=== PATIENT | male | born 1930 | race Hispanic/Latino ===

== ENCOUNTER 2016-10-06 09:53 | Emergency (ER) | payer MEDICARE, OTHER ==
[~2016-10-06] VITALS: Ht 162.6 cm; Wt 70.0 kg
[~2016-10-06 09:53] MED LIST: ALBU0.423 IH; DIGO125T PO; DOXA1TAB PO; DUL10S PR; POLY1PAC PO; PROT40T PO; TOP200 PO; ZOC20 PO
[2016-10-06 10:00] VITALS: BP 113/50; PULSE 75; RESP 12; O2SAT 97
--- NOTE | 2016-10-06 10:02 | ED.REPORT ---
HPI-Chest Pain 40 and Over Date of Service Oct 06, 2016 ED Provider: Shivam Topete DO 85 year old male with a history of HTN, dyslipidemia, GERD and asthma presents to the ER via EMS with "prickling" chest pain and nausea onset at 05:00 this morning. He also reports several bouts of violent vomiting, and watery diarrhea. Symptoms are currently resolved. Patient was seen at urgent care for symptoms and referred to the ER. Nursing Notes Stated Complaint: CHEST PAIN RESOLVED Chief Complaint: Chest Pain Nursing Notes Reviewed: Yes Allergies: Coded Allergies: No Known Allergies (Unverified Allergy, 05/02/13) Scheduled Bisacodyl-Expunged Drug, Do Not Renew! (Bisacodyl-Expunged Drug, Do Not Renew!) 10 Mg Supp 10 MG MS DAILY REMOVE WRAPPER PRIOR TO INSERTION For the relief of constipation. Digoxin-Expunged Drug, Do Not Renew! (Digoxin-Expunged Drug, Do Not Renew!) 125 Mcg Tablet 125 MCG PO DAILY Doxazosin-Expunged Drug, Do Not Renew! (Doxazosin-Expunged Drug, Do Not Renew!) 1 Mg Tablet 1 MG PO HS Metoprolol Suc-Expunged Drug, Do Not Renew! (Metoprolol Suc-Expunged Drug, Do Not Renew!) 200 Mg Tab.sr.24h 200 MG PO DAILY PEG 3350-Expunged Drug, Do Not Renew! (MIRALAX-Expunged Drug, Do Not Renew!) 17 Gm/Pkt Packet 17 GM PO DAILY Pantoprazole-Expunged Drug, Do Not Renew! (Protonix-Expunged Drug, Do Not Renew! ) 40 Mg Tablet.dr 40 MG PO 0730 40 MG Simvastatin-Expunged Drug, Choose New Med! (Simvastatin-Expunged Drug, Choose New Med!) 20 Mg Tablet 40 MG PO DAILY Scheduled PRN Ondansetron ODT (Zofran ODT) 4 Mg Tablet 4 MG PO Q4H PRN PRN For Nausea Miscellaneous Medications Albuterol-Expunged Drug, Do Not Renew! (Albuterol-Expunged Drug, Do Not Renew!) 1.25 Mg/3 Ml Nebu 1.25 MG IH General Time Seen by MD: 10:02 Chief Complaint Chest pain Hx Obtained From: Patient Arrived By: Ambulance Sudden in Onset?: Yes Onset Occurred: 5 - 8 hours ago (5) Location: : Substernal Quality: Painful ("Prickling") Severity: Current: No pain currently Severity: Maximum: Moderate Associated with: Reports: Nausea, Vomiting, Denies: Cough, non-productive, Cough, productive Past Medical History Past Medical History Dyslipidemia Reports: Asthma, Cancer (Prostate), GERD, Hypertension Past Surgical History Hiatal hernia repair Reports: Appendectomy, Prostatectomy Smoking History Former Smoker Review of Systems Respiratory: Denies: Non-productive cough, Shortness of breath Cardiovascular: Reports: Chest pain GI: Reports: Diarrhea, Nausea, Vomiting, Denies: Abdominal pain, Bloody/tarry stool, Hematochezia Musculoskeletal: Denies: Back pain, Extremity pain, Neck pain Skin: Denies Diaphoresis Complete sys rev & neg: except as marked. Physical Exam Initial Vital Signs Vital Signs (First) Date Time Temp Pulse Resp B/P Pulse Ox O2 Delivery O2 Flow Rate FiO2 10/06/16 10:00 37 75 12 113/50 97 Room Air Initial VS: Reviewed Head / Eyes: Atraumatic, Normocephalic Neck: Supple, Non-tender, Full range of motion Extremities: Vascular intact, Neuro intact, No swelling, No tenderness Skin: Warm, Dry, No cyanosis Neurologic: Alert, Oriented, Nonfocal General/Constitutional: Awake, Alert, Well developed, Well nourished Respiratory / Chest: Breath sounds NL, Breath sounds = bilat, No respiratory distress, No rales, No rhonchi, No wheezing, No stridor, No chest tenderness Cardiovascular: Heart rate NL, Regular rhythm, Peripheral circulation NL, Pulses = bilaterally, No gross BP differential Heart Sounds / Murmur: Positive: Systolic murmur present.. (left lower sternal border) Abdomen: Soft, Non-tender, No guarding, No rebound, No distention Interpretation & Diagnostics Lab Results Interpretation Result Diagram: 10/06/16 1020 10/06/16 1020 Test 10/06/16 10:20 10/06/16 14:00 White Blood Count 11.1th/mm3 (3.8-10.1) Red Blood Count 4.38mil/mm3 (4.40-5.80) Hemoglobin 13.3g/dL (13.8-17.2) Hematocrit 39.3% (41.0-50.0) Mean Corpuscular Volume 89.7fL (81-100) Mean Corpuscular Hemoglobin 30.4pg (27.0-35.0) Mean Corpuscular Hemoglobin Concent 33.8% (32.0-37.0) Red Cell Distribution Width 13.1% (12.3-15.4) Platelet Count 168bil/L (150-400) Neutrophils (%) (Auto) 93.1% (40-74) Lymphocytes (%) (Auto) 2.6% (14-46) Monocytes (%) (Auto) 3.8% (4-12) Eosinophils (%) (Auto) 0.1% (0-5) Basophils (%) (Auto) 0.2% (0-3) Sodium Level 138mEq/L (134-144) Potassium Level 4.4mEq/L (3.5-5.2) Chloride Level 102mEq/L (97-108) Carbon Dioxide Level 19mmol/L (18-29) Blood Urea Nitrogen 31mg/dL (8-27) Creatinine 1.03mg/dL (0.76-1.27) Estimat Glomerular Filtration Rate 73mL/min (>59) Glucose Level 156mg/dL (60-99) Calcium Level 9.8mg/dL (8.5-10.1) Magnesium Level 1.7mg/dL (1.6-2.6) Total Bilirubin 0.6mg/dL (0.0-1.2) Aspartate Amino Transf (AST/SGOT) 28U/L (0-50) Alanine Aminotransferase (ALT/SGPT) 20U/L (0-44) Alkaline Phosphatase 67U/L (25-160) Troponin T < 0.010ug/L (0.0-0.011) Pro-B-Type Natriuretic Peptide 3380pg/mL (0-486) Total Protein 7.3g/dL (6.4-8.4) Albumin 4.1g/dL (3.4-5.0) Digoxin Level 0.8nG/mL (0.9-2.0) Hold Urine Received (Received) ECG Interpretation ECG Interpretation: Sinus rhythm, rate 74 LBBB Time: 10:30 Interpreted by: ED physician X-Ray Abdominal Interpretation IMPRESSION: Nonspecific bowel gas pattern with gaseous distention and air-fluid levels involving the stomach and small bowel. If there is clinical concern for for obstruction, then CT scan of the abdomen/pelvis should be performed for further evaluation. Dictated by: Amy Butcher MD, PhD on 10/06/2016 at 10:55 Approved by: Amy Butcher MD, PhD on 10/06/2016 at 10:55 Study: 2 view Interpretation / Wet Read by: Interpret - Radiologist CT Abd / Pelvis Interpretation IMPRESSION: Pelvic surgery, no sign of intestinal obstruction or perforation, several scattered hepatic cysts are present, along the pelvic sidewalls. Currently there is no sign of acute disease. Dictated by: James Combs M.D. on 10/06/2016 at 13:35 Approved by: James Combs M.D. on 10/06/2016 at 13:35 Study type: Abdominal CT IV contrast, Abdom CT oral contrast Interpretation / Wet Read by: Interpret - Radiologist Re-Eval/Medical Decision Med Decision/Clinical Course Overall no lice or incontinence for the patient's abdominal pain vomiting and chest pain is identified. CAT scan unremarkable. Troponin negative. BNP elevated though no true signs of heart failure. Urinalysis negative. Patient is feeling better and will be discharged. Tolerating oral intake in the ER. Return precautions given. Zofran prescribed. Source of Hx: Old records Time of Eval: 11:34 Re-Evaluation/Progress Note: Patient's daughter is now present. Discussed patient case with her and updated her on the plan of care. Time of Eval: 13:48 Re-Evaluation/Progress Note: Updated patient on the plan of care. Requested urine sample. Time of Eval: 14:14 Re-Evaluation/Progress Note: Discussed lab and radiology results with patient's daughter. Discussed plan to discharge. She understands and agrees to the plan. Return precautions given. All other questions addressed. Counseled Regarding: Diagnosis, Lab results, Need for follow-up, When/why to return to ED Discharge & Departure Primary Impression: Vomiting Disposition: Home Discharge Condition All VS Reviewed: Yes Condition: Stable Additional Instructions: Overall no life threatening cause for your vomiting was found today. It does not appear that you had a heart attack, you are not in active heart failure. You do not have a bowel obstruction or any other abdominal pathology. There is no evidence of urinary tract infection. Digoxin level was normal. Use Zofran for vomiting. Follow-up with the primary care doctor. Return to the ER or follow up with your regular doctor as needed for worsening symptoms. Referrals: Faustino Chance MD (PCP) Natty Attestation Portions of this note were transcribed by Jose David Miller. I, Dr. Topete, personally performed the history, physical exam and medical decision-making; I reviewed and confirmed the accuracy of the information in the transcribed note. Signed by: Natty Lucio, 10/06/2016 and 14:19 copies to: Faustino Chance MD, Timothy S DO Oct 06, 2016 10:02 JOSE DAVID MILLER Oct 06, 2016 10:18
[2016-10-06] MEDS ORDERED: Ondansetron 2 mg/mL 2 mL Inj IVPUSH PRN (10:10)
[2016-10-06 10:33] LABS: BASOPHILS % (AUTO) 0.2 % (0-3); EOSINOPHILS % (AUTO) 0.1 % (0-5); MONOCYTES % (AUTO) 3.8 % (4-12); Mean Corpuscular Hemoglobin 30.4 pg (27.0-35.0); Mean Corpuscular Volume 89.7 fL (81-100); NEUTROPHILS % (AUTO) 93.1 % (40-74); Platelet Count 168 bil/L (150-400)
--- NOTE | 2016-10-06 10:57 | DRSVH ---
PROCEDURE: X-RAY ACUTE ABDOMINAL SERIES ([id number]) INDICATIONS: chest pain, vomiting, h/o SBO TECHNIQUE: One view chest and two views of the abdomen were acquired. COMPARISON: [facility], CR, XR ABD ACUTE SERIES 3VW, 07/23/2015, 13:18. FINDINGS: Surgical changes and devices: None. Chest: Lungs are clear. Heart size is normal. No pleural effusions. No pneumoperitoneum. Abdomen: Bowel gas pattern is nonspecific. Gaseous distention of the stomach with internal gastric a ir-fluid level noted. Mild distention of loop of small bowel left upper quadrant is noted. Scattered air-fluid levels noted in the abdomen which do not have differential heights. No suspicious calcifica tions. Visualized solid organ contours appear normal. Surgical clips project over the lower pelvis l ikely related to prior prostatectomy/pelvic node dissection. Bones: No suspicious bony lesions. Spine degenerative disc disease and facet arthropathy are noted. IMPRESSION: Nonspecific bowel gas pattern with gaseous distention and air-fluid levels involving the stomach and small bowel. If there is clinical concern for for obstruction, then CT scan of the abdome n/pelvis should be performed for further evaluation. Dictated by: Amy Butcher MD, PhD on 10/06/2016 at 10:55 Approved by: Amy Butcher MD, PhD on 10/06/2016 at 10:55
[2016-10-06] MEDS ORDERED: Iohexol 300 mg/mL 30 mL Inj PO ONE (11:25)
[2016-10-06 11:43] LABS: Magnesium 1.7 mg/dL (1.6-2.6); TROPONIN T < 0.010 ug/L (0.0-0.011)
--- NOTE | 2016-10-06 13:37 | DRSVH ---
PROCEDURE: CT ABDOMEN AND PELVIS WITH CONTRAST ([id number]) INDICATIONS: vomiting ho SBO TECHNIQUE: After the administration of oral and intravenous contrast, 5 mm thick sections acquired from the diap hragms to the symphysis. 5 mm thick coronal and sagittal reformats were performed. For radiation do se reduction, the following was used: automated exposure control, adjustment of mA and/or kV accordi ng to patient size. COMPARISON: [facility], CT, ABD/PELVIS W/CON (PNL), 05/02/2013, 9:02. [facility], CT, CT ABD PELVIS W CON, 10/06/2015, 17:26. FINDINGS: Image quality: Excellent. ABDOMEN: Lung bases: Lung bases are clear. Heart size is normal. Solid organs: Liver and spleen are normal in size and enhancement. Several small hepatic cysts are present, no hepatic mass lesion or intrahepatic biliary distention is found. Gallbladder appears nor mal. Biliary system is non-dilated. Pancreas enhances normally. No adrenal nodules. Kidneys are n ormal in size and enhancement, without hydronephrosis. Peritoneum and bowel: Stomach, small bowel, and colon loops are normal in caliber and wall thickness . No free fluid or air. Nodes and vessels: No retroperitoneal or mesenteric adenopathy. Aorta and inferior vena cava are no rmal in caliber. Miscellaneous: No ventral hernias. PELVIS: Genitourinary: Bladder wall thickness is normal. Miscellaneous: No inguinal hernias or adenopathy. Pelvic sidewall surgical clips are noted bilatera lly. No adenopathy or inflammatory change is associated. Bones: No suspicious bony lesions. No vertebral body compression fractures. IMPRESSION: Pelvic surgery, no sign of intestinal obstruction or perforation, several scattered hepat ic cysts are present, along the pelvic sidewalls. Currently there is no sign of acute disease. Dictated by: James Combs M.D. on 10/06/2016 at 13:35 Approved by: James Combs M.D. on 10/06/2016 at 13:35
[2016-10-06] MEDS ORDERED: ONDA4TAB9 PO (14:17)
[2016-10-06 14:34] VITALS: BP 116/70; PULSE 68; RESP 12; O2SAT 98
== END 2016-10-06 14:38 | disposition home or self-care (01) ==
LOC: EDBD 09:53 → SED 09:53
DX: K76.89 Other specified diseases of liver (principal); K31.89 Other diseases of stomach and duodenum; R11.2 Nausea with vomiting, unspecified; R07.9 Chest pain, unspecified; R19.7 Diarrhea, unspecified; I10 Essential (primary) hypertension; E78.5 Hyperlipidemia, unspecified; K21.9 Gastro-esophageal reflux disease without esophagitis; J45.909 Unspecified asthma, uncomplicated; Z85.46 Personal history of malignant neoplasm of prostate; Z87.891 Personal history of nicotine dependence
CPT/HCPCS: 36415; 74022; 74177; 80053; 80162; 83735; 83880; 84484; 85025; 93005; 99285; A4300; G0463; Q9967

== ENCOUNTER 2017-01-16 08:26 | Inpatient (IN) | payer MEDICARE ==
[~2017-01-16] VITALS: Ht 171.4 cm; Wt 61.4 kg
[2017-01-16] VITALS (10 sets, daily range): BP systolic 112–140; BP diastolic 49–96; PULSE 52–129; RESP 18–30; O2SAT 92–99
[~2017-01-16 08:26] MED LIST changes: +ONDA4TAB9 PO
--- NOTE | 2017-01-16 08:57 | ED.REPORT ---
HPI-Dyspnea / Wheezing Date of Service January 16, 2017 ED Provider: Octavio Irizarry MD 86 year old male who is a former smoker with a history of asthma, emphysema, atrial fibrillation, and HTN presents to the ER via EMS complaining of shortness of breath and cough onset yesterday. He also reports left side rib pain, and chest pressure with onset of pain. Patient denies fever, chest pain, production of sputum with cough, nausea, vomiting, and any recent falls. Medics report 86% O2 saturation on room air, and 92-96% on O2. Currently he states that he is not on anticoagulants. Nursing Notes Stated Complaint: SOB W/COUGH Chief Complaint: Respiratory Complaints Nursing Notes Reviewed: Yes Allergies: Coded Allergies: No Known Allergies (Unverified Allergy, Unknown, 10/13/16) Scheduled Cholecalciferol (Vitamin D3) (Vitamin D3) 1,000 Unit Tab.chew 2,000 UNIT PO DAILY Digoxin (Digoxin) 125 Mcg Tablet 125 MCG PO DAILY Doxazosin (Cardura) 1 Mg Tablet 1 MG PO HS Ferrous Sulfate (Iron) 325 Mg Tablet 325 MG PO BID Metoprolol Succinate ER (Metoprolol Succinate ER) 200 Mg Tab.er.24h 200 MG PO DAILY Simvastatin (Simvastatin) 40 Mg Tablet 40 MG PO HS Scheduled PRN Bisacodyl (Bisacodyl Rectal) 10 Mg/30 Ml Enema 10 MG RC PRN PRN PRN For Constipation Ondansetron ODT (Zofran ODT) 4 Mg Tablet 4 MG PO Q4H PRN PRN For Nausea Miscellaneous Medications Polyethylene Glycol 3350 (Miralax) 17 Gm Powd.pack 17 GM PO General Time Seen by MD: 08:51 Chief Complaint Cough, Shortness of breath Hx Obtained From: Patient Arrived By: Ambulance Sudden in Onset?: No Onset Occurred: Yesterday Symptom Duration: Since onset Associated with: Denies: Chest pain, Fever, Nausea, Vomiting Pertinent Negative: Pt denies other symptoms Context Related History: Reports: COPD Asthma History: Asthma diagnosed Similar Sx Previous: Yes Past Medical History Past Medical History Dyslipidemia Reports: Asthma, COPD, Cancer, GERD, Hypertension Reports: Atrial fibrillation Past Surgical History Hiatal hernia repair Reports: Appendectomy, Prostatectomy Smoking History Former Smoker Review of Systems Constitutional: Denies: Chills, Fever Respiratory: Reports: Non-productive cough, Shortness of breath Cardiovascular: Denies: Chest pain Musculoskeletal: Reports: Thoracic pain (Left Rib), Denies: Back pain, Extremity pain, Neck pain Complete sys rev & neg: except as marked. GI: Denies: Abdominal pain, Diarrhea, Nausea, Vomiting Physical Exam Initial Vital Signs Vital Signs (First) Date Time Temp Pulse Resp B/P Pulse Ox O2 Delivery O2 Flow Rate FiO2 01/16/17 08:49 36.2 100 22 130/96 99 Nasal Cannula 2 Initial VS: Reviewed Head / Eyes: Atraumatic, Normocephalic Abdomen / GI: Soft, Non-tender, No guarding, No rebound, No distention Extremities: Vascular intact, Neuro intact, No swelling, No tenderness Skin: Warm, Dry, No cyanosis Neurologic: Alert, Oriented, Nonfocal Psychiatric: Mood/affect normal, Behavior normal, Normal thought content General/Constitutional: Awake, Alert, Well developed Neck: Atraumatic, Supple, No meningismus, Full range of motion, No swelling, Non-tender, No masses Respiratory / Chest: No wheezing, No chest wall deformity Bibasilar crackles. Tender left lower rib cage. Cardiovascular: No gallop, No murmurs, No rubs Heart Rate / Rhythm: Positive: Irregular rhythm Back: Inspection NL, Non-tender, No CVA tenderness Interpretation & Diagnostics Lab Results Interpretation Result Diagram: 01/16/17 0947 01/16/17 0947 Test 01/16/17 09:47 01/16/17 13:00 White Blood Count 9.8th/mm3 (3.8-10.1) Red Blood Count 4.35mil/mm3 (4.40-5.80) Hemoglobin 13.3g/dL (13.8-17.2) Hematocrit 40.3% (41.0-50.0) Mean Corpuscular Volume 92.6fL (81-100) Mean Corpuscular Hemoglobin 30.6pg (27.0-35.0) Mean Corpuscular Hemoglobin Concent 33.0% (32.0-37.0) Red Cell Distribution Width 13.8% (12.3-15.4) Platelet Count 152bil/L (150-400) Neutrophils (%) (Auto) 73.3% (40-74) Lymphocytes (%) (Auto) 14.6% (14-46) Monocytes (%) (Auto) 10.4% (4-12) Eosinophils (%) (Auto) 1.1% (0-5) Basophils (%) (Auto) 0.4% (0-3) D-Dimer 1.57mg/L FEU (<0.50) Sodium Level 133mEq/L (134-144) Potassium Level 4.9mEq/L (3.5-5.2) Chloride Level 97mEq/L (97-108) Carbon Dioxide Level 23mmol/L (18-29) Blood Urea Nitrogen 27mg/dL (8-27) Creatinine 1.22mg/dL (0.76-1.27) Estimat Glomerular Filtration Rate 60mL/min (>59) Glucose Level 119mg/dL (60-99) Calcium Level 9.7mg/dL (8.5-10.1) Total Bilirubin 0.8mg/dL (0.0-1.2) Aspartate Amino Transf (AST/SGOT) 38U/L (0-50) Alanine Aminotransferase (ALT/SGPT) 39U/L (0-44) Alkaline Phosphatase 82U/L (25-160) Troponin T 0.015ug/L (0.0-0.011) Pro-B-Type Natriuretic Peptide 8359pg/mL (0-486) Total Protein 7.4g/dL (6.4-8.4) Albumin 4.4g/dL (3.4-5.0) Urine Color Yellow (YELLOW) Urine Appearance Hazy (CLEAR,HAZY) Urine pH 6.0 (5.0-8.0) Urine Specific [place] 1.005 (1.003-1.035) Urine Protein Negativemg/dL (NEG,TRACE) Urine Glucose (UA) Negativemg/dL (NEGATIVE) Urine Ketones Negativemg/dL (NEGATIVE) Urine Occult Blood Negative (NEGATIVE) Urine Nitrite Negative (NEGATIVE) Urine Bilirubin Negative (NEGATIVE) Urine Urobilinogen Normalmg/dL (NORMAL) Urine Leukocyte Esterase Negative (NEGATIVE) Urine RBC 0-2/hpf (0-2) Urine WBC 0-5/hpf (0-5) Urine Epithelial Cells Occasional/hpf (NONE-MOD) Urine Crystals None seen (NONE SEEN) Urine Bacteria None/hpf (NONE-FEW) Urine Hyaline Casts None/lpf (NONE) Urine Granular Casts None seen (NONE SEEN) Urine Waxy Casts None seen (NONE SEEN) Urine Red Blood Cell Casts None seen (NONE SEEN) Urine White Blood Cell Casts None seen (NONE SEEN) Urine Mucus None seen (None Seen) Urine Trichomonas None seen (NONE SEEN) Urine Yeast None (NONE SEEN) Urinalysis Comment None Urine Culture Reflexed Not indicated ECG Interpretation ECG Interpretation: Atrial fibrillation, rate 83 LBBB Unchanged from prior Time: 09:26 Interpreted by: ED physician ECG Interpretation: Atrial fibrillation, rate 128 LBBB Unchanged from prior Time: 13:49 Interpreted by: ED physician X-Ray Chest Interpretation Chest Xray Interpretation: IMPRESSION: Patchy bilateral airspace disease is most suspicious for pneumonia. Atypical pulmonary edema may have this appearance, as well. Dictated by: Carmine Watson M.D. on 01/16/2017 at 8:22 Approved by: Carmine Watson M.D. on 01/16/2017 at 8:23 View: Portable, 1 view Interpretation / Wet Read by: Interpret - Radiologist CT Chest Interpretation IMPRESSION: 1. No pulmonary emboli. 2. Patchy areas of groundglass attenuation and bronchial wall thickening are suspicious for bronchitis with developing pneumonia (right more than left). 3. Small moderate-sized bilateral effusions. 4. Cardiomegaly with findings suspicious for developing pulmonary edema. Please correlate clinically. Dictated by: Carmine Watson M.D. on 01/16/2017 at 11:35 Approved by: Carmine Watson M.D. on 01/16/2017 at 11:42 Study type: CT pulm angiogram Interpretation / Wet Read by: Interpret - Radiologist Re-Eval/Medical Decision Med Decision/Clinical Course 86-year-old male history of COPD presenting with dyspnea times several days. Questionable vague chest pain that he initially reported last night but then reported it was [address] angiogram with bibasilar pneumonia and no PE. BNP is elevated. Troponins are mildly elevated. EKG with atrial fibrillation. Patient admitted for pneumonia, ACS rule out. As he was awaiting transfer he went into atrial fibrillation with RVR which resolved with diltiazem 20 mg IV push. Heart rate was 50s at time of transfer. Patient was given aspirin for his troponinemia and we will trend troponins and EKG. Source of Hx: Old records Re-Evaluation/Progress : Time of Eval: 13:15 Re-Evaluation/Progress Note: Discussed lab and imaging results and need for admission. Patient is amenable to the plan. Return precautions given. All other questions addressed. Consultation : Referral / Consult Name: Abdirahman Ram Consulted With: Hospitalist Call Returned at: 13:41 Billing And Quality Technician: Agrees with eval, Agrees with plan, Accepts admit Counseled Regarding: Diagnosis, Lab results, Need for admission Discharge & Departure Impression: Primary Impression: Pneumonia Additional Impressions: Elevated troponin Tachycardia Atrial fibrillation with rapid ventricular response Disposition: ADMITTED TO HOSPITAL Discharge Condition All VS Reviewed: Yes Condition: Stable Referrals: NOPCP (PCP) Crit Care Except Billable Proc Time Spent: 30-74 minutes (42) Services Performed: Patient management by me, Time spent at bedside, Reviewing test results, Reviewing imaging, Discussing patient care, Documentation in record Scribe Attestation Portions of this note were transcribed by Jose David Miller. I, Dr. Irizarry, personally performed the history, physical exam and medical decision-making; I reviewed and confirmed the accuracy of the information in the transcribed note. Signed by: Natty Lucio, 01/16/2017 at 14:26 Octavio Irizarry MD January 16, 2017 08:57 JOSE DAVID MILLER January 16, 2017 09:05
--- NOTE | 2017-01-16 09:25 | DRSVH ---
PROCEDURE: X-RAY CHEST ONE VIEW, PORTABLE ([id number]) INDICATIONS: sob TECHNIQUE: One view of the chest was acquired. COMPARISON: [facility], CR, XR ABD ACUTE SERIES 3VW, 10/06/2016, 10:38[facility] ([facility]), 05/04/2013, 11:40. FINDINGS: Surgical changes and devices: None. Lungs and pleura: Patchy airspace disease is present within the mid right and left lungs. No lobar c onsolidation, large effusion, or definite pneumothorax is evident. Slight blunting of the right cost ophrenic angle may represent scarring. Mediastinum: Mediastinal contours appear normal. Heart size is borderline enlarged. There is aorti c atherosclerosis. Bones and chest wall: No suspicious bony lesions. Overlying soft tissues appear unremarkable. IMPRESSION: Patchy bilateral airspace disease is most suspicious for pneumonia. Atypical pulmonary e yoselin may have this appearance, as well. Dictated by: Carmine Watson M.D. on 01/16/2017 at 8:22 Approved by: Carmine Watson M.D. on 01/16/2017 at 8:23
[2017-01-16 10:02] LABS: BASOPHILS % (AUTO) 0.4 % (0-3); EOSINOPHILS % (AUTO) 1.1 % (0-5); MONOCYTES % (AUTO) 10.4 % (4-12); Mean Corpuscular Hemoglobin 30.6 pg (27.0-35.0); Mean Corpuscular Volume 92.6 fL (81-100); NEUTROPHILS % (AUTO) 73.3 % (40-74); Platelet Count 152 bil/L (150-400)
[2017-01-16 10:38] LABS: TROPONIN T 0.015 ug/L (0.0-0.011)
--- NOTE | 2017-01-16 12:43 | DRSVH ---
PROCEDURE: CT ANGIO CHEST PULMONARY EMBOLISM ([id number]) INDICATIONS: dyspnea elevated ddimer r/o pe TECHNIQUE: After the administration of intravenous contrast, 2 mm thick sections acquired from the pulmonary api sherri to the posterior costophrenic angles. 3-dimensional maximum intensity projection (MIP) coronal a nd sagittal reformats were then acquired through the thorax. For radiation dose reduction, the follo wing was used: automated exposure control, adjustment of mA and/or kV according to patient size. COMPARISON: None. FINDINGS: Image quality: Diagnostic. Pulmonary arteries: Pulmonary arteries are normal in size, and demonstrate no intraluminal filling d efects to suggest central pulmonary embolism. Lungs and pleura: There may be early centrilobular emphysematous changes within the lung apices. Are as of intralobular septal thickening are noted within the lung apices. Moderate bronchial wall thick ening is present within the perihilar regions, which is more prominent within the infrahilar regions (right greater than left). There is groundglass density identified within the lateral right upper lo be (image 55, series 4). Additional areas of vague ground glass attenuation within the lung bases ma y be related to atelectasis. Interlobular septal thickening within the lung bases is present. There are small to moderate-sized bilateral pleural effusions (right greater than left). There is no lung mass. Evaluation for pulmonary nodules is difficult on this examination. However, no definite lung nodule is appreciated. Mediastinum: Heart size is enlarged, without pericardial effusion. No mediastinal or hilar adenopat hy. Thoracic aorta is normal in caliber and enhancement. Esophagus is normal in caliber, without hi atal hernia. Bones and chest wall: No suspicious bony lesions. Ribs and thoracic spine appear intact throughout. Multilevel degenerative changes of the spine are present. Several impacted teeth within the midlin e mandible are incidentally noted. Mild right maxillary sinus disease is incidentally noted. Thyroi d gland is not adequately evaluated. No axillary or supraclavicular adenopathy. Abdomen: Contrast extending into the liver may be related to reflux from right heart failure. There may be a few right hepatic cysts. There appears to be splenic flexure diverticulosis. Questionable edema within the upper abdomen may be present. IMPRESSION: 1. No pulmonary emboli. 2. Patchy areas of groundglass attenuation and bronchial wall thickening are suspicious for bronchit is with developing pneumonia (right more than left). 3. Small moderate-sized bilateral effusions. 4. Cardiomegaly with findings suspicious for developing pulmonary edema. Please correlate clinicall y. Dictated by: Carmine Watson M.D. on 01/16/2017 at 11:35 Approved by: Carmine Watson M.D. on 01/16/2017 at 11:42
[2017-01-16] MEDS ORDERED: CHOL10008 PO (13:02)
[2017-01-16] MEDS ORDERED: FERR325T39 PO (13:02)
[2017-01-16] MEDS ORDERED: METO200T32 PO (13:05)
[2017-01-16] MEDS ORDERED: BISA10EN RC (13:05)
[2017-01-16] MEDS ORDERED: SIMV40TA5 PO (13:05)
[2017-01-16] MEDS ORDERED: POLY17PO6 PO (13:05)
[2017-01-16] MEDS ORDERED: DIGO125T73 PO (13:05)
[2017-01-16] MEDS ORDERED: DOXA1TAB PO (13:05)
[2017-01-16] MEDS ORDERED: Azithromycin Inj 500 MG in Dextrose 5% 250 ML IV ONE (13:05)
[2017-01-16] MEDS ORDERED: cefTRIAXone Inj 2,000 MG in Dextrose 5% Minibag Plus 50 ML IV ONE (13:05)
[2017-01-16 13:26] LABS: APPEARANCE,URINE HAZY (CLEAR,HAZY); COLOR,URINE YELLOW (YELLOW); OCCULT BLOOD,URINE NEGATIVE (NEGATIVE); UROBILINOGEN,URINE NORMAL (NORMAL)
[2017-01-16] MEDS ORDERED: Ondansetron 2 mg/mL 2 mL Inj IVPUSH PRN (13:45)
[2017-01-16] MEDS ORDERED: Alum-Mag Hydrox-Simeth 30 mL Suspension PO PRN (13:45)
[2017-01-16] MEDS ORDERED: Polyethylene Glycol (PEG) 17 Gm Powder PO PRN (13:45)
[2017-01-16] MEDS ORDERED: Furosemide 10 mg/mL 4 mL Inj IVPUSH ONE (13:50)
[2017-01-16] MEDS ORDERED: Diltiazem 5 mg/mL 5 mL Inj ONE (14:21)
[2017-01-16] MEDS ORDERED: Diltiazem 5 mg/mL 5 mL Inj IVPUSH ONE (14:25)
--- NOTE | 2017-01-16 15:13 | PCM.HPMED ---
Subjective Date of Service January 16, 2017 Primary Provider: Admitting Physician: Abdirahman Ram DO [facility] Attending Physician: Abdirahman Ram DO Chief Complaint: Worsening shortness of breath History of Present Illness: 86 yo M with pmhx of asthma, emphysema , tobacco dependence, atrial fibrillation (not on anticoagulation therapy) , in addition to HTN, presenting to ER from adult home via EMS due to shortness of breath starting yesterday and worsening progressively through today. He notes some chest pressure and rib pain in ER, but with was relieved with a pill they gave him, not presento n my exam. He denies fareed of frnak chest pain, also denies sensation of palpiations. He notes a cough, more chronic in nature, but generally not productive. He denies nausea/vomting. Denies recent fareed of fever/chills. Review of Systems: 10 point review of systems was conducted and entirely negative excepting pertinent positives and negatives included in above history of present illness Allergies Coded Allergies: No Known Allergies (Unverified Allergy, Unknown, 10/13/16) Home Medications Cholecalciferol (Vitamin D3) (Vitamin D3) 1,000 Unit Tab.chew 2,000 UNIT PO DAILY Digoxin (Digoxin) 125 Mcg Tablet 125 MCG PO DAILY Doxazosin (Cardura) 1 Mg Tablet 1 MG PO HS Ferrous Sulfate (Iron) 325 Mg Tablet 325 MG PO BID Metoprolol Succinate ER (Metoprolol Succinate ER) 200 Mg Tab.er.24h 200 MG PO DAILY Simvastatin (Simvastatin) 40 Mg Tablet 40 MG PO HS Scheduled PRN Bisacodyl (Bisacodyl Rectal) 10 Mg/30 Ml Enema 10 MG RC PRN PRN PRN For Constipation Ondansetron ODT (Zofran ODT) 4 Mg Tablet 4 MG PO Q4H PRN PRN For Nausea PMH Dyslipidemia Asthma, COPD, Cancer, GERD, Hypertension Atrial fibrillation Surgical History Hiatal hernia repair Appendectomy Prostatectomy Social History Hx Alcohol Use: No Hx Substance Use: No Hx Tobacco Use: No Smoking Status: Former Smoker Exam Vital Signs Vital Sign - Last Date Time Temp Pulse Resp B/P Pulse Ox O2 Delivery O2 Flow Rate FiO2 01/16/17 14:03 37.3 129 18 131/85 92 Nasal Cannula 1 General: Alert, Oriented X3, Cooperative, Mild Distress Eyes: EOMI Mouth: Mucous Membr Moist/[place] Chest & Lungs: Clear to auscultation & percussion, Coarse breath sounds Cardiovascular: Other (Regular rate with irregular rhythm. ) Abdomen: Non-tender, Non-distended Extremities: No cyanosis/clubbing/edma bilat Neurological: Grossly Neurologically Intact Lab and Diagnostics Result Diagram: 01/16/17 0947 01/16/17 0947 Assessment & Plan 86-year-old male past medical history significant for atrophic fibrillation and chronic lung disease presenting now with evidence of pneumonia in addition to possible CHF exacerbation. Patient's atrial fibrillation, which he is not anticoagulant for but is typically under good rate control is in acute state of rapid ventricular rate which has responded well to diltiazem therapy. Patient arrived to the floor in stable medical condition with a guarded prognosis admitted for further evaluation and medical management. 1. Community-acquired pneumonia - Patient was placed on appropriate antibiotics - Blood cultures are currently pending - We will refrain from aggressive intravenous hydration in the setting of possible congestive heart failure exacerbation 2. Atrial fibrillation with RVR - Patient is reportedly rate controlled on home dose of metoprolol, no recent episodes of RVR reported - Bili was initially in good control during ER evaluation nearing time of transfer to floor he became acutely elevated in the 140s prompting one-time administration of diltiazem - Rate responded promptly drop into within normal limits following this administration, - Plan to continue home metoprolol current dosage, will consider additional therapies based on pulse rate - We will continue to monitor on continuous telemetry. - Echocardiogram pending to assess cardiac function 3. CHF exacerbation - Based on radiographic findings in addition elevated BNP is likely that this is at least contribute exam the patient's declining status - Echocardiogram as noted above is ordered and pending - He was provided a one-time dosage of Lasix in ER will continue to monitor ins and outs closely, consider further dosing as appropriate however in the setting acute infection we will do so with caution. Pain Evaluation: Adequate Pain Control GI Prophylaxis: Not indicated VTE Prophylaxis: Sub-Q Heparin (Unfractionated) Resuscitation Status: CPR: Attempt Resuscitation Abdirahman Ram DO January 16, 2017 15:13 Abdirahman Ram DO January 16, 2017 15:13
[2017-01-16] MEDS: Heparin 5,000 Unit/mL Inj SUBQ SCH (17:50)
--- NOTE | 2017-01-16 17:52 | DRSVH ---
[facility] [address] [place] [address] Echocardiogram Report Name: JANE LOPEZ RStudy Date : 01/16/2017 Height: 66 in Hospital Exam Location: [facility] Weight: 145 lb Gender: Male BSA: 1.7 m2 : 1930 Age: 86 yrs BP: 105/52 mmHg Reason For Study: Congestive Heart Failure Ordering Physician: Performed By: [facility] Interpretation Summary The left ventricle is severely dilated. The ejection fraction is estimated to be 15-20%. There is severe global hypokinesis of the left ventricle. There is severe biatrial enlargement. There is moderate mitral regurgitation. There is moderate tricuspid regurgitation. The right ventricular systolic pressure is estimated at 43 mmHg assuming a right atrial pressure of 8 mm Hg. Procedure: A two-dimensional transthoracic echocardiogram with color flow and Doppler was performed. The study quality was technically good. There is no prior echocardiogram noted for this patient. The patient was in atrial fibrillation with heart rates between 63-75 bpm during the exam. Left Ventricle: The left ventricle is severely dilated. There is normal left ventricular wall thickness. There is no thrombus. The ejection fraction is estimated to be 15-20%. There is severe global hypokinesis of the left ventricle. Diastolic function could not be accurately assessed due to atrial fibrillation. Right Ventricle: The right ventricle grossly appears normal in size with probable normal systolic function. Atria: The left atrium is severely dilated. There is severe biatrial enlargement. The right atrium is severely dilated. The interatrial septum is intact with no evidence for an atrial septal defect. Mitral Valve: The mitral valve leaflets appear mildly thickened, but open well. There is moderate mitral regurgitation. Aortic Valve: The aortic valve is trileaflet. The aortic valve opens well. The aortic valve is slightly calcified. No aortic regurgitation is present. Tricuspid Valve: The tricuspid valve leaflets are thin and pliable. There is moderate tricuspid regurgitation. The right ventricular systolic pressure is estimated at 43 mmHg assuming a right atrial pressure of 8 mm Hg. Pulmonic Valve: The pulmonic valve is normal in structure and function. There is trace pulmonic regurgitation. Great Vessels: The aortic Sinus(es) of Valsalva are mildly dilated. The ascending aorta is normal in size. The IVC is dilated (diameter is greater than 2.1 cm) yet it collapses greater than 50% with a sniff. This suggests a right atrial pressure of 8 mm Hg. Pericardium/ Pleura There is no pericardial effusion. There is no pleural effusion. MMode/2D Measurements & Calculations LVIDd: 6.9 cm LA dimension: 4.1 cm RA long axis LVOT diam LVIDs: 6.6 cm FS: 4.9 % LA A2 area: 26.3 cm RA area AoV Opening EPSS: 2.6 cm LA A4 area: 34.9 cm IVSd: 0.62 cm LA length (vol): 6.9 cm: 28.3 cm Ao root diam LVPWd: 0.59 cm LA vol: 112.6 ml RA vol LA vol index : 105.ml Aortic Jxn RA : 60.5 mm/ asc Aorta IVC diam: 2.0 cm RVDd major Diam: 3.2 cm : 6.9 cm LV allen. diameter/BSA LV sys. diameter/BSA RVD1 (basal) RVD2 (mid) (cm/m^2): 4.0 (cm/m^2): 3.8 : 2.9 cm Doppler Measurements & Calculations Ao V2 max MV E max radha MV E/A: 4.2 TR max radha : 94.8 cm/sec : 107.8 cm/sec MV A dur : 295.3 cm/sec Ao max PG MV A max radha : 0.10 sec TR max PG : 3.6 mmHg : 25.4 cm/sec : 35.0 mmHg Ao mean PG MV P1/2t: 50.4 msec PA V2 max : 1.9 mmHg MR ERO: 0.24 cm2 : 69.3 cm/sec PA mean PG : 0.74 mmHg PA Accel Time : 0.10 sec MV dec time MV P1/2t max radha Ao V2 mean MR flow rate : 0.17 sec : 65.7 cm/sec : 82.8 cm3/sec MVA(P1/2t): 4.4 cm2 Ao V2 VTI MR PISA radius : 16.3 cm PA V2 mean : 39.0 cm/sec PA pr(Accel) : 36.6 mmHg Electronically signed by: Conrado Lala on Reading Physician:01/16/2017 05:50 PM
[2017-01-17] VITALS (7 sets, daily range): BP systolic 102–129; BP diastolic 55–70; PULSE 65–97; RESP 18–22; O2SAT 93–97
[2017-01-17] MEDS: Heparin 5,000 Unit/mL Inj SUBQ SCH ×3 (01:15→16:15)
[2017-01-17] MEDS: MeTOProlol XL 50 mg ER24 Tablet PO SCH (08:31)
[2017-01-17 08:52] LABS: BASOPHILS % (AUTO) 0.4 % (0-3); EOSINOPHILS % (AUTO) 1.2 % (0-5); MONOCYTES % (AUTO) 11.4 % (4-12); Mean Corpuscular Hemoglobin 30.6 pg (27.0-35.0); Mean Corpuscular Volume 89.2 fL (81-100); Platelet Count 153 bil/L (150-400)
--- NOTE | 2017-01-17 09:17 | PCM.PNMED ---
Subjective Date of Service January 17, 2017 Subjective Patient notes feeling much improved since his admission yesterday. Breathing is greatly improved his not any fever chills sweats or other. Appetite is good using posterior beginning of our conversation. Denies any swelling of the legs he has not been suffering from cough overnight. He slept very well denies any other acute complaints or concerns at this time. Exam Vital Signs Vital Sign - Last Date Time Temp Pulse Resp B/P Pulse Ox O2 Delivery O2 Flow Rate FiO2 01/17/17 08:33 96 01/17/17 05:43 37.1 20 129/63 96 Room Air 01/17/17 01:01 0.50 Intake and Output 01/16/17 01/16/17 01/17/17 Cumulative From/Thru 15:00 23:00 07:00 01/16/17 08:49 - 01/17/17 06:24 Intake Total 336 ml 400 ml 736 ml Output Total 2250 ml 2250 ml Balance 336 ml -1850 ml -1514 ml Intake Oral 336 ml 400 ml 736 ml Output Urine Total 2250 ml 2250 ml # Voids 2 2 # Bowel Movements 2 0 2 Exam General: Alert, Oriented X3, Cooperative, Mild Distress Eyes: EOMI Mouth: Mucous Membranes Moist/Man Chest & Lungs: Clear to auscultation & percussion, Coarse breath sounds Cardiovascular: Rate of ~100bpm with irregular rhythm. Abdomen: Non-tender, Non-distended Extremities: No cyanosis/clubbing/edema bilat Neurological: Grossly Neurologically Intact IVs and Medications Medications Reviewed: Medications were reviewed in detail Lab and Diagnostics Result Diagram: 01/17/17 0815 01/16/17 0947 Assessment & Plan 86-year-old male past medical history significant for atrophic fibrillation and chronic lung disease presenting now with evidence of pneumonia in addition to possible CHF exacerbation. Patient's atrial fibrillation, which he is not anticoagulant for but is typically under good rate control is in acute state of rapid ventricular rate which has responded well to diltiazem therapy. Patient arrived to the floor in stable medical condition with a guarded prognosis admitted for further evaluation and medical management. 1. Community-acquired pneumonia - Patient was placed on appropriate antibiotics - Blood cultures are currently pending - We will refrain from aggressive intravenous hydration in the setting of possible congestive heart failure exacerbation 2. Atrial fibrillation with RVR - Patient is reportedly rate controlled on home dose of metoprolol, no recent episodes of RVR reported - Bili was initially in good control during ER evaluation nearing time of transfer to floor he became acutely elevated in the 140s prompting one-time administration of diltiazem - Rate responded promptly drop into within normal limits following this administration, - Plan to continue home metoprolol current dosage, will consider additional therapies based on pulse rate. - He did demonstrate elevation of this earlier today which seems to have responded to his morning dose of metoprolol - We will continue to monitor on continuous telemetry. - Echocardiogram demonstrates severe dilated cardiomyopathy with reduced ejection fraction of 15-20%. Given this new diagnosis I have reached out to cardiology for further consultation and recommendations on further management. 3. 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 - Echo confirmed diagnosis with ejection fraction of 15-20% and severe dilation of left ventricle - We will continue Lasix at this time 40 mg IV daily and await cardiology recommendations. Pain Evaluation: Adequate Pain Control GI Prophylaxis: Not indicated VTE Prophylaxis: Sub-Q Heparin (Unfractionated) Resuscitation Status: CPR: Attempt Resuscitation Time spent 30 minutes Abdirahman Ram DO January 17, 2017 09:17
[2017-01-17] MEDS: Furosemide 10 mg/mL 4 mL Inj IVPUSH SCH (10:39)
[2017-01-17] MEDS ORDERED: 0.9% Sodium Chloride 250 ML ONE (10:56)
[2017-01-17] MEDS: cefTRIAXone Inj 1,000 MG in Dextrose 5% Minibag Plus 50 ML IV SCH (11:05)
[2017-01-18] VITALS (9 sets, daily range): BP systolic 112–133; BP diastolic 57–80; PULSE 58–135; RESP 18–19; O2SAT 94–99
[2017-01-18] MEDS: Heparin 5,000 Unit/mL Inj SUBQ SCH ×3 (00:24→15:41)
--- NOTE | 2017-01-18 06:50 | CONS ---
[address] [address] CONSULTATION REPORT PATIENT: JANE LOPEZ : 1930 MR#: [id number] ADMIT: 01/16/2017 JOB ID: [id number] DATE OF SERVICE: 01/17/2017 REQUESTING PHYSICIAN: Abdirahman Ram MD REASON FOR EVALUATION: Atrial fibrillation. HISTORY: The patient is an 86-year-old male with known coronary artery disease. He had cardiac catheterization performed on April 21, 1999 in [place], which demonstrated chronic occlusion of the right coronary artery with excellent collateral filling from the circumflex and left anterior descending artery system. The left anterior descending artery was normal. The codominant circumflex artery has no significant disease. His left ventricular ejection fraction was 45% at that time with inferior hypokinesis. He has chronic left bundle branch block since 1998. He has not seen any dry man for over 10 years. Echocardiogram in November 2008 showed ejection fraction of 20% to 30% with mild mitral regurgitation. The patient was hospitalized yesterday with pneumonia. Echocardiogram on January 16, 2017 shows severely dilated left ventricle with ejection fraction 15% to 20%. Severe global hypokinesis of the left ventricle. Severe biatrial enlargement. Moderate mitral regurgitation. Moderate tricuspid regurgitation. The patient was also found to be in atrial fibrillation. Left bundle branch block. Cardiology consultation was then obtained. He lives alone in an apartment in [place]. He usually walks around. The patient fell down in the past. He denies orthopnea, PND, or syncope. He denies chest discomfort or claudication. PAST MEDICAL HISTORY: 1. Cardiac history as outlined above. 2. History of hypertension. 3. Hyperlipidemia. 4. Prostate cancer with radical prostatectomy. 5. Significant neck injury with resultant spinal fusion. HOME MEDICATIONS: 1. Vitamin D 2000 units daily. 2. Digoxin 0.125 mg daily. 3. Doxazosin 1 mg h.s. 4. Ferrous sulfate 325 mg b.i.d. 5. Metoprolol succinate 200 mg daily. 6. Simvastatin 40 mg h.s. ALLERGIES: No known allergies. SOCIAL HISTORY: As note above. The patient lives by himself in his apartment. His daughter and granddaughter live locally. The patient started smoking when he was 16. He quit smoking in 1988. He quit drinking a long time ago. FAMILY HISTORY: His mother from pneumonia. Father from diabetes and congestive heart failure. REVIEW OF SYSTEMS: All 10 systems are reviewed and noncontributory. PHYSICAL EXAMINATION: Reveals a pleasant, elderly man appearing in no acute distress. Temperature is 36.6, blood pressure is 106/65, pulse 75. Body weight is 63.7 kg. Head and face have normal configuration. Anicteric sclerae. Moist mucosa. Missing teeth. Neck is supple. No jugular venous distention or carotid bruits. Chest normal expansion. Lungs are clear to auscultation. Heart: The first heart sound is variable. Second heart sound is normal. Grade 1/6 holosystolic murmur at the apex and left lower sternal border. Extremities: No clubbing, cyanosis, or edema. Neurologic: Grossly intact. LABS: Blood test on 01/17/2017 showed hemoglobin 13.9, sodium 138, potassium 4.1, BUN 26, creatinine 1.2, glucose 145. IMPRESSION: 1. 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 2. Known chronic occlusion of the right coronary artery. 3. Chronic left bundle branch block. 4. Atrial fibrillation of unknown duration. 5. Moderate mitral regurgitation and moderate tricuspid regurgitation. PLAN: The cause of his severe cardiomyopathy could be either progression of his coronary artery disease or tachycardia mediated cardiomyopathy. The patient himself is not interested in pursuing any further investigation as he mentioned his advanced age. I will manage him conservatively with continued beta oxana, digoxin and statin. I would like to add UDAY inhibitor to his current medical regimen. I would not anticoagulate this patient in view of his advanced age and history of fall. I will start him on aspirin 80 mg once daily instead. No appointment is needed with Cardiology Clinic. He can follow up with his primary physician. JAYANT
[2017-01-18] MEDS: MeTOProlol XL 50 mg ER24 Tablet PO SCH (07:31)
[2017-01-18] MEDS: Furosemide 10 mg/mL 4 mL Inj IVPUSH SCH (07:32)
[2017-01-18] MEDS: cefTRIAXone Inj 1,000 MG in Dextrose 5% Minibag Plus 50 ML IV SCH (09:09)
--- NOTE | 2017-01-18 10:41 | PCM.PNMED ---
Subjective Date of Service January 18, 2017 Subjective Patient stable overnight though he did experience some episodes of chest tightness and shortness of breath around midnight. Says since resolved and was breathing is overall improved since admission. He is eating well and urinating frequently. He has a cough which is mildly productive of sputum, which is whitish and not foul smelling. No acute complaints at this time. Still feeling a little weaker than his baseline Exam Vital Signs Vital Sign - Last Date Time Temp Pulse Resp B/P Pulse Ox O2 Delivery O2 Flow Rate FiO2 01/18/17 09:53 36.2 58 19 115/57 95 Room Air 01/17/17 01:01 0.50 Intake and Output 01/17/17 01/17/17 01/18/17 Cumulative From/Thru 15:00 23:00 07:00 01/16/17 08:49 - 01/18/17 05:51 Intake Total 1487 ml 2223 ml Output Total 2575 ml 4825 ml Balance -1088 ml -2602 ml Intake Oral 1487 ml 2223 ml Output Urine Total 2575 ml 4825 ml # Voids 2 # Bowel Movements 2 4 Exam General: Alert, Oriented X3, Cooperative, Mild Distress Eyes: EOMI Mouth: Mucous Membranes Moist/[place] Chest & Lungs: Clear to auscultation & percussion, Coarse breath sounds Cardiovascular: Regular heart rate and irregular rhythm was noted during my evaluation Abdomen: Non-tender, Non-distended Extremities: No cyanosis/clubbing/edema bilat Neurological: Grossly Neurologically Intact IVs and Medications Medications Reviewed: Medications were reviewed in detail Lab and Diagnostics Result Diagram: 01/17/1715 01/17/17814 Assessment & Plan 86-year-old male past medical history significant for atrophic fibrillation and chronic lung disease presenting now with evidence of pneumonia in addition to possible CHF exacerbation. Patient's atrial fibrillation, which he is not anticoagulant for but is typically under good rate control is in acute state of rapid ventricular rate which has responded well to diltiazem therapy. Patient arrived to the floor in stable medical condition with a guarded prognosis admitted for further evaluation and medical management. 1. Community-acquired pneumonia - Patient was placed on appropriate antibiotics - Blood cultures are currently pending - We will refrain from aggressive intravenous hydration in the setting of congestive heart failure exacerbation - Anticipate transition to oral medications in 1-2 days on discharge to complete course of therapy. 2. Atrial fibrillation with RVR - Patient is reportedly rate controlled on home dose of metoprolol, no recent episodes of RVR reported - Bili was initially in good control during ER evaluation nearing time of transfer to floor he became acutely elevated in the 140s prompting one-time administration of diltiazem - Rate responded promptly drop into within normal limits following this administration, - Plan to continue home metoprolol current dosage, will consider additional therapies based on pulse rate. - He did demonstrate elevation of this earlier today which seems to have responded to his morning dose of metoprolol - We will continue to monitor on continuous telemetry. - Echocardiogram demonstrates severe dilated cardiomyopathy with reduced ejection fraction of 15-20%. Given this new diagnosis I have reached out to cardiology for further consultation and recommendations on further management. - Patient has responded well to oral therapy and diuresis, continue to monitor condition. 3. 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 - Echo confirmed diagnosis with ejection fraction of 15-20% and severe dilation of left ventricle - We will continue Lasix at this time 40 mg IV daily and UDAY inhibitor initiated on cardiology recommendations - Continue to appreciate cardiac consultation, it is evident the patient has an end-stage heart disease and does not wish to pursue aggressive measures of treatment, with optimal medical therapy he may nonetheless be able to continue total quality life for some time. Pain Evaluation: Adequate Pain Control GI Prophylaxis: Not indicated VTE Prophylaxis: Sub-Q Heparin (Unfractionated) VTE Mechanical Devices: Intermittant Pneumatic CD Resuscitation Status: CPR: Attempt Resuscitation Time spent 25 minutes Abdirahman Ram DO January 18, 2017 10:41
[2017-01-19 00:04] VITALS: BP 120/77; PULSE 75; RESP 18; O2SAT 96
[2017-01-19] MEDS: Heparin 5,000 Unit/mL Inj SUBQ SCH ×2 (00:30→07:54)
[2017-01-19 05:30] VITALS: BP 124/68; PULSE 77; RESP 18; O2SAT 97
[2017-01-19 06:27] LABS: BASOPHILS % (AUTO) 0.4 % (0-3); EOSINOPHILS % (AUTO) 2.4 % (0-5); MONOCYTES % (AUTO) 12.4 % (4-12); Mean Corpuscular Hemoglobin 30.5 pg (27.0-35.0); Mean Corpuscular Volume 87.2 fL (81-100); Platelet Count 178 bil/L (150-400)
[2017-01-19] MEDS: MeTOProlol XL 50 mg ER24 Tablet PO SCH (07:52)
[2017-01-19] MEDS: cefTRIAXone Inj 1,000 MG in Dextrose 5% Minibag Plus 50 ML IV SCH (07:52)
[2017-01-19] MEDS: Furosemide 10 mg/mL 4 mL Inj IVPUSH SCH (07:54)
[2017-01-19 08:00] VITALS: PULSE 102
[2017-01-19 09:36] VITALS: BP 95/61; PULSE 61; RESP 18; O2SAT 97
--- NOTE | 2017-01-19 11:00 | PCM.DC.MED ---
Discharge Summary Date of Service January 19, 2017 Dates of Hospitalization Date of Hospital Admission January 16, 2017 at 14:19 Date of Discharge: January 19, 2017 Providers: Admitting Physician: Abdirahman Ram DO [facility] Attending Physician: Abdirahman Ram DO Procedures Cardiac Echo Impression Echocardiogram Report Name: JANE LOPEZ RStudy Date : 01/16/2017 Height: 66 in Weight: 145 lb Interpretation Summary The left ventricle is severely dilated. The ejection fraction is estimated to be 15-20%. There is severe global hypokinesis of the left ventricle. There is severe biatrial enlargement. There is moderate mitral regurgitation. There is moderate tricuspid regurgitation. The right ventricular systolic pressure is estimated at 43 mmHg assuming a right atrial pressure of 8 mm Hg. Brief History 86 yo M with pmhx of asthma, emphysema , tobacco dependence, atrial fibrillation (not on anticoagulation therapy) , in addition to HTN, presenting to ER from adult home via EMS due to shortness of breath starting yesterday and worsening progressively through today. He notes some chest pressure and rib pain in ER, but with was relieved with a pill they gave him, not present on my exam. He denies fareed of frnak chest pain, also denies sensation of palpiations. He notes a cough, more chronic in nature, but generally not productive. He denies nausea/vomiting. Denies recent fareed of fever/chills. Hospital Course 1. Community-acquired pneumonia - Patient was placed on appropriate antibiotics - Blood cultures were negative for growth for >48 hours - Pt covered with Rocephin IV and Azithromycin orally for hospitalization, transitioned to Augmentin for an addition 7 day course on discharge. 2. Atrial fibrillation with RVR - Patient is reportedly rate controlled on home dose of metoprolol, no recent episodes of RVR reported - Bili was initially in good control during ER evaluation nearing time of transfer to floor he became acutely elevated in the 140s prompting one-time administration of diltiazem - Home dosage of Metoprolol was continued. With diuresis, a normal heart rate was restored. No further changes needed. Warfarin still not continued given risk of fall. 3. 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 - Echo confirmed diagnosis with ejection fraction of 15-20% and severe dilation of left ventricle which was down from previous studies a few years prior. - Lasix started IV, transitioned to oral dosage at 20mg PO daily on discharge. Patient should follow up for BMP in 1 week to monitor renal function and electrolytes (Potassium) - Cardiology was consulted, agreed he was a poor candidate for anticoagulation. Additionally recommended starting lisinopril, which was done during hospitalization and well tolerated. Weight on discharge was 61.4 KG. Exam Vital Signs (Last) Date Time Temp Pulse Resp B/P Pulse Ox O2 Delivery O2 Flow Rate FiO2 01/19/17 09:36 36.4 61 18 95/61 97 Room Air 01/17/17 01:01 0.50 Exam General: Alert, Oriented X3, Cooperative, Mild Distress Eyes: EOMI Mouth: Mucous Membranes Moist/[place] Chest & Lungs: Clear to auscultation & percussion, Coarse breath sounds Cardiovascular: Regular heart rate and irregular rhythm was noted during my evaluation Abdomen: Non-tender, Non-distended Extremities: No cyanosis/clubbing/edema bilat Neurological: Grossly Neurologically Intact Test 01/16/17 09:47 01/16/17 13:00 01/16/17 18:16 01/19/17 06:02 D-Dimer 1.57mg/L FEU (<0.50) Total Bilirubin 0.8mg/dL (0.0-1.2) Aspartate Amino Transf (AST/SGOT) 38U/L (0-50) Alanine Aminotransferase (ALT/SGPT) 39U/L (0-44) Alkaline Phosphatase 82U/L (25-160) Pro-B-Type Natriuretic Peptide 8359pg/mL (0-486) Total Protein 7.4g/dL (6.4-8.4) Albumin 4.4g/dL (3.4-5.0) Urine Color Yellow (YELLOW) Urine Appearance Hazy (CLEAR,HAZY) Urine pH 6.0 (5.0-8.0) Urine Specific [place] 1.005 (1.003-1.035) Urine Protein Negativemg/dL (NEG,TRACE) Urine Glucose (UA) Negativemg/dL (NEGATIVE) Urine Ketones Negativemg/dL (NEGATIVE) Urine Occult Blood Negative (NEGATIVE) Urine Nitrite Negative (NEGATIVE) Urine Bilirubin Negative (NEGATIVE) Urine Urobilinogen Normalmg/dL (NORMAL) Urine Leukocyte Esterase Negative (NEGATIVE) Urine RBC 0-2/hpf (0-2) Urine WBC 0-5/hpf (0-5) Urine Epithelial Cells Occasional/hpf (NONE-MOD) Urine Crystals None seen (NONE SEEN) Urine Bacteria None/hpf (NONE-FEW) Urine Hyaline Casts None/lpf (NONE) Urine Granular Casts None seen (NONE SEEN) Urine Waxy Casts None seen (NONE SEEN) Urine Red Blood Cell Casts None seen (NONE SEEN) Urine White Blood Cell Casts None seen (NONE SEEN) Urine Mucus None seen (None Seen) Urine Trichomonas None seen (NONE SEEN) Urine Yeast None (NONE SEEN) Urinalysis Comment None Urine Culture Reflexed Not indicated Troponin T 0.011ug/L (0.0-0.011) White Blood Count 8.2th/mm3 (3.8-10.1) Red Blood Count 4.29mil/mm3 (4.40-5.80) Hemoglobin 13.1g/dL (13.8-17.2) Hematocrit 37.4% (41.0-50.0) Mean Corpuscular Volume 87.2fL (81-100) Mean Corpuscular Hemoglobin 30.5pg (27.0-35.0) Mean Corpuscular Hemoglobin Concent 35.0% (32.0-37.0) Red Cell Distribution Width 13.0% (12.3-15.4) Platelet Count 178bil/L (150-400) Neutrophils (%) (Auto) 70.0% (40-74) Lymphocytes (%) (Auto) 14.6% (14-46) Monocytes (%) (Auto) 12.4% (4-12) Eosinophils (%) (Auto) 2.4% (0-5) Basophils (%) (Auto) 0.4% (0-3) Sodium Level 133mEq/L (134-144) Potassium Level 4.1mEq/L (3.5-5.2) Chloride Level 95mEq/L (97-108) Carbon Dioxide Level 24mmol/L (18-29) Blood Urea Nitrogen 34mg/dL (8-27) Creatinine 1.12mg/dL (0.76-1.27) Estimat Glomerular Filtration Rate 66mL/min (>59) Glucose Level 88mg/dL (60-99) Calcium Level 9.7mg/dL (8.5-10.1) Discharge Medications Discharge Medications Cholecalciferol (Vitamin D3) (Vitamin D3) 1,000 Unit Tab.chew 2,000 UNIT PO DAILY (Reported) Digoxin (Digoxin) 125 Mcg Tablet 125 MCG PO DAILY (Reported) Doxazosin (Cardura) 1 Mg Tablet 1 MG PO HS (Reported) Ferrous Sulfate (Iron) 325 Mg Tablet 325 MG PO BID (Reported) Metoprolol Succinate ER (Metoprolol Succinate ER) 200 Mg Tab.er.24h 200 MG PO DAILY (Reported) Simvastatin (Simvastatin) 40 Mg Tablet 40 MG PO HS (Reported) As needed Bisacodyl (Bisacodyl Rectal) 10 Mg/30 Ml Enema 10 MG RC PRN PRN PRN For Constipation (Reported) Ondansetron ODT (Zofran ODT) 4 Mg Tablet 4 MG PO Q4H PRN PRN For Nausea Prescribed by: PATRICIA SMITH DO Miscellaneous Medications Polyethylene Glycol 3350 (Miralax) 17 Gm Powd.pack 17 GM PO (Reported) Followup Plan Disposition: Discharged home with health services Follow-up plan Plan to monitor daily weight with help of home health nursing, follow up with [facility] in 1 week following discharge for blood testing, and consideration of further medication adjustment. Discharge Diet: Low fat, Low Sodium, Heart Healthy Discharge Activity: Limited until seen by PCP [facility] Follow-up with PCP in: 1 week Time spent 45 minutes copies to: [facility] Abdirahman Ram DO January 19, 2017 11:00
[2017-01-19] MEDS ORDERED: AMOX-366 PO (11:08)
[2017-01-19] MEDS ORDERED: LISI-571 PO (11:08)
--- NOTE | 2017-01-19 11:11 | PCM.DICHF ---
CHF Discharge Instructions Date of Service: January 19, 2017 Dates of Hospitalization Date of Hospital Admission January 16, 2017 at 14:19 Date of Discharge: January 19, 2017 Providers Admitting Physician: Abdirahman Ram DO [facility] [place] Attending Physician: Abdirahman Ram DO Diagnosis at Time of Discharge Diagnosis at time of discharge 1. Community acquired pneumonia 2. Atrial Fibrillation 3. Congestive Heart Failure with reduced ejection fraction. Problems: Labs Ejection Fraction Laboratory Tests Test Range/Units 01/16/17 09:47 01/16/17 18:16 01/19/17 06:02 Total Bilirubin 0.0-1.2 mg/dL 0.8 Aspartate Amino Transf (AST/SGOT) 0-50 U/L 38 Alanine Aminotransferase (ALT/SGPT) 0-44 U/L 39 Alkaline Phosphatase 25-160 U/L 82 Pro-B-Type Natriuretic Peptide 0-486 pg/mL 8359 Total Protein 6.4-8.4 g/dL 7.4 Albumin 3.4-5.0 g/dL 4.4 Troponin T 0.0-0.011 ug/L 0.011 Sodium Level 134-144 mEq/L 133 Potassium Level 3.5-5.2 mEq/L 4.1 Chloride Level 97-108 mEq/L 95 Carbon Dioxide Level 18-29 mmol/L 24 Blood Urea Nitrogen 8-27 mg/dL 34 Creatinine 0.76-1.27 mg/dL 1.12 Estimat Glomerular Filtration Rate >59 mL/min 66 Glucose Level 60-99 mg/dL 88 Calcium Level 8.5-10.1 mg/dL 9.7 Discharge Medications Other Medication Instructions You have received instructions on the medications your physician has prescribed at discharge. A list of these medications has been provided to you. Keep this and a list of all current medications with you. Keep the dates when you received the Flu and Pneumococcal (Pneumonia) Vaccines. Last known date of receiving Flu Vaccine november 2016 Last known date of receiving Pneumococcal (Pneumonia) Vaccine 2010 Diet CHF Discharge Diet: Low fat, Low Sodium Diet Instructions CHF Low Salt diet ( 2 grams or less sodium/day) Choose foods and drinks with low or no salt. Remove salt shaker from the table. Read Nutritional Facts labels. Weight Monitoring 1. Weigh yourself every day at the same time and write it down. 2. Take your weight log to your doctor visits. 3. Call your doctor if you gain 3-5 pounds over 2-3 days. 4. Your weight today is 135.36 lbs. Additional Instructions CHF Teaching Packet given and: Yes Smoking--Tobacco Use If you smoke, you are strongly encouraged to stop. If you have recently quit smoking, CONGRATULATIONS. For further information to stop smoking or to remain smoke-free, Follow Up Plan Follow Up Plan Plan to monitor daily weight with help of home health nursing, follow up with [facility] in 1 week following discharge for blood testing, and consideration of further medication adjustment. Additionally, you have been prescribed an antibiotic, Augmenting, for pneumonia. You should complete this course of medication, which will take 7 days. (take every pill prescribed) starting tomorrow (01/20/2017) Follow Up: Weeks Cardiology Follow-up Provider: 2 weeks Report or call your Doctor REPORT TO YOUR DOCTOR OR SEEK MEDICAL ATTENTION: *Shortness of breath or have more difficulty breathing. *Swelling of your feet, ankles, hands or abdomen. *Feeling tired with normal activity or experiencing dizziness or fainting. *Trouble sleeping or waking up feeling short of breath or coughing. *Chest pain or pressure. *Weight gain of 3-5 pounds over 2-3 days. *Inability to take medications or follow treatment plan Heart Attach warning signs HEART ATTACK WARNING SIGNS * Chest discomfort. *Discomfort or pain in one or both arms, back, neck, jaw or stomach. *Shortness of breath. *Breaking out in a cold sweat, nausea, or lightheadedness. If you're having heart attack warning signs: CALL . DON'T WAIT MORE THAN A FEW MINUTES - 5 MINUTES AT MOST - TO CALL . Abdirahman Ram DO January 19, 2017 11:11
== END 2017-01-19 14:10 | disposition home health service (06) | DRG 194 ==
LOC: SED 08:26 → EDBD 08:26 → EDUNIT# 08:26 → MPC 14:19
PROVIDERS: ADMIT Family Medicine; ATTEND Family Medicine
DX: J18.9 Pneumonia, unspecified organism (principal); I50.20 Unspecified systolic (congestive) heart failure; I42.8 Other cardiomyopathies; Z87.891 Personal history of nicotine dependence; Z85.46 Personal history of malignant neoplasm of prostate; I48.91 Unspecified atrial fibrillation; I44.7 Left bundle-branch block, unspecified; I34.0 Nonrheumatic mitral (valve) insufficiency; I36.8 Other nonrheumatic tricuspid valve disorders

== ENCOUNTER 2017-02-04 19:43 | Inpatient (IN) | payer MEDICARE ==
[~2017-02-04] VITALS: Ht 170.2 cm; Wt 66.5 kg
[~2017-02-04 19:43] MED LIST changes: -ALBU0.423 IH; +AMOX-366 PO; +BISA10EN RC; +CHOL10008 PO; -DIGO125T PO; +DIGO125T73 PO; -DUL10S PR; +FERR325T39 PO; +LISI-571 PO; +METO200T32 PO; +POLY17PO6 PO; -POLY1PAC PO; -PROT40T PO; +SIMV40TA5 PO; -TOP200 PO; -ZOC20 PO
[2017-02-04 19:46] VITALS: BP 112/79; PULSE 110; RESP 22; O2SAT 99
--- NOTE | 2017-02-04 20:14 | ED.REPORT ---
HPI-General Illness Date of Service February 04, 2017 ED Provider: Dr. Sandra Olivia is an 86 year old male who was recently discharged from the hospital with pneumonia, with a history of CHF who presents to the ED with complaints of "not feeling any better since his discharge". He specifically complains of not feeling normal since his medication was changed to Lisinopril. Pt reports chest pressure, but denies any cough, shortness of breath, swelling in his lower extremities, or any other complaints. Nursing Notes Stated Complaint: CHF Chief Complaint: General Complaint Nursing Notes Reviewed: Yes Allergies: Coded Allergies: No Known Allergies (Unverified Allergy, Unknown, 02/04/17) Scheduled Amoxicillin/Clav K 875-125 mg (Augmentin 875-125 mg) 1 Each Tablet 1 TABLET PO BID Cholecalciferol (Vitamin D3) (Vitamin D3) 1,000 Unit Tab.chew 2,000 UNIT PO DAILY Digoxin (Digoxin) 125 Mcg Tablet 125 MCG PO DAILY Doxazosin (Cardura) 1 Mg Tablet 1 MG PO HS Ferrous Sulfate (Iron) 325 Mg Tablet 325 MG PO BID Lisinopril (Lisinopril) 5 Mg Tablet 5 MG PO DAILY Metoprolol Succinate ER (Metoprolol Succinate ER) 200 Mg Tab.er.24h 200 MG PO DAILY Simvastatin (Simvastatin) 40 Mg Tablet 40 MG PO HS Scheduled PRN Bisacodyl (Bisacodyl Rectal) 10 Mg/30 Ml Enema 10 MG RC PRN PRN PRN For Constipation Ondansetron ODT (Zofran ODT) 4 Mg Tablet 4 MG PO Q4H PRN PRN For Nausea Miscellaneous Medications Polyethylene Glycol 3350 (Miralax) 17 Gm Powd.pack 17 GM PO General Time Seen by MD: 20:14 Chief Complaint Not feeling well Hx Obtained From: Patient Arrived By: Walk-in Sudden in Onset?: Yes Onset Occurred: More than a week ago... Symptom Duration: Intermittent Severity: Current: Mild Severity: Maximum: Moderate Similar Sx Previous: Yes Past Medical History Past Medical History Dyslipidemia Reports: Asthma, COPD, Cancer, Congestive heart failure, GERD, Hypertension Reports: Atrial fibrillation Past Surgical History Hiatal hernia repair Reports: Appendectomy, Prostatectomy Smoking History Former Smoker Ambulatory Status Independent Review of Systems Full Review of Systems Constitutional: Denies: Chills, Fever, Malaise, Weakness - generalized Respiratory: Denies: Non-productive cough, Shortness of breath, Wheezing Cardiovascular: Reports: Chest pain, Denies: Syncope GI: Denies: Abdominal pain, Constipation, Diarrhea, Nausea, Vomiting Male: Denies Dysuria, Denies Flank pain, Denies Urinary urgency Musculoskeletal: Denies: Back pain, Extremity pain, Neck pain Skin: Denies Diaphoresis Complete sys rev & neg: except as marked. Physical Exam Vital Signs Vital Signs Date Time Temp Pulse Resp B/P Pulse Ox O2 Delivery O2 Flow Rate FiO2 02/04/17 23:14 98 24 115/81 98 Room Air 02/04/17 22:50 114 25 120/81 99 Room Air 02/04/17 21:48 101 14 113/77 99 Room Air 02/04/17 19:46 36.0 110 22 112/79 99 Room Air Initial VS: Reviewed General/Constitutional: Well-developed, Well-nourished Head / Eyes: Atraumatic, Normocephalic, PERRL ENT: Mucous membranes moist, Conjunctiva normal, No scleral icterus Neck: Supple, Non-tender, Full range of motion Abdomen / GI: Soft, Non-tender, No guarding, No rebound, No distention Skin: Warm, Dry, No cyanosis Neurologic: Alert, Oriented, Nonfocal Respiratory / Chest: Atraumatic, No respiratory distress Diffuse crackles heard Cardiovascular: No gallop, No murmurs, No rubs Heart sounds irregular Interpretation & Diagnostics Lab Results Interpretation Result Diagram: 02/04/17203402/04/172034 Test 02/04/17 20:35 02/04/17 21:30 02/04/17 22:00 White Blood Count 9.8th/mm3 (3.8-10.1) Red Blood Count 4.26mil/mm3 (4.40-5.80) Hemoglobin 13.0g/dL (13.8-17.2) Hematocrit 38.0% (41.0-50.0) Mean Corpuscular Volume 89.2fL (81-100) Mean Corpuscular Hemoglobin 30.5pg (27.0-35.0) Mean Corpuscular Hemoglobin Concent 34.2% (32.0-37.0) Red Cell Distribution Width 13.4% (12.3-15.4) Platelet Count 186bil/L (150-400) Neutrophils (%) (Auto) 70.3% (40-74) Lymphocytes (%) (Auto) 17.3% (14-46) Monocytes (%) (Auto) 11.6% (4-12) Eosinophils (%) (Auto) 0.2% (0-5) Basophils (%) (Auto) 0.5% (0-3) Prothrombin Time 17.6sec (8.1-12.5) Prothromb Time International Ratio 1.63ratio Sodium Level 131mEq/L (134-144) Potassium Level 5.1mEq/L (3.5-5.2) Chloride Level 94mEq/L (97-108) Carbon Dioxide Level 20mmol/L (18-29) Blood Urea Nitrogen 47mg/dL (8-27) Creatinine 1.78mg/dL (0.76-1.27) Estimat Glomerular Filtration Rate 39mL/min (>59) Glucose Level 119mg/dL (60-99) Calcium Level 9.6mg/dL (8.5-10.1) Magnesium Level 1.8mg/dL (1.6-2.6) Total Bilirubin 0.8mg/dL (0.0-1.2) Aspartate Amino Transf (AST/SGOT) 151U/L (0-50) Alanine Aminotransferase (ALT/SGPT) 154U/L (0-44) Alkaline Phosphatase 79U/L (25-160) Troponin T 0.027ug/L (0.0-0.011) Total Protein 6.1g/dL (6.4-8.4) Albumin 3.4g/dL (3.4-5.0) Hold [place] Top Tube Received (Received) Urine Color Yellow (YELLOW) Urine Appearance Clear (CLEAR,HAZY) Urine pH 5.5 (5.0-8.0) Urine Specific [place] 1.025 (1.003-1.035) Urine Protein 30mg/dL (NEG,TRACE) Urine Glucose (UA) Negativemg/dL (NEGATIVE) Urine Ketones Negativemg/dL (NEGATIVE) Urine Occult Blood Negative (NEGATIVE) Urine Nitrite Negative (NEGATIVE) Urine Bilirubin Negative (NEGATIVE) Urine Urobilinogen Normalmg/dL (NORMAL) Urine Leukocyte Esterase Negative (NEGATIVE) Urine RBC 0-2/hpf (0-2) Urine WBC 0-5/hpf (0-5) Urine Epithelial Cells Few/hpf (NONE-MOD) Urine Crystals None seen (NONE SEEN) Urine Bacteria None/hpf (NONE-FEW) Urine Hyaline Casts None/lpf (NONE) Urine Granular Casts None seen (NONE SEEN) Urine Waxy Casts None seen (NONE SEEN) Urine Red Blood Cell Casts None seen (NONE SEEN) Urine White Blood Cell Casts None seen (NONE SEEN) Urine Mucus Present (None Seen) Urine Trichomonas None seen (NONE SEEN) Urine Yeast None (NONE SEEN) Urine Culture Reflexed Not indicated Hold Urine Received (Received) ECG Interpretation ECG Interpretation: A-fib - 105 RVR LBBB Time: 22:03 Interpreted by: ED physician X-Ray Chest Interpretation Chest Xray Interpretation: IMPRESSION: Small focal opacity in left lung base compatible atelectasis versus pneumonia. Please correlate with clinical and laboratory data. Dictated by: Amy Butcher MD, PhD on 02/04/2017 at 20:26 View: Portable Interpretation / Wet Read by: Interpret - Radiologist Re-Eval/Medical Decision Med Decision/Clinical Course 86-year-old male was recently discharged from the hospital after having some of his medications adjusted. For the past week he has not felt well. Today he feels short of breath and has essentially no energy. He is not in A. fib with RVR. He may be developing a pneumonia. He certainly has evidence of acute kidney injury. He will be admitted to the hospitalist for further care and disposition. Broad spectrum antibiotics and Cardizem were initiated in the emergency department. Source of Hx: Old records Time of Eval: 22:28 Re-Evaluation/Progress Note: Pt is rechecked and informed of his labs and imaging results and the plan to admit him to the hospital at this time. He understands and agrees, all questions are addressed. Consultation : Referral / Consult Name: Kendra Alcazar DO Consulted With: Hospitalist Call Returned at: 22:54 Mrp Controller: Will see patient, Agrees with plan, Accepts admit Counseled Regarding: Diagnosis, Lab results, Need for admission Discharge & Departure Primary Impression: Atrial fibrillation with rapid ventricular response Additional Impressions: Pneumonia Pneumonia type: due to unspecified organism Laterality: left Lung location : lower lobe of lung Qualified Code: J18.1 - Lobar pneumonia, unspecified organism GARETH (acute kidney injury) Disposition: ADMITTED TO HOSPITAL Discharge Condition All VS Reviewed: Yes Condition: Stable Referrals: CYNDIE SOLORIOWI PATEL (PCP) Mameibkhadar Attestation Portions of this note were transcribed by Eva Burk. I, Dr. Flores personally performed the history, physical exam and medical decision-making; I reviewed and confirmed the accuracy of the information in the transcribed note. Signed by: Natty Irving, 02/04/2017 [id number] copies to: CYNDIE OSMIN,[place] Vahid Rodriguez DO February 04, 2017 20:14 CAMILO BURK February 04, 2017 20:17
--- NOTE | 2017-02-04 20:28 | DRSVH ---
PROCEDURE: X-RAY CHEST ONE VIEW, PORTABLE ([id number]) INDICATIONS: weakness TECHNIQUE: One view of the chest was acquired. COMPARISON: [facility], CR, XR CHEST 1VW (PORTABLE), 01/16/2017, 9:10. FINDINGS: Surgical changes and devices: None. Lungs and pleura: No pleural effusions or pneumothorax. Focal opacity noted in the left lung base wh ich could represent atelectasis versus pneumonia. Mediastinum: Mediastinal contours appear normal. Heart size is normal. Bones and chest wall: No suspicious bony lesions. Overlying soft tissues appear unremarkable. IMPRESSION: Small focal opacity in left lung base compatible atelectasis versus pneumonia. Please c orrelate with clinical and laboratory data. Dictated by: Amy Butcher MD, PhD on 02/04/2017 at 20:26 Approved by: Aym Butcher MD, PhD on 02/04/2017 at 20:27
[2017-02-04 20:58] LABS: Mean Corpuscular Hemoglobin 30.5 pg (27.0-35.0); Mean Corpuscular Volume 89.2 fL (81-100); NEUTROPHILS % (AUTO) 70.3 % (40-74); Platelet Count 186 bil/L (150-400)
[2017-02-04 20:59] LABS: BASOPHILS % (AUTO) 0.5 % (0-3); EOSINOPHILS % (AUTO) 0.2 % (0-5); MONOCYTES % (AUTO) 11.6 % (4-12)
[2017-02-04 21:17] LABS: TROPONIN T 0.027 ug/L (0.0-0.011)
[2017-02-04 21:28] LABS: Magnesium 1.8 mg/dL (1.6-2.6)
[2017-02-04 21:48] VITALS: BP 113/77; PULSE 101; RESP 14; O2SAT 99
[2017-02-04] MEDS ORDERED: Piperacillin-Tazo 3.375 Gm Inj 3.375 GM in Dextrose 5% Minibag Plus 50 ML IV ONE (21:55)
[2017-02-04] MEDS ORDERED: Diltiazem Inj 125 MG in 0.9% Sodium Chloride 100 ML, Pharmacy To Mix 1 EA IV SCH (22:10)
[2017-02-04] MEDS: 0.9% Sodium Chloride 1,000 ML IV SCH (22:15)
[2017-02-04 22:21] LABS: APPEARANCE,URINE CLEAR (CLEAR,HAZY); COLOR,URINE YELLOW (YELLOW); OCCULT BLOOD,URINE NEGATIVE (NEGATIVE); PH,URINE 5.5 (5.0-8.0); UROBILINOGEN,URINE NORMAL (NORMAL)
[2017-02-04 22:22] LABS: INR 1.63 ratio
[2017-02-04 22:50] VITALS: BP 120/81; PULSE 114; RESP 25; O2SAT 99
[2017-02-04 23:14] VITALS: BP 115/81; PULSE 98; RESP 24; O2SAT 98
[2017-02-05] VITALS (10 sets, daily range): BP systolic 99–137; BP diastolic 63–95; PULSE 70–103; RESP 16–25; O2SAT 96–98
[2017-02-05] MEDS ORDERED: Polyethylene Glycol (PEG) 17 Gm Powder PO PRN (00:15)
--- NOTE | 2017-02-05 01:42 | PCM.HPMED ---
Subjective Date of Service February 05, 2017 Primary Provider: Admitting Physician: Kendra Alcazar DO [facility] Attending Physician: Kendra Alcazar DO Admit Status: From the Emergency Department Chief Complaint: "not feeling any better since his discharge" History of Present Illness: 86yoM with past medical history of asthma, COPD, tobacco dependence, atrial fibrillation (not on anticoagulation therapy) , HTN with recent admission for chest pain treated for community-acquired pneumonia readmitted with atrial fibrillation with RVR. Patient is a difficult historian and has a difficult time pinpointing exactly why he is here in the hospital. He states "he just doesn't feel right" and describes his illness as "my pneumonia is back". When asked further about this he endorses acute onset of dyspnea on exertion over the past week with rapid breathing. He denies chest pain, chest tightness, palpitations, fevers, chills , orthopnea, PND or changes/difficulties with urination. Endorses some diarrhea which has resolved. He has been taking his medications as prescribed since recent discharge (01/19/2017) and feels thirsty more than usual. He recalls that his care team suggested that drinking more water would be good for him so he has recently increased his intake. While he endorses decrease in PO intake he does enjoy canned tuna when he can eat but can't recall if he eats additional food with high salt content. On presentation patient with T 36.0, HR 110, RR 22, BP 112/79, 99% on RA. CXR completed which reveals a left lower lung opacity which may represent consolidation versus atelectasis. Review of Systems: complete review of systems obtained. positive as per hpi otherwise negative. Allergies Coded Allergies: No Known Allergies (Unverified Allergy, Unknown, 02/04/17) Home Medications Discharge medications as per discharge summary 01/19/2017 Discharge Medications Cholecalciferol (Vitamin D3) (Vitamin D3) 1,000 Unit Tab.chew 2,000 UNIT PO DAILY (Reported) Digoxin (Digoxin) 125 Mcg Tablet 125 MCG PO DAILY (Reported) Doxazosin (Cardura) 1 Mg Tablet 1 MG PO HS (Reported) Ferrous Sulfate (Iron) 325 Mg Tablet 325 MG PO BID (Reported) Metoprolol Succinate ER (Metoprolol Succinate ER) 200 Mg Tab.er.24h 200 MG PO DAILY (Reported) Simvastatin (Simvastatin) 40 Mg Tablet 40 MG PO HS (Reported) As needed Bisacodyl (Bisacodyl Rectal) 10 Mg/30 Ml Enema 10 MG RC PRN PRN PRN For Constipation (Reported) Ondansetron ODT (Zofran ODT) 4 Mg Tablet 4 MG PO Q4H PRN PRN For Nausea Prescribed by: PATRICIA SMITH, DO Miscellaneous Medications Polyethylene Glycol 3350 (Miralax) 17 Gm Powd.pack 17 GM PO (Reported) PMH Dyslipidemia Asthma COPD Cancer GERD Hypertension Atrial fibrillation Surgical History Hiatal hernia repair Appendectomy Prostatectomy Family History Unable to obtain family history from patient. He is unaware of family medical history Social History Hx Alcohol Use: No Hx Substance Use: No Hx Tobacco Use: No Smoking Status: Former Smoker Exam Vital Signs Vital Sign - Last Date Time Temp Pulse Resp B/P Pulse Ox O2 Delivery O2 Flow Rate FiO2 02/04/17 23:14 98 24 115/81 98 Room Air 02/04/17 19:46 36.0 Intake and Output 02/04/17 02/04/17 02/05/17 Cumulative From/Thru 15:00 23:00 07:00 02/04/17 19:46 - 02/04/17 22:51 Intake Total 1000 ml 1000 ml Balance 1000 ml 1000 ml Intake IV Total 1000 ml 1000 ml Exam General: Alert, Oriented X3, Cooperative, No acute Distress Eyes: PERRLA, Scleral Anicteric Mouth: Mouth Normal, Mucous Membranes Moist/[place] Neck: Supple, no Thyromegaly, trachea central. Respiratory: crackles bases bilateral, no wheeze, good respiratory effort Cardiovascular: Normal S1, Normal S2, No Murmurs/Rubs/Gallops, Regular Rate/ Rhythm, (No JVD, no peripheral edema) Pulses: Radial (present and equal), Dorsalis Pedi (present and equal) GI: Soft, non-tender, Non-distended, Normoactive bowel tones. Musculoskeletal: Unremarkable. Normal range of motion, no swollen or erythematous joints Extremities: 0-1+ pitting edema to knee, no cyanosis, no clubbing. Skin: multiple areas of excoriation / sores with varying degree of healing / eschar throughout body Lymphatic: Lymph nodes Cervical and Axillary not palpable Neuro: CN grossly intact Lab and Diagnostics Result Diagram: 02/04/17203402/04/172034 X-Rays, CTs and MRIs Patient Name: JANE LOPEZ MR#: [id number] Location: [facility] [place] Ordering Phys: HALIMA RUSSELL MD Date of Service: 02/04/172000 PROCEDURE: X-RAY CHEST ONE VIEW, PORTABLE ([id number]) INDICATIONS: weakness TECHNIQUE: One view of the chest was acquired. COMPARISON: [facility], CR, XR CHEST 1VW (PORTABLE), 01/16/2017, 9: 10. FINDINGS: Surgical changes and devices: None. Lungs and pleura: No pleural effusions or pneumothorax. Focal opacity noted in the left lung base which could represent atelectasis versus pneumonia. Mediastinum: Mediastinal contours appear normal. Heart size is normal. Bones and chest wall: No suspicious bony lesions. Overlying soft tissues appear unremarkable. IMPRESSION: Small focal opacity in left lung base compatible atelectasis versus pneumonia. Please correlate with clinical and laboratory data. Cardiac Echo Impressions Cardiac Echo Impression Echocardiogram Report Name: JANE LOPEZ RStudy Date : 01/16/2017 Height: 66 in Weight: 145 lb Interpretation Summary The left ventricle is severely dilated. The ejection fraction is estimated to be 15-20%. There is severe global hypokinesis of the left ventricle. There is severe biatrial enlargement. There is moderate mitral regurgitation. There is moderate tricuspid regurgitation. The right ventricular systolic pressure is estimated at 43 mmHg assuming a right atrial pressure of 8 mm Hg. Assessment & Plan 86yoM with past medical history of asthma, COPD, tobacco dependence, atrial fibrillation (not on anticoagulation therapy) , HTN with recent admission for chest pain treated for community-acquired pneumonia readmitted with atrial fibrillation with RVR. GARETH, acute, POA -no history of renal failure -secondary to medication changes made on discharge (UDAY, furosemide), possible cardiorenal given EF, afib with RVR -holding UDAY at this time -repeat CMP in am to reassess -avoid nephrotoxic medications -AM team to consult nephrology if no improvement HFrEF, acute exacerbation, POA -increased WELCH, JVD, mild pitting edema -ECHO as per past history reviewed EF 15-20% (completed earlier this month) -lasix started on discharge, 20mg PO daily, note increase in weight of approx 3kg since d/c 01/19 -pt's understanding is to drink increased amount of water, decrease in PO intake but prefers food with high salt content -afib with rvr contributing factor -UDAY was started during last admission, holding d/t renal function -continue metoprolol when med rec is completed and dose confirmed -cardiology consult by am team, recs appreciated -will likely benefit from palliative care consult SIRs, acute, POA -secondary to atrial fib with RVR,HR 110, RR 22, T 36 -possible pulmonary source however recently treated for CAP -procalcitonin pending, no symptoms of acute infection -low threshold to start broad spectrum abx Elevated transaminase level, acute, POA -unclear etiology -possible a/w CHF -repeat in am with CMP -add on acetaminophen level Elevated glucose, acute, POA -no history of diabetes -hgbA1c pending Elevated troponin, acute, POA -likely secondary to demand ischemia given afib with RVR and GARETH -reviewed EKG, no ischemic change -trend troponins Hyponatremia, acute, POA -hypervolemic hyponatremia -mildly decreased from normal limits -monitor with repeat labs Atrial fibrillation with RVR, acute, POA -as per recent discharge summary home dose of metoprolol was continued with no h /o recent episodes of afib with RVR -dilt gtt was started in ED, continue until rate controlled -transition to oral medications in am -digoxin level added on to admit labs, pending HLD, chronic -continue simvastatin when med rec completed BPH, chronic -continue Patient admitted under inpatient status and will likely require >2midnight hospitalization due to severity of illness and comorbidities. Pain Evaluation: Adequate Pain Control GI Prophylaxis: Not indicated VTE Prophylaxis: SCDs (repeat INR pending in am, possible autoanticoag) Resuscitation Status: CPR: Attempt Resuscitation Kendra Alcazar DO February 05, 2017 01:42
[2017-02-05] MEDS: Ondansetron 2 mg/mL 2 mL Inj IVPUSH PRN (02:17)
--- NOTE | 2017-02-05 03:30 | NUR ---
Isha galvan DC'd. Tele Afib with HR 50-60's with IVCD. VS stable. notified.
[2017-02-05 05:07] LABS: BASOPHILS % (AUTO) 0.5 % (0-3); EOSINOPHILS % (AUTO) 0.8 % (0-5); Mean Corpuscular Hemoglobin 30.6 pg (27.0-35.0); Mean Corpuscular Volume 89.2 fL (81-100); NEUTROPHILS % (AUTO) 68.5 % (40-74); Platelet Count 195 bil/L (150-400)
[2017-02-05 05:23] LABS: INR 1.47 ratio
[2017-02-05 05:29] LABS: TROPONIN T 0.025 ug/L (0.0-0.011)
--- NOTE | 2017-02-05 06:17 | NUR ---
Admit Note Pt admitted from the ED with Afib RVR, Pneumonia and Elevated Troponin. Pt arrived via gurney accompanied by plant science professor. Pt was transferred to Hospital bed. Pt is A&O X3, fluent in both Swazi and [place]i and declines a professor of art history at this time. No c/o chest pain, Tele Afib with IVCD with HR 70-90s on admit. No c/o SOB, RA sats 96%. VS stable and afebrile. Pt oriented to room, bed, TV, Telephone and call light system. Urine sample sent to the lab by ED. Care ongoing.
[2017-02-05] MEDS: Alum-Mag Hydrox-Simeth 30 mL Suspension PO PRN (07:50)
[2017-02-05] MEDS: 0.9% Sodium Chloride 1,000 ML IV SCH (07:55)
[2017-02-05] MEDS ORDERED: MeTOProlol XL 50 mg ER24 Tablet PO ONE (10:15)
--- NOTE | 2017-02-05 11:13 | NUR ---
Social Work Note - Initial Assessment: D/A: See Initial Assessment. The Pt is an 86 y/o male that was admitted for afib with RVR, pneumonia, GARETH, elevated troponin. The Pt was recently admitted for pneumonia from -19 January, discharged home with Polly GARCIA (RN/PT/OT). The Pt's PCP is MD Trejo at the [facility] and his insurance is Medicare. Pt reports no LTC and VA medical benefits. EMR reviewed. RAMON met with the Pt to explain role and discuss discharge planning, SW telephone number written on white board. The Pt lives alone mostly independently at the [facility]. He lives on the second floor and has elevator access. The Pt reports that his daughter assists him with transportation, laundry, cleaning, and grocery shopping as needed. The Pt reports having a cane and a walker, does not drive and has a history at [facility] from 2008. Pt has a history with Polly GARCIA and would be agreeable for Polly GARCIA services if required. Pt also reports that he uses Meals on Wheels services, as well. The Pt denies any needs at this time, SW will continue to follow. P: The Pt is not medically stable for discharge at this time, will likely require an additional 3 days of hospitalization as per morning rounds. The Pt likely to discharge home with family providing POV transportation when medically stable. The Pt denies any needs at this time, SW will continue to follow. ANDI Spencer Technical Inspector ANDI Benton Addendum: 02/05/17 at 1124 by NAVEED BAILEY Amended: Links added.
--- NOTE | 2017-02-05 15:12 | PCM.PNMED ---
Subjective Date of Service February 05, 2017 Subjective Mr. Garcia is an 86-year-old male with a history of COPD, tobacco dependence, atrial fibrillation (not on anticoagulation therapy), HTN with recent admission for for community-acquired pneumonia who presented because "he just didn't feel right". Readmitted with atrial fibrillation with RVR. Hospital day #2. Admitted to [facility] overnight. Per nursing, patient had a quiet night. Today he reports mild nausea and generalized weakness with fatigue but otherwise is without concern. He denies chest pain, shortness of breath, fever, chills, cough , abdominal pain, vomiting, diarrhea or constipation. Exam Vital Signs Vital Sign - Last Date Time Temp Pulse Resp B/P Pulse Ox O2 Delivery O2 Flow Rate FiO2 02/05/17 07:48 36.6 89 20 137/95 96 Room Air Intake and Output 02/04/17 02/04/17 02/05/17 Cumulative From/Thru 15:00 23:00 07:00 02/04/17 19:46 - 02/05/17 06:00 Intake Total 1000 ml 1160 ml 2160 ml Output Total 375 ml 375 ml Balance 1000 ml 785 ml 1785 ml Intake IV Total 1000 ml 1160 ml 2160 ml Output Urine Total 375 ml 375 ml # Bowel Movements 0 0 Exam General: Alert, Oriented X3, Cooperative, No acute Distress Eyes: PERRLA, Scleral Anicteric Mouth: Mouth Normal, Mucous Membranes Moist/[place] Neck: Supple, no Thyromegaly, trachea central. Respiratory: Normal respiratory effort with no use of accessory muscles, bibasilar crackles, no wheezing. Cardiovascular: Normal S1, Normal S2, No Murmurs/Rubs/Gallops, Regular Rate/ Rhythm, (No JVD, no peripheral edema) Abdomen: Soft, non-tender, Non-distended, Normoactive bowel tones. Musculoskeletal: Unremarkable. Normal range of motion, no swollen or erythematous joints Extremities: Moderate pitting edema to knee, no cyanosis, no clubbing. Skin: Normal temperature and turgor, multiple areas of excoriation / sores with varying degree of healing / throughout body Neurologic: CN grossly intact. No focal deficits. Psychiatric: Normal mood and affect. Alert and oriented to person, place, and time. IVs and Medications Medications Reviewed: Medications were reviewed in detail Lab and Diagnostics Laboratory Tests Test 02/04/17 20:35 02/04/17 21:30 02/04/17 22:00 02/05/17 05:00 White Blood Count 9.8th/mm3 (3.8-10.1) 10.3th/mm3 (3.8-10.1) Red Blood Count 4.26mil/mm3 (4.40-5.80) 4.35mil/mm3 (4.40-5.80) Hemoglobin 13.0g/dL (13.8-17.2) 13.3g/dL (13.8-17.2) Hematocrit 38.0% (41.0-50.0) 38.8% (41.0-50.0) Mean Corpuscular Volume 89.2fL (81-100) 89.2fL (81-100) Mean Corpuscular Hemoglobin 30.5pg (27.0-35.0) 30.6pg (27.0-35.0) Mean Corpuscular Hemoglobin Concent 34.2% (32.0-37.0) 34.3% (32.0-37.0) Red Cell Distribution Width 13.4% (12.3-15.4) 13.6% (12.3-15.4) Platelet Count 186bil/L (150-400) 195bil/L (150-400) Neutrophils (%) (Auto) 70.3% (40-74) 68.5% (40-74) Lymphocytes (%) (Auto) 17.3% (14-46) 18.0% (14-46) Monocytes (%) (Auto) 11.6% (4-12) 12.0% (4-12) Eosinophils (%) (Auto) 0.2% (0-5) 0.8% (0-5) Basophils (%) (Auto) 0.5% (0-3) 0.5% (0-3) Prothrombin Time 17.6sec (8.1-12.5) 15.9sec (8.1-12.5) Prothromb Time International Ratio 1.63ratio 1.47ratio Sodium Level 131mEq/L (134-144) 132mEq/L (134-144) Potassium Level 5.1mEq/L (3.5-5.2) 4.8mEq/L (3.5-5.2) Chloride Level 94mEq/L (97-108) 97mEq/L (97-108) Carbon Dioxide Level 20mmol/L (18-29) 19mmol/L (18-29) Blood Urea Nitrogen 47mg/dL (8-27) 43mg/dL (8-27) Creatinine 1.78mg/dL (0.76-1.27) 1.60mg/dL (0.76-1.27) Estimat Glomerular Filtration Rate 39mL/min (>59) 44mL/min (>59) Glucose Level 119mg/dL (60-99) 89mg/dL (60-99) Calcium Level 9.6mg/dL (8.5-10.1) 9.6mg/dL (8.5-10.1) Magnesium Level 1.8mg/dL (1.6-2.6) Total Bilirubin 0.8mg/dL (0.0-1.2) 0.9mg/dL (0.0-1.2) Aspartate Amino Transf (AST/SGOT) 151U/L (0-50) 159U/L (0-50) Alanine Aminotransferase (ALT/SGPT) 154U/L (0-44) 169U/L (0-44) Alkaline Phosphatase 79U/L (25-160) 72U/L (25-160) Troponin T 0.027ug/L (0.0-0.011) 0.025ug/L (0.0-0.011) Total Protein 6.1g/dL (6.4-8.4) 5.9g/dL (6.4-8.4) Albumin 3.4g/dL (3.4-5.0) 3.2g/dL (3.4-5.0) Procalcitonin 0.11ng/mL (0.00-0.08) Hold [place] Top Tube Received (Received) Received (Received) Digoxin Level < 0.3nG/mL (0.9-2.0) Acetaminophen Level < 15.0ug/mL Rx (10-25) Urine Color Yellow (YELLOW) Urine Appearance Clear (CLEAR,HAZY) Urine pH 5.5 (5.0-8.0) Urine Specific [place] 1.025 (1.003-1.035) Urine Protein 30mg/dL (NEG,TRACE) Urine Glucose (UA) Negativemg/dL (NEGATIVE) Urine Ketones Negativemg/dL (NEGATIVE) Urine Occult Blood Negative (NEGATIVE) Urine Nitrite Negative (NEGATIVE) Urine Bilirubin Negative (NEGATIVE) Urine Urobilinogen Normalmg/dL (NORMAL) Urine Leukocyte Esterase Negative (NEGATIVE) Urine RBC 0-2/hpf (0-2) Urine WBC 0-5/hpf (0-5) Urine Epithelial Cells Few/hpf (NONE-MOD) Urine Crystals None seen (NONE SEEN) Urine Bacteria None/hpf (NONE-FEW) Urine Hyaline Casts None/lpf (NONE) Urine Granular Casts None seen (NONE SEEN) Urine Waxy Casts None seen (NONE SEEN) Urine Red Blood Cell Casts None seen (NONE SEEN) Urine White Blood Cell Casts None seen (NONE SEEN) Urine Mucus Present (None Seen) Urine Trichomonas None seen (NONE SEEN) Urine Yeast None (NONE SEEN) Urine Culture Reflexed Not indicated Hold Urine Received (Received) Result Diagram: 02/05/17 0500 02/05/17 0500 Microbiology 02/04/17 Blood cultures- pending X-Rays, CTs and MRIs Patient Name: JANE GARCIA MR#: [id number] [place] [facility] [place] Ordering Phys: HALIMA RUSSELL MD Date of Service: 02/04/172000 PROCEDURE: X-RAY CHEST ONE VIEW, PORTABLE ([id number]) INDICATIONS: weakness TECHNIQUE: One view of the chest was acquired. COMPARISON: [facility], CR, XR CHEST 1VW (PORTABLE), 01/16/2017, 9: 10. FINDINGS: Surgical changes and devices: None. Lungs and pleura: No pleural effusions or pneumothorax. Focal opacity noted in the left lung base which could represent atelectasis versus pneumonia. Mediastinum: Mediastinal contours appear normal. Heart size is normal. Bones and chest wall: No suspicious bony lesions. Overlying soft tissues appear unremarkable. IMPRESSION: Small focal opacity in left lung base compatible atelectasis versus pneumonia. Please correlate with clinical and laboratory data. Cardiac Echo Impressions Cardiac Echo Impression Echocardiogram Report Name: JANE GARCIA RStudy Date : 01/16/2017 Height: 66 in Weight: 145 lb Interpretation Summary The left ventricle is severely dilated. The ejection fraction is estimated to be 15-20%. There is severe global hypokinesis of the left ventricle. There is severe biatrial enlargement. There is moderate mitral regurgitation. There is moderate tricuspid regurgitation. The right ventricular systolic pressure is estimated at 43 mmHg assuming a right atrial pressure of 8 mm Hg. Assessment & Plan Mr. Garcia is an 86-year-old male with a history of COPD, tobacco dependence, atrial fibrillation (not on anticoagulation therapy), HTN with recent admission for for community-acquired pneumonia who presented because "he just didn't feel right". Readmitted with atrial fibrillation with RVR. Hospital day #2. Atrial fibrillation with RVR, acute. Present on admission. Active. -Likely paroxysmal. Patient without recent history of RVR. Patient discharged on 01/19 with Metoprolol succinate -Started on diltiazem drip at presentation. -Diltiazem titrated off overnight. -Start home metoprolol succinate, digoxin Acute kidney injury. Present on admission. Active. -Likely secondary to medication changes made on discharge (UDAY, furosemide), possible cardiorenal given EF, afib with RVR. Pt with no history of renal failure. -Continue to hold ACEi -CMP in the morning. -Consider consult to Nephrology if no signs of improvement. Acute on chronic systolic heart failure. Present on admission. Active. -Pt presented with increased dyspnea on exertion, JVD,and mild pitting edema -ECHO earlier this month with EF 15-20% -UDAY was started during last admission, holding d/t renal function Elevated liver enzymes, acute. Present on admission. Active. -Unclear etiology. Possibly associated with heart failure. -CMP in morning Elevated troponin, uncertain chronicity. Present on admission. Active. -Likely secondary to demand ischemia given Afib with RVR and GARETH -EKG, no ischemic change -Troponin trending down, most recent 0.020. Hyponatremia, acute. Present on admission. Active. -Likely secondary to heart failure, hypervolemic hyponatremia. -Sodium 132 -Treat underlying cause -CMP in morning. Dyslipidemia, chronic. Present on admission. Presumed stable. -Continue home simvastatin BPH, chronic. Present on admission. Presumed stable. -Continue home SIRS, acute. Present on admission. Resolved. -Secondary to atrial fib with RVR,HR 110, RR 22, T 36 -Possible pulmonary source however recently treated for CAP. -Procalcitonin unremarkable, patient with no symptoms of acute infection Hyperglycemia, acute. Present on admission. Resolved. -Glucose 119 in patient without diagnosis of diabetes -hgbA1c pending Disposition: Patient will likely discharge in 1-2 days pending improvement in rate control and hyponatremia. GI Prophylaxis: Not indicated VTE Prophylaxis: SCDs (repeat INR pending in am, possible autoanticoag) Resuscitation Status: CPR: Attempt Resuscitation Attending Statement The patient was seen and examined together with Dr. Hilario on 02-05-17 and I agree with the history, exam and plan as outlined in the note above. Arabella Hilario DO February 05, 2017 08:15 Ana Lilia Holt MD February 06, 2017 16:51 Arabella Hilario DO February 05, 2017 08:15
--- NOTE | 2017-02-05 15:43 | NUR ---
spiritual care: pt request brief visit. pt shared his connection with maura guidry and its role in community. Pt explained his hard work over his lifetime has compromised his health and he's hopeful that he can recover fully from pneumonia.
[2017-02-05] MEDS ORDERED: LISI-571 PO (19:25)
[2017-02-05] MEDS: MeTOProlol XL 50 mg ER24 Tablet PO SCH (20:16)
--- NOTE | 2017-02-05 22:43 | NUR ---
Blood pressure: Blood pressure 99/65. PT Afib 80-low 100s. Pt scheduled to have 100mg Metoprolol and dose of Doxazosin. Informed night resident Dr. Pickering- states hold doxazoin and give half does of (50mg ) of metoprolol. Tele currently Afib 80 IVCD. will continue to monitor.
[2017-02-06] VITALS (8 sets, daily range): BP systolic 89–116; BP diastolic 66–90; PULSE 83–154; RESP 17–31; O2SAT 94–99
[2017-02-06] MEDS: Alum-Mag Hydrox-Simeth 30 mL Suspension PO PRN (00:13)
[2017-02-06] MEDS: Ondansetron 2 mg/mL 2 mL Inj IVPUSH PRN (00:13)
--- NOTE | 2017-02-06 05:14 | NUR ---
Vtach: Earlier pt had a 8 beat run of vatch. which later @0500 pt had a 21 beat run of vtach. lab not in yet to drawn am labs. Discussed findings with dr. Pickering. Mag added to AM labs. Lab notified states will be in [place] to draw labs. Addendum: 02/06/17 at 0607 by ANGELO CODY RN labs this am k 4.9, mag 1.9.
[2017-02-06 05:20] LABS: BASOPHILS % (AUTO) 0.3 % (0-3); EOSINOPHILS % (AUTO) 0.9 % (0-5); MONOCYTES % (AUTO) 11.9 % (4-12); Mean Corpuscular Hemoglobin 30.4 pg (27.0-35.0); Mean Corpuscular Volume 89.5 fL (81-100); NEUTROPHILS % (AUTO) 69.9 % (40-74); Platelet Count 188 bil/L (150-400)
[2017-02-06 05:49] LABS: Magnesium 1.9 mg/dL (1.6-2.6)
[2017-02-06] MEDS: MeTOProlol XL 50 mg ER24 Tablet PO SCH ×2 (08:58→20:29)
--- NOTE | 2017-02-06 09:21 | PCM.PNMED ---
Subjective Date of Service February 06, 2017 Subjective Mr. Garcia is an 86-year-old male with a history of COPD, tobacco dependence, atrial fibrillation (not on anticoagulation therapy), HTN with recent admission for for community-acquired pneumonia who presented because "he just didn't feel right". Readmitted with atrial fibrillation with RVR. Patient asymptomatic in Afib with rate 80-low 100s overnight with blood pressure of 99/65. Doxazosin dose was held and patient given half dose of metoprolol. 21 beats of Vtach noted on telemetry. This morning patient is sitting up in bed eating breakfast. He is unhappy with how long it took to get his breakfast but otherwise is without complaint. He denies chest pain, difficulty breathing, nausea, vomiting, diarrhea or constipation. Exam Vital Signs Vital Sign - Last Date Time Temp Pulse Resp B/P Pulse Ox O2 Delivery O2 Flow Rate FiO2 02/06/17 03:01 36.3 83 19 89/66 94 Room Air Intake and Output 02/05/17 02/05/17 02/06/17 Cumulative From/Thru 15:00 23:00 07:00 02/04/17 19:46 - 02/06/17 05:15 Intake Total 640 ml 420 ml 3220 ml Output Total 500 ml 650 ml 1525 ml Balance 140 ml -230 ml 1695 ml Intake Oral 640 ml 420 ml 1060 ml IV Total 2160 ml Output Urine Total 500 ml 650 ml 1525 ml # Bowel Movements 1 1 Exam General: Elderly male sitting up in bed in no acute distress, appropriately interactive. C HEENT: Normocephalic, atraumatic, PERRLA, Scleral Anicteric, Mucous Membranes Moist/[place] Neck: Supple, no lymphadenopathy or thyromegaly, trachea central. Respiratory: Normal respiratory effort with no use of accessory muscles, mild bibasilar crackles, no wheezing. Cardiovascular: Irregular rate and rhythm, Normal S1, Normal S2, No Murmurs Abdomen: Soft, non-tender, Non-distended, Normoactive bowel tones. Musculoskeletal: Unremarkable. Normal range of motion, no swollen or erythematous joints Extremities: Mild pitting edema to knee, no cyanosis, no clubbing. Skin: Normal temperature and turgor, multiple areas of excoriation / sores with varying degree of healing / throughout body Neurologic: CN grossly intact. No focal deficits. Psychiatric: Normal mood and affect. Alert and oriented to person, place, and time. IVs and Medications Medications Reviewed: Medications were reviewed in detail Lab and Diagnostics Laboratory Tests Test 02/05/17 15:33 02/06/17 04:50 Troponin T 0.020ug/L (0.0-0.011) White Blood Count 9.4th/mm3 (3.8-10.1) Red Blood Count 4.27mil/mm3 (4.40-5.80) Hemoglobin 13.0g/dL (13.8-17.2) Hematocrit 38.2% (41.0-50.0) Mean Corpuscular Volume 89.5fL (81-100) Mean Corpuscular Hemoglobin 30.4pg (27.0-35.0) Mean Corpuscular Hemoglobin Concent 34.0% (32.0-37.0) Red Cell Distribution Width 13.7% (12.3-15.4) Platelet Count 188bil/L (150-400) Neutrophils (%) (Auto) 69.9% (40-74) Lymphocytes (%) (Auto) 16.8% (14-46) Monocytes (%) (Auto) 11.9% (4-12) Eosinophils (%) (Auto) 0.9% (0-5) Basophils (%) (Auto) 0.3% (0-3) Sodium Level 133mEq/L (134-144) Potassium Level 4.9mEq/L (3.5-5.2) Chloride Level 98mEq/L (97-108) Carbon Dioxide Level 23mmol/L (18-29) Blood Urea Nitrogen 37mg/dL (8-27) Creatinine 1.51mg/dL (0.76-1.27) Estimat Glomerular Filtration Rate 47mL/min (>59) Glucose Level 96mg/dL (60-99) Calcium Level 9.4mg/dL (8.5-10.1) Magnesium Level 1.9mg/dL (1.6-2.6) Total Bilirubin 0.6mg/dL (0.0-1.2) Aspartate Amino Transf (AST/SGOT) 109U/L (0-50) Alanine Aminotransferase (ALT/SGPT) 152U/L (0-44) Alkaline Phosphatase 73U/L (25-160) Total Protein 5.5g/dL (6.4-8.4) Albumin 3.1g/dL (3.4-5.0) Procalcitonin 0.09ng/mL (0.00-0.08) Result Diagram: 02/06/17 0450 02/06/17 0450 Microbiology 02/04/17 Blood cultures- No growth at 24 hrs X-Rays, CTs and MRIs (02/04/17) X-RAY CHEST ONE VIEW, PORTABLE IMPRESSION: Small focal opacity in left lung base compatible atelectasis versus pneumonia. Please correlate with clinical and laboratory data. Dictated and approved by: Amy Butcher MD, PhD on 02/04/2017 at 20:26 Cardiac Echo Impressions ECHOCARDIOGRAM - previous admission (01/16/17) Interpretation Summary The left ventricle is severely dilated. The ejection fraction is estimated to be 15-20%. There is severe global hypokinesis of the left ventricle. There is severe biatrial enlargement. There is moderate mitral regurgitation. There is moderate tricuspid regurgitation. The right ventricular systolic pressure is estimated at 43 mmHg assuming a right atrial pressure of 8 mm Hg. Conrado Lala Reading Physician:01/16/2017 05:50 PM Assessment & Plan Mr. Garcia is an 86-year-old male with a history of COPD, tobacco dependence, atrial fibrillation (not on anticoagulation therapy), HTN with recent admission for for community-acquired pneumonia who presented because "he just didn't feel right". Readmitted with atrial fibrillation with RVR. Atrial fibrillation with RVR, acute. Present on admission. Active. -Likely paroxysmal. Patient without recent history of RVR. Patient discharged on 01/19 with Metoprolol succinate, 200mg daily. -Started on diltiazem drip at presentation and titrated off drip overnight. -Received half dose of metoprolol due to low BP, rate 80s-100. Doxazosin also held. Rate now 130s. -Continue Metoprolol succinate 100mg BID, Digoxin 125mcg daily Acute kidney injury. Present on admission.Improving. -Likely secondary to medication changes made on discharge (UDAY, furosemide), possible cardiorenal given EF, Afib with RVR. Pt with no history of renal failure. -Continue to hold ACEi -CMP in the morning. Acute on chronic systolic heart failure. Present on admission. Improving. -Pt presented with increased dyspnea on exertion, JVD,and mild pitting edema -ECHO earlier this month with EF 15-20% -UDAY was started during last admission, holding d/t renal function -Consider consult to Palliative Care for goals of care Elevated liver enzymes, acute. Present on admission. Improving. -Unclear etiology. Possibly associated with heart failure. -CMP in morning Elevated troponin, uncertain chronicity. Present on admission. Improving. -Likely secondary to demand ischemia given Afib with RVR and GARETH -EKG, no ischemic change -Troponin trending down, most recent 0.020. Hyponatremia, acute. Present on admission. Active. -Likely secondary to heart failure, hypervolemic hyponatremia. -Sodium 132 -Treat underlying cause -CMP in morning. Dyslipidemia, chronic. Present on admission. Presumed stable. -Continue home simvastatin BPH, chronic. Present on admission. Presumed stable. -Continue home doxazosin SIRS, acute. Present on admission. Resolved. -Secondary to atrial fib with RVR,HR 110, RR 22, T 36 -Possible pulmonary source however recently treated for CAP. -Procalcitonin unremarkable, patient with no symptoms of acute infection Hyperglycemia, acute. Present on admission. Resolved. -Glucose 119 in patient without diagnosis of diabetes -hgbA1c pending Disposition: Patient will likely discharge in 1-2 days pending improvement in rate control and hyponatremia. GI Prophylaxis: Not indicated VTE Prophylaxis: SCDs (repeat INR pending in am, possible autoanticoag) Resuscitation Status: CPR: Attempt Resuscitation Attending Statement The patient was seen and examined together with Dr. Hilario on 02-06-17 and I agree with the history, exam and plan as outlined in the note above. Arabella Hilario DO February 06, 2017 08:07 Ana Lilia Holt MD February 06, 2017 17:54
--- NOTE | 2017-02-06 10:19 | NUR ---
Spoke with Briana in patient access at [facility], this patient is non service connected. He has MCR A&B His PCP is at [facility] and is James Campbell
--- NOTE | 2017-02-06 14:29 | NUR ---
BM's/TELE The pt has had two medium soft to loose bowel movements on this shift - no GI pain/cramping or remarkable odor. The pt is eating well. TELE Afib in the 110's's-160's before med. PO metoprolol and dig have good effects, bringing the rate down to the 70's-120's. Blood pressures are holding.
[2017-02-07] VITALS (7 sets, daily range): BP systolic 104–124; BP diastolic 75–85; PULSE 101–125; RESP 18–24; O2SAT 94–97
[2017-02-07 03:03] LABS: BASOPHILS % (AUTO) 0.3 % (0-3); EOSINOPHILS % (AUTO) 0.9 % (0-5); MONOCYTES % (AUTO) 12.9 % (4-12); Mean Corpuscular Hemoglobin 30.2 pg (27.0-35.0); Mean Corpuscular Volume 90.5 fL (81-100); NEUTROPHILS % (AUTO) 72.2 % (40-74); Platelet Count 181 bil/L (150-400)
--- NOTE | 2017-02-07 06:41 | NUR ---
AFIB/discomfort pts HR AFIB rate 100-120s most of shift a few times in the 80 and a few times in the 130 ( with activity) pt denies any pain c/o discomfort with him cough up sputum, tylenol given with reported good relief, pt worried about fluid restriction that he wont be able to keep his mouth moist, offered sponges pt feeling like he just needs to be able to drink more water, explained the need for the fluid restriction
[2017-02-07] MEDS: MeTOProlol XL 50 mg ER24 Tablet PO SCH ×2 (08:59→21:58)
--- NOTE | 2017-02-07 13:29 | NUR ---
Poor activity tolerance/increased heart rate Heart rate continued to be increased at 120-140s with any activity and remained a-fib. Patient was short of breath with activity but his shortness of breath and increase hear rate would resolve quickly after patient was settled. His activity consisted of getting up to a chair or sitting position or transfer to a bedside commode. PT evaluation was ordered for today-consulted with PT regarding patient's poor activity tolerance-PT to evaluate the patient tomorrow or when patients activity tolerance improves. MD was made aware- no new orders were received.
[2017-02-07] MEDS ORDERED: Digoxin 0.25 mg/mL 2 mL Inj IV ONE (14:35)
--- NOTE | 2017-02-07 14:44 | PCM.PNMED ---
Subjective Date of Service February 07, 2017 Subjective Mr. Garcia is an 86-year-old male with a history of COPD, tobacco dependence, atrial fibrillation (not on anticoagulation therapy), HTN with recent admission for for community-acquired pneumonia who presented because "he just didn't feel right". Readmitted with atrial fibrillation with RVR. No acute events overnight,. rate control remains an issue. Patient consistently with heart rate in 130s-140s with minimal activity with a low in the 70s. Patient notes awareness of his fast heart rate but otherwise is without symptoms or complaint. He denies chest pain, shortness of breath, dizziness or headache. Exam Vital Signs Vital Sign - Last Date Time Temp Pulse Resp B/P Pulse Ox O2 Delivery O2 Flow Rate FiO2 02/07/17 12:31 127 02/07/17 11:42 36.8 20 105/79 95 Room Air Intake and Output 02/06/17 02/06/17 02/07/17 Cumulative From/Thru 15:00 23:00 07:00 02/04/17 19:46 - 02/07/17 06:41 Intake Total 980 ml 500 ml 4700 ml Output Total 650 ml 250 ml 2425 ml Balance 330 ml 250 ml 2275 ml Intake Oral 980 ml 500 ml 2540 ml IV Total 2160 ml Output Urine Total 650 ml 250 ml 2425 ml # Bowel Movements 3 1 5 Exam General: Elderly male, in no acute distress, appropriately interactive. HEENT: PERRLA, Mucous Membranes Moist/[place] Respiratory: Normal respiratory effort with no use of accessory muscles, mild bibasilar crackles, no wheezing. Cardiovascular: Irregular rate and rhythm, Normal S1, Normal S2, No Murmurs Abdomen: Soft, non-tender, Non-distended, Normoactive bowel tones. Musculoskeletal: Unremarkable. Normal range of motion, no swollen or erythematous joints Extremities: No edema, cyanosis, or clubbing. Skin: Normal temperature and turgor, multiple areas of excoriation / sores with varying degree of healing / throughout body Neurologic: CN grossly intact. No focal deficits. Psychiatric: Normal mood and affect. Alert and oriented to person, place, and time. IVs and Medications Medications Reviewed: Medications were reviewed in detail Lab and Diagnostics Laboratory Tests Test 02/07/17 02:50 White Blood Count 9.0th/mm3 (3.8-10.1) Red Blood Count 4.10mil/mm3 (4.40-5.80) Hemoglobin 12.4g/dL (13.8-17.2) Hematocrit 37.1% (41.0-50.0) Mean Corpuscular Volume 90.5fL (81-100) Mean Corpuscular Hemoglobin 30.2pg (27.0-35.0) Mean Corpuscular Hemoglobin Concent 33.4% (32.0-37.0) Red Cell Distribution Width 14.0% (12.3-15.4) Platelet Count 181bil/L (150-400) Neutrophils (%) (Auto) 72.2% (40-74) Lymphocytes (%) (Auto) 13.5% (14-46) Monocytes (%) (Auto) 12.9% (4-12) Eosinophils (%) (Auto) 0.9% (0-5) Basophils (%) (Auto) 0.3% (0-3) Sodium Level 135mEq/L (134-144) Potassium Level 5.4mEq/L (3.5-5.2) Chloride Level 99mEq/L (97-108) Carbon Dioxide Level 23mmol/L (18-29) Blood Urea Nitrogen 40mg/dL (8-27) Creatinine 1.43mg/dL (0.76-1.27) Estimat Glomerular Filtration Rate 50mL/min (>59) Glucose Level 115mg/dL (60-99) Calcium Level 9.1mg/dL (8.5-10.1) Total Bilirubin 0.5mg/dL (0.0-1.2) Aspartate Amino Transf (AST/SGOT) 71U/L (0-50) Alanine Aminotransferase (ALT/SGPT) 129U/L (0-44) Alkaline Phosphatase 71U/L (25-160) Total Protein 5.6g/dL (6.4-8.4) Albumin 3.5g/dL (3.4-5.0) Result Diagram: 02/07/17 0250 02/07/17 0250 Microbiology 02/04/17 Blood cultures- no growth to date. X-Rays, CTs and MRIs (02/04/17) X-RAY CHEST ONE VIEW, PORTABLE IMPRESSION: Small focal opacity in left lung base compatible atelectasis versus pneumonia. Please correlate with clinical and laboratory data. Dictated and approved by: Amy Butcher MD, PhD on 02/04/2017 at 20:26 Cardiac Echo Impressions ECHOCARDIOGRAM - previous admission (01/16/17) Interpretation Summary The left ventricle is severely dilated. The ejection fraction is estimated to be 15-20%. There is severe global hypokinesis of the left ventricle. There is severe biatrial enlargement. There is moderate mitral regurgitation. There is moderate tricuspid regurgitation. The right ventricular systolic pressure is estimated at 43 mmHg assuming a right atrial pressure of 8 mm Hg. Conrado Lala Reading Physician:01/16/2017 05:50 PM Assessment & Plan Mr. Garcia is an 86-year-old male with a history of COPD, tobacco dependence, atrial fibrillation (not on anticoagulation therapy), HTN with recent admission for for community-acquired pneumonia who presented because "he just didn't feel right". Readmitted with atrial fibrillation with RVR. Atrial fibrillation with RVR, acute. Present on admission. Active. -Likely paroxysmal. Patient without recent history of RVR. Patient discharged on 01/19 with Metoprolol succinate, 200mg daily. -Started on diltiazem drip at presentation and titrated off drip -Continue Metoprolol succinate 100mg BID, Digoxin 125mcg daily -IV push of digoxin 0.125mg one time. Likely increase PO digoxin to 0.250mg. -Continue to hold doxazosin. Acute kidney injury. Present on admission. Improving. -Likely secondary to medication changes made on discharge (UDAY, furosemide), possible cardiorenal given EF, Afib with RVR. Pt with no history of renal failure. -Continue to hold ACEi -CMP in the morning. Acute on chronic systolic heart failure. Present on admission. Improving. -Pt presented with increased dyspnea on exertion, JVD,and mild pitting edema -ECHO earlier this month with EF 15-20% -UDAY was started during last admission, holding d/t renal function -Consider consult to Palliative Care for goals of care prior to discharge Elevated liver enzymes, acute. Present on admission. Improving. -Unclear etiology. Possibly associated with heart failure. -CMP in morning Elevated troponin, uncertain chronicity. Present on admission. Improving. -Likely secondary to demand ischemia given Afib with RVR and GARETH -EKG, no ischemic change -Troponin trending down, most recent 0.020. Hyponatremia, acute. Present on admission. Resolved. -Likely secondary to heart failure, hypervolemic hyponatremia. -Sodium 135 -Continue fluid restriction -CMP in morning. Dyslipidemia, chronic. Present on admission. Presumed stable. -Continue home simvastatin BPH, chronic. Present on admission. Presumed stable. -Continue to hold home doxazosin due to hypotension SIRS, acute. Present on admission. Resolved. -Secondary to atrial fib with RVR,HR 110, RR 22, T 36 -Concern initially for pulmonary source however recently treated for CAP. -Procalcitonin unremarkable, patient with no symptoms of acute infection Hyperglycemia, acute. Present on admission. Resolved. -Glucose 119 in patient without diagnosis of diabetes -hgbA1c 5.5 Disposition: Patient will likely discharge in 1-2 days pending improvement in rate control. GI Prophylaxis: Not indicated VTE Prophylaxis: SCDs (repeat INR pending in am, possible autoanticoag) Resuscitation Status: CPR: Attempt Resuscitation Attending Statement Patient seen and examined with house staff. Agree with all attached documentation. Arabella Hilario DO February 07, 2017 14:34 Wojciech Mercado MD February 08, 2017 07:43 Arabella Hilario DO February 07, 2017 14:34
--- NOTE | 2017-02-07 15:18 | NUR ---
Social Work Note: Continued Discharge Planning Data& Assessment: EMR reviewed. Per MD in morning rounds, pt is not medically ready for discharge at this time. Per PT, pt heart rate was too high and they could not complete a PT evaluation. SW to continue to follow and meet with pt at bedside to discuss discharge planning pending PT recommendations and MD orders. Plan: Per MD pt is not medically ready for discharge at this time. Pt is not appropriate to complete PT eval per PT at this time. SW to continue to follow and meet with pt at bedside to discuss discharge planning pending PT recommendations and MD orders. ANDI Sandhu
[2017-02-07] MEDS: Heparin 5,000 Unit/mL Inj SUBQ SCH (16:46)
--- NOTE | 2017-02-07 16:46 | NUR ---
spiritual care: pt request conversational visit. pt reflected on personal views about history, politics and shared his impressions of an incident with nursing staff last night--explaining his strong reactions to nursing care including his discomfort with being seen as "difficult" Pt pleasant, enjoyed company and was agreeable for visit from caring repairer auto clocks. caring repairer auto clocks Natividad Cheung visited and reported animated pleasant conversational visit--about 1/2 hour
[2017-02-08] VITALS (9 sets, daily range): BP systolic 110–127; BP diastolic 65–84; PULSE 69–129; RESP 20–23; O2SAT 92–97
[2017-02-08] MEDS: Heparin 5,000 Unit/mL Inj SUBQ SCH ×3 (01:07→17:58)
[2017-02-08 03:21] LABS: BASOPHILS % (AUTO) 0.5 % (0-3); EOSINOPHILS % (AUTO) 0.5 % (0-5); MONOCYTES % (AUTO) 8.9 % (4-12); Mean Corpuscular Hemoglobin 30.5 pg (27.0-35.0); Mean Corpuscular Volume 88.1 fL (81-100); NEUTROPHILS % (AUTO) 76.4 % (40-74); Platelet Count 209 bil/L (150-400)
[2017-02-08] MEDS: MeTOProlol XL 50 mg ER24 Tablet PO SCH ×2 (06:51→20:18)
--- NOTE | 2017-02-08 08:05 | NUR ---
Increased HR/Potassium Tele Afib 100s-110s for the most part though would come up to 130s-140s w/out sustaining. This morning trend was noted to have increased w/ rate mostly in 120s and very frequently in 130s-140s w/out activity. MD notified and ordered to give metoprolol dose early this morning. Day RN aware. Continuing to monitor. Potassium critical at 6.2 this morning. MD notified and ordered one time Kayexalate dose w/ a redraw later this morning. Pt denies pain but verbalized understanding to inform nursing of any new pain or symptoms.
--- NOTE | 2017-02-08 10:43 | PCM.PNMED ---
Subjective Date of Service February 08, 2017 Subjective Mr. Garcia is an 86-year-old male with a history of COPD, tobacco dependence, atrial fibrillation (not on anticoagulation therapy), HTN with recent admission for for community-acquired pneumonia who presented because "he just didn't feel right". Readmitted with atrial fibrillation with RVR. No acute events overnight. Rate control remains an issue, rate in 130s-140s with any activity. Potassium 6.2, received Kayexalate with plan to repeat labs later this morning. Patient denies chest pain, shortness of breath, headache, or dizziness. Exam Vital Signs Vital Sign - Last Date Time Temp Pulse Resp B/P Pulse Ox O2 Delivery O2 Flow Rate FiO2 02/08/17 09:03 36.8 121 22 115/83 95 Room Air Intake and Output 02/07/17 02/07/17 02/08/17 Cumulative From/Thru 15:00 23:00 07:00 02/04/17 19:46 - 02/08/17 06:57 Intake Total 950 ml 500 ml 6150 ml Output Total 975 ml 300 ml 3700 ml Balance -25 ml 200 ml 2450 ml Intake Oral 950 ml 500 ml 3990 ml IV Total 2160 ml Output Urine Total 975 ml 300 ml 3700 ml # Voids 5 5 # Bowel Movements 3 8 Exam General: Elderly male, in no acute distress, appropriately interactive. HEENT: PERRLA, Mucous Membranes Moist/Friendly Respiratory: Normal respiratory effort with no use of accessory muscles, mild bibasilar crackles, no wheezing. Cardiovascular: Irregular rate and rhythm, Normal S1, Normal S2, No Murmurs Abdomen: Soft, non-tender, Non-distended, Normoactive bowel tones. Musculoskeletal: Unremarkable. Normal range of motion, no swollen or erythematous joints Extremities: No edema, cyanosis, or clubbing. Skin: Normal temperature and turgor, multiple areas of excoriation / sores with varying degree of healing / throughout body Neurologic: CN grossly intact. No focal deficits. Psychiatric: Normal mood and affect. Alert and oriented to person, place, and time. IVs and Medications Medications Reviewed: Medications were reviewed in detail Lab and Diagnostics Laboratory Tests Test 02/08/17 02:15 02/08/17 02:50 02/08/17 10:00 Hepatitis C Comment . White Blood Count 11.3th/mm3 (3.8-10.1) Red Blood Count 4.78mil/mm3 (4.40-5.80) Hemoglobin 14.6g/dL (13.8-17.2) Hematocrit 42.1% (41.0-50.0) Mean Corpuscular Volume 88.1fL (81-100) Mean Corpuscular Hemoglobin 30.5pg (27.0-35.0) Mean Corpuscular Hemoglobin Concent 34.7% (32.0-37.0) Red Cell Distribution Width 14.4% (12.3-15.4) Platelet Count 209bil/L (150-400) Neutrophils (%) (Auto) 76.4% (40-74) Lymphocytes (%) (Auto) 13.4% (14-46) Monocytes (%) (Auto) 8.9% (4-12) Eosinophils (%) (Auto) 0.5% (0-5) Basophils (%) (Auto) 0.5% (0-3) Sodium Level 134mEq/L (134-144) Potassium Level 6.2mEq/L (3.5-5.2) Chloride Level 100mEq/L (97-108) Carbon Dioxide Level 18mmol/L (18-29) Blood Urea Nitrogen 42mg/dL (8-27) Creatinine 1.46mg/dL (0.76-1.27) Estimat Glomerular Filtration Rate 49mL/min (>59) Glucose Level 134mg/dL (60-99) Calcium Level 9.7mg/dL (8.5-10.1) Total Bilirubin 0.8mg/dL (0.0-1.2) Aspartate Amino Transf (AST/SGOT) 101U/L (0-50) Alanine Aminotransferase (ALT/SGPT) 154U/L (0-44) Alkaline Phosphatase 86U/L (25-160) Total Protein 6.3g/dL (6.4-8.4) Albumin 3.7g/dL (3.4-5.0) Digoxin Level 1.2nG/mL (0.9-2.0) Result Diagram: 02/08/17 0250 02/08/17 0250 Microbiology 02/04/17 Blood cultures- no growth to date. X-Rays, CTs and MRIs (02/04/17) X-RAY CHEST ONE VIEW, PORTABLE IMPRESSION: Small focal opacity in left lung base compatible atelectasis versus pneumonia. Please correlate with clinical and laboratory data. Dictated and approved by: Amy Butcher MD, PhD on 02/04/2017 at 20:26 Cardiac Echo Impressions ECHOCARDIOGRAM - previous admission (01/16/17) Interpretation Summary The left ventricle is severely dilated. The ejection fraction is estimated to be 15-20%. There is severe global hypokinesis of the left ventricle. There is severe biatrial enlargement. There is moderate mitral regurgitation. There is moderate tricuspid regurgitation. The right ventricular systolic pressure is estimated at 43 mmHg assuming a right atrial pressure of 8 mm Hg. Conrado Spaulding Physician:01/16/2017 05:50 PM Assessment & Plan Mr. Garcia is an 86-year-old male with a history of COPD, tobacco dependence, atrial fibrillation (not on anticoagulation therapy), HTN with recent admission for for community-acquired pneumonia who presented because "he just didn't feel right". Readmitted with atrial fibrillation with RVR. Atrial fibrillation with RVR, acute. Present on admission. Active. -Likely paroxysmal. Patient without recent history of RVR. Patient discharged on 01/19 with Metoprolol succinate, 200mg daily. -Started on diltiazem drip at presentation and titrated off drip -Continue Metoprolol succinate 100mg BID, Digoxin 125mcg daily -Increase digoxin to 0.250mg daily -Continue to hold doxazosin. -Start PO diltiazem 30mg Hyperkalemia, acute. Not present on admission. Active. - Potassium 6.2. Rec'd 15gm Kayexalate - Additional 30gm Kayexalate - Repeat potassium Acute kidney injury. Present on admission. Improving. -Likely secondary to medication changes made on discharge (UDAY, furosemide), possible cardiorenal given EF, Afib with RVR. Pt with no history of renal failure. -Continue to hold ACEi -CMP in the morning. Acute on chronic systolic heart failure. Present on admission. Improving. -Pt presented with increased dyspnea on exertion, JVD,and mild pitting edema -ECHO earlier this month with EF 15-20% -UDAY was started during last admission, holding d/t renal function -Add furosemide 20mg PO daily. -Consider consult to Palliative Care for goals of care prior to discharge Elevated liver enzymes, acute. Present on admission. Improving. -Unclear etiology. Possibly associated with heart failure. -CMP in morning Elevated troponin, uncertain chronicity. Present on admission. Presumed stable. -Uncertain significance. Likely secondary to demand ischemia given Afib with RVR and GARETH -EKG, no ischemic change -Troponin trending down, most recent 0.020. Hyponatremia, acute. Present on admission. Resolved. -Likely secondary to heart failure, hypervolemic hyponatremia. -Sodium 135 -Continue fluid restriction -CMP in morning. Dyslipidemia, chronic. Present on admission. Presumed stable. -Continue home simvastatin BPH, chronic. Present on admission. Presumed stable. -Continue to hold home doxazosin due to hypotension SIRS, acute. Present on admission. Resolved. -Secondary to atrial fib with RVR,HR 110, RR 22, T 36 -Concern initially for pulmonary source however recently treated for CAP. -Procalcitonin unremarkable, patient with no symptoms of acute infection Hyperglycemia, acute. Present on admission. Resolved. -Glucose 119 in patient without diagnosis of diabetes -hgbA1c 5.5 Disposition: Patient will likely discharge in 1-2 days pending improvement in rate control. GI Prophylaxis: Not indicated VTE Prophylaxis: SCDs (repeat INR pending in am, possible autoanticoag) Resuscitation Status: CPR: Attempt Resuscitation Attending Statement Patient seen and examined with house staff. Agree with all attached documentation. Arabella Hilario DO February 08, 2017 10:32 Wojciech Mercado MD February 09, 2017 08:09
--- NOTE | 2017-02-08 18:38 | NUR ---
Lab lab called and potassium 6.5. Luis E paged Dr Goins and awaiting orders.
[2017-02-09] VITALS (9 sets, daily range): BP systolic 111–143; BP diastolic 72–82; PULSE 70–118; RESP 18–20; O2SAT 93–97
[2017-02-09] MEDS: Heparin 5,000 Unit/mL Inj SUBQ SCH ×4 (00:50→23:35)
[2017-02-09 04:21] LABS: BASOPHILS % (AUTO) 0.1 % (0-3); EOSINOPHILS % (AUTO) 0 % (0-5); MONOCYTES % (AUTO) 13.4 % (4-12); Mean Corpuscular Hemoglobin 30.3 pg (27.0-35.0); Mean Corpuscular Volume 89.2 fL (81-100); NEUTROPHILS % (AUTO) 75.4 % (40-74); Platelet Count 132 bil/L (150-400)
--- NOTE | 2017-02-09 05:56 | NUR ---
Potassium/Tele Pt K+ at start of shift 6.5. Administered 30g of Kayexalate and K+ at reassessment 5.2 and AM labs 5.0. Pt Tele at start of shift Afib 110's to 130's. Administered 30mg Cardizem Q6 and 100mg Metoprolol x1 and pt current tele Afib90's to 100's and VSS.
[2017-02-09 07:12] LABS: Hepatitis A Antibody IgM Negative (Negative); Hepatitis B Core Antibody IgM Negative (Negative)
[2017-02-09] MEDS: MeTOProlol XL 50 mg ER24 Tablet PO SCH ×2 (08:27→21:19)
[2017-02-09 10:20] LABS: INR 2.43 ratio
[2017-02-09] MEDS: Alum-Mag Hydrox-Simeth 30 mL Suspension PO PRN ×2 (10:37→23:35)
--- NOTE | 2017-02-09 11:02 | DRSVH ---
PROCEDURE: US ABDOMEN INDICATIONS: elevated liver enzymes TECHNIQUE: Real-time scanning was performed of the abdominal and retroperitoneal organs, with image documentatio n. COMPARISON: None. FINDINGS: Liver length: 18.50 cm Gallbladder Wall Thickness: 3.30 mm CBD: 2.50 mm Spleen length: 7.58 cm Right kidney length: 9.82 cm Left kidney length: 10.02 cm Aorta(Proximal): 2.56 cm Aorta(Mid): 2.02 cm Aorta(Distal): 1.89 cm Liver: Liver is diffusely increased in echogenicity. No focal hepatic abnormalities identified. No rmal hepatic size. Multiple hepatic cysts present largest measuring roughly 2.2 cm The Gallbladder: Gallbladder polyp is present measuring roughly 8 mm. Gallbladder wall is thickened and mildly edematous measuring 3.7 mm. Negative sonographic Bryant sign. Biliary ducts: Intrahepatic bile ducts are non-dilated. Extrahepatic bile duct caliber is normal. Normal is 6-7 mm or less in diameter, or 10 mm or less post-cholecystectomy. Pancreas: Visualized portions of the pancreas are sonographically normal. Spleen: Spleen is normal in size and homogeneous in echotexture. Kidneys: Kidneys are normal in size and echotexture. No hydronephrosis or nephrolithiasis. No ed d masses. Aorta: Visualized aorta is normal in caliber at less than 3 cm. Iliacs: Proximal common iliac arteries are normal in caliber at less than 2.5 cm. IVC: Intrahepatic inferior vena cava is patent. Miscellaneous: Mild ascites. Bilateral pleural effusions, right greater left. IMPRESSION: 1. Increased hepatic echogenicity noted likely related to fatty infiltration of the liver but other s ources of hepatocellular disease cannot be excluded. Recommend clinical correlation. 2. Multiple hepatic cysts. 3. 8 mm gallbladder polyp. Recommend a right upper quadrant ultrasound in 6 months to evaluate for an y size change. 4. Gallbladder wall thickening. Overall ultrasound findings do not support acute cholecystitis. If th ere is concern for acute or chronic cholecystitis recommend a HIDA scan with CCK injection. 5. Bilateral pleural effusions, right greater left. 6. Trace perihepatic ascites. Dictated by: Vinod BUSH Interpreted: Stas Wheeler MD on 02/09/2017 at 10:57 Transcribed by: HATTIE on 02/09/2017 at 11:01 Approved by: Stas Wheeler M.D. on 02/09/2017 at 12:34
--- NOTE | 2017-02-09 14:00 | NUR ---
Palliative Care Palliative Care received order from Dr Hilario 02/09/17 to assist with goals of care/family request. Twila Napier (daughter) [phone] Palliative Care to follow. Maria G Jordan
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
[2017-02-09] MEDS: 0.9% Sodium Chloride 1,000 ML IV SCH ×2 (15:55→22:40)
--- NOTE | 2017-02-09 16:12 | PCM.PNMED ---
Subjective Date of Service February 09, 2017 Subjective Mr. Garcia is an 86-year-old male with a history of COPD, tobacco dependence, atrial fibrillation (not on anticoagulation therapy), HTN with recent admission for for community-acquired pneumonia who presented because "he just didn't feel right". Readmitted with atrial fibrillation with RVR. No acute events overnight. Rate control remains an issue, oral diltiazem 30mg q6h added yesterday (02/08) with only moderate improvement this morning. Rate 90- low 100s at rest with spikes into the 40-160s with any activity. Potassium now 4.7. Patient reports chest discomfort and decreased appetite. Denies shortness of breath, fever, chills, abdominal pain, nausea or vomiting. Exam Vital Signs Vital Sign - Last Date Time Temp Pulse Resp B/P Pulse Ox O2 Delivery O2 Flow Rate FiO2 02/09/17 07:52 36.6 109 20 111/82 97 Room Air Intake and Output 02/08/17 02/08/17 02/09/17 Cumulative From/Thru 15:00 23:00 07:00 02/04/17 19:46 - 02/09/17 05:31 Intake Total 0 ml 420 ml 6570 ml Output Total 600 ml 4300 ml Balance 0 ml -180 ml 2270 ml Intake Oral 420 ml 4410 ml IV Total 0 ml 2160 ml Output Urine Total 3700 ml Stool Total 600 ml 600 ml # Voids 5 # Bowel Movements 3 11 Exam General: Elderly male, in no acute distress, appropriately interactive. HEENT: PERRLA, Mucous Membranes Moist/[place] Respiratory: Normal respiratory effort with no use of accessory muscles, no wheezing, rales or rhonchi. Cardiovascular: Irregular rate and rhythm, Normal S1, Normal S2, No Murmurs Abdomen: Soft, non-tender, Non-distended, Normoactive bowel tones. Extremities: No edema, cyanosis, or clubbing. Skin: Normal temperature and turgor, multiple areas of excoriation / sores with varying degree of healing / throughout body Neurologic: CN grossly intact. No focal deficits. Psychiatric: Normal mood and affect. Alert and oriented to person, place, and time. IVs and Medications Medications Reviewed: Medications were reviewed in detail Lab and Diagnostics Laboratory Tests Test 02/08/17 10:00 02/08/17 17:10 02/08/17 23:55 02/09/17 03:50 Potassium Level 6.4mEq/L (3.5-5.2) 6.5mEq/L (3.5-5.2) 5.2mEq/L (3.5-5.2) 5.0mEq/L (3.5-5.2) White Blood Count 11.5th/mm3 (3.8-10.1) Red Blood Count 4.36mil/mm3 (4.40-5.80) Hemoglobin 13.2g/dL (13.8-17.2) Hematocrit 38.9% (41.0-50.0) Mean Corpuscular Volume 89.2fL (81-100) Mean Corpuscular Hemoglobin 30.3pg (27.0-35.0) Mean Corpuscular Hemoglobin Concent 33.9% (32.0-37.0) Red Cell Distribution Width 14.5% (12.3-15.4) Platelet Count 132bil/L (150-400) Neutrophils (%) (Auto) 75.4% (40-74) Lymphocytes (%) (Auto) 10.8% (14-46) Monocytes (%) (Auto) 13.4% (4-12) Eosinophils (%) (Auto) 0% (0-5) Basophils (%) (Auto) 0.1% (0-3) Sodium Level 140mEq/L (134-144) Chloride Level 101mEq/L (97-108) Carbon Dioxide Level 18mmol/L (18-29) Blood Urea Nitrogen 54mg/dL (8-27) Creatinine 1.95mg/dL (0.76-1.27) Estimat Glomerular Filtration Rate 35mL/min (>59) Glucose Level 158mg/dL (60-99) Calcium Level 10.0mg/dL (8.5-10.1) Total Bilirubin 1.2mg/dL (0.0-1.2) Aspartate Amino Transf (AST/SGOT) 4574U/L (0-50) Alanine Aminotransferase (ALT/SGPT) 2909U/L (0-44) Alkaline Phosphatase 94U/L (25-160) Total Protein 6.0g/dL (6.4-8.4) Albumin 3.5g/dL (3.4-5.0) Test 5/26/17 07:00 Sodium Level 138mEq/L (134-144) Potassium Level 4.7mEq/L (3.5-5.2) Chloride Level 99mEq/L (97-108) Carbon Dioxide Level 21mmol/L (18-29) Blood Urea Nitrogen 56mg/dL (8-27) Creatinine 1.90mg/dL (0.76-1.27) Estimat Glomerular Filtration Rate 36mL/min (>59) Glucose Level 142mg/dL (60-99) Calcium Level 9.4mg/dL (8.5-10.1) Total Bilirubin 1.0mg/dL (0.0-1.2) Aspartate Amino Transf (AST/SGOT) 5093U/L (0-50) Alanine Aminotransferase (ALT/SGPT) 3359U/L (0-44) Alkaline Phosphatase 86U/L (25-160) Total Protein 5.7g/dL (6.4-8.4) Albumin 3.6g/dL (3.4-5.0) Result Diagram: 02/09/17 0350 02/09/17 0700 Microbiology 02/04/17 Blood cultures- no growth to date. X-Rays, CTs and MRIs (02/04/17) X-RAY CHEST ONE VIEW, PORTABLE IMPRESSION: Small focal opacity in left lung base compatible atelectasis versus pneumonia. Please correlate with clinical and laboratory data. Dictated and approved by: Amy Butcher MD, PhD on 02/04/2017 at 20:26 Cardiac Echo Impressions ECHOCARDIOGRAM - previous admission (01/16/17) Interpretation Summary The left ventricle is severely dilated. The ejection fraction is estimated to be 15-20%. There is severe global hypokinesis of the left ventricle. There is severe biatrial enlargement. There is moderate mitral regurgitation. There is moderate tricuspid regurgitation. The right ventricular systolic pressure is estimated at 43 mmHg assuming a right atrial pressure of 8 mm Hg. Conrado Lala Reading Physician:01/16/2017 05:50 PM Additional Diagnostics (02/09/17) US ABDOMEN IMPRESSION: 1. Increased hepatic echogenicity noted likely related to fatty infiltration of the liver but other sources of hepatocellular disease cannot be excluded. Recommend clinical correlation. 2. Multiple hepatic cysts. 3. 8 mm gallbladder polyp. Recommend a right upper quadrant ultrasound in 6 months to evaluate for any size change. 4. Gallbladder wall thickening. Overall ultrasound findings do not support acute cholecystitis. If there is concern for acute or chronic cholecystitis recommend a HIDA scan with CCK injection. 5. Bilateral pleural effusions, right greater left. 6. Trace perihepatic ascites. Dictated and approved by: Stas Wheeler MD on 02/09/2017 at 10:57 Assessment & Plan Mr. Garcia is an 86-year-old male with a history of COPD, tobacco dependence, atrial fibrillation (not on anticoagulation therapy), HTN with recent admission for for community-acquired pneumonia who presented because "he just didn't feel right". Readmitted with atrial fibrillation with RVR. Chest pain, acute. Not present on admission. Resolved. -Patient reported substernal chest discomfort this morning. -Troponin 0.019 (down from admission, appears chronically elevated secondary to renal failure) -ECG today with no acute ischemic changes -Rec'd SL nitro without benefit -Pain improved with anti-acids. Atrial fibrillation with RVR, acute. Present on admission. Active. -Likely paroxysmal. Patient without recent history of RVR. Started on diltiazem drip at presentation and titrated off drip -Continue Metoprolol succinate 100mg BID, Digoxin 250mcg daily. Hold doxazosin. -Continue diltiazem 30mg q6h PO. Rate consistently in 90s to ~120 with activity. -Monitor heart rate this afternoon. May increase diltiazem PO to 60mg q6h. Elevated liver enzymes, acute. Present on admission. Active. -Unclear etiology. Possibly due to hepatic congestion related to heart failure, hypoperfusion due to fluid restriction, medications or less likely infectious. -AST/ALT mildly elevated since admission with significant increase overnight. -AST 101, ALT 154 on 02/08. -AST 5093, ALT 3359 today (02/09) -Hepatitis panel negative -Abd US, as above. -Discontinue fluid restriction -Repeat CMP -IV fluids cautiously in setting of heart failure. Acute kidney injury. Present on admission. Active. -Likely secondary to medication changes made on discharge (UDAY, furosemide), possible cardiorenal given EF, Afib with RVR. -Potentially pre-renal due to recent fluid restriction for hyponatremia. -Continue to hold ACEi -Management as above. Acute on chronic systolic heart failure. Present on admission. Improving. -Patient presented with increased dyspnea on exertion, JVD,and mild pitting edema -ECHO earlier this month with EF 15-20% -UDAY was started during last admission, holding d/t renal function -Added furosemide 20mg PO daily on 02/09. -Patient now appears somewhat volume depleted, will hold furosemide for now. -Consulted Palliative Care for goals of care and symptom management at request of family. Gallbladder polyp, chronic. Present on admission. Presumed stable. -Incidental finding on abdominal ultrasound on 02/09/17. -Per radiology, recommend RUQ ultrasound in 6months to evaluate for any size change. -Will need outpatient followup. Elevated troponin, uncertain chronicity. Present on admission. Presumed stable. -Uncertain significance. Likely secondary to demand ischemia given Afib with RVR and GARETH -EKG, no ischemic change -Troponin trending down, most recent 0.019. Dyslipidemia, chronic. Present on admission. Presumed stable. -Continue home simvastatin BPH, chronic. Present on admission. Presumed stable. -Continue to hold home doxazosin due to hypotension Hyperkalemia, acute. Not present on admission. Resolved. - Uncertain etiology for isolated hyperkalemia. Patient asymptomatic, no ECG changes. - Potassium 6.2. Rec'd 15gm Kayexalate and repeat potassium 6.4. - Additional 30gm Kayexalate x2 . - Potassium now 4.7 - Continue to monitor BMP PRN: -avoid acetaminophen due to severely elevated liver enzymes -antiemetics, bowel regimen Disposition: Patient will likely discharge in 1-2 days pending improvement in rate control and further evaluation of elevated liver enzymes. GI Prophylaxis: Not indicated VTE Prophylaxis: SCDs (repeat INR pending in am, possible autoanticoag) Resuscitation Status: CPR: Attempt Resuscitation Attending Statement Patient seen and examined with house staff. Agree with all attached documentation. Arabella Hilario DO February 09, 2017 08:57 Wojciech Mercado MD February 10, 2017 07:44
--- NOTE | 2017-02-09 18:43 | NUR ---
Bowels/Activity/Pain Patient a/o x 3, c/o left side chest pain, upper quadrants abd pain and headache. Maalox given with min effect. MD notified and EKG done and Nitro SL given x 1 without effect. Patient requesting Tylenol, this RN spoke with MD and Tylenol not ordered R/T liver enzyme levels, Morphine offered, but patient declined. Patient stated pain resolved this afternoon without medication. Patient oob up in chair for approx 3 hrs, dimple well. VSasia Terry fib 90-120's. Addendum: 02/09/17 at 1909 by SAMARA PENNINGTON RN Patient having loose stools this a.m. post Kayexalate, but also stated that he was having loose stools prior to admission. MD notified and new orders received.
[2017-02-10] VITALS (8 sets, daily range): BP systolic 119–132; BP diastolic 71–81; PULSE 60–97; RESP 20–24; O2SAT 91–96
[2017-02-10 03:07] LABS: EOSINOPHILS % (AUTO) 0 % (0-5); Mean Corpuscular Volume 90.8 fL (81-100); Platelet Count 123 bil/L (150-400)
[2017-02-10 03:32] LABS: NEUTROPHILS % (AUTO) 84 % (40-74)
[2017-02-10 03:33] LABS: BASOPHILS % (AUTO) 0 % (0-3); MONOCYTES % (AUTO) 6 % (4-12)
--- NOTE | 2017-02-10 05:46 | NUR ---
Pain Pt c/o "burning sensation" in his lower abdomen. Administered Maalox and effective, no further complaints. Pt up to BR with FWW and tolerated well. VSS and Tele Afib 70's to 90's.
[2017-02-10] MEDS: 0.9% Sodium Chloride 1,000 ML IV SCH ×3 (06:40→22:40)
[2017-02-10] MEDS: MeTOProlol XL 50 mg ER24 Tablet PO SCH ×2 (09:18→22:04)
[2017-02-10] MEDS: Heparin 5,000 Unit/mL Inj SUBQ SCH ×2 (09:19→16:40)
--- NOTE | 2017-02-10 12:00 | PCM.PNMED ---
Subjective Date of Service February 10, 2017 Subjective Mr. Garcia is an 86-year-old male with a history of heart failure with an EF of 15-20%, atrial fibrillation (not on anticoagulation therapy), COPD, hypertension , and recent admission for for community-acquired pneumonia who presented because "he just didn't feel right". Readmitted with atrial fibrillation with RVR. No acute events overnight. Rate control improving on oral diltiazem 30mg q6h added (02/08). Rate 80s-90s at rest with spikes into the 120-130s with activity. Liver enzymes trending down and renal function improving. Patient continues to report decreased appetite. Denies shortness of breath, fever, chills, abdominal pain, nausea or vomiting. Exam Vital Signs Vital Sign - Last Date Time Temp Pulse Resp B/P Pulse Ox O2 Delivery O2 Flow Rate FiO2 02/10/17 07:35 36.6 74 20 119/73 93 Room Air Intake and Output 02/09/17 02/09/17 02/10/17 Cumulative From/Thru 15:00 23:00 07:00 02/04/17 19:46 - 02/10/17 06:02 Intake Total 915 ml 500 ml 7985 ml Output Total 450 ml 775 ml 5525 ml Balance 465 ml -275 ml 2460 ml Intake Oral 520 ml 500 ml 5430 ml IV Total 395 ml 2555 ml Output Urine Total 450 ml 775 ml 4925 ml Stool Total 600 ml # Voids 3 8 # Bowel Movements 2 0 13 Exam General: Elderly male, in no acute distress, appropriately interactive. HEENT: PERRLA, Mucous Membranes Moist/[place] Respiratory: Normal respiratory effort with no use of accessory muscles, no wheezing, rales or rhonchi. Cardiovascular: Irregular rate and rhythm, Normal S1, Normal S2, No Murmurs Abdomen: Soft, non-tender, Non-distended, Normoactive bowel tones. Extremities: No edema, cyanosis, or clubbing. Skin: Normal temperature and turgor, multiple areas of excoriation / sores with varying degree of healing / throughout body Neurologic: CN grossly intact. No focal deficits. Psychiatric: Normal mood and affect. Alert and oriented to person, place, and time. IVs and Medications Medications Reviewed: Medications were reviewed in detail Lab and Diagnostics Laboratory Tests Test 02/09/17 09:55 02/09/17 16:45 02/10/17 02:50 Prothrombin Time 26.5sec (8.1-12.5) Prothromb Time International Ratio 2.43ratio Sodium Level 141mEq/L (134-144) 140mEq/L (134-144) Potassium Level 4.5mEq/L (3.5-5.2) 4.4mEq/L (3.5-5.2) Chloride Level 99mEq/L (97-108) 100mEq/L (97-108) Carbon Dioxide Level 20mmol/L (18-29) 21mmol/L (18-29) Blood Urea Nitrogen 61mg/dL (8-27) 62mg/dL (8-27) Creatinine 2.14mg/dL (0.76-1.27) 1.77mg/dL (0.76-1.27) Estimat Glomerular Filtration Rate 31mL/min (>59) 39mL/min (>59) Glucose Level 161mg/dL (60-99) 154mg/dL (60-99) Calcium Level 9.9mg/dL (8.5-10.1) 9.0mg/dL (8.5-10.1) Total Bilirubin 1.5mg/dL (0.0-1.2) 1.3mg/dL (0.0-1.2) Aspartate Amino Transf (AST/SGOT) 4906U/L (0-50) 2842U/L (0-50) Alanine Aminotransferase (ALT/SGPT) 4019U/L (0-44) 3054U/L (0-44) Alkaline Phosphatase 108U/L (25-160) 95U/L (25-160) Total Protein 7.0g/dL (6.4-8.4) 5.7g/dL (6.4-8.4) Albumin 4.0g/dL (3.4-5.0) 3.4g/dL (3.4-5.0) White Blood Count 14.1th/mm3 (3.8-10.1) Red Blood Count 4.26mil/mm3 (4.40-5.80) Hemoglobin 12.8g/dL (13.8-17.2) Hematocrit 38.7% (41.0-50.0) Mean Corpuscular Volume 90.8fL (81-100) Mean Corpuscular Hemoglobin 30.0pg (27.0-35.0) Mean Corpuscular Hemoglobin Concent 33.1% (32.0-37.0) Red Cell Distribution Width 14.4% (12.3-15.4) Platelet Count 123bil/L (150-400) Neutrophils (%) (Auto) 84% (40-74) Lymphocytes (%) (Auto) 6% (14-46) Monocytes (%) (Auto) 6% (4-12) Eosinophils (%) (Auto) 0% (0-5) Basophils (%) (Auto) 0% (0-3) Band Neutrophils % 3% (1-5) Metamyelocytes % 1% (0-0) Nucleated Red Blood Cells 1/100 WBC (0-24) Digoxin Level 1.1nG/mL (0.9-2.0) Result Diagram: 02/10/17 0250 02/10/17 0250 Microbiology 02/04/17 Blood cultures- no growth to date. X-Rays, CTs and MRIs (02/04/17) X-RAY CHEST ONE VIEW, PORTABLE IMPRESSION: Small focal opacity in left lung base compatible atelectasis versus pneumonia. Please correlate with clinical and laboratory data. Dictated and approved by: Amy Butcher MD, PhD on 02/04/2017 at 20:26 Cardiac Echo Impressions ECHOCARDIOGRAM - previous admission (01/16/17) Interpretation Summary The left ventricle is severely dilated. The ejection fraction is estimated to be 15-20%. There is severe global hypokinesis of the left ventricle. There is severe biatrial enlargement. There is moderate mitral regurgitation. There is moderate tricuspid regurgitation. The right ventricular systolic pressure is estimated at 43 mmHg assuming a right atrial pressure of 8 mm Hg. Conrado Lala Reading Physician:01/16/2017 05:50 PM Additional Diagnostics (02/09/17) US ABDOMEN IMPRESSION: 1. Increased hepatic echogenicity noted likely related to fatty infiltration of the liver but other sources of hepatocellular disease cannot be excluded. Recommend clinical correlation. 2. Multiple hepatic cysts. 3. 8 mm gallbladder polyp. Recommend a right upper quadrant ultrasound in 6 months to evaluate for any size change. 4. Gallbladder wall thickening. Overall ultrasound findings do not support acute cholecystitis. If there is concern for acute or chronic cholecystitis recommend a HIDA scan with CCK injection. 5. Bilateral pleural effusions, right greater left. 6. Trace perihepatic ascites. Dictated and approved by: Stas Wheeler MD on 02/09/2017 at 10:57 Assessment & Plan Mr. Garcia is an 86-year-old male with a history of heart failure with an EF of 15-20%, atrial fibrillation (not on anticoagulation therapy), COPD, hypertension , and recent admission for for community-acquired pneumonia who presented because "he just didn't feel right". Readmitted with atrial fibrillation with RVR. Atrial fibrillation with RVR, acute. Present on admission. Active and improving. -Likely paroxysmal. Patient without recent history of RVR. Started on diltiazem drip at presentation and titrated off drip -Continue Metoprolol succinate 100mg BID, Digoxin 250mcg daily. Diltiazem 120mg PO. -Holding home doxazosin. -Monitor heart rate with increased Physical therapy, may increase diltiazem PO to 240mg. -Palliative care is following, appreciate recommendations and expertise. Elevated liver enzymes, acute. Present on admission. Improving -Unclear etiology. Possibly due to hepatic congestion related to heart failure, hypoperfusion due to fluid restriction, medications or less likely infectious. -AST/ALT mildly elevated since admission with significant increase overnight. AST 5093, ALT 3359 on 02/09. -Trending down after IV fluids: AST 2842, ALT 3054. -Hepatitis panel negative -Abd US, as above. -Repeat CMP -IV fluids cautiously in setting of heart failure. Acute kidney injury. Present on admission. Improving. -Likely secondary to medication changes made on discharge (UDAY, furosemide), possible cardiorenal given EF, Afib with RVR. -Potentially pre-renal due to recent fluid restriction for hyponatremia. -Continue to hold ACEi -Management as above. Acute on chronic systolic heart failure. Present on admission. Improving. -Patient presented with increased dyspnea on exertion, JVD,and mild pitting edema -ECHO earlier this month with EF 15-20% -UDAY was started during last admission, holding d/t renal function -Added furosemide 20mg PO daily on 02/09. -Patient now appears somewhat volume depleted, will continue to hold furosemide for now. -Balance IV fluids and diuresis Gallbladder polyp, chronic. Present on admission. Presumed stable. -Incidental finding on abdominal ultrasound on 02/09/17. -Per radiology, recommend RUQ ultrasound in 6months to evaluate for any size change. -Will need outpatient followup. Elevated troponin, uncertain chronicity. Present on admission. Presumed stable. -Uncertain significance. Likely secondary to demand ischemia given Afib with RVR and GARETH -EKG, no ischemic change -Troponin trending down, most recent 0.019. Dyslipidemia, chronic. Present on admission. Presumed stable. -Continue home simvastatin PRN: -avoid acetaminophen due to severely elevated liver enzymes -antiemetics, bowel regimen Disposition: Patient will likely discharge in 1-2 days pending improvement in rate control and further evaluation of elevated liver enzymes. GI Prophylaxis: Not indicated VTE Prophylaxis: SCDs (repeat INR pending in am, possible autoanticoag) Resuscitation Status: CPR: Attempt Resuscitation Attending Statement Patient seen and examined with house staff. Agree with all attached documentation. Arabella Hilario DO February 10, 2017 07:41 Wojciech Mercado MD February 11, 2017 07:37
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
--- NOTE | 2017-02-10 15:49 | NUR ---
MERLIN signed. Lelo Artis DIGESTER COOK
--- NOTE | 2017-02-10 17:39 | NUR ---
Resp/Anxiety/Activity Patient a/o x 3, denies abd or chest pain or nausea, but has poor appetite. Patient restless and anxious c/o sob, O2 sat RA 91%, O2 @ 2 L nc applied, sats 94-95%. Patient oob for approx 2 hrs this shift, but c/o weakness at rest and with activity. VSS, tele A fib 70-90's.
[2017-02-11] VITALS (11 sets, daily range): BP systolic 113–145; BP diastolic 61–92; PULSE 45–77; RESP 16–20; O2SAT 92–98
[2017-02-11] MEDS: Heparin 5,000 Unit/mL Inj SUBQ SCH ×3 (02:24→17:17)
[2017-02-11 02:55] LABS: BASOPHILS % (AUTO) 0.2 % (0-3); EOSINOPHILS % (AUTO) 0.2 % (0-5); Mean Corpuscular Volume 91.4 fL (81-100); Platelet Count 127 bil/L (150-400)
--- NOTE | 2017-02-11 03:03 | NUR ---
Transfer of care Care of pt transferred to Abu C. RN, report given.
--- NOTE | 2017-02-11 05:40 | NUR ---
Cardiac Pt denies pain of any sort. Tele A-Fib 60s-50s. Diltiazem 0230 dose held due low HR. No overt complications noted.
[2017-02-11] MEDS: 0.9% Sodium Chloride 1,000 ML IV SCH ×3 (06:40→21:08)
--- NOTE | 2017-02-11 08:33 | PCM.PNMED ---
Subjective Date of Service February 11, 2017 Subjective His mouth feels better today. We started salt water gargles yesterday. He denies palpitations, chest pain or dyspnea. She did have some left upper quadrant abdominal pain overnight. No nausea, vomiting or diarrhea. No fevers or chills. No cough. No overnight events noted. Exam Vital Signs Vital Sign - Last Date Time Temp Pulse Resp B/P Pulse Ox O2 Delivery O2 Flow Rate FiO2 02/11/17 07:24 36.5 77 20 135/82 94 Nasal Cannula 2.00 Intake and Output 02/10/17 02/10/17 02/11/17 Cumulative From/Thru 15:00 23:00 07:00 02/04/17 19:46 - 02/11/17 06:44 Intake Total 200 ml 200 ml 8385 ml Output Total 575 ml 350 ml 6450 ml Balance -375 ml -150 ml 1935 ml Intake Oral 200 ml 200 ml 5830 ml IV Total 2555 ml Output Urine Total 575 ml 350 ml 5850 ml Stool Total 600 ml # Voids 3 11 # Bowel Movements 0 0 13 Exam Alert and oriented -3, no distress. Fluent speech Anicteric sclera. Lungs are clear with normal rate and effort Heart is regular without murmur gallop or rub Abdomen soft nontender, flat Extremities are free of edema. Skin is free of rash or lesions. IVs and Medications Medications Reviewed: Medications were reviewed in detail Lab and Diagnostics Result Diagram: 02/11/17 0248 02/11/17 0248 Microbiology 02/04/17 Blood cultures- no growth to date. X-Rays, CTs and MRIs (02/04/17) X-RAY CHEST ONE VIEW, PORTABLE IMPRESSION: Small focal opacity in left lung base compatible atelectasis versus pneumonia. Please correlate with clinical and laboratory data. Dictated and approved by: Amy Butcher MD, PhD on 02/04/2017 at 20:26 Cardiac Echo Impressions ECHOCARDIOGRAM - previous admission (01/16/17) Interpretation Summary The left ventricle is severely dilated. The ejection fraction is estimated to be 15-20%. There is severe global hypokinesis of the left ventricle. There is severe biatrial enlargement. There is moderate mitral regurgitation. There is moderate tricuspid regurgitation. The right ventricular systolic pressure is estimated at 43 mmHg assuming a right atrial pressure of 8 mm Hg. Conrado Monzonerah Reading Physician:01/16/2017 05:50 PM Additional Diagnostics (02/09/17) US ABDOMEN IMPRESSION: 1. Increased hepatic echogenicity noted likely related to fatty infiltration of the liver but other sources of hepatocellular disease cannot be excluded. Recommend clinical correlation. 2. Multiple hepatic cysts. 3. 8 mm gallbladder polyp. Recommend a right upper quadrant ultrasound in 6 months to evaluate for any size change. 4. Gallbladder wall thickening. Overall ultrasound findings do not support acute cholecystitis. If there is concern for acute or chronic cholecystitis recommend a HIDA scan with CCK injection. 5. Bilateral pleural effusions, right greater left. 6. Trace perihepatic ascites. Dictated and approved by: Stas Wheeler MD on 02/09/2017 at 10:57 Assessment & Plan Mr. Garcia is an 86-year-old male with a history of heart failure with an EF of 15-20%, atrial fibrillation (not on anticoagulation therapy), COPD, hypertension , and recent admission for for community-acquired pneumonia who presented because "he just didn't feel right". Readmitted with atrial fibrillation with RVR. Atrial fibrillation with RVR, acute. Present on admission. Active and improving. Her control appears to be much better on diltiazem 120. -Likely paroxysmal. Patient without recent history of RVR. Started on diltiazem drip at presentation and titrated off drip -Continue Metoprolol succinate 100mg BID, Digoxin 250mcg daily. Diltiazem 120mg PO. -Holding home doxazosin. -Monitor heart rate with increased Physical therapy, may increase diltiazem PO to 240mg. -Palliative care is following, appreciate recommendations and expertise. No change to current medical regimen Elevated liver enzymes, acute. Present on admission. Improving -Unclear etiology. Possibly due to hepatic congestion related to heart failure, hypoperfusion due to fluid restriction, medications or less likely infectious. -AST/ALT mildly elevated since admission with significant increase overnight. AST 5093, ALT 3359 on 02/09. -Trending down after IV fluids: AST 2842, ALT 3054. -Hepatitis panel negative -Abd US, as above. -Repeat CMP -IV fluids cautiously in setting of heart failure. These laboratories continued to improve. Acute kidney injury. Present on admission. Improving. -Likely secondary to medication changes made on discharge (UDAY, furosemide), possible cardiorenal given EF, Afib with RVR. -Potentially pre-renal due to recent fluid restriction for hyponatremia. -Continue to hold ACEi -Management as above. Again this continues to improve fairly dramatically. Chronic systolic heart failure. Present on admission. Improving. -Patient presented with increased dyspnea on exertion, JVD,and mild pitting edema -ECHO earlier this month with EF 15-20% -UDAY was started during last admission, holding d/t renal function -Added furosemide 20mg PO daily on 02/09. -Patient now appears somewhat volume depleted, will continue to hold furosemide for now. -Balance IV fluids and diuresis The patient appeared to have been over diuresed and subsequently became volume depleted leading to they are rest. He is noting fluid back and appears to be improving. Gallbladder polyp, chronic. Present on admission. Presumed stable. -Incidental finding on abdominal ultrasound on 02/09/17. -Per radiology, recommend RUQ ultrasound in 6months to evaluate for any size change. -Will need outpatient followup. Elevated troponin, uncertain chronicity. Present on admission. Presumed stable. -Uncertain significance. Likely secondary to demand ischemia given Afib with RVR and GARETH -EKG, no ischemic change -Troponin trending down, most recent 0.019. Dyslipidemia, chronic. Present on admission. Presumed stable. -Continue home simvastatin PRN: -avoid acetaminophen due to severely elevated liver enzymes -antiemetics, bowel regimen Disposition: Patient will likely discharge in 1-2 days pending improvement in rate control and further evaluation of elevated liver enzymes. GI Prophylaxis: Not indicated VTE Prophylaxis: SCDs (repeat INR pending in am, possible autoanticoag) Resuscitation Status: DNR/DNI:Do Not Resuscitate/Intubate Limited Interventions: BiPAP, Medications and IV Fluid Wojciech Mercado MD February 11, 2017 08:33
[2017-02-11] MEDS: Diltiazem CD 120 mg ER24 Capsule PO SCH (09:00)
[2017-02-11] MEDS: MeTOProlol XL 50 mg ER24 Tablet PO SCH ×2 (09:01→21:12)
--- NOTE | 2017-02-11 10:12 | NUR ---
Evaluation completed. Please go to "Notes" then click on "Assessments and Notes" (bottom left corner of screen). Then select appropriate discipline tab on top of screen.
--- NOTE | 2017-02-11 16:43 | NUR ---
Activity/Tele/Stool Patient a/o x 3, denies pain or nausea, taking diet better today. Lungs decreased bilat, mild dyspnea with activity. Amb in room and galan with walker and sba, dimple fair. Patient oob to chair for meals. Senna given this a.m. patient had BM x 1, stool sample sent. Showered with assist. VSS, tele A fib with short run VT. Patient asymptomatic.
--- NOTE | 2017-02-11 17:10 | NUR ---
Social Work Note: Continued Discharge Planning Data& Assessment: EMR reviewed. Per MD in morning rounds, pt is not medically ready for discharge at this time. Pt's liver function continues to be monitored. PT has completed assessment, recommending HHPT. Pt is open with [facility] RN PT OT. Orders are active to resume HH RN PT OT. Pt's daughter assists with chores and transportation at home. Per Palliative Care, pt will likely need more assistance at home, especially termite control technician. SW to follow up with pt and daughter regarding termite control technician care planning, caregiving assistance, and Meals on Wheels. Pt to discharge home with HH RN PT OT, SW will continue to follow for needs. Plan: Pt will likely need more assistance at home, especially termite control technician. SW to follow up with pt and daughter regarding termite control technician care planning, caregiving assistance, and Meals on Wheels. Pt to discharge home with [facility] RN PT OT, SW will continue to follow for needs. Lelo Artis DIETETIC INTERN
[2017-02-12] MEDS: Heparin 5,000 Unit/mL Inj SUBQ SCH ×2 (00:03→09:08)
--- NOTE | 2017-02-12 02:56 | NUR ---
Anxiety Pt awoke at 0100 complaining of needing something to fit as cushions at his sides. Nurse offered pillows and towels. Pt stated no that kept describing the same question. Pt raised voice and was not pleased with the offered interventions. Continue to monitor.
[2017-02-12 03:35] VITALS: BP 138/61; PULSE 66; RESP 20; O2SAT 93
[2017-02-12 03:45] VITALS: BP 119/74; PULSE 106; RESP 24; O2SAT 96
[2017-02-12 03:46] LABS: Mean Corpuscular Hemoglobin 29.4 pg (27.0-35.0); Mean Corpuscular Volume 92.8 fL (81-100)
[2017-02-12 08:39] VITALS: PULSE 84
[2017-02-12 09:00] VITALS: BP 131/87; PULSE 97; RESP 22; O2SAT 91
[2017-02-12] MEDS: MeTOProlol XL 50 mg ER24 Tablet PO SCH (09:07)
[2017-02-12] MEDS: Diltiazem CD 120 mg ER24 Capsule PO SCH (09:07)
[2017-02-12 12:23] VITALS: BP 133/83; PULSE 66; RESP 22; O2SAT 91
[2017-02-12 12:26] VITALS: PULSE 66
--- NOTE | 2017-02-12 13:09 | PCM.DIMED ---
Discharge Instructions Date of Service February 12, 2017 Dates of Hospitalization February 04, 2017 at 23:54 Discharge Diagnosis Discharge Diagnosis 1. Atrial Fibrillation with rapid ventricular response, improved. 2. Acute Liver injury, improving 3. Acute Kidney injury, improving 4. Chronic systolic heart failure, stable 5. Gallbladder polyp, chronic stable 6. Elevated troponin of uncertain significance, resolved Medication Instructions Additional med instructions We are changing your Metoprolol from 200 mg daily, to 100 mg twice per day We have added Diltiazem ER 125 mg daily Diet Discharge Diet: Heart Healthy Activity Discharge Activity: Limited until seen by PCP Call your provider Call your provider for: Fever or Chills, Shortness of breath, Bleeding, Chest pain, Vomitting, Excessive diarrhea, Weakness (unilateral) Patient Instructions Patient Instructions We are discharging you back home with home health for continued physical therapy , and assistance with your daily needs. Follow-up plan Follow up with your primary care doctor within 1 week to have your liver evaluated. Follow-up Provider: [facility] Follow-up with PCP in: 1 week Corwin Cowan DO February 12, 2017 13:09
[2017-02-12] MEDS ORDERED: METO200T32 PO (13:12)
[2017-02-12] MEDS ORDERED: DILT120C83 PO ×2 (13:12→15:21)
[2017-02-12] MEDS ORDERED: DIGO250T72 PO ×2 (13:12→15:21)
[2017-02-12] MEDS ORDERED: METO-272 PO (15:20)
--- NOTE | 2017-02-12 15:23 | NUR ---
Social Work Note: Discharge Data& Assessment: EMR reviewed. Per pt is medically ready for discharge. Corwin Garcia is a 86 year old male admitted on 02/04/2017 for AFIB iwth RBR and pneumonia. Per pt is medically improved and ready to discharge home via POV with [facility] RN, PT , OT and SW to follow up with pt tomorrow 02/12/2017. Pt is on room air and ambulating with FWW. PT is still recommending resume Home Health PT, RN and OT. RAMON met with pt and pt family at bedside to confirm discharge plan and assess for any unmet needs. Per Palliative Care, pt daughter could benefit from caregiving information. SW offered private pay caregiving information and meals on wheels information. Pt daughter explained that pt has had Meals on Wheels in the past and pt did not like their food. Pt daughter also became very upset when discussing pt going home today due to not having anything "set up." Pt daughter explained that her understanding based on previous conversation with Palliative care was that [place] funded in home care giving would be arranged for pt at time of discharge. RAMON explained that as today is a holiday, and pt would have to follow up with the [place] regarding meeting criteria for that service that it is not likely that pt would have that service arranged by the time he discharged. Pt is a non-service connected . RAMON explained to pt daughter that once a pt is medically ready for discharge, the MD must discharge the pt. PT has cleared the pt to [facility]. Pt is ambulating with a walker. Pt daughter continued to be agitated and requested to speak with MD. met with pt and pt family at bedside to discuss his medical readiness for discharge. ELDON RN also met with pt and pt family members at bedside. Pt daughter explained she was fearful of pt readmitting to the hospital or falling due to living alone. Pt daughter explained he will not go to her house. Pt also confirmed with SW that he enjoys his independence. RN ambulated pt with walker again with pt family to see his abilities. RAMON provided pt daughter with [place] caregiver support line, [employer] information, and [employer] list to look into renting a wheelchair for extra support going home per pt daughter request. RAMON also confirmed with Rebekah from [facility] that they will be able to resume services in pt home as soon as tomorrow 02/13/2017. also ordered Home Health SW be added to pt home health services for extra support. Pt family notified of this. SW discussed [employer] caregiving and Medicaid eligibility with pt family. Pt daughter explained they are in the process of completing Medicaid application. SW provided pt family with [employer] program information but declined any private pay caregiver information still. Pt family transporting pt home privately. Pt and pt family denies any other needs. No other discharge needs identified. Plan: Per pt is medically ready to discharge home via POV with [facility] PT, RN, OT and SW to follow up with pt tomorrow 02/13/2017. Resources provided to pt family. Pt and pt family denies any other needs. No other discharge needs identified. ANDI Sandhu
--- NOTE | 2017-02-12 16:03 | PCM.DC.MED ---
Discharge Summary Date of Service February 12, 2017 Dates of Hospitalization Date of Hospital Admission February 04, 2017 at 23:54 Date of Discharge: February 12, 2017 Providers: Admitting Physician: Kendra Alcazar DO Primary Care Physician: [employer] Attending Physician: Kendra Alcazar DO Diagnosis at Time of Discharge Diagnosis at Time of Discharge 1. Atrial Fibrillation with rapid ventricular response, improved. 2. Acute Liver injury, improving 3. Acute Kidney injury, improving 4. Chronic systolic heart failure, stable 5. Gallbladder polyp, chronic stable 6. Elevated troponin of uncertain significance, resolved Procedures XRay, CTs & MRIs (02/04/17) X-RAY CHEST ONE VIEW, PORTABLE IMPRESSION: Small focal opacity in left lung base compatible atelectasis versus pneumonia. Please correlate with clinical and laboratory data. Dictated and approved by: Amy Butcher MD, PhD on 02/04/2017 at 20:26 Cardiac Echo Impression ECHOCARDIOGRAM - previous admission (01/16/17) Interpretation Summary The left ventricle is severely dilated. The ejection fraction is estimated to be 15-20%. There is severe global hypokinesis of the left ventricle. There is severe biatrial enlargement. There is moderate mitral regurgitation. There is moderate tricuspid regurgitation. The right ventricular systolic pressure is estimated at 43 mmHg assuming a right atrial pressure of 8 mm Hg. Conrado Lala Reading Physician:01/16/2017 05:50 PM Other Diagnostics (02/09/17) US ABDOMEN IMPRESSION: 1. Increased hepatic echogenicity noted likely related to fatty infiltration of the liver but other sources of hepatocellular disease cannot be excluded. Recommend clinical correlation. 2. Multiple hepatic cysts. 3. 8 mm gallbladder polyp. Recommend a right upper quadrant ultrasound in 6 months to evaluate for any size change. 4. Gallbladder wall thickening. Overall ultrasound findings do not support acute cholecystitis. If there is concern for acute or chronic cholecystitis recommend a HIDA scan with CCK injection. 5. Bilateral pleural effusions, right greater left. 6. Trace perihepatic ascites. Dictated and approved by: Stas Wheeler MD on 02/09/2017 at 10:57 Brief History Taken from History of Present Illness composed by Dr. Kendra Alcazar on 86yoM with past medical history of asthma, COPD, tobacco dependence, atrial fibrillation (not on anticoagulation therapy) , HTN with recent admission for chest pain treated for community-acquired pneumonia readmitted with atrial fibrillation with RVR. Patient is a difficult historian and has a difficult time pinpointing exactly why he is here in the hospital. He states "he just doesn't feel right" and describes his illness as "my pneumonia is back". When asked further about this he endorses acute onset of dyspnea on exertion over the past week with rapid breathing. He denies chest pain, chest tightness, palpitations, fevers, chills , orthopnea, PND or changes/difficulties with urination. Endorses some diarrhea which has resolved. He has been taking his medications as prescribed since recent discharge (01/19/2017) and feels thirsty more than usual. He recalls that his care team suggested that drinking more water would be good for him so he has recently increased his intake. While he endorses decrease in PO intake he does enjoy canned tuna when he can eat but can't recall if he eats additional food with high salt content. On presentation patient with T 36.0, HR 110, RR 22, BP 112/79, 99% on RA. CXR completed which reveals a left lower lung opacity which may represent consolidation versus atelectasis. . Hospital Course Mr. Garcia is an 86-year-old male with a history of heart failure with an EF of 15-20%, atrial fibrillation (not on anticoagulation therapy), COPD, hypertension , and recent admission for for community-acquired pneumonia who presented because "he just didn't feel right". Readmitted with atrial fibrillation with RVR and likely tachycardia induced CHF exacerbation. Prior to DC the patient was subjected to ambulatory testing without oxygen and did not desaturate or otherwise indicate need for home O2 or intensive care facility. 1. Atrial fibrillation with RVR, acute. Present on admission. Active and improving. Her control appears to be much better on diltiazem 120. -Likely paroxysmal. Patient without recent history of RVR. Started on diltiazem drip at presentation and titrated off drip -Continued Metoprolol succinate 100mg increased frequency to BID, Digoxin 250mcg daily. started Diltiazem 120mg PO. -Held home doxazosin. -Monitored heart rate with increased Physical therapy -Palliative care is following, appreciated their recommendations and expertise. 2. Acute Liver injury, acute. Present on admission. Improving -Unclear etiology. Likely due to hepatic congestion related to heart failure, hypoperfusion due to fluid restriction, medications or less likely infectious. -Rise in transaminases coincides with rise in Cr suggestive of hypoperfusion etiology -AST/ALT mildly elevated since admission with significant increase overnight on 02/09, rapidly trending towards normal over the ensuing days -Hepatitis panel negative -Abd US, as above. -Tracked CMP -IV fluids used cautiously in the setting of heart failure -Patient should follow with CMP as an outpatient to assess for full resolution 3. Acute kidney injury. Present on admission. Improving. -Likely secondary to pre renal hypoperfusion -Held ACEi -Management as above. As with Transaminases the is rapidly trending to normal 4. CHF exacerbation. Present on admission. Improving. -Likely secondary to uncontrolled Afib on arrival -Patient presented with increased dyspnea on exertion, JVD,and mild pitting edema -ECHO earlier this month with EF 15-20% -UDAY was started during last admission, held d/t renal function -Balanced IV fluids and diuresis 5. Gallbladder polyp, chronic. Present on admission. Presumed stable. -Incidental finding on abdominal ultrasound on 02/09/17. -Per radiology, recommend RUQ ultrasound in 6months to evaluate for any size change. -Will need outpatient followup. 6. Elevated troponin, uncertain chronicity. Present on admission. Presumed stable. -Uncertain significance. Likely secondary to demand ischemia given Afib with RVR and GARETH -EKG, no ischemic change -Troponin trended down 7. Dyslipidemia, chronic. Present on admission. Presumed stable. -Continued home simvastatin PRN: -avoid acetaminophen due to severely elevated liver enzymes -antiemetics, bowel regimen . Exam Vital Signs (Last) Date Time Temp Pulse Resp B/P Pulse Ox O2 Delivery O2 Flow Rate FiO2 02/12/17 12:26 66 02/12/17 12:23 36.4 22 133/83 91 Nasal Cannula 02/12/17 03:35 2.00 Exam Gen: A/O x3 pleasant cooperative elderly gentleman in NAD Neck: Supple, non tender, no JVD, Full ROM HEENT: PERRL, EOMI, no scleral icterus, no conjunctival pallor CV: RRR, no murmurs rubs or gallops Resp: Lungs CTA BL, no wheezing rales or rhonchi Abd: Soft, non tender, no organomegaly, +BS 4Q Extr: No cyanosis clubbing or edema Neuro: CN 2-12 grossly intact, no focal neurologic deficit Psych: Mood and affect pleasant and appropriate Test 02/04/17 20:35 02/04/17 21:30 02/04/17 22:00 02/08/17 02:15 Hemoglobin A1c 5.5% (4.8-5.6) Hold Wayne Top Tube Received (Received) Urine Color Yellow (YELLOW) Urine Appearance Clear (CLEAR,HAZY) Urine pH 5.5 (5.0-8.0) Urine Specific Rewey 1.025 (1.003-1.035) Urine Protein 30mg/dL (NEG,TRACE) Urine Glucose (UA) Negativemg/dL (NEGATIVE) Urine Ketones Negativemg/dL (NEGATIVE) Urine Occult Blood Negative (NEGATIVE) Urine Nitrite Negative (NEGATIVE) Urine Bilirubin Negative (NEGATIVE) Urine Urobilinogen Normalmg/dL (NORMAL) Urine Leukocyte Esterase Negative (NEGATIVE) Urine RBC 0-2/hpf (0-2) Urine WBC 0-5/hpf (0-5) Urine Epithelial Cells Few/hpf (NONE-MOD) Urine Crystals None seen (NONE SEEN) Urine Bacteria None/hpf (NONE-FEW) Urine Hyaline Casts None/lpf (NONE) Urine Granular Casts None seen (NONE SEEN) Urine Waxy Casts None seen (NONE SEEN) Urine Red Blood Cell Casts None seen (NONE SEEN) Urine White Blood Cell Casts None seen (NONE SEEN) Urine Mucus Present (None Seen) Urine Trichomonas None seen (NONE SEEN) Urine Yeast None (NONE SEEN) Urine Culture Reflexed Not indicated Hold Urine Received (Received) Hepatitis A IgM Antibody Negative (Negative) Hepatitis B Surface Antigen Negative (Negative) Hepatitis B Core IgM Antibody Negative (Negative) Hepatitis C Antibody 0.2s/co ratio (0.0-0.9) Hepatitis C Comment Comment (.) Test 02/09/17 03:50 02/09/17 07:00 02/09/17 09:55 02/10/17 02:50 Thyroid Stimulating Hormone (TSH) 1.320uIU/mL (0.450-4.500) Free Thyroxine 6.35ng/dL (0.82-1.77) Acetaminophen Level < 15.0ug/mL Rx (10-25) Troponin T 0.019ug/L (0.0-0.011) Prothrombin Time 26.5sec (8.1-12.5) Prothromb Time International Ratio 2.43ratio Band Neutrophils % 3% (1-5) Metamyelocytes % 1% (0-0) Nucleated Red Blood Cells 1/100 WBC (0-24) Digoxin Level 1.1nG/mL (0.9-2.0) Test 02/11/17 02:48 02/12/17 03:15 Neutrophils (%) (Auto) 76.0% (40-74) Lymphocytes (%) (Auto) 9.3% (14-46) Monocytes (%) (Auto) 14.0% (4-12) Eosinophils (%) (Auto) 0.2% (0-5) Basophils (%) (Auto) 0.2% (0-3) Phosphorus Level 3.0mg/dL (2.5-4.9) Magnesium Level 2.0mg/dL (1.6-2.6) Total Bilirubin 1.7mg/dL (0.0-1.2) Aspartate Amino Transf (AST/SGOT) 863U/L (0-50) Alanine Aminotransferase (ALT/SGPT) 1914U/L (0-44) Alkaline Phosphatase 90U/L (25-160) Total Protein 5.3g/dL (6.4-8.4) Albumin 3.1g/dL (3.4-5.0) White Blood Count 8.7th/mm3 (3.8-10.1) Red Blood Count 4.28mil/mm3 (4.40-5.80) Hemoglobin 12.6g/dL (13.8-17.2) Hematocrit 39.7% (41.0-50.0) Mean Corpuscular Volume 92.8fL (81-100) Mean Corpuscular Hemoglobin 29.4pg (27.0-35.0) Mean Corpuscular Hemoglobin Concent 31.7% (32.0-37.0) Red Cell Distribution Width 14.5% (12.3-15.4) Platelet Count 124bil/L (150-400) Sodium Level 141mEq/L (134-144) Potassium Level 4.7mEq/L (3.5-5.2) Chloride Level 104mEq/L (97-108) Carbon Dioxide Level 28mmol/L (18-29) Blood Urea Nitrogen 53mg/dL (8-27) Creatinine 1.17mg/dL (0.76-1.27) Estimat Glomerular Filtration Rate 63mL/min (>59) Glucose Level 105mg/dL (60-99) Calcium Level 8.7mg/dL (8.5-10.1) Procalcitonin 0.09ng/mL (0.00-0.08) Microbiology Results 02/04/17 Blood cultures- no growth to date. Discharge Medications Discharge Medications Cholecalciferol (Vitamin D3) (Vitamin D3) 1,000 Unit Tab.chew 2,000 UNIT PO DAILY (Reported) Digoxin (Digoxin) 250 Mcg Tablet 0.25 MG PO DAILY@12 Prescribed by: JANE COWAN DO Diltiazem ER (Cardizem CD) 120 Mg Cap.er.24h 120 MG PO DAILY Prescribed by: JANE COWAN DO Doxazosin (Cardura) 1 Mg Tablet 1 MG PO HS (Reported) Lisinopril (Lisinopril) 5 Mg Tablet 2.5 MG PO DAILY (Reported) Metoprolol Succinate ER (Metoprolol Succinate ER) 200 Mg Tab.er.24h 100 MG PO BID Prescribed by: JANE COWAN DO Metoprolol Succinate ER (Metoprolol Succinate ER) 50 Mg Tab.er.24h 100 MG PO BID Prescribed by: JANE COWAN DO Simvastatin (Simvastatin) 40 Mg Tablet 40 MG PO HS (Reported) As needed Polyethylene Glycol 3350 (Miralax) 17 Gm Powd.pack 17 GM PO DAILY PRN PRN For Constipation (Reported) Additional med instructions We are changing your Metoprolol from 200 mg daily, to 100 mg twice per day We have added Diltiazem ER 125 mg daily Followup Plan Disposition: Home with home health physical therapy Follow-up plan Follow up with your primary care doctor within 1 week to have your liver evaluated. Discharge Diet: Heart Healthy Discharge Activity: Limited until seen by PCP Patient Instructions We are discharging you back home with home health for continued physical therapy , and assistance with your daily needs. Follow-up Provider: [facility] Follow-up with PCP in: 1 week Time spent Greater than 30 minutes was spent in preparation of discharge with greater than 50% of that time dedicated to patient counseling and coordination of care. . Attending Statement The patient was seen and examined together with Dr. Cowan on 02/12/2017 and I agree with the history, exam and plan as outlined in the note above. . copies to: [facility] Jane Cowan DO February 12, 2017 16:03 Artur Fish MD February 12, 2017 16:50
--- NOTE | 2017-02-12 18:45 | NUR ---
Discharge Pt discharged to his home with transportation provided by his family. Pt's IV dc'd intact and telemetry was removed, tech notified. Upon arriving at hospital the pt's daughter became very agitated about her father's discharge. She felt that he was not ready to be discharged and was concerned about the safety of him returning to his home where he resides by himself. She was concerned that "nothing had been set up yet". SW was made aware of family's concerns and discussed with family what services had been set up for pt. Family asked to talk with MD as they felt that pt was not medically ready for discharge. MD explained that pt was medically ready and was ok for discharge. Family was concerned about O2 needs as pt had been on O2 during his stay. Pt was ambulated with pulse ox by RN so family could witness his oxygen needs. Pt ambulated in galan using FWW approximately 50 feet. HR 59-64, SPO2 92-94% on RA. Pt's daughter appeared less anxious/agitated after demonstration. Pt's discharge instructions, follow up appointments and new medications were reviewed with pt's daughter and pt. Pt's daughter will be one of his caregivers and organizes his daily medications. All questions were answered and pt and daughter voiced understanding. Pt's family were also provided with additional information regarding wheelchair rentals and [employer] services. Pt's family was encouraged to stay with pt overnight tonight if they had concerns about his safety alone tonight, until home health services can be initiated tomorrow. Daughter voiced that she would try to get him to stay at her home this evening. Pt's belongings were gathered for transport and pt was escorted off unit to his family's vehicle by [facility].
[2017-02-12] MEDS ORDERED: MeTOProlol XL 50 mg ER24 Tablet PO SCH (20:30)
[2017-02-13] MEDS ORDERED: Diltiazem CD 120 mg ER24 Capsule PO SCH (08:30)
== END 2017-02-12 15:26 | disposition home health service (06) | DRG 308 ==
LOC: SED 19:43 → PCC 23:30 → UNDOADMIN 23:30 → PCC 23:54
PROVIDERS: ADMIT Internal Medicine; ATTEND Internal Medicine
DX: I48.0 Paroxysmal atrial fibrillation (principal); I50.23 Acute on chronic systolic (congestive) heart failure; K72.00 Acute and subacute hepatic failure without coma; E87.1 Hypo-osmolality and hyponatremia; N17.9 Acute kidney failure, unspecified; I24.8 Other forms of acute ischemic heart disease; J44.9 Chronic obstructive pulmonary disease, unspecified; J45.909 Unspecified asthma, uncomplicated; I10 Essential (primary) hypertension; E78.5 Hyperlipidemia, unspecified; K21.9 Gastro-esophageal reflux disease without esophagitis; Z87.891 Personal history of nicotine dependence; N40.0 Benign prostatic hyperplasia without lower urinary tract symptoms; R73.9 Hyperglycemia, unspecified; E87.5 Hyperkalemia; Z51.5 Encounter for palliative care

== ENCOUNTER 2017-02-27 13:57 | Inpatient (IN) | payer MEDICARE ==
[2017-02-27] VITALS (7 sets, daily range): BP systolic 114–137; BP diastolic 59–79; PULSE 58–96; RESP 14–22; O2SAT 95–100
[~2017-02-27] VITALS: Ht 170.2 cm; Wt 60.8 kg
[~2017-02-27 13:57] MED LIST changes: -AMOX-366 PO; -BISA10EN RC; -DIGO125T73 PO; +DIGO250T72 PO; +DILT120C83 PO; -FERR325T39 PO; +METO-272 PO; -ONDA4TAB9 PO
--- NOTE | 2017-02-27 15:08 | DRSVH ---
PROCEDURE: CT BRAIN WITHOUT CONTRAST ([id number]) INDICATIONS: 86 year-old male with stroke and decreased level of consciousness. TECHNIQUE: Noncontrast 4.5 mm thick angled axial sections acquired from the foramen magnum to the vertex, with c oronal reformats. COMPARISON: None. FINDINGS: Image quality: Excellent. CSF spaces: Basal cisterns are patent. No extra-axial fluid collections. Ventricles are normal in size and shape. Brain: No midline shift. No intracranial masses or hemorrhage. There is loss of li-white matter d ifferentiation involving the right temporal lobe. Skull and face: Calvarium and visualized facial bones are intact, without suspicious lesions. Sinuses: Visualized sinuses and mastoids are clear. IMPRESSION: Findings suspicious for evolving acute ischemic insult involving the right temporal lobe. Dictated by: Arnold Julien M.D. on 02/27/2017 at 14:03 Approved by: Arnold Julien M.D. on 02/27/2017 at 14:06
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
[2017-02-27 15:14] LABS: BASOPHILS % (AUTO) 0.2 % (0-3); EOSINOPHILS % (AUTO) 0.1 % (0-5); MONOCYTES % (AUTO) 9.9 % (4-12); Mean Corpuscular Hemoglobin 29.8 pg (27.0-35.0); Mean Corpuscular Volume 90.2 fL (81-100); NEUTROPHILS % (AUTO) 78.6 % (40-74); Platelet Count 126 bil/L (150-400)
[2017-02-27 15:35] LABS: INR 1.3 ratio
[2017-02-27 15:40] LABS: TROPONIN T 0.021 ug/L (0.0-0.011)
--- NOTE | 2017-02-27 16:40 | NUR ---
Evaluation completed. Please go to "Notes" then click on "Assessments and Notes" (bottom left corner of screen). Then select appropriate discipline tab on top of screen.
[2017-02-27] MEDS ORDERED: Alum-Mag Hydrox-Simeth 30 mL Suspension PO PRN ×2 (17:25→19:45)
[2017-02-27] MEDS ORDERED: Ondansetron 2 mg/mL 2 mL Inj IVPUSH PRN ×2 (17:25→19:45)
--- NOTE | 2017-02-27 17:41 | DRSVH ---
PROCEDURE: CT ANGIOGRAPHY OF THE BRAIN WITH AND WITHOUT CONTRAST ([id number]) INDICATIONS: ischemic insult on CT brain without contrast TECHNIQUE: Precontrast 4.5 mm thick angled axial sections acquired from the foramen magnum to the vertex. Afte r the administration of intravenous contrast, 1 mm thick sections acquired through the [place] of [place] is. Postcontrast 4.5 mm thick sections then re-acquired from the foramen magnum to the vertex. 3-di mensional raefesc-xljohxyzb-ebbuegjjkh (MIP) and/or volume rendering reformats were acquired of the c entral intracranial vasculature. For radiation dose reduction, the following was used: automated ex posure control, adjustment of mA and/or kV according to patient size. COMPARISON: Merged With [facility], CT, CT BRAIN WO CON, 02/27/2017, 14:48. FINDINGS: Image quality: Excellent. Anterior circulation: Intracranial internal carotid arteries are normal in size and flow. The left A 1 segment of the anterior commuting artery is atrophic but patent. Otherwise normal anterior cerebral arteries. The flow within the middle cerebral arteries is normal and symmetric. The anterior commu nicating artery is seen. No aneurysms are seen. Posterior circulation: Visualized portions of the vertebral arteries demonstrate normal caliber, and join to form a normal appearing basilar artery. Flow within the posterior cerebral arteries is norm al. Tortuous origin of the left posterior cerebral artery. No aneurysms are seen. CSF spaces: Ventricles are normal in size and shape. Basal cisterns are patent. No extra-axial flu id collections. Brain: No midline shift. No intracranial bleeds or masses. Alcocer-white matter interface appears int act. Skull and face: Calvarium and facial bones appear intact, without suspicious lesions. Sinuses: Visualized sinuses and mastoids are clear. IMPRESSION: 1. No aneurysms or acute occlusions of the intra-cranial arterial structures. 2. Atrophic left A1 segment of the anterior cerebral artery with compensatory hypertrophy of the righ t A1 segment. Tortuous origin of the left posterior cerebral artery. 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 Dictated by: Stas Wheeler M.D. on 02/27/2017 at 17:26 Approved by: Stas Wheeler M.D. on 02/27/2017 at 17:34
--- NOTE | 2017-02-27 17:45 | NUR ---
ADMIT Report received from Lidia Ken RN in ED. Pt brought up to room around 1745 via gurney - transferred by slide assist to bed. Tele placed. Pt denies pain and SOB. Alert and oriented x3. Able to answer all questions appropriately. During Neuro assessment pt began exhibiting subtle seizure symptoms - Shaking legs R>L arms, body tense. Pt still able to follow commands but would not relax. DR Loredo came by, Verbal orders given and placed for IV Lorazepam PRN seizure. Blood glucose taken - 100. Seizure pads in place, board updated, IV Lorazepam administered, bed alarm on. Family updated with plan of care. Admission interventions completed by admit nurse. And NOC nurse to continue with care. Verbal instruction by DR Loredo - "After IV Keppra given, wait 1 HR. If pt continues to have another seizure call for verbal order on another dose of Keppra." - [phone] [facility].
[2017-02-27] MEDS ORDERED: LEVO750T9 PO (18:25)
[2017-02-27] MEDS ORDERED: ACET325T51 PO (18:25)
[2017-02-27] MEDS ORDERED: MAGN400O4 PO (18:25)
[2017-02-27] MEDS ORDERED: METO-274 PO (18:25)
[2017-02-27] MEDS ORDERED: med plus 2.0 PO (18:25)
[2017-02-27] MEDS ORDERED: IPRA3AMP IH (18:25)
[2017-02-27] MEDS ORDERED: ZINC57OI TP (18:25)
[2017-02-27] MEDS ORDERED: Albuterol-Ipratropium 3 mL Inhalation Solution NEB PRN (19:45)
[2017-02-27] MEDS ORDERED: Polyethylene Glycol (PEG) 17 Gm Powder PO PRN (19:45)
[2017-02-27] MEDS ORDERED: Labetalol 5 mg/mL 20 mL Inj IV PRN (20:16)
--- NOTE | 2017-02-27 20:28 | PCM.HPMED ---
Subjective Date of Service Feb 27, 2017 Primary Provider: Admitting Physician: Vicente Hayes Primary Care Physician: [facility] Attending Physician: Vicente Hayes Chief Complaint: Confusion seizure-like activity History of Present Illness: Corwin Garcia is an 86-year-old gentleman with history and recent hospitalization for atrial fibrillation with RVR, acute liver injury, acute kidney injury, chronic systolic heart failure who presents today with his daughter after having days of worsening confusion and episodes of what daughter describes a seizure, stated twitching and stiffening of his face and body that has been going on for days. He reportedly had several falls in the last couple of days, most recently last night which led to bruising to the bridge of his nose. He is not on any blood thinners per outpatient record/recent discharge and head CT was performed which showed an evolving ischemic stroke, but no bleeding. He denies any current lightheadedness or dizziness, nausea or vomiting, no constipation at this time, no headache, no chest pain, no shortness of breath at this time, no new rashes, no acute changes in vision, denies sensation of palpitations. endorses chronic cough with phlegm, says he feels weak all over but this is his normal, He is accompanied by his daughter and grandchildren, he stated he has been living at [facility] and there have been no changes in his medications since discharge on 02/12/2017. In the emergency room temperature 36.5, heart rate 63, respiratory rate 14, blood pressure 130/60, 100% 2 L nasal cannula WBC 10.9, mild left shift of 78.6% platelets 126, Potassium 3.4, glucose 100, ALT 67, troponin 0.021, review of previous records shows that this is chronically elevated. Procalcitonin = 0.09 As the symptoms had been progressing over the last several days, patient was not a TPA candidate, he was given 500 mg Keppra in the emergency department, and neurology pianos and organs salesperson was consulted who agreed to accept the patient. Review of Systems: A comprehensive review of systems was conducted with the patient and found to be negative except as above in the history of present illness. Allergies Coded Allergies: No Known Allergies (Unverified Allergy, Unknown, 02/04/17) Home Medications Scheduled Cholecalciferol (Vitamin D3) (Vitamin D3) 1,000 Unit Tab.chew 2,000 UNIT PO DAILY Digoxin (Digoxin) 250 Mcg Tablet 0.25 MG PO DAILY@12 Diltiazem ER (Cardizem CD) 120 Mg Cap.er.24h 120 MG PO DAILY Doxazosin (Cardura) 1 Mg Tablet 1 MG PO HS Lisinopril (Lisinopril) 5 Mg Tablet 2.5 MG PO DAILY Metoprolol succinate ER 100 mg by mouth twice a day Simvastatin (Simvastatin) 40 Mg Tablet 40 MG PO HS DuoNeb as needed for shortness of breath PMH Dyslipidemia Asthma COPD Cancer GERD Hypertension Atrial fibrillation . Surgical History Hiatal hernia repair Appendectomy Prostatectomy Cervical disc fusion Family History information not available Social History Occupation: retired Hx Alcohol Use: Yes (last used many years ago) Hx Substance Use: No Hx Tobacco Use: No Smoking Status: Former Smoker Living Arrangement: Jail Facility (resident of [facility]) Exam Vital Signs Vital Sign - Last Date Time Temp Pulse Resp B/P Pulse Ox O2 Delivery O2 Flow Rate FiO2 02/27/17 18:38 35.9 69 20 114/79 96 Nasal Cannula 2.00 Exam General: Laying in bed, no apparent distress, pleasant affect HEENT: Normocephalic, 1 cm ecchymosis to bridge of nose, pupils equal round and reactive to light and accommodation, EOMI intact, neck supple without lymphadenopathy, surgical scars posterior midline neck, mucous membranes are moist, poor dentition Cardiovascular: Irregularly irregular, peripheral pulses 2/4 equal bilaterally upper and lower extremities, unable to appreciate any clicks murmurs or rubs Pulmonary: Clear to auscultation bilaterally, no W/R/R. no cough during encounter Abdominal: Soft to palpation, bowel sounds present 4, no hepatosplenomegaly. Negative rebound. Extremities: No edema appreciated. No tenderness, asymmetry. Neuro: Movements are slow and deliberate, strength is essentially equal, however globally decreased. No myoclonus, no asymmetry. MSK: Able to move extremities on their own volition, strength 5 out of 5 equal bilaterally to upper and lower extremities. Derm: Redness and skin breakdown inferior portion of sacrum, nondraining, not covered. Psych: Not oriented to time, states he is down the street from [facility] in [facility], unable to state why he is in the hospital, believes it is due to oxygen, is able to recognize family members in the room. Lab and Diagnostics Result Diagram: 02/27/17 1500 02/27/17 1500 X-Rays, CTs and MRIs CT angiography of the brain with and without contrast 02/27/2017 IMPRESSION: 1. No aneurysms or acute occlusions of the intra-cranial arterial structures. 2. Atrophic left A1 segment of the anterior cerebral artery with compensatory hypertrophy of the right A1 segment. Tortuous origin of the left posterior cerebral artery. 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 Dictated by: Stas Wheeler M.D. on 02/27/2017 at 17:26 CT brain without contrast 02/27/2017 IMPRESSION: Findings suspicious for evolving acute ischemic insult involving the right temporal lobe. Dictated by: Arnold Julien M.D. on 02/27/2017 at 14:03 12-lead ECG Atrial fibrillation, rate 77 Left bundle branch block When compared with ECG from 02/09/2017 no significant changes. Cardiac Echo Impressions ECHOCARDIOGRAM - previous admission (01/16/17) Interpretation Summary The left ventricle is severely dilated. The ejection fraction is estimated to be 15-20%. There is severe global hypokinesis of the left ventricle. There is severe biatrial enlargement. There is moderate mitral regurgitation. There is moderate tricuspid regurgitation. The right ventricular systolic pressure is estimated at 43 mmHg assuming a right atrial pressure of 8 mm Hg. Conrado Lala Reading Physician:01/16/2017 05:50 PM Assessment & Plan Mr. Garcia 86-year-old gentleman with history of hyperlipidemia, A. fib with RVR , not on anticoagulation, previous hospitalizations for pneumonia, A. fib, liver and kidney injury presented with days of confusions, ground-level falls, and seizure-like activity found to have an evolving ischemic cerebrovascular accident. 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 fib rate controlled not on anticoagulation secondary to high fall risk. -500 mL saline, at rate of 75 mL per hour, slow fluids due to severe congestive heart failure -Aspirin suppository given in the emergency department, will continue daily aspirin -Clopidogrel 75 mg a day dual antiplatelet therapy -Patient is a high fall risk, will keep him one-to-one assist -Physical therapy evaluation -Lipid panel pending -Hold home medications of doxazosin, metoprolol, and diltiazem to allow permissive hypertension. -Neurology consult, Dr. bar consulted -Echocardiogram to be performed -Speech eval/swallow study. -Continue home simvastatin 40 mg at night -MRI unable to be obtained due to limited mobility of neck Acute new onset seizure-like activity, reported, POA prophylaxis initiated. -As described by daughter, "stiffening and twitching of different parts of his body" worsening over the last couple of days -We will continue Keppra twice a day 500 mg and await neurology recommendations -Seizure precautions, keep bed low, keep bed padding in place -Patient is a one-to-one assist Chronic Atrial fibrillation, rate controlled, POA. Stable -Patient is on numerous medications including metoprolol, digoxin, doxazosin, and diltiazem -Not on anticoagulation, INR 1.3 -Patient is receiving heparin subcutaneous, and clopidogrel as stated above, due to fall risk most likely not candidate for long-term anticoagulation. -We will hold oxytocin as stated above to allow permissive hypertension, will continue all other antiarrhythmics. -Repeat echocardiogram as above -Placed on telemetry Chronic congestive heart failure, severe ejection fraction 15%, POA, presumed stable -No edema, no rales, chronic dry cough but not appreciated on exam -Repeat echo as above -Continue digoxin, beta oxana, as above -Await echo results to see if cardiology consultation is necessary -Serum digoxin levels to be evaluated Acute Hypokalemia, present on admission, treatment initiated -Mildly low, 3.4, EKG unchanged, no cramps reported. -We will repeat CMP in the a.m. replete if necessary. Chronic COPD, present on admission, stable -Does not appear to be an exacerbation, no breathing difficulty, is on oxygen at baseline. -Keep oxygen titrated to SPO2 88-92% -DuoNeb nebs every 4 hours as needed for dyspnea Chronic elevated troponin, present on admission, stable -0.021 on admission, is within range from previous hospitalization. Chronic Decubitous ulcer, POA, Stable. Will consult wound care Nursing orders for wound care, turn patient. High fall risk, POA -One-to-one assist -Long-term counseling -Physical therapy as above GI prophylaxis not indicated Bowel regimen as needed Pain management with acetaminophen CODE STATUS: DO NOT RESUSCITATE/DO NOT INTUBATE. POLST on file Patient admitted under inpatient status with expected length of stay > 2 midnights for severity of present symptoms, complexities of treatment plan and risk for adverse events Pain Evaluation: Adequate Pain Control GI Prophylaxis: Other VTE Prophylaxis: Sub-Q Heparin (Unfractionated) Resuscitation Status: DNR/DNI:Do Not Resuscitate/Intubate Attending Statement The patient was seen and examined together with Dr. Messina on 02/27 and I agree with the history, exam and plan as outlined in the note above. Ilia Hand DO Feb 27, 2017 20:28 Glenroy Hull MD Feb 28, 2017 01:14
[2017-02-27] MEDS ORDERED: Non-Formulary Medication (Metoprolol Succinate ER 100 MG) PO SCH (20:30)
[2017-02-27] MEDS ORDERED: 0.9% Sodium Chloride 500 ML IV ONE (20:35)
--- NOTE | 2017-02-27 20:36 | NUR ---
admit nurse note patient admitted to room 3018 from the ED after being sent from [facility] for evaluation. pressure sore protocol and p500 bed initiated due to patient with pressure sore to sacral region as per [facility] records and per ER report. primary RN Christen grant notified that pressure sore protocol initiated and that p500 bed ordered per pocket secretary assembler. Christen states understanding.
--- NOTE | 2017-02-27 20:53 | PCM.CHPMED ---
Subjective Date of Service: Feb 27, 2017 Provider requesting consult: Ilia Hand DO Primary Physician: Admitting Physician: Vicente Hayes Primary Care Physician: [facility] Attending Physician: Vicente Hayes Chief Complaint: Chief Complaint: Altered mental status, seizure like activity History of Present Illness: Neurology Consult Note Patient is an 86 year old male with history of atrial fibrillation with recent admit for afib with RVR 02/05/17, CHF, HTN, and past history of prostate cancer s /p prostatectomy 20 years ago who presents with altered mental status and seizure-like activity. Most history is provided by his daughter, as he was significantly confused during the visit. She reports he had been in [facility] since his admission in January for afib with RVR. Over the last 7-10 days, she noticed he became increasingly confused, with agitation, insomnia, and intermittent seizure like activity that increased in frequency. She describes the episodes as contortions of his face and mouth, with jerking movements or severe flexion or extension of his arms and legs. These episodes last about 15 30 seconds then resolve. She also reports increasing weakness over the last week resulting in a fall yesterday. He has not been on aspirin, Plavix, or warfarin. Currently on Simvastatin 40 mg. Review of Systems: Comprehensive review of systems conducted and was negative except for the pertinent positives listed above. PMH Past Medical History Hypertension Atrial fibrillation Dyslipidemia Asthma COPD Prostate cancer Congestive heart failure GERD Bedside Blood Glucose: 100 Surgical History Hiatal hernia repair Appendectomy Prostatectomy Allergies: Coded Allergies: No Known Allergies (Unverified Allergy, Unknown, 02/04/17) Family History Family History Unknown Social History Hx Alcohol Use: NoHx Substance Use: NoHx Tobacco Use: No Smoking Status: Former Smoker Exam Vital Signs Vital Sign - Last Date Time Temp Pulse Resp B/P Pulse Ox O2 Delivery O2 Flow Rate FiO2 02/27/17 18:38 35.9 69 20 114/79 96 Nasal Cannula 2.00 Additional Information: General: Alert, Oriented X1, occasionally cooperative. Frequently distracted Head: Normocephalic, atraumatic. External ears normal. Eyes: PERRLA, EOMI. Anicteric sclerae. Mouth: Mouth normal, Mucous membranes moist/pink Neck: Neck supple with full range of motion. Chest& Lungs: Clear to auscultation bilaterally with no crackles, wheezes, or rhonchi. Cardiovascular: Regular rate/rhythm, Normal S1, Normal S2, No murmurs/rubs/ gallops Abdomen: Non-tender, Non-distended, No masses, Normoactive bowel tones, Soft Musculoskeletal: Normal range of motion Extremities: No cyanosis/clubbing/edema bilaterally Neuro: Normal speech but confused and sentences devolve into incoherence. Strength 4/4 bilateral upper and lower extremities, right upper eyelid droop, subtle left facial droop. Finger-Nose and Heel-Orozco somewhat normal although difficult to have pt follow commands. On recheck, pt was observed with facial contortions, bilateral arm flexion, and repetitive mouth and tongue movements. Lab and Diagnostics Result Diagram: 02/27/17 1500 02/27/17 1500 Assessment & Plan Assessment Subacute right temporal lobe ischemic stroke Patient presents with mental status changes and seizure like activity ongoing over 1 week per his daughter. CT head shows subacute stroke of the right temporal lobe. CT angio head/neck was unremarkable for other findings. Seizures following stroke are more common following a temporal lobe stroke. He has a history of afib but is not currently on any antiplatelet or anticoagulant medications. Recommend starting aspirin tonight and bridging to warfarin tomorrow. Discussed anticoagulation with daughter and she is agreeable. - Aspirin bridge to warfarin - Continue stroke protocol - Permissive hypertension - Switch simvastatin to atorvastatin 80 mg - Frequent neurologic checks - Recommend physical therapy - Speech therapy for swallow study Acute focal complex seizures Witnessed seizure activity in the room, with tonic arm and leg extension combined with repetitive mouth and tongue movements and facial contortion. Patient was conscious during the episode. 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 He will require a loading dose of Keppra as well as an EEG in the morning. - Ativan 0.5 mg IV q15-30 mins PRN seizures - Keppra 500 mg IV loading dose now, followed by 500 mg BID PO - EEG in AM - Seizure pads in place Problems: Ron Newman Feb 27, 2017 20:53
[2017-02-27] MEDS ORDERED: DOXAZOSIN 1 MG PO SCH (21:00)
[2017-02-27 21:04] LABS: Magnesium 1.5 mg/dL (1.6-2.6)
[2017-02-27] MEDS: Heparin 5,000 Unit/mL Inj SUBQ SCH (21:29)
--- NOTE | 2017-02-27 23:01 | NUR ---
Bradycardia Tele reports at 2054: A-fib HR down to 39 non-sustain,then back to 50. At 2109, HR briefly down to 39 again,then back to 48. Pt sleeping at that time, Night resident Dr. Santo informed within 10min of the report. No order given, continue monitoring.
[2017-02-28 02:00] VITALS: BP 128/65; PULSE 60; RESP 20; O2SAT 98
[2017-02-28 06:30] VITALS: BP 144/65; PULSE 71; RESP 18; O2SAT 99
[2017-02-28 06:35] LABS: BASOPHILS % (AUTO) 0.5 % (0-3); EOSINOPHILS % (AUTO) 0.9 % (0-5); MONOCYTES % (AUTO) 11.3 % (4-12); Mean Corpuscular Hemoglobin 29.6 pg (27.0-35.0); Mean Corpuscular Volume 90.7 fL (81-100); NEUTROPHILS % (AUTO) 71.2 % (40-74); Platelet Count 122 bil/L (150-400)
[2017-02-28] MEDS ORDERED: Diltiazem CD 120 mg ER24 Capsule PO SCH (08:30)
[2017-02-28 10:51] VITALS: PULSE 70
[2017-02-28] MEDS: levETIRAcetam 500 mg Tablet PO SCH ×3 (11:00→20:36)
[2017-02-28] MEDS: Heparin 5,000 Unit/mL Inj SUBQ SCH ×2 (11:01→20:44)
[2017-02-28 12:00] VITALS: BP 137/65; PULSE 60; RESP 18; O2SAT 99
--- NOTE | 2017-02-28 15:55 | NUR ---
Social Work: Brief Note Data: STREETCAR MOTORMAN spoke with [facility] who confirms they can take pt back at d/c. STREET[employer] MOTORMAN will continue to follow and will complete initial assessment pt at a later time. ANDI Mathews
[2017-02-28 17:30] VITALS: BP 128/62; PULSE 69; RESP 18; O2SAT 99
--- NOTE | 2017-02-28 17:32 | DRSVH ---
Formerly [facility] [address] [place] [address] Echocardiogram Report Name: JANE LOPEZ RStudy Date : 02/28/2017 Height: 67 in Hospital Exam Location: [facility] Weight: 139 lb Gender: Male BSA: 1.7 m2 : 1930 Age: 86 yrs BP: 144/65 m mHg Reason For Study: Stroke Ordering Physician: HOSPITALIST [facility] Performed By: Celine Lopez Referring Physician: Florentino Richmond Interpretation Summary The left ventricle is severely dilated. The ejection fraction is estimated to be 20% There is no Doppler evidence for an interatrial shunt. There is mild mitral regurgitation. There is moderate tricuspid regurgitation. Right ventricular systolic pressure is estimated to be 37 mmHg plus the clinically estimated CVP which cannot be estimated on this exam. There is a small left-sided pleural effusion. There is a moderately large right-sided pleural effusion. Procedure: A two-dimensional transthoracic echocardiogram with color flow and Doppler was performed. The study quality was technically adequate. Comparison is made with the echocardiogram of 01/16/2017. A saline contrast injection was performed to assess for cardiac shunting. The patient was in atrial fibrillation with heart rates between 54-80 bpm during the exam. Left Ventricle: The left ventricle is severely dilated. There is normal left ventricular wall thickness. There is no thrombus. This is unchanged compared to the previous study. Left ventricular ejection fraction is estimated to be 20%. Diastolic function could not be accurately assessed due to atrial fibrillation. Right Ventricle: The right ventricle is normal size. Right ventricular systolic function is mildly reduced. Atria: The left atrium is severely dilated. The right atrium is mildly dilated. There is no Doppler evidence for an interatrial shunt. Injection of contrast documented no interatrial shunt; however, leftward septal shift was not achieved. Mitral Valve: The mitral valve leaflets appear mildly thickened, but open well. There is mild mitral regurgitation. Aortic Valve: The aortic valve is trileaflet. The aortic valve opens well. The aortic valve is slightly calcified. There is trace aortic regurgitation. Tricuspid Valve: The tricuspid valve leaflets are thin and pliable. There is moderate tricuspid regurgitation. Right ventricular systolic pressure is estimated to be 37 mmHg plus the clinically estimated CVP which cannot be estimated on this exam. Pulmonic Valve: The pulmonic valve is not well seen, but is grossly normal. There is a trace or physiologic amount of pulmonic regurgitation. Great Vessels: The aortic root is normal size. The ascending aorta is normal in size. The IVC has a measurement of 20 mm. The patient could not sniff in order to assess venous pressure. Pericardium/ Pleura There is no pericardial effusion. There is a small left -sided pleural effusion. There is a moderately large right-sided pleural effusion. MMode/2D Measurements & Calculations LVIDd: 6.8 cm RA long axis: 6.0 cm Ao root diam LVIDs: 5.7 cm LA A2 area: 33.1 cm FS: 17.3 % LA A4 area: 33.7 cm RA area: 21.5 cm asc Aorta IVSd: 0.85 cm LA length (vol): 7.3 cm RA vol: 65.3 ml Diam: 2.9 cm LVPWd: 0.77 cm LA vol: 129.5 ml RA : 37.7 ml/m2 LA vol index IVC diam: 2.0 cm EDV(MOD-sp2) LV allen. diameter/BSA LV sys. diameter/BSA RVD1 (basal) (cm/m^2): 4.0 (cm/m^2): 3.3 : 3.3 cm ESV(MOD-sp2) EF(MOD-sp2) RVD2 (mid) TAPSE: 1.3 cm : 1.7 cm Doppler Measurements & Calculations Ao V2 max MV E max domingo TR max domingo MV P1/2t max domingo : 111.2 cm/sec : 91.9 cm/sec : 302.5 cm/sec Ao max P.9 mmHgMV P1/2t TR max PG Ao mean PG : 57.4 msec : 36.8 mmHg MVA(P1/2t): 3.8 cm2 PA V2 max LVOT Max Domingo : 76.7 cm/sec : 82.1 cm/sec PA mean PG sev ratio: 0.62 : 0.95 mmHg PA Accel Time Ao V2 mean LV V1 max PG PA V2 mean : 75.9 cm/sec : 44.0 cm/sec Ao V2 VTI: 21.3 cm LV V1 VTI: 13.2 cm Electronically signed by: Conrado Lala on Reading Physician:02/28/2017 05:31 PM
--- NOTE | 2017-02-28 19:48 | PCM.PNMED ---
Subjective Date of Service Feb 28, 2017 Subjective Neurology Consult Note Patient is an 86 year old male with history of atrial fibrillation with recent admit for afib with RVR 02/05/17, CHF, HTN, and past history of prostate cancer s /p prostatectomy 20 years ago who presents with 10 days of altered mental status and seizure-like activity. He had been in [facility] since his admission in January for afib with RVR. Over the last 7-10 days, and became increasingly confused, with agitation, insomnia, and intermittent seizure like activity that increased in frequency. He has not been on aspirin, Plavix, or warfarin. He apparently was on warfarin previously but this was discontinued due to significant fall risk. Review of systems was limited due to patient confusion. Exam Vital Signs Vital Sign - Last Date Time Temp Pulse Resp B/P Pulse Ox O2 Delivery O2 Flow Rate FiO2 02/28/17 10:51 70 02/28/17 06:30 36.5 18 144/65 99 Room Air 02/27/17 18:38 2.00 Intake and Output 02/27/17 02/27/17 02/28/17 Cumulative From/Thru 15:00 23:00 07:00 02/27/17 14:07 - 02/28/17 06:39 Intake Total 617 ml 617 ml Balance 617 ml 617 ml IV Total 617 ml 617 ml Exam General: Alert, Oriented X1, occasionally cooperative. Frequently distracted. Head: Normocephalic, atraumatic. External ears normal. Eyes: PERRLA, EOMI. Anicteric sclerae. Mouth: Mouth normal, Mucous membranes moist/pink Neck: Neck supple with full range of motion. Chest& Lungs: Clear to auscultation bilaterally with no crackles, wheezes, or rhonchi. Cardiovascular: Irregularly irregular. Normal S1, Normal S2, No murmurs/rubs/ gallops Abdomen: Non-tender, Non-distended, No masses, Normoactive bowel tones, Soft Musculoskeletal: Normal range of motion Extremities: No cyanosis/clubbing/edema bilaterally Neuro: Normal speech but confused and sentences devolve into incoherence. Strength 4/4 bilateral upper and lower extremities, right upper eyelid droop. Finger-Nose normal. Lab and Diagnostics Result Diagram: 6/14/17 0605 6/14/17 0605 X-Rays, CTs and MRIs CT angiography of the brain with and without contrast 02/27/2017 IMPRESSION: 1. No aneurysms or acute occlusions of the intra-cranial arterial structures. 2. Atrophic left A1 segment of the anterior cerebral artery with compensatory hypertrophy of the right A1 segment. Tortuous origin of the left posterior cerebral artery. 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 Dictated by: Stas Wheeler M.D. on 02/27/2017 at 17:26 CT brain without contrast 02/27/2017 IMPRESSION: Findings suspicious for evolving acute ischemic insult involving the right temporal lobe. Dictated by: Arnold Julien M.D. on 02/27/2017 at 14:03 12-lead ECG Atrial fibrillation, rate 77 Left bundle branch block When compared with ECG from 02/09/2017 no significant changes. Cardiac Echo Impressions ECHOCARDIOGRAM - previous admission (01/16/17) Interpretation Summary The left ventricle is severely dilated. The ejection fraction is estimated to be 15-20%. There is severe global hypokinesis of the left ventricle. There is severe biatrial enlargement. There is moderate mitral regurgitation. There is moderate tricuspid regurgitation. The right ventricular systolic pressure is estimated at 43 mmHg assuming a right atrial pressure of 8 mm Hg. Conrado Lala Reading Physician:01/16/2017 05:50 PM Assessment & Plan Subacute right temporal lobe ischemic stroke Patient presents with mental status changes and seizure like activity ongoing over 1 week per his daughter. CT head shows subacute stroke of the right temporal lobe. CT angio head/neck was unremarkable for other findings. Seizures following stroke are more common following a temporal lobe stroke. He has a history of afib; was apparently previously on warfarin but it was stopped as pt was a high fall risk. - Continue aspirin - Continue stroke protocol - Increase atorvastatin to 80 mg - Frequent neurologic checks - Recommend physical therapy Acute focal complex seizures Witnessed possible focal complex seizures on admission. EEG showed sleep activity, as pt was likely oversedated with Ativan. Will reorder EEG for tomorrow. - Ativan 0.5 mg IV q15-30 mins PRN seizures - Keppra 500 mg IV loading dose now, followed by 500 mg BID PO - EEG in AM - Seizure pads in place GI Prophylaxis: Other VTE Prophylaxis: Sub-Q Heparin (Unfractionated) VTE Mechanical Devices: Intermittant Pneumatic CD Resuscitation Status: DNR/DNI:Do Not Resuscitate/Intubate Ron Newman Feb 28, 2017 10:58
--- NOTE | 2017-02-28 20:52 | NUR ---
Medication Pt given meds in applesauce. Pt did not tolerate the medication. He spit out all his applesauce after I encouraged him to swallow (sitting bolt up right) It does not appear that he swallowed any of the medication. Pt is currently NPO except meds.
--- NOTE | 2017-02-28 21:05 | NUR ---
Absent seizure activity Pt not responding to commands.Staring off. Arms rigid. Plan to give IV ativan. Pt spit out all his kepra earlier in this assesment. Will inform MD of sz activity Addendum: 02/28/17 at 2253 by BRANT HALEY RN MD ordered scheduled IV keppra. Pt tolerated dose (given at 2215) Will cont to monitor
[2017-02-28 22:30] VITALS: BP 142/81; PULSE 96; RESP 20; O2SAT 96
--- NOTE | 2017-02-28 22:55 | PCM.PNMED ---
Subjective Date of Service Feb 28, 2017 Subjective Patient has no new complaints. He has no fever, no chills and no diaphoresis. He is feeling a little bit better. Exam Vital Signs Vital Sign - Last Date Time Temp Pulse Resp B/P Pulse Ox O2 Delivery O2 Flow Rate FiO2 02/28/17 22:30 36.4 96 20 142/81 96 Room Air 02/27/17 18:38 2.00 Intake and Output 02/27/17 02/27/17 02/28/17 Cumulative From/Thru 15:00 23:00 07:00 02/27/17 14:07 - 02/28/17 06:39 Intake Total 617 ml 617 ml Balance 617 ml 617 ml IV Total 617 ml 617 ml Exam General: Patient is lying supine in bed with head slightly elevated approximately 20. He is in no apparent distress. HEENT: Head is atraumatic and normocephalic. Eyes: Pupils are equally round and reactive to light and accommodation. Extraocular muscles are intact. Sclera are white, anicteric. Subconjunctival mucosa is pink. Ears and nose are unremarkable. Oropharynx: There is no mucosal lesions, there is no thrush, there is no pharyngitis. Neck: Is supple, there are no nodes, or masses or tenderness. Chest: Is significant for decreased breath sounds at the bases. There are no rales, rhonchi, wheezes or rubs. Heart: Rate, rhythm is regular. There is no murmur, rub or gallop. Abdomen: Good bowel sounds are present. Abdomen is soft, nontender, no organomegaly or masses were appreciated. Extremities: Are symmetrical and well perfused. There is no edema, there is no cellulitis, no rash. Neurologic: There are no new focal neurological deficits. Cranial nerves II through XII are intact. There are no new sensory or motor deficits. Psychiatric: Patients mood is calm and shows no sign of agitation. Genital: Deferred Rectal: Deferred Lab and Diagnostics Result Diagram: 02/28/1760402/28/17604 Microbiology Name: JANE GARCIA Age/Sex: 86/M Attend Dr: Vicente Hayes Acct: [id number] Unit: [id number] Status: ADM IN Location: [facility] 3018-1 Re02/27/17 Disch: Specimen: [id number] Collected: 02/28/17 Status: COMP Req#: [id number] Received: 02/28/17 Source: NOSE Sp Desc : Subm Dr: Glenroy Hull MD Ordered: JULIOCESAR MRSA PCR Comments: Collected by Nurse/Unit? Y/N Y Procedure Result Verified Site Microbiology JULIOCESAR MRSA PCR Final 02/28/17-1018 MRSA BY PCR NOT DETECTED REFERENCE INTERVAL NOT DETECTED X-Rays, CTs and MRIs CT angiography of the brain with and without contrast 02/27/2017 IMPRESSION: 1. No aneurysms or acute occlusions of the intra-cranial arterial structures. 2. Atrophic left A1 segment of the anterior cerebral artery with compensatory hypertrophy of the right A1 segment. Tortuous origin of the left posterior cerebral artery. 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 Dictated by: Stas Wheeler M.D. on 02/27/2017 at 17:26 CT brain without contrast 02/27/2017 IMPRESSION: Findings suspicious for evolving acute ischemic insult involving the right temporal lobe. Dictated by: Arnold Julien M.D. on 02/27/2017 at 14:03 12-lead ECG Atrial fibrillation, rate 77 Left bundle branch block When compared with ECG from 02/09/2017 no significant changes. Cardiac Echo Impressions ECHOCARDIOGRAM - previous admission (01/16/17) Interpretation Summary The left ventricle is severely dilated. The ejection fraction is estimated to be 15-20%. There is severe global hypokinesis of the left ventricle. There is severe biatrial enlargement. There is moderate mitral regurgitation. There is moderate tricuspid regurgitation. The right ventricular systolic pressure is estimated at 43 mmHg assuming a right atrial pressure of 8 mm Hg. Conrado Lala Reading Physician:01/16/2017 05:50 PM Assessment & Plan Mr. Garcia 86-year-old gentleman with history of hyperlipidemia, A. fib with RVR , not on anticoagulation, previous hospitalizations for pneumonia, A. fib, liver and kidney injury presented with days of confusions, ground-level falls, and seizure-like activity found to have an evolving ischemic cerebrovascular accident. 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 fib rate controlled not on anticoagulation secondary to high fall risk. -500 mL saline, at rate of 75 mL per hour was given, slow fluids due to severe congestive heart failure -Aspirin suppository was given in the emergency department, will continue daily aspirin -Clopidogrel 75 mg a day dual antiplatelet therapy was started -Patient is a high fall risk, will keep him one-to-one assist -Physical therapy evaluation -Lipid panel pending -Hold home medications of doxazosin, metoprolol, and diltiazem to allow permissive hypertension for now. -Neurology consult, Dr. Loredo consulted -Echocardiogram to be performed -Speech eval/swallow study. -Continue home simvastatin 40 mg at night -MRI unable to be obtained due to limited mobility of neck Acute new onset seizure-like activity, reported, POA prophylaxis initiated. -As described by daughter, "stiffening and twitching of different parts of his body" worsening over the last couple of days -We will continue Keppra twice a day 250 mg as per neurology recommendations. Appreciate their time and expertise. As patient was on Ativan for her first EEG , a repeat EEG has been ordered. -Seizure precautions, keep bed low, keep bed padding in place -Patient is a one-to-one assist Chronic Atrial fibrillation, rate controlled, POA. Stable -Patient is on numerous medications including metoprolol, digoxin, doxazosin, and diltiazem -Not on anticoagulation, INR 1.3 -Patient is receiving heparin subcutaneous, and clopidogrel as stated above, due to fall risk most likely not candidate for long-term anticoagulation. -We will hold oxytocin as stated above to allow permissive hypertension, will continue all other antiarrhythmics. -Repeat echocardiogram as above -Placed on telemetry Chronic congestive heart failure, severe ejection fraction 15%, POA, presumed stable -No edema, no rales, chronic dry cough but not appreciated on exam -Repeat echo as above -Continue digoxin, beta oxana, as above -Await echo results to see if cardiology consultation is necessary -Serum digoxin levels to be evaluated Acute Hypokalemia, present on admission, treatment initiated -Mildly low, 3.4, EKG unchanged, no cramps reported. -We will repeat CMP in the a.m. replete if necessary. Chronic COPD, present on admission, stable -Does not appear to be an exacerbation, no breathing difficulty, is on oxygen at baseline. -Keep oxygen titrated to SPO2 88-92% -DuoNeb nebs every 4 hours as needed for dyspnea Chronic elevated troponin, present on admission, stable -0.021 on admission, is within range from previous hospitalization. Chronic Decubitous ulcer, POA, Stable. Will consult wound care Nursing orders for wound care, turn patient. High fall risk, POA -One-to-one assist -Long-term counseling -Physical therapy as above Pain Evaluation: Adequate Pain Control GI Prophylaxis: Other VTE Prophylaxis: Sub-Q Heparin (Unfractionated) VTE Mechanical Devices: Intermittant Pneumatic CD Resuscitation Status: DNR/DNI:Do Not Resuscitate/Intubate Florencio Giles MD Feb 28, 2017 22:55
[2017-03-01] VITALS (9 sets, daily range): BP systolic 127–142; BP diastolic 62–87; PULSE 62–117; RESP 18–20; O2SAT 92–98
[2017-03-01 06:42] LABS: BASOPHILS % (AUTO) 0.8 % (0-3); EOSINOPHILS % (AUTO) 0.8 % (0-5); MONOCYTES % (AUTO) 8.5 % (4-12); Mean Corpuscular Hemoglobin 29.5 pg (27.0-35.0); Mean Corpuscular Volume 88.2 fL (81-100); Platelet Count 159 bil/L (150-400)
[2017-03-01 07:07] LABS: Magnesium 1.5 mg/dL (1.6-2.6)
[2017-03-01] MEDS: Heparin 5,000 Unit/mL Inj SUBQ SCH ×2 (08:44→19:40)
[2017-03-01] MEDS ORDERED: Magnesium Sulf 4 Gm/100 mL H2O 4 GM in IV Premix 1 EACH IV ONE (09:25)
--- NOTE | 2017-03-01 10:04 | DRSVH ---
PROCEDURE: CT BRAIN WITHOUT CONTRAST ([id number]) INDICATIONS: Stroke TECHNIQUE: Noncontrast 4.5 mm thick angled axial sections acquired from the foramen magnum to the vertex, with c oronal reformats. COMPARISON: [facility], CT, CT BRAIN WO CON, 02/27/2017, 14:48. FINDINGS: Image quality: Excellent. CSF spaces: Basal cisterns are patent. No extra-axial fluid collections. The ventricles are symmet breana in size and shape. Brain: No intracranial bleeds or masses. There is cerebral volume loss for age, with resultant vent ricular and sulcal prominence. There are periventricular and deep white matter chronic small vessel ischemic changes. There is intracranial internal carotid artery atherosclerosis. There is a persist ent appearance of low attenuation within the right temporal lobe, which has not appreciably changed c ompared to prior exam. Unchanged low attenuation is present within the left thalamus. Skull and face: Calvarium and visualized facial bones appear intact, without suspicious lesions. Sinuses: Visualized sinuses and mastoids are clear. IMPRESSION: 1. Stable exam compared to 02/27/17. 2. Persistent areas of low-attenuation within the right temporal lobe and left thalamus are again not ed. There is no superimposed hemorrhage. Area of underlying acute to subacute ischemia within these r egions cannot be definitively excluded. MRI may be obtained as clinically indicated for additional ev aluation. Dictated by: Kizzy Randolph M.D. on 03/01/2017 at 10:00 Approved by: Kizzy Randolph M.D. on 03/01/2017 at 10:03
[2017-03-01] MEDS ORDERED: 0.9% Sodium Chloride 250 ML ONE ×2 (11:45→21:21)
--- NOTE | 2017-03-01 12:31 | PCM.PNMED ---
Subjective Date of Service Mar 01, 2017 Subjective Neurology Consult Note Patient is an 86 year old male with history of atrial fibrillation with recent admit for afib with RVR 02/05/17, CHF, HTN, and past history of prostate cancer s /p prostatectomy 20 years ago who presents with 10 days of altered mental status and seizure-like activity. He had been in [facility] since his admission in January for afib with RVR. Over the last 7-10 days, and became increasingly confused, with agitation, insomnia, and intermittent seizure like activity that increased in frequency. He has not been on aspirin, Plavix, or warfarin. He apparently was on warfarin previously but this was discontinued due to significant fall risk. Today his is oriented x1 and appears significantly confused but responds to questions. He has no complaints at this time and denies numbness, weakness, vision changes, speech changes, seizures, nausea, vomiting, diarrhea, chest pain , abdominal pain, dizziness, or fainting. General: Alert, Oriented X1, occasionally cooperative. Frequently distracted. Head: Normocephalic, atraumatic. External ears normal. Eyes: PERRLA, EOMI. Anicteric sclerae. Mouth: Mouth normal, Mucous membranes moist/pink Neck: Neck supple with full range of motion. Chest& Lungs: Clear to auscultation bilaterally with no crackles, wheezes, or rhonchi. Cardiovascular: Irregularly irregular. Normal S1, Normal S2, No murmurs/rubs/ gallops Abdomen: Non-tender, Non-distended, No masses, Normoactive bowel tones, Soft Musculoskeletal: Normal range of motion Extremities: No cyanosis/clubbing/edema bilaterally Neuro: Normal speech but confused and sentences devolve into incoherence. Strength 4/4 bilateral upper and lower extremities, right upper eyelid droop. Finger-Nose normal. Assessment & Plan Subacute right temporal lobe and left thalamic ischemic stroke Patient presents with mental status changes and seizure like activity ongoing over 1 week per his daughter. CT head shows subacute stroke of the right temporal lobe and left thalamus. CT angio head/neck was unremarkable for other findings. Seizures following stroke are more common following a temporal lobe stroke. He has bilateral seizure activity. He has a history of afib; was apparently previously on warfarin but it was stopped as pt was a high fall risk. Pt is currently on atorvastatin 20 mg inpatient; we recommend maximizing the dose. - Continue aspirin - Continue stroke protocol - Increase atorvastatin to 80 mg - Frequent neurologic checks - Recommend physical therapy Acute focal complex seizures Witnessed possible focal complex seizures on admission. EEG showed sleep activity, as pt was likely oversedated with Ativan. - Ativan 0.5 mg IV q15-30 mins PRN seizures - Keppra increased to 1000 mg IV BID. Convert to PO on discharge. - Gave loading dose of fosphenytoin, continue with fosphenytoin 300 mg daily. - If he continues to have seizures on Keppra and Dilantin, we recommend transfer to a center where continuous EEG monitoring is available. - EEG repeat tomorrow - Seizure pads in place GI Prophylaxis: Other VTE Prophylaxis: Sub-Q Heparin (Unfractionated) VTE Mechanical Devices: Intermittant Pneumatic CD Resuscitation Status: DNR/DNI:Do Not Resuscitate/Intubate Ron Newman Mar 01, 2017 12:31 Ron Newman Mar 01, 2017 12:31 Acute Hypokalemia, present on admission, treatment initiated -Mildly low, 3.4, EKG unchanged, no cramps reported. -We will repeat CMP in the a.m. replete if necessary. Chronic COPD, present on admission, stable -Does not appear to be an exacerbation, no breathing difficulty, is on oxygen at baseline. -Keep oxygen titrated to SPO2 88-92% -DuoNeb nebs every 4 hours as needed for dyspnea Chronic elevated troponin, present on admission, stable -0.021 on admission, is within range from previous hospitalization. Chronic Decubitous ulcer, POA, Stable. Will consult wound care Nursing orders for wound care, turn patient. High fall risk, POA -One-to-one assist -Long-term counseling -Physical therapy as above GI Prophylaxis: Other VTE Prophylaxis: Sub-Q Heparin (Unfractionated) VTE Mechanical Devices: Intermittant Pneumatic CD Resuscitation Status: DNR/DNI:Do Not Resuscitate/Intubate Ron Newman Mar 01, 2017 12:31
--- NOTE | 2017-03-01 16:49 | NUR ---
Social Work: Initial Assessment Data: Pt is an 86 y/o male admitted for ischemic stroke. Pt's PCP is [facility]. Pt's insurance is Medicare. EMR reviewed. Readmit score is 3, high. DIRECTOR PRINT met with pt and daughter at bedside. 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 Pt has no stairs there, has hx of and SNF, no LTC insurance, pt is [facility]. 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 Pt is agreeable to going back to [facility]. DIRECTOR PRINT will continue to follow. Assessment: Pt will d/c to [facility] when medically stable. DIRECTOR PRINT will continue to follow. ANDI Mathews Addendum: 03/01/17 at 1654 by GURU ASHLEY SS Amended: Links added.
[2017-03-01] MEDS ORDERED: MeTOProlol 1 mg/mL 5 mL Inj IVPUSH PRN (16:50)
--- NOTE | 2017-03-01 16:56 | NUR ---
EEG in AM and seizure like activity Confirmed EEG in AM with the field service technician poultry. Notified hospitalist and neurologist. Confirmed with neurology the keppra dosing will be increased for persistent seizure activities (twitches/frozen body positions/increasing confusion) this shift and that Ativan can be used up until 30 mins prior to EEG testing.
[2017-03-01] MEDS ORDERED: Digoxin 0.25 mg/mL 2 mL Inj IV SCH (17:19)
[2017-03-01] MEDS ORDERED: DEXTROSE IV ONE (18:05)
[2017-03-01] MEDS ORDERED: NACL IV ONE (18:05)
[2017-03-01] MEDS ORDERED: D5 0.9% NaCl + KCl 20 mEq/L 1,000 ML IV SCH (18:05)
[2017-03-01] MEDS ORDERED: Fosphenytoin Inj 1,000 mgPE in 0.9% Sodium Chloride 50 ML IV ONE (18:15)
--- NOTE | 2017-03-01 19:19 | NUR ---
Blood sugar NPO this shift. BS check showing 54. Provider notified. Fluid bolus and maintenance fluids with dextrose admin. Recheck BS 91. Pt resting comfortably at this time and family is at bedside.
[2017-03-01] MEDS: levETIRAcetam Inj 1,000 MG in IV Premix 1 EACH IV SCH (21:31)
--- NOTE | 2017-03-01 21:37 | PROCED ---
[address] [address] EEG PATIENT: JANE LOPEZ : 1930 MR#: [id number] ADMIT: 02/27/2017 JOB ID: [id number] DATE: 02/28/2017 HISTORY: The patient is an 86-year-old man with spells. TECHNICAL DESCRIPTION: This digital EEG was performed using 25 scalp and ear, and two EKG electrodes. It was reviewed in bipolar and referential montages following reformatting in 10-20 [employer] Electrode [employer] System. During the recording, the patient was mostly asleep. There was a brief epic of an awake states that was appreciated intermittently and this revealed a posterior dominant rhythm of 7-8 hertz 10-20 microvolt, symmetrical and reactive posterior dominant rhythm that attenuated with eye opening. The rest of the background was composed of low voltage faster frequencies. There was abundant frontally predominant beta activity noted intermittently throughout this recording. The majority of this recording was in sleep. Stages one and two of sleep were appreciated. Stage 1 was characterized by the presence of vertex waves. Stage 2 was characterized by the presence of sleep spindles. These appeared symmetrical. Hyperventilation was not performed. Photic stimulation from 1-30 hertz did not elicit any photic driving response. The EKG rhythm strip was abnormal. It did reveal a heart rate of approximately 60 to 70 beats per minute with intermittent premature ventricular complexes. IMPRESSION: This EEG performed in the awake and drowsy and asleep states is abnormal. 1. The slow background is suggestive of mild cerebral cortical dysfunction/encephalopathy. This is nonspecific and may be seen in a wide variety of different clinical conditions, including toxic, metabolic, hypoxic, inflammatory, autoimmune, and infectious states. Clinical correlation is advised. 2. This study is performed primarily in sleep, and I do recommend a repeat EEG capturing the awake state and especially one capturing the movements characterizing his spells. 3. The presence of frontally predominant beta is likely secondary to medication effect. 4. The intermittent premature ventricular complexes appreciated on this single lead electrocardiogram may warrant further intervention such as a 12-lead EKG. Clinical correlation is advised.
--- NOTE | 2017-03-01 23:07 | PCM.PNMED ---
Subjective Date of Service Mar 01, 2017 Subjective Patient's mental status is highly variable. At times she has some lucidity at other times he is confused and/or somnolent. He has no specific coherent complaints. Exam Vital Signs Vital Sign - Last Date Time Temp Pulse Resp B/P Pulse Ox O2 Delivery O2 Flow Rate FiO2 03/01/17 20:05 36.3 76 18 127/77 92 Room Air 02/27/17 18:38 2.00 Intake and Output 02/28/17 02/28/17 03/01/17 Cumulative From/Thru 15:00 23:00 07:00 02/27/17 14:07 - 03/01/17 05:14 Intake Total 0 ml 0 ml 617 ml Balance 0 ml 0 ml 617 ml Intake Oral 0 ml 0 ml 0 ml IV Total 617 ml # Voids 2 2 4 # Bowel Movements 2 1 3 Exam General: Patient is lying supine in bed with head slightly elevated approximately 20. He is in no apparent distress. HEENT: Head is atraumatic and normocephalic. Eyes: Pupils are equally round and reactive to light and accommodation. Extraocular muscles are intact. Sclera are white, anicteric. Subconjunctival mucosa is pink. Ears and nose are unremarkable. Oropharynx: There is no mucosal lesions, there is no thrush, there is no pharyngitis. Neck: Is supple, there are no nodes, or masses or tenderness. Chest: Is significant for decreased breath sounds at the bases. There are no rales, rhonchi, wheezes or rubs. Heart: Rate, rhythm is regular. There is no murmur, rub or gallop. Abdomen: Good bowel sounds are present. Abdomen is soft, nontender, no organomegaly or masses were appreciated. Extremities: Are symmetrical and well perfused. There is no edema, there is no cellulitis, no rash. Neurologic: There are no new focal neurological deficits. Cranial nerves II through XII are intact. There are no new sensory or motor deficits. Patient however vacillates between. Some periods of lucidity and confusion and somnolence. Psychiatric: Patients mood is calm and shows no sign of agitation. Genital: Deferred Rectal: Deferred Lab and Diagnostics Result Diagram: 03/01/1761903/01/17619 Microbiology Name: JANE GARCIA Rogers Age/Sex: 86/M Attend Dr: Vicente Hayes Acct: [id number] Unit: [id number] Status: ADM IN [place] [facility] [place] Re02/27/17 Disch: Specimen: [id number] Collected: 02/28/17 Status: COMP Req#: [id number] Received: 02/28/17 Source: NOSE Sp Desc : Subm Dr: Glenroy Hull MD Ordered: JULIOCESAR MRSA PCR Comments: Collected by Nurse/Unit? Y/N Y Procedure Result Verified Site Microbiology JULIOCESAR MRSA PCR Final 02/28/17-1018 MRSA BY PCR NOT DETECTED REFERENCE INTERVAL NOT DETECTED X-Rays, CTs and MRIs CT angiography of the brain with and without contrast 02/27/2017 IMPRESSION: 1. No aneurysms or acute occlusions of the intra-cranial arterial structures. 2. Atrophic left A1 segment of the anterior cerebral artery with compensatory hypertrophy of the right A1 segment. Tortuous origin of the left posterior cerebral artery. 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 Dictated by: Stas Wheeler M.D. on 02/27/2017 at 17:26 CT brain without contrast 02/27/2017 IMPRESSION: Findings suspicious for evolving acute ischemic insult involving the right temporal lobe. Dictated by: Arnold Julien M.D. on 02/27/2017 at 14:03 12-lead ECG Atrial fibrillation, rate 77 Left bundle branch block When compared with ECG from 02/09/2017 no significant changes. Cardiac Echo Impressions ECHOCARDIOGRAM - previous admission (01/16/17) Interpretation Summary The left ventricle is severely dilated. The ejection fraction is estimated to be 15-20%. There is severe global hypokinesis of the left ventricle. There is severe biatrial enlargement. There is moderate mitral regurgitation. There is moderate tricuspid regurgitation. The right ventricular systolic pressure is estimated at 43 mmHg assuming a right atrial pressure of 8 mm Hg. Conrado Lala Reading Physician:01/16/2017 05:50 PM Assessment & Plan Mr. Garcia 86-year-old gentleman with history of hyperlipidemia, A. fib with RVR , not on anticoagulation, previous hospitalizations for pneumonia, A. fib, liver and kidney injury presented with days of confusions, ground-level falls, and seizure-like activity found to have an evolving ischemic cerebrovascular accident. 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 fib rate controlled, not on anticoagulation secondary to high fall risk. -500 mL saline, at rate of 75 mL per hour was given, continue slow fluids due to severe congestive heart failure -Aspirin suppository was given in the emergency department, will continue daily aspirin -Clopidogrel 75 mg a day dual antiplatelet therapy was started -Patient is a high fall risk, will keep him one-to-one assist -Physical therapy evaluation -Hold home medications of doxazosin, metoprolol, and diltiazem to allow permissive hypertension for now. -Neurology consult, Dr. Loredo consulted and appreciate his time and expertise. -Echocardiogram shows an ejection fraction of 20% or less. -Speech eval/swallow evaluation revealed patient is a high aspiration risk at this point. -Continue home simvastatin 40 mg at night -MRI unable to be obtained due to limited mobility of neck Acute new onset seizure-like activity, reported, POA prophylaxis initiated. -As described by daughter, "stiffening and twitching of different parts of his body" worsening over the last couple of days -We will continue Keppra twice a day which has been increased from 250 mg twice a day to 500 mg twice a day as per neurology recommendations. Appreciate their time and expertise. It was felt today that patient might have had seizures despite being on Keppra and patient is being loaded with Dilantin As patient was on Ativan for her first EEG, a repeat EEG has been ordered for a.m.. -Seizure precautions, keep bed low, keep bed padding in place -Patient is a one-to-one assist Chronic Atrial fibrillation, rate controlled, POA. Stable -Patient is on numerous medications including metoprolol, digoxin, doxazosin, and diltiazem -Not on anticoagulation, INR 1.3 -Patient is receiving heparin subcutaneous, and clopidogrel as stated above, due to fall risk most likely not candidate for long-term anticoagulation. -We will hold oxytocin as stated above to allow permissive hypertension, will continue all other antiarrhythmics. -Repeat echocardiogram as above -Continue on telemetry Chronic congestive heart failure, severe ejection fraction 15%-20%, POA, presumed stable -No edema, no rales, chronic dry cough but not appreciated on exam -Repeat echo as above -Continue digoxin, beta oxana, as above -Consider cardiology consultation -Serum digoxin levels to be evaluated as needed. Acute Hypokalemia, present on admission, treatment initiated -Mildly low, 3.4, EKG unchanged, no cramps reported. -We will repeat CMP in the a.m. replete if necessary. Chronic COPD, present on admission, stable -Does not appear to be an exacerbation, no breathing difficulty, is on oxygen at baseline. -Keep oxygen titrated to SPO2 88-92% -DuoNeb nebs every 4 hours as needed for dyspnea Chronic elevated troponin, present on admission, stable -0.021 on admission, is within range from previous hospitalization. Chronic Decubitous ulcer, POA, Stable. Will consult wound care Nursing orders for wound care, turn patient. High fall risk, POA -One-to-one assist -Long-term counseling -Physical therapy as above Pain Evaluation: Adequate Pain Control GI Prophylaxis: Other VTE Prophylaxis: Sub-Q Heparin (Unfractionated) VTE Mechanical Devices: Intermittant Pneumatic CD Resuscitation Status: DNR/DNI:Do Not Resuscitate/Intubate Florencio Giles MD Mar 01, 2017 23:06
[2017-03-02] VITALS (9 sets, daily range): BP systolic 107–133; BP diastolic 69–83; PULSE 61–100; RESP 16–18; O2SAT 95–99
[2017-03-02] MEDS: Heparin 5,000 Unit/mL Inj SUBQ SCH ×3 (02:40→16:36)
[2017-03-02 03:14] LABS: APPEARANCE,URINE CLEAR (CLEAR,HAZY); COLOR,URINE YELLOW (YELLOW); PH,URINE 6.5 (5.0-8.0)
[2017-03-02 03:15] LABS: OCCULT BLOOD,URINE NEGATIVE (NEGATIVE); UROBILINOGEN,URINE NORMAL (NORMAL)
[2017-03-02 04:57] LABS: BASOPHILS % (AUTO) 0.9 % (0-3); EOSINOPHILS % (AUTO) 0.5 % (0-5); MONOCYTES % (AUTO) 13.4 % (4-12); Mean Corpuscular Hemoglobin 29.6 pg (27.0-35.0); Mean Corpuscular Volume 87.3 fL (81-100); NEUTROPHILS % (AUTO) 70.2 % (40-74); Platelet Count 179 bil/L (150-400)
[2017-03-02 05:31] LABS: ERYTHROCYTE SEDIMENTATION RATE 1 mm/hr (0-30)
[2017-03-02 06:10] LABS: Magnesium 2.1 mg/dL (1.6-2.6)
--- NOTE | 2017-03-02 09:24 | NUR ---
Attempted evaluation this morning. Pt. busy with imaging. Will try again as able/schedule permits. Evin Martinez, OTR/L
[2017-03-02] MEDS: Digoxin 0.25 mg/mL 2 mL Inj IV SCH (09:25)
--- NOTE | 2017-03-02 09:55 | PCM.PNMED ---
Subjective Date of Service Mar 02, 2017 Subjective Neurology Consult Note Patient is an 86 year old male with history of atrial fibrillation with recent admit for afib with RVR 02/05/17, CHF, HTN, and past history of prostate cancer s /p prostatectomy 20 years ago who presents with 10 days of altered mental status and seizure-like activity. He had been in [facility] since his admission in January for afib with RVR. Over the last 7-10 days, and became increasingly confused, with agitation, insomnia, and intermittent seizure like activity that increased in frequency. He has not been on aspirin, Plavix, or warfarin. He apparently was on warfarin previously but this was discontinued due to significant fall risk. Today, he has no complaints, and denies new weakness, numbness, vision changes, N/V/D, chest pain, palpitations, dizziness, or fainting. He has usually appeared significantly confused and history is questionable, but he does appear slightly less confused and more alert today. Exam Vital Signs Vital Sign - Last Date Time Temp Pulse Resp B/P Pulse Ox O2 Delivery O2 Flow Rate FiO2 03/02/17 09:25 82 03/02/17 03:38 36.6 132/73 99 Room Air 03/02/17 01:00 18 02/27/17 18:38 2.00 Intake and Output 03/01/17 03/01/17 03/02/17 Cumulative From/Thru 15:00 23:00 07:00 02/27/17 14:07 - 03/02/17 06:13 Intake Total 0 ml 873 ml 600 ml 2090 ml Balance 0 ml 873 ml 600 ml 2090 ml Intake Oral 0 ml 0 ml 0 ml IV Total 873 ml 600 ml 2090 ml # Voids 2 3 9 # Bowel Movements 0 0 3 Exam General: Appears more alert today, now oriented x2 (Name and place. States year is 1985). Cooperative and less distractible today. Head: Normocephalic, atraumatic. External ears normal. Eyes: PERRLA, EOMI. Anicteric sclerae. Mouth: Mouth normal, Mucous membranes moist/pink Neck: Neck supple with full range of motion. Chest& Lungs: Clear to auscultation bilaterally with no crackles, wheezes, or rhonchi. Cardiovascular: Irregularly irregular. Normal S1, Normal S2, No murmurs/rubs/ gallops Abdomen: Non-tender, Non-distended, No masses, Normoactive bowel tones, Soft Musculoskeletal: Normal range of motion Extremities: No cyanosis/clubbing/edema bilaterally Neuro: Normal speech. Strength 4/4 bilateral upper and lower extremities, CN II- XII normal. Finger-Nose normal. Heel-Orozco normal. Lab and Diagnostics Result Diagram: 03/02/1739903/02/17399 Microbiology Name: JANE LOPEZ Age/Sex: 86/M Attend Dr: Vicente Hayes Acct: [id number] Unit: [id number] Status: ADM IN Location: [facility] [place] 3018-1 Re02/27/17 Disch: Specimen: [id number] Collected: 02/28/17 Status: COMP Req#: [id number] Received: 02/28/17 Source: NOSE Sp Desc : Subm Dr: Glenroy Hull MD Ordered: JULIOCESAR MRSA PCR Comments: Collected by Nurse/Unit? Y/N Y Procedure Result Verified Site Microbiology JULIOCESAR MRSA PCR Final 02/28/17-1018 MRSA BY PCR NOT DETECTED REFERENCE INTERVAL NOT DETECTED X-Rays, CTs and MRIs CT angiography of the brain with and without contrast 02/27/2017 IMPRESSION: 1. No aneurysms or acute occlusions of the intra-cranial arterial structures. 2. Atrophic left A1 segment of the anterior cerebral artery with compensatory hypertrophy of the right A1 segment. Tortuous origin of the left posterior cerebral artery. 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 Dictated by: Stas Wheeler M.D. on 02/27/2017 at 17:26 CT brain without contrast 02/27/2017 IMPRESSION: Findings suspicious for evolving acute ischemic insult involving the right temporal lobe. Dictated by: Arnold Julien M.D. on 02/27/2017 at 14:03 12-lead ECG Atrial fibrillation, rate 77 Left bundle branch block When compared with ECG from 02/09/2017 no significant changes. Cardiac Echo Impressions ECHOCARDIOGRAM - previous admission (01/16/17) Interpretation Summary The left ventricle is severely dilated. The ejection fraction is estimated to be 15-20%. There is severe global hypokinesis of the left ventricle. There is severe biatrial enlargement. There is moderate mitral regurgitation. There is moderate tricuspid regurgitation. The right ventricular systolic pressure is estimated at 43 mmHg assuming a right atrial pressure of 8 mm Hg. Conrado Spaulding Physician:01/16/2017 05:50 PM Assessment & Plan Subacute right temporal lobe and left thalamic ischemic stroke Patient presents with mental status changes and seizure like activity ongoing over 1 week per his daughter. CT head shows subacute stroke of the right temporal lobe and left thalamus. CT angio head/neck was unremarkable for other findings. Seizures following stroke are more common following a temporal lobe stroke. He has bilateral seizure activity. He has a history of afib; was apparently previously on warfarin but it was stopped as pt was a high fall risk. Pt is currently on atorvastatin 20 mg inpatient; we recommend maximizing the dose. - Continue aspirin - Continue stroke protocol - Increase atorvastatin to 80 mg - Frequent neurologic checks - Recommend physical therapy Acute focal complex seizures Witnessed possible focal complex seizures on admission. EEG showed sleep activity, as pt was likely oversedated with Ativan. - Ativan 0.5 mg IV q15-30 mins PRN seizures - Keppra increased to 1000 mg IV BID. Convert to PO on discharge. - Gave loading dose of fosphenytoin, continue with fosphenytoin 300 mg IV daily. - Await EEG results today. If he continues to have seizure activity on EEG or witnessed to have seizure activity, while on Keppra and Dilantin, we recommend transfer to a center where continuous EEG monitoring is available. - Seizure pads in place GI Prophylaxis: Other VTE Prophylaxis: Sub-Q Heparin (Unfractionated) VTE Mechanical Devices: Intermittant Pneumatic CD Resuscitation Status: DNR/DNI:Do Not Resuscitate/Intubate Ron Newman Mar 02, 2017 09:55
[2017-03-02] MEDS: Fosphenytoin Inj 100 mgPE in 0.9% Sodium Chloride 50 ML IV SCH ×2 (10:27→17:47)
[2017-03-02] MEDS: Dextrose 5% 0.9% NaCl 1,000 ML IV SCH (11:32)
--- NOTE | 2017-03-02 12:54 | PCM.PHAPRO ---
Progress Date of Service: Mar 02, 2017 Discharge counselling for clopidogrel Unable to perform discharge counselling on new start clopidogrel for this patient due to altered mental status. Patient also resides at SNF. Nidia Leal PharmD Mar 02, 2017 12:54
--- NOTE | 2017-03-02 13:00 | PROCED ---
[address] [address] EEG PATIENT: JANE LOPEZ : 1930 MR#: [id number] ADMIT: 02/27/2017 JOB ID: [id number] DATE: 03/02/2017 HISTORY: The patient is an 86-year-old man with spells. TECHNICAL DESCRIPTION: This digital EEG was recorded using 25 scalp and ear, and two EKG electrodes. It was reviewed in bipolar and referential montages following reformatting in the 10-[employer]de [employer] System. During the recording, the patient was noted to be awake, drowsy, and asleep. The majority of this recording is still in sleep. There is some trace bifrontal beta activity likely medication effect noted. His background was composed of a 7-8 hertz 10-20 microvolt symmetrical and reactive posterior dominant rhythm that attenuated with eye opening. The rest of the background was composed of low voltage faster frequencies. There were no focal, lateralized or epileptiform discharges noted. Sleep was characterized by the attenuation of the alpha rhythm and the appearance of symmetrical vertex waves, heralding stage 1 of sleep. This is followed by the development of symmetrical sleep spindles heralding stage 2 of sleep. Importantly I reviewed this EEG in detail with the property maintenance technician, Robin, and the characteristic spells that have been witnessed did not occur during this study so it is not possible to determine if these spells were ictal in nature as he did not have a spell during the electroencephalogram. Hyperventilation was not performed. Photic stimulation from 1-30 hertz did not elicit any photic driving response. The EKG rhythm strip revealed a heart rate of 60 beats per minute with occasional premature ventricular complexes. IMPRESSION: This EEG performed in the awake, drowsy, and asleep states is abnormal. The slow background is suggestive of mild cerebral cortical dysfunction/encephalopathy. This is nonspecific and may be seen in a wide variety of different clinical conditions, including toxic, metabolic, hypoxic, inflammatory, autoimmune, and infectious states. It may also be seen secondary to medication effect. No epileptiform discharges were noted. No seizures were seen. However, it should be noted that none of the spells that he was experiencing were recorded during this study. They were not captured during this study. So it is not possible to tell if those spells are ictal in nature as they were not captured during this study. The EKG rhythm strip revealed premature ventricular complexes. It should be kept in mind that this is a single lead electrocardiogram. If clinically indicated, recommend obtaining a 12 lead electrocardiogram. Clinical correlation is advised.
--- NOTE | 2017-03-02 13:58 | NUR ---
NUTRITION ASSESSMENT: ASSESS: 86YO M admit with ischemic stroke, seizure like activity, undergoing EEG today, neurology following. Pt s/p ST eval, po intake moderate. PMHX: Afib,COPD,CA,HTN DIET: Puree. PO variable 0-100% LABS: Alb 2.9, PAB 8 MEDS: Reviewed GI:3 BM 02/28 WEIGHT: 60.8kg BMI: 21.0 EST.NEEDS: COPD (30-35kcal/kg;1.2-1.5g/kg pro) Kcal: 9567-4829 Pro: 70-90g NUTRITION DIAGNOSIS: (1) Chew/swallowing difficulty related to dysphagia as evidenced by speech therapy involvement, texture modified diet. INTERVENTION: (1) Will include supplements on trays until po consistently 50% or >. (Ensure BID) MONITOR/EVALUATE: PO intake, texture tolerance, lab values. F/U per moderate risk.
--- NOTE | 2017-03-02 14:34 | PCM.PNMED ---
Subjective Date of Service Mar 02, 2017 Subjective Seen today in his room to follow-up his seizure disorder and cognitive dysfunction. He also has atrial fibrillation, CHF and electrolyte irregularities. His daughter is hand feeding him, and interacting with him in a normal familial fashion that is quite reassuring. She has not observed any seizure activity nor have any staff reported such since yesterday. His magnesium level is 2.1, the digoxin level is 1.8 and the potassium is 4.3. I have discussed neurology plans with Dr. Brantley who is working with Dr. Loredo today. Exam Vital Signs Vital Sign - Last Date Time Temp Pulse Resp B/P Pulse Ox O2 Delivery O2 Flow Rate FiO2 03/02/17 03:38 36.6 85 132/73 99 Room Air 03/02/17 01:00 18 02/27/17 18:38 2.00 Intake and Output 03/01/17 03/01/17 03/02/17 Cumulative From/Thru 15:00 23:00 07:00 02/27/17 14:07 - 03/02/17 06:13 Intake Total 0 ml 873 ml 600 ml 2090 ml Balance 0 ml 873 ml 600 ml 2090 ml Intake Oral 0 ml 0 ml 0 ml IV Total 873 ml 600 ml 2090 ml # Voids 2 3 9 # Bowel Movements 0 0 3 Exam His responses are slowed but generally accurate. His daughter is standing by the bed hand feeding him. He clearly has some baseline memory loss. Heart is irregularly irregular without murmur. Lungs are clear to auscultation bilaterally. Extremities have no ankle edema IVs and Medications Medications Reviewed: Medications were reviewed in detail Lab and Diagnostics Result Diagram: 03/02/1739903/02/17399 Microbiology Name: JANE GARCIA Age/Sex: 86/M Attend Dr: Vicente Hayes Acct: [id number] Unit: [id number] Status: ADM IN Location: [facility] – [place] 3018-1 Re02/27/17 Disch: Specimen: [id number] Collected: 02/28/17 Status: COMP Req#: [id number] Received: 02/28/17 Source: NOSE Sp Desc : Subm Dr: Glenroy Hull MD Ordered: JULIOCESAR MRSA PCR Comments: Collected by Nurse/Unit? Y/N Y Procedure Result Verified Site Microbiology JULIOCESAR MRSA PCR Final 02/28/17-1018 MRSA BY PCR NOT DETECTED REFERENCE INTERVAL NOT DETECTED X-Rays, CTs and MRIs CT angiography of the brain with and without contrast 02/27/2017 IMPRESSION: 1. No aneurysms or acute occlusions of the intra-cranial arterial structures. 2. Atrophic left A1 segment of the anterior cerebral artery with compensatory hypertrophy of the right A1 segment. Tortuous origin of the left posterior cerebral artery. 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 Dictated by: Stas Wheeler M.D. on 02/27/2017 at 17:26 CT brain without contrast 02/27/2017 IMPRESSION: Findings suspicious for evolving acute ischemic insult involving the right temporal lobe. Dictated by: Arnold Julien M.D. on 02/27/2017 at 14:03 12-lead ECG Atrial fibrillation, rate 77 Left bundle branch block When compared with ECG from 02/09/2017 no significant changes. Cardiac Echo Impressions ECHOCARDIOGRAM - previous admission (01/16/17) Interpretation Summary The left ventricle is severely dilated. The ejection fraction is estimated to be 15-20%. There is severe global hypokinesis of the left ventricle. There is severe biatrial enlargement. There is moderate mitral regurgitation. There is moderate tricuspid regurgitation. The right ventricular systolic pressure is estimated at 43 mmHg assuming a right atrial pressure of 8 mm Hg. Conrado Lala Reading Physician:01/16/2017 05:50 [place] [address] EEG PATIENT: JANE GARCIA : 1930 MR#: [id number] ADMIT: 02/27/2017 JOB ID: [id number] DATE: 03/02/2017 HISTORY: The patient is an 86-year-old man with spells. TECHNICAL DESCRIPTION: This digital EEG was recorded using 25 scalp and ear, and two EKG electrodes. It was reviewed in bipolar and referential montages following reformatting in the 10-[employer]de [employer] System. During the recording, the patient was noted to be awake, drowsy, and asleep. The majority of this recording is still in sleep. There is some trace bifrontal beta activity likely medication effect noted. His background was composed of a 7-8 hertz 10-20 microvolt symmetrical and reactive posterior dominant rhythm that attenuated with eye opening. The rest of the background was composed of low voltage faster frequencies. There were no focal, lateralized or epileptiform discharges noted. Sleep was characterized by the attenuation of the alpha rhythm and the appearance of symmetrical vertex waves, heralding stage 1 of sleep. This is followed by the development of symmetrical sleep spindles heralding stage 2 of sleep. Importantly I reviewed this EEG in detail with the electronic bench technician, Robin, and the characteristic spells that have been witnessed did not occur during this study so it is not possible to determine if these spells were ictal in nature as he did not have a spell during the electroencephalogram. Hyperventilation was not performed. Photic stimulation from 1-30 hertz did not elicit any photic driving response. The EKG rhythm strip revealed a heart rate of 60 beats per minute with occasional premature ventricular complexes. IMPRESSION: This EEG performed in the awake, drowsy, and asleep states is abnormal. The slow background is suggestive of mild cerebral cortical dysfunction/encephalopathy. This is nonspecific and may be seen in a wide variety of different clinical conditions, including toxic, metabolic, hypoxic, inflammatory, autoimmune, and infectious states. It may also be seen secondary to medication effect. No epileptiform discharges were noted. No seizures were seen. However, it should be noted that none of the spells that he was experiencing were recorded during this study. They were not captured during this study. So it is not possible to tell if those spells are ictal in nature as they were not captured during this study. The EKG rhythm strip revealed premature ventricular complexes. It should be kept in mind that this is a single lead electrocardiogram. If clinically indicated, recommend obtaining a 12 lead electrocardiogram. Clinical correlation is advised. Joaquin Loredo MD 03/02/17 1100 Assessment & Plan Mr. Garcia 86-year-old gentleman with history of hyperlipidemia, A. fib with RVR , not on anticoagulation, previous hospitalizations for pneumonia, A. fib, liver and kidney injury presented with days of confusions, ground-level falls, and seizure-like activity found to have an evolving ischemic cerebrovascular accident. 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 fib rate controlled, not on anticoagulation secondary to high fall risk. -Aspirin suppository was given in the emergency department, will continue daily aspirin -Clopidogrel 75 mg a day dual antiplatelet therapy was started -Patient is a high fall risk, will keep him one-to-one assist -Physical therapy evaluation -Hold home medications of doxazosin, metoprolol, and diltiazem to allow permissive hypertension for now. -Neurology consult, Dr. Loredo consulted and appreciate his time and expertise. -Echocardiogram shows an ejection fraction of 20% or less. -Speech eval/swallow evaluation revealed patient is a high aspiration risk at this point. -Continue home simvastatin 40 mg at night -MRI unable to be obtained due to limited mobility of neck Acute new onset seizure-like activity, reported, POA prophylaxis initiated. -As described by daughter, "stiffening and twitching of different parts of his body" worsening over the last couple of days -We will continue Keppra twice a day which has been increased from 250 mg twice a day to 500 mg twice a day as per neurology recommendations. Appreciate their time and expertise. It was felt today that patient might have had seizures despite being on Keppra and patient is being loaded with fosphenytoin As patient was on Ativan for her first EEG, a repeat EEG has been done today and the reading is described above. -Seizure precautions, keep bed low, keep bed padding in place -Patient is a one-to-one assist Chronic Atrial fibrillation, rate controlled, POA. Stable -Patient is on numerous medications including metoprolol, digoxin, doxazosin, and diltiazem. The digoxin level is above goal range and so the dose will be decreased today. -Not on anticoagulation, INR 1.3 -Patient is receiving heparin subcutaneous, and clopidogrel as stated above, due to fall risk most likely not candidate for long-term anticoagulation. -Repeat echocardiogram as above -Continue on telemetry -Remove potassium from IV fluid Chronic congestive heart failure, severe ejection fraction 15%-20%, POA, presumed stable -No edema, no rales, chronic dry cough but not appreciated on exam -Repeat echo as above -Continue digoxin, beta xoana, as above -Consider cardiology consultation -Serum digoxin levels to be evaluated as needed after today's dose decrease. Acute Hypokalemia, present on admission, treatment initiated -Mildly low, 3.4, EKG unchanged, no cramps reported. -We will repeat CMP in the a.m. replete if necessary. Chronic COPD, present on admission, stable -Does not appear to be an exacerbation, no breathing difficulty, is on oxygen at baseline. -Keep oxygen titrated to SPO2 88-92% -Saurabhb nebs every 4 hours as needed for dyspnea Chronic elevated troponin, present on admission, stable -0.021 on admission, is within range from previous hospitalization. Chronic Decubitous ulcer, POA, Stable. Will consult wound care Nursing orders for wound care, turn patient. High fall risk, POA -One-to-one assist -Long-term counseling -Physical therapy as above Disposition is to [facility] likely tomorrow. GI Prophylaxis: Other VTE Prophylaxis: Sub-Q Heparin (Unfractionated) VTE Mechanical Devices: Intermittant Pneumatic CD Resuscitation Status: DNR/DNI:Do Not Resuscitate/Intubate Jamey Kang MD Mar 02, 2017 07:24
[2017-03-02] MEDS: levETIRAcetam Inj 1,000 MG in IV Premix 1 EACH IV SCH (20:48)
[2017-03-02] MEDS ORDERED: Fosphenytoin Inj 300 mgPE in 0.9% Sodium Chloride 50 ML IV SCH (21:00)
[2017-03-03] MEDS: Fosphenytoin Inj 100 mgPE in 0.9% Sodium Chloride 50 ML IV SCH ×2 (01:16→08:25)
[2017-03-03] MEDS: Heparin 5,000 Unit/mL Inj SUBQ SCH ×2 (01:24→08:25)
[2017-03-03 01:37] VITALS: BP 116/86; PULSE 86; RESP 17; O2SAT 96
[2017-03-03] MEDS: Dextrose 5% 0.9% NaCl 1,000 ML IV SCH ×2 (02:42→11:55)
[2017-03-03 05:31] VITALS: PULSE 93
[2017-03-03 05:45] VITALS: BP 115/83; PULSE 110; RESP 17; O2SAT 93
[2017-03-03 09:13] VITALS: BP 131/70; PULSE 86; RESP 18; O2SAT 98
[2017-03-03] MEDS ORDERED: DIAZ1KIT3 RECTAL (10:19)
[2017-03-03] MEDS ORDERED: ASPI325T32 PO (10:19)
[2017-03-03] MEDS ORDERED: LEVE100014 PO (10:19)
[2017-03-03] MEDS ORDERED: DIGO125T73 PO (10:19)
[2017-03-03] MEDS ORDERED: CLOP75TA28 PO (10:19)
[2017-03-03] MEDS ORDERED: CARV3.122 PO (10:19)
[2017-03-03] MEDS ORDERED: PHEN300C4 PO (10:19)
[2017-03-03 10:23] VITALS: PULSE 100
--- NOTE | 2017-03-03 10:26 | PCM.DIMED ---
Discharge Instructions Date of Service Mar 03, 2017 Dates of Hospitalization Feb 27, 2017 at 17:00 Discharge Diagnosis Discharge Diagnosis Subacute right temporal lobe and left thalamic ischemic stroke Acute focal complex seizures Chronic Atrial fibrillation, rate controlled Chronic congestive heart failure, severe ejection fraction 15%-20% Acute Hypokalemia Chronic COPD Chronic elevated troponin. Chronic Decubitous ulcer Medication Instructions Additional med instructions Draw a CBC, CMP, Phenytoin level, Keppra Level and Digoxin Level in 4 days. Diet Discharge Diet: No restrictions Activity Discharge Activity: Other (PT, OT and Swallow eval/treatment at SNF) Patient Instructions Follow-up Provider: Natividad Chino MD Follow-up with PCP in: 1 week Provider: Joaquin Loredo MD Follow-up in: 2 weeks Jamey Kang MD Mar 03, 2017 10:11
--- NOTE | 2017-03-03 10:40 | NUR ---
Social Work-readiness for discharge: Data:EMR reviewed. Pt is on day 4 of hospitalization for stroke per H&P. Pt is likely medically stable later or tomorrow. PT continues to recommend SNF. Pt has been over at [facility] for rehab and will return when medically stable. Paperwork in the chart. SW will continue to follow. Assessment:Pt who would benefit from SNF. Plan:Pt to discharge back to [facility] when medically stable. Paperwork in the chart. SW will continue to follow. ANDI Benton
--- NOTE | 2017-03-03 11:36 | NUR ---
Social Work-discharge: Data:EMR Reviewed. Pt is on day 4 of hospitalization for stroke per H&P. Pt is medically stable for discharge. RAMON faxed discharge information to Digna at [facility] and confirmed she received it. Digna confirmed they can accept pt back today and arranged w/c van transport for 1330. RAMON updated pt's daughter Twila via Phone regarding discharge, she is agreeable. Twila would like a call from RN, RAMON provided phone number. RAMON created packet and faxed orders. RN,UC,pt/family, and [facility] all updated and agreeable to plan. Assessment:Pt who would benefit from SNF. Plan;Pt to discharge back to [facility] today via cabulance at 1330. RN,UC,pt/family, and [facility] all updated and agreeable to plan. ANDI Benton
[2017-03-03 11:47] VITALS: PULSE 68
[2017-03-03] MEDS: Digoxin 0.25 mg/mL 2 mL Inj IV SCH (11:47)
--- NOTE | 2017-03-03 12:53 | NUR ---
Discharge Patient given discharge orders to [facility] for rehabilitation. Patient given discharge packet to give [facility]. Patient IV removed and was infiltrated, but fully intact. [facility] Patient will be assisted into wheelchair at time of discharge. Daughter informed of discharge. Addendum: 03/03/17 at 1313 by EMILY SALAS RN Patient report called to [facility] admit nurse
--- NOTE | 2017-03-03 13:59 | PCM.DC.MED ---
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 Chronic Decubitous ulcer Consultations Medical Consultation PATIENT NAME: JANE GARCIA : 1930 MR#: [id number] Subjective Date of Service: Feb 27, 2017 Provider requesting consult: Ilia Hand DO Primary Physician: Admitting Physician: Vicente Hayes [facility]: Vicente Hayes Chief Complaint: Chief Complaint: Altered mental status, seizure like activity History of Present Illness: Neurology Consult Note Patient is an 86 year old male with history of atrial fibrillation with recent admit for afib with RVR 02/05/17, CHF, HTN, and past history of prostate cancer s /p prostatectomy 20 years ago who presents with altered mental status and seizure-like activity. Most history is provided by his daughter, as he was significantly confused during the visit. She reports he had been in [facility] since his admission in January for afib with RVR. Over the last 7-10 days, she noticed he became increasingly confused, with agitation, insomnia, and intermittent seizure like activity that increased in frequency. She describes the episodes as contortions of his face and mouth, with jerking movements or severe flexion or extension of his arms and legs. These episodes last about 15 30 seconds then resolve. She also reports increasing weakness over the last week resulting in a fall yesterday. He has not been on aspirin, Plavix, or warfarin. Currently on Simvastatin 40 mg. Review of Systems: Comprehensive review of systems conducted and was negative except for the pertinent positives listed above. PMH Past Medical History Hypertension Atrial fibrillation Dyslipidemia Asthma COPD Prostate cancer Congestive heart failure GERD Bedside Blood Glucose: 100 Surgical History Hiatal hernia repair Appendectomy Prostatectomy Allergies: Coded Allergies: No Known Allergies (Unverified Allergy, Unknown, 02/04/17) Family History Family History Unknown Social History Hx Alcohol Use: NoHx Substance Use: NoHx Tobacco Use: No Smoking Status: Former Smoker Exam Vital Signs Vital Sign - Last Date Time Temp Pulse Resp B/P Pulse Ox O2 Delivery O2 Flow Rate FiO2 02/27/17 18:38 35.9 69 20 114/79 96 Nasal Cannula 2.00 Additional Information: General: Alert, Oriented X1, occasionally cooperative. Frequently distracted Head: Normocephalic, atraumatic. External ears normal. Eyes: PERRLA, EOMI. Anicteric sclerae. Mouth: Mouth normal, Mucous membranes moist/pink Neck: Neck supple with full range of motion. Chest& Lungs: Clear to auscultation bilaterally with no crackles, wheezes, or rhonchi. Cardiovascular: Regular rate/rhythm, Normal S1, Normal S2, No murmurs/rubs/ gallops Abdomen: Non-tender, Non-distended, No masses, Normoactive bowel tones, Soft Musculoskeletal: Normal range of motion Extremities: No cyanosis/clubbing/edema bilaterally Neuro: Normal speech but confused and sentences devolve into incoherence. Strength 4/4 bilateral upper and lower extremities, right upper eyelid droop, subtle left facial droop. Finger-Nose and Heel-Orozco somewhat normal although difficult to have pt follow commands. On recheck, pt was observed with facial contortions, bilateral arm flexion, and repetitive mouth and tongue movements. Lab and Diagnostics Result Diagram: 02/27/17 1500 02/27/17 1500 Assessment & Plan Assessment Subacute right temporal lobe ischemic stroke Patient presents with mental status changes and seizure like activity ongoing over 1 week per his daughter. CT head shows subacute stroke of the right temporal lobe. CT angio head/neck was unremarkable for other findings. Seizures following stroke are more common following a temporal lobe stroke. He has a history of afib but is not currently on any antiplatelet or anticoagulant medications. Recommend starting aspirin tonight and bridging to warfarin tomorrow. Discussed anticoagulation with daughter and she is agreeable. - Aspirin bridge to warfarin - Continue stroke protocol - Permissive hypertension - Switch simvastatin to atorvastatin 80 mg - Frequent neurologic checks - Recommend physical therapy - Speech therapy for swallow study Acute focal complex seizures Witnessed seizure activity in the room, with tonic arm and leg extension combined with repetitive mouth and tongue movements and facial contortion. Patient was conscious during the episode. 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 He will require a loading dose of Keppra as well as an EEG in the morning. - Ativan 0.5 mg IV q15-30 mins PRN seizures - Keppra 500 mg IV loading dose now, followed by 500 mg BID PO - EEG in AM - Seizure pads in place Procedures XRay, CTs & MRIs CT angiography of the brain with and without contrast 02/27/2017 IMPRESSION: 1. No aneurysms or acute occlusions of the intra-cranial arterial structures. 2. Atrophic left A1 segment of the anterior cerebral artery with compensatory hypertrophy of the right A1 segment. Tortuous origin of the left posterior cerebral artery. 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 Dictated by: Stas Wheeler M.D. on 02/27/2017 at 17:26 CT brain without contrast 02/27/2017 IMPRESSION: Findings suspicious for evolving acute ischemic insult involving the right temporal lobe. Dictated by: Arnold Julien M.D. on 02/27/2017 at 14:03 ECG 12 Lead Atrial fibrillation, rate 77 Left bundle branch block When compared with ECG from 02/09/2017 no significant changes. Cardiac Echo Impression ECHOCARDIOGRAM - previous admission (01/16/17) Interpretation Summary The left ventricle is severely dilated. The ejection fraction is estimated to be 15-20%. There is severe global hypokinesis of the left ventricle. There is severe biatrial enlargement. There is moderate mitral regurgitation. There is moderate tricuspid regurgitation. The right ventricular systolic pressure is estimated at 43 mmHg assuming a right atrial pressure of 8 mm Hg. Conrado Lala Reading Physician:01/16/2017 05:50 PM Other Diagnostics [address] [id number] EEG PATIENT: JANE GARCIA : 1930 MR#: [id number] ADMIT: 02/27/2017 JOB ID: [id number] DATE: 03/02/2017 HISTORY: The patient is an 86-year-old man with spells. TECHNICAL DESCRIPTION: This digital EEG was recorded using 25 scalp and ear, and two EKG electrodes. It was reviewed in bipolar and referential montages following reformatting in the 10-20 [employer] Electrode Placement System. During the recording, the patient was noted to be awake, drowsy, and asleep. The majority of this recording is still in sleep. There is some trace bifrontal beta activity likely medication effect noted. His background was composed of a 7-8 hertz 10-20 microvolt symmetrical and reactive posterior dominant rhythm that attenuated with eye opening. The rest of the background was composed of low voltage faster frequencies. There were no focal, lateralized or epileptiform discharges noted. Sleep was characterized by the attenuation of the alpha rhythm and the appearance of symmetrical vertex waves, heralding stage 1 of sleep. This is followed by the development of symmetrical sleep spindles heralding stage 2 of sleep. Importantly I reviewed this EEG in detail with the renewable energy technician, Robin, and the characteristic spells that have been witnessed did not occur during this study so it is not possible to determine if these spells were ictal in nature as he did not have a spell during the electroencephalogram. Hyperventilation was not performed. Photic stimulation from 1-30 hertz did not elicit any photic driving response. The EKG rhythm strip revealed a heart rate of 60 beats per minute with occasional premature ventricular complexes. IMPRESSION: This EEG performed in the awake, drowsy, and asleep states is abnormal. The slow background is suggestive of mild cerebral cortical dysfunction/encephalopathy. This is nonspecific and may be seen in a wide variety of different clinical conditions, including toxic, metabolic, hypoxic, inflammatory, autoimmune, and infectious states. It may also be seen secondary to medication effect. No epileptiform discharges were noted. No seizures were seen. However, it should be noted that none of the spells that he was experiencing were recorded during this study. They were not captured during this study. So it is not possible to tell if those spells are ictal in nature as they were not captured during this study. The EKG rhythm strip revealed premature ventricular complexes. It should be kept in mind that this is a single lead electrocardiogram. If clinically indicated, recommend obtaining a 12 lead electrocardiogram. Clinical correlation is advised. Joaquin Loredo MD 03/02/17 1100 Brief History Jane Garcia is an 86-year-old gentleman with history and recent hospitalization for atrial fibrillation with RVR, acute liver injury, acute kidney injury, chronic systolic heart failure who presents today with his daughter after having days of worsening confusion and episodes of what daughter describes a seizure, stated twitching and stiffening of his face and body that has been going on for days. He reportedly had several falls in the last couple of days, most recently last night which led to bruising to the bridge of his nose. He is not on any blood thinners per outpatient record/recent discharge and head CT was performed which showed an evolving ischemic stroke, but no bleeding. He denies any current lightheadedness or dizziness, nausea or vomiting, no constipation at this time, no headache, no chest pain, no shortness of breath at this time, no new rashes, no acute changes in vision, denies sensation of palpitations. endorses chronic cough with phlegm, says he feels weak all over but this is his normal, He is accompanied by his daughter and grandchildren, he stated he has been living at [facility] and there have been no changes in his medications since discharge on 02/12/2017. In the emergency room temperature 36.5, heart rate 63, respiratory rate 14, blood pressure 130/60, 100% 2 L nasal cannula WBC 10.9, mild left shift of 78.6% platelets 126, Potassium 3.4, glucose 100, ALT 67, troponin 0.021, review of previous records shows that this is chronically elevated. Procalcitonin = 0.09 As the symptoms had been progressing over the last several days, patient was not a TPA candidate, he was given 500 mg Keppra in the emergency department, and neurology sap solutions architect was consulted who agreed to accept the patient. Hospital Course Mr. Garcia 86-year-old gentleman with history of hyperlipidemia, A. fib with RVR , not on anticoagulation, previous hospitalizations for pneumonia, A. fib, liver and kidney injury presented with days of confusions, ground-level falls, and seizure-like activity found to have an evolving ischemic cerebrovascular accident. 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 fib rate controlled, not on anticoagulation secondary to high fall risk. -Aspirin suppository was given in the emergency department, will continue daily aspirin -Clopidogrel 75 mg a day dual antiplatelet therapy was started -Patient is a high fall risk, will keep him one-to-one assist -Neurology consult, Dr. Loredo consulted and appreciate his time and expertise. -Echocardiogram shows an ejection fraction of 20% or less. -Speech eval/swallow evaluation revealed patient is a high aspiration risk at this point. -Continue home simvastatin 40 mg at night -MRI unable to be obtained due to limited mobility of neck Acute new onset seizure-like activity, reported, POA prophylaxis initiated. -As described by daughter, "stiffening and twitching of different parts of his body" worsening over the last couple of days -No seizures observed by witnesses in the last day and a half. He is discharged on phenytoin 300 mg daily and Keppra 1000 mg twice a day. That is a probably excessive dose for him and so levels will be checked again in just a few days and dosing can be decreased at that time if indicated.(I called the admitting nurse [facility] and decreased the Keppra dose to 500 mg twice a day.) -Seizure precautions, keep bed low, keep bed padding in place -Patient is a one-to-one assist Chronic Atrial fibrillation, rate controlled, POA. Stable -Patient is on numerous medications including metoprolol, digoxin, doxazosin, and diltiazem. The digoxin level was above goal range and so the dose was decreased yesterday with the level today dropping back down to 1.2. -Patient is receiving clopidogrel as stated above, due to fall risk most likely not candidate for long-term anticoagulation. Chronic congestive heart failure, severe ejection fraction 15%-20%, POA, presumed stable Acute Hypokalemia, present on admission, treatment initiated -resolved. Chronic COPD, present on admission, stable -Does not appear to be an exacerbation, no breathing difficulty, is on oxygen at baseline. -Keep oxygen titrated to SPO2 88-92% -DuoNeb nebs every 4 hours as needed for dyspnea Chronic elevated troponin, present on admission, stable Chronic Decubitous ulcer, POA, Stable. Will consult wound care Nursing orders for wound care, turn patient. Disposition is to [facility] today. Exam Vital Signs (Last) Date Time Temp Pulse Resp B/P Pulse Ox O2 Delivery O2 Flow Rate FiO2 03/03/17 10:23 100 03/03/17 09:13 36.7 18 131/70 98 Room Air 02/27/17 18:38 2.00 Exam On exam today he continues to be quite confused. He is unable to give much of a answer to any specific type question. He tells me that he has been running around all day and does not feel too good. It is regular rate and rhythm without murmur Lungs are clear to auscultation bilaterally Extremities have no ankle edema Test 02/27/17 15:00 03/02/17 02:30 03/02/17 04:00 03/03/17 03:50 Prothrombin Time 14.0sec (8.1-12.5) Prothromb Time International Ratio 1.30ratio Activated Partial Thromboplast Time 29.1sec (22.8-33.0) Hemoglobin A1c 6.0% (4.8-5.6) Troponin T 0.021ug/L (0.0-0.011) Triglycerides Level 56mg/dL (0-149) Cholesterol Level 104mg/dL (100-199) LDL Cholesterol, Calculated 44.800mg/dL (0-99) VLDL Cholesterol 11.200mg/dL HDL Cholesterol 48mg/dL (>39) Cholesterol/HDL Ratio 2.17 (0.0-4.4) Hold Wayne Top Tube Received (Received) Urine Color Yellow (YELLOW) Urine Appearance Clear (CLEAR,HAZY) Urine pH 6.5 (5.0-8.0) Urine Specific Rescue 1.015 (1.003-1.035) Urine Protein Negativemg/dL (NEG,TRACE) Urine Glucose (UA) Negativemg/dL (NEGATIVE) Urine Ketones Tracemg/dL (NEGATIVE) Urine Occult Blood Negative (NEGATIVE) Urine Nitrite Negative (NEGATIVE) Urine Bilirubin Negative (NEGATIVE) Urine Urobilinogen Normalmg/dL (NORMAL) Urine Leukocyte Esterase Negative (NEGATIVE) Urine RBC 0-2/hpf (0-2) Urine WBC 0-5/hpf (0-5) Urine Epithelial Cells Few/hpf (NONE-MOD) Urine Crystals None seen (NONE SEEN) Urine Bacteria None/hpf (NONE-FEW) Urine Hyaline Casts None/lpf (NONE) Urine Granular Casts None seen (NONE SEEN) Urine Waxy Casts None seen (NONE SEEN) Urine Red Blood Cell Casts None seen (NONE SEEN) Urine White Blood Cell Casts None seen (NONE SEEN) Urine Mucus None seen (None Seen) Urine Trichomonas None seen (NONE SEEN) Urine Yeast None (NONE SEEN) Urine Culture Reflexed Not indicated White Blood Count 7.5th/mm3 (3.8-10.1) Red Blood Count 5.37mil/mm3 (4.40-5.80) Hemoglobin 15.9g/dL (13.8-17.2) Hematocrit 46.9% (41.0-50.0) Mean Corpuscular Volume 87.3fL (81-100) Mean Corpuscular Hemoglobin 29.6pg (27.0-35.0) Mean Corpuscular Hemoglobin Concent 33.9% (32.0-37.0) Red Cell Distribution Width 14.3% (12.3-15.4) Platelet Count 179bil/L (150-400) Neutrophils (%) (Auto) 70.2% (40-74) Lymphocytes (%) (Auto) 14.9% (14-46) Monocytes (%) (Auto) 13.4% (4-12) Eosinophils (%) (Auto) 0.5% (0-5) Basophils (%) (Auto) 0.9% (0-3) Erythrocyte Sedimentation Rate 1mm/hr (0-30) Sodium Level 141mEq/L (134-144) Potassium Level 4.3mEq/L (3.5-5.2) Chloride Level 101mEq/L (97-108) Carbon Dioxide Level 25mmol/L (18-29) Blood Urea Nitrogen 15mg/dL (8-27) Creatinine 0.88mg/dL (0.76-1.27) Estimat Glomerular Filtration Rate 87mL/min (>59) Glucose Level 90mg/dL (60-99) Calcium Level 9.7mg/dL (8.5-10.1) Magnesium Level 2.1mg/dL (1.6-2.6) Total Bilirubin 0.9mg/dL (0.0-1.2) Aspartate Amino Transf (AST/SGOT) 31U/L (0-50) Alanine Aminotransferase (ALT/SGPT) 40U/L (0-44) Alkaline Phosphatase 70U/L (25-160) C-Reactive Protein 0.5mg/dL (0.0-0.5) Total Protein 5.2g/dL (6.4-8.4) Albumin 2.9g/dL (3.4-5.0) Prealbumin 8mg/dL (20-40) Procalcitonin 0.04ng/mL (0.00-0.08) Thyroid Stimulating Hormone (TSH) 3.140uIU/mL (0.450-4.500) Digoxin Level 1.2nG/mL (0.9-2.0) Microbiology Results Name: JANE GARCIA Age/Sex: 86/M Attend Dr: Vicente Hayes Acct: [id number] Unit: [id number] Status: ADM IN Location: [facility] 3018-1 Re02/27/17 Disch: Specimen: [id number] Collected: 02/28/17 Status: COMP Req#: [id number] Received: 02/28/17 Source: NOSE Sp Desc : Subm Dr: Glenroy Hull MD Ordered: JULIOCESAR MRSA PCR Comments: Collected by Nurse/Unit? Y/N Y Procedure Result Verified Site Microbiology JULIOCESAR MRSA PCR Final 02/28/17-1018 MRSA BY PCR NOT DETECTED REFERENCE INTERVAL NOT DETECTED Discharge Medications Discharge Medications ([med plus 2.0]) 90 ML PO BID (Reported) Aspirin (Aspirin) 325 Mg Tablet 325 MG PO DAILY Prescribed by: AMARI KANG MD Carvedilol (Carvedilol) 3.125 Mg Tablet 3.125 MG PO BIDWM Prescribed by: AMARI KANG MD Cholecalciferol (Vitamin D3) (Vitamin D3) 1,000 Unit Tab.chew 2,000 UNIT PO DAILY (Reported) Clopidogrel (Clopidogrel) 75 Mg Tablet 75 MG PO DAILY Prescribed by: AMARI KANG MD Digoxin (Digoxin) 125 Mcg Tablet 125 MCG PO DAILY Prescribed by: AMARI KANG MD Diltiazem ER (Cardizem CD) 120 Mg Cap.er.24h 120 MG PO DAILY Prescribed by: JANE COLEMAN DO Doxazosin (Cardura) 1 Mg Tablet 1 MG PO HS (Reported) Levetiracetam (Keppra) 1,000 Mg Tablet 1,000 MG PO BID Prescribed by: AMARI KANG MD Lisinopril (Lisinopril) 5 Mg Tablet 2.5 MG PO DAILY (Reported) Metoprolol Succinate ER (Metoprolol Succinate ER) 100 Mg Tab.er.24h 100 MG PO BID (Reported) Phenytoin Sodium Extended (Phenytoin Sodium Extended) 300 Mg Capsule 300 MG PO HS Prescribed by: AMARI KANG MD Simvastatin (Simvastatin) 40 Mg Tablet 40 MG PO HS (Reported) Zinc Oxide (Zinc Oxide) 57 Gm Oint...g. 1 APPLIC TP TID (Reported) As needed Acetaminophen (Acetaminophen) 325 Mg Tablet 650 MG PO Q4H PRN PRN For Pain ( Reported) Diazepam 10 mg Rectal Gel (Diazepam 10 mg Rectal Gel) 10 Mg Kit 10 MG RECTAL UD PRN PRN For Seizure USE DIRECTED BY PHYSICIAN. Prescribed by: AMARI KANG MD Ipratropium/Albuterol Sulfate (Iprat-Albut 0.5-3(2.5) mg/3 mL Inhalant Soln) 3 Ml Ampul.neb 3 ML IH q4 hours PRN PRN For Shortness of Breath (Reported) Magnesium Hydroxide (Milk of Magnesia) 400 Mg/5 Ml Oral.susp 30 ML PO DAILY PRN PRN For Constipation (Reported) Polyethylene Glycol 3350 (Miralax) 17 Gm Powd.pack 17 GM PO DAILY PRN PRN For Constipation (Reported) Additional med instructions Draw a CBC, CMP, Phenytoin level, Keppra Level and Digoxin Level in 4 days. Followup Plan Discharge Diet: No restrictions Discharge Activity: Other (PT, OT and Swallow eval/treatment at SNF) Follow-up Provider: Natividad Chino MD Follow-up with PCP in: 1 week Provider: Joaquin Loredo MD Follow-up in: 2 weeks Time spent 40 minutes Attending Statement I called the admitting nurse at the [facility] and decreased the Keppra dose to 500 mg twice a day. copies to: [facility]; Natividad Chino MD; Joaquin Loredo MD, H Edwin MD Mar 03, 2017 10:27
== END 2017-03-03 13:40 | DRG 65 ==
LOC: SED 13:57 → MPC 17:00
PROVIDERS: ADMIT Hospitalist; ATTEND Internal Medicine
PROC: 4A10X4Z Monitoring of Central Nervous Electrical Activity, External Approach (ICD-10-PCS; principal; 2017-02-28)
PROC: 4A10X4Z Monitoring of Central Nervous Electrical Activity, External Approach (ICD-10-PCS; 2017-03-02)
DX: I63.8 Other cerebral infarction (principal); I50.22 Chronic systolic (congestive) heart failure; R56.9 Unspecified convulsions; Z87.891 Personal history of nicotine dependence; I48.2 Chronic atrial fibrillation; E87.6 Hypokalemia; J44.9 Chronic obstructive pulmonary disease, unspecified; Z91.81 History of falling; Z66 Do not resuscitate; Z85.46 Personal history of malignant neoplasm of prostate; Z90.79 Acquired absence of other genital organ(s); R40.2362 Coma scale, best motor response, obeys commands, at arrival to emergency department; R40.2142 Coma scale, eyes open, spontaneous, at arrival to emergency department; R40.2252 Coma scale, best verbal response, oriented, at arrival to emergency department; R40.2412 Glasgow coma scale score 13-15, at arrival to emergency department; L89.90 Pressure ulcer of unspecified site, unspecified stage

== ENCOUNTER 2017-03-09 10:03 | Emergency (ER) | payer MEDICARE ==
[~2017-03-09 10:03] MED LIST changes: +ACET325T51 PO; +ASPI325T32 PO; +CARV3.122 PO; +CLOP75TA28 PO; +DIAZ1KIT3 RECTAL; +DIGO125T73 PO; -DIGO250T72 PO; +IPRA3AMP IH; +LEVE100014 PO; +MAGN400O4 PO; -METO-272 PO; +METO-274 PO; -METO200T32 PO; +PHEN300C4 PO; +ZINC57OI TP; +med plus 2.0 PO
[2017-03-09 10:18] VITALS: BP 113/66; PULSE 83; RESP 25; O2SAT 98
--- NOTE | 2017-03-09 10:20 | ED.REPORT ---
HPI-General Illness Date of Service Mar 09, 2017 ED Provider: Georgi Block MD Patient is an 86 year old male with a history of CHF, hypertension, atrial fibrillation with RVR and stroke who presents to the ED via EMS due to confusion. Patient's daughter reports that the [facility] staff was unable to wake him for approximately 20 minutes. He complains of weakness and difficulty walking. She states that his first episode of confusion was in January of 2017 and reports that he had seizure like activity. He was recently hospitalized on for an ischemic stroke with acute renal and liver failure, which was the second time of having increasing confusion. Nursing Notes Stated Complaint: CONFUSION Chief Complaint: Neuro Symptoms/ Deficits Nursing Notes Reviewed: Yes Allergies: Coded Allergies: No Known Allergies (Unverified Allergy, Unknown, 03/09/17) Scheduled ([med plus 2.0]) 90 ML PO BID Aspirin (Aspirin) 325 Mg Tablet 325 MG PO DAILY Carvedilol (Carvedilol) 3.125 Mg Tablet 3.125 MG PO BIDWM Cholecalciferol (Vitamin D3) (Vitamin D3) 1,000 Unit Tab.chew 2,000 UNIT PO DAILY Clopidogrel (Clopidogrel) 75 Mg Tablet 75 MG PO DAILY Digoxin (Digoxin) 125 Mcg Tablet 125 MCG PO DAILY Diltiazem ER (Cardizem CD) 120 Mg Cap.er.24h 120 MG PO DAILY Doxazosin (Cardura) 1 Mg Tablet 1 MG PO HS Levetiracetam (Keppra) 1,000 Mg Tablet 1,000 MG PO BID Lisinopril (Lisinopril) 5 Mg Tablet 2.5 MG PO DAILY Metoprolol Succinate ER (Metoprolol Succinate ER) 100 Mg Tab.er.24h 100 MG PO BID Phenytoin Sodium Extended (Phenytoin Sodium Extended) 300 Mg Capsule 300 MG PO HS Simvastatin (Simvastatin) 40 Mg Tablet 40 MG PO HS Zinc Oxide (Zinc Oxide) 57 Gm Oint...g. 1 APPLIC TP TID Scheduled PRN Acetaminophen (Acetaminophen) 325 Mg Tablet 650 MG PO Q4H PRN PRN For Pain Diazepam 10 mg Rectal Gel (Diazepam 10 mg Rectal Gel) 10 Mg Kit 10 MG RECTAL UD PRN PRN For Seizure USE DIRECTED BY PHYSICIAN. Ipratropium/Albuterol Sulfate (Iprat-Albut 0.5-3(2.5) mg/3 mL Inhalant Soln) 3 Ml Ampul.neb 3 ML IH q4 hours PRN PRN For Shortness of Breath Magnesium Hydroxide (Milk of Magnesia) 400 Mg/5 Ml Oral.susp 30 ML PO DAILY PRN PRN For Constipation Polyethylene Glycol 3350 (Miralax) 17 Gm Powd.pack 17 GM PO DAILY PRN PRN For Constipation General Time Seen by MD: 10:18 Chief Complaint Other Hx Obtained From: Patient, Daughter Arrived By: Ambulance Sudden in Onset?: Yes Onset Occurred: Just prior to arrival Severity: Current: No pain currently Recent Healthcare: Recent doctor visit, Recent hospitalization Similar Sx Previous: Yes Past Medical History Past Medical History Dyslipidemia Reports: Asthma, COPD, Cancer, Congestive heart failure, GERD, Hypertension Reports: Atrial fibrillation Past Surgical History Hiatal hernia repair Reports: Appendectomy, Prostatectomy Smoking History Former Smoker Social History Other Social History: Good social support Ambulatory Status Independent Review of Systems Limited ROS due to patient being uncooperative Unable to Obtain ROS Patient condition, Uncooperative Full Review of Systems Constitutional: Denies: Chills, Fever Respiratory: Denies: Non-productive cough, Shortness of breath Neurologic: Reports: Confusion, Problem walking, Weakness Complete sys rev & neg: except as marked. Physical Exam Vital Signs Vital Signs Date Time Temp Pulse Resp B/P Pulse Ox O2 Delivery O2 Flow Rate FiO2 03/09/17 10:18 36.0 83 25 113/66 98 Room Air Initial VS: Reviewed General/Constitutional: Awake, Alert, No acute distress Behavior: Positive: Agitated, Combative Appearance / Presentation: Positive: Frail Head / Eyes: Atraumatic, Normocephalic, PERRL, EOMI Respiratory / Chest: Atraumatic, Breath sounds NL, Breath sounds = bilat, No respiratory distress Cardiovascular: Heart rate NL, Regular rhythm, Heart sounds NL Upper Extremities Upper Extremity / MS: Atraumatic, Full range of motion Skin: Atraumatic, Color NL, No rash, Warm, Dry Neurologic: Speech NL, No motor deficits, No sensory deficits Psychiatric: Affect NL, Mood NL Interpretation & Diagnostics Lab Results Interpretation Result Diagram: 03/09/17 1050 03/09/17 1050 Test 03/09/17 10:50 White Blood Count 9.0th/mm3 (3.8-10.1) Red Blood Count 4.99mil/mm3 (4.40-5.80) Hemoglobin 14.8g/dL (13.8-17.2) Hematocrit 44.6% (41.0-50.0) Mean Corpuscular Volume 89.4fL (81-100) Mean Corpuscular Hemoglobin 29.7pg (27.0-35.0) Mean Corpuscular Hemoglobin Concent 33.2% (32.0-37.0) Red Cell Distribution Width 15.2% (12.3-15.4) Platelet Count 199bil/L (150-400) Neutrophils (%) (Auto) 72.4% (40-74) Lymphocytes (%) (Auto) 17.7% (14-46) Monocytes (%) (Auto) 8.2% (4-12) Eosinophils (%) (Auto) 1.1% (0-5) Basophils (%) (Auto) 0.4% (0-3) Sodium Level 140mEq/L (134-144) Potassium Level 4.5mEq/L (3.5-5.2) Chloride Level 100mEq/L (97-108) Carbon Dioxide Level 31mmol/L (18-29) Blood Urea Nitrogen 21mg/dL (8-27) Creatinine 1.13mg/dL (0.76-1.27) Estimat Glomerular Filtration Rate 65mL/min (>59) Glucose Level 93mg/dL (60-99) Calcium Level 9.5mg/dL (8.5-10.1) Total Bilirubin 0.6mg/dL (0.0-1.2) Aspartate Amino Transf (AST/SGOT) 39U/L (0-50) Alanine Aminotransferase (ALT/SGPT) 39U/L (0-44) Alkaline Phosphatase 94U/L (25-160) Total Protein 5.8g/dL (6.4-8.4) Albumin 3.1g/dL (3.4-5.0) Hold Wayne Top Tube Received (Received) ECG Interpretation ECG Interpretation: atrial fibrillation LBBB Time: 10:19 Interpreted by: ED physician Normal ECG Interpretation: Normal rate (86) X-Ray Chest Interpretation Chest Xray Interpretation: IMPRESSION: 1. Low lung volumes, with bibasilar atelectasis, aspiration, or early bronchopneumonia. 2. Cardiomegaly as before. Dictated by: Arnold Julien M.D. on 03/09/2017 at 11:33 Approved by: Arnold Julien M.D. on 03/09/2017 at 11:34 View: Portable, 1 view Interpretation / Wet Read by: Interpret - Radiologist Re-Eval/Medical Decision Time of Eval: 11:45 Re-Evaluation/Progress Note: Patient continues to express that he would like to go home. Discussed medical options with the patient's daughter. The patient is DNR. Discussed plan for discharge back to [facility]. Patient understands and agrees to plan. All questions were addressed. Consultation : Referral / Consult Name: Natividad Chino MD Consulted With: Primary care physician Bi Report Developer: Will see patient, Agrees with eval Note: I explained to Natividad that this patient has an x-ray that was borderline pneumonia but with poor inspiration and no other clinical findings suggestive of pneumonia. Natividad said she would see the patient later today as she was in the midst of rounds at the halfway today. The patient adamantly declines further evaluation from us and seems competent to refuse care. Counseled Regarding: Diagnosis, Lab results, Need for follow-up, When/why to return to ED Discharge & Departure Primary Impression: Altered level of consciousness Disposition: Home Discharge Condition All VS Reviewed: Yes Condition: Stable Patient Instructions: Altered Mental Status (ED) Additional Instructions: The chest x-ray shows some evidence of pneumonia, but it is a poor quality x- ray. The heart rate is not elevated, there is no fever nor is there an elevation in white blood cell count. I think watchful waiting is the next appropriate step. Urinalysis was not obtained due to lack of patient cooperation. I recommend a discussion with the primary care provider to discuss further strategies at the halfway for behavior management and investigation of recurrent symptoms if they occur. [facility] Scribkhadar Attestation Portions of this note were transcribed by Emily Wong. I, Dr. Block personally performed the history, physical exam and medical decision-making; I reviewed and confirmed the accuracy of the information in the transcribed note. Signed by: Natty Booth, 03/09/17 and 1200 copies to: [place] Georgi Teixeira MD Mar 09, 2017 10:19 Renetta Wong Mar 09, 2017 10:40
[2017-03-09 11:05] LABS: BASOPHILS % (AUTO) 0.4 % (0-3); EOSINOPHILS % (AUTO) 1.1 % (0-5); MONOCYTES % (AUTO) 8.2 % (4-12); Mean Corpuscular Hemoglobin 29.7 pg (27.0-35.0); Mean Corpuscular Volume 89.4 fL (81-100); NEUTROPHILS % (AUTO) 72.4 % (40-74); Platelet Count 199 bil/L (150-400)
--- NOTE | 2017-03-09 11:36 | DRSVH ---
PROCEDURE: X-RAY CHEST ONE VIEW, PORTABLE ([id number]) INDICATIONS: 86 year-old male with decreased level of consciousness. TECHNIQUE: One view of the chest was acquired. COMPARISON: , CR, XR CHEST 1VW (PORTABLE), 02/04/2017, 19:56. [facility], CR, XR CHEST 1VW (PORTABLE), 01/16/2017, 9:10. , CR, XR ABD ACUTE SERIE S 3VW, 10/06/2016, 10:38. FINDINGS: Surgical changes and devices: None. Lungs and pleura: No pleural effusions or pneumothorax. Lung volumes are decreased, with bibasilar a irspace opacities. Mediastinum: Mediastinal contours appear normal. Cardiomegaly is unchanged. There is aortic atheros clerosis. Bones and chest wall: No suspicious bony lesions. Overlying soft tissues appear unremarkable. IMPRESSION: 1. Low lung volumes, with bibasilar atelectasis, aspiration, or early bronchopneumonia. 2. Cardiomegaly as before. Dictated by: Arnold Julien M.D. on 03/09/2017 at 11:33 Approved by: Arnold Julien M.D. on 03/09/2017 at 11:34
== END 2017-03-09 12:51 | disposition home or self-care (01) ==
LOC: EDBD 10:03 → SED 10:03
DX: R40.4 Transient alteration of awareness (principal); R53.1 Weakness; R26.2 Difficulty in walking, not elsewhere classified; I11.0 Hypertensive heart disease with heart failure; I50.9 Heart failure, unspecified; I48.91 Unspecified atrial fibrillation; J44.9 Chronic obstructive pulmonary disease, unspecified; K21.9 Gastro-esophageal reflux disease without esophagitis; E78.5 Hyperlipidemia, unspecified; Z66 Do not resuscitate; Z79.82 Long term (current) use of aspirin; Z87.891 Personal history of nicotine dependence

== ENCOUNTER 2017-03-31 15:49 | Inpatient (IN) | payer MEDICARE, MEDICAID ==
[~2017-03-31] VITALS: Ht 182.9 cm; Wt 72.4 kg
[2017-03-31 15:54] VITALS: BP 113/61; PULSE 85; RESP 44; O2SAT 85
[2017-03-31 16:33] LABS: BASOPHILS % (AUTO) 0.2 % (0-3); EOSINOPHILS % (AUTO) 0.6 % (0-5); MONOCYTES % (AUTO) 9.1 % (4-12); Mean Corpuscular Hemoglobin 29.9 pg (27.0-35.0); Mean Corpuscular Volume 97.8 fL (81-100); NEUTROPHILS % (AUTO) 73.4 % (40-74); Platelet Count 187 bil/L (150-400)
[2017-03-31 16:58] LABS: TROPONIN T < 0.010 ug/L (0.0-0.011)
--- NOTE | 2017-03-31 17:34 | DRSVH ---
PROCEDURE: X-RAY CHEST ONE VIEW, PORTABLE ([id number]) INDICATIONS: RESPIRATORY DIFFICULTY TECHNIQUE: One view of the chest was acquired. COMPARISON: [facility], CR, XR CHEST 1VW (PORTABLE), 03/09/2017, 11:16. FINDINGS: Surgical changes and devices: Oxygen tubing is present over the chest. Lungs and pleura: Bilateral lower lung field airspace disease is present. The appearance is more cons istent with pneumonia is then with failure. Small effusions are probably present. [facility] recent film, of 03/09/17, the lung disease pattern is the same with left greater than right patchy a reas of density consistent with a consolidation of the left lower lobe and patchy in the right. Mediastinum: Mediastinal contours appear normal. Heart size is normal. Bones and chest wall: No suspicious bony lesions. Overlying soft tissues appear unremarkable. IMPRESSION: Bibasilar changes consistent with pneumonias rather than failure. Dictated by: Juan Peña M.D. on 03/31/2017 at 16:40 Approved by: Juan Peña M.D. on 03/31/2017 at 17:32
[2017-03-31] MEDS ORDERED: 0.9% Sodium Chloride 1,000 ML IV ONE (19:26)
[2017-03-31] MEDS ORDERED: 0.9% Sodium Chloride 500 ML IV ONE (19:48)
[2017-03-31 19:50] VITALS: BP 109/43; PULSE 129; RESP 38; O2SAT 99
[2017-03-31] MEDS ORDERED: Vancomycin Dose per Pharmacist XX ONE (19:50)
[2017-03-31] MEDS ORDERED: Cefepime Inj 2,000 MG in Dextrose 5% Minibag Plus 100 ML IV ONE (19:50)
[2017-03-31] MEDS ORDERED: levoFLOXacin Inj 750 MG in IV Premix 1 EACH IV ONE (19:50)
[2017-03-31 19:53] LABS: APPEARANCE,URINE HAZY (CLEAR,HAZY); COLOR,URINE DARK YELLOW (YELLOW); OCCULT BLOOD,URINE NEGATIVE (NEGATIVE)
--- NOTE | 2017-03-31 19:55 | ED.REPORT ---
HPI-General Illness Date of Service Mar 31, 2017 ED Provider: Hema Bacon MD 86 y/o male with a hx of CVA, CHF, hypertension, atrial fibrillation with RVR, prostate cancer and pneumonia presents to the ED via EMS from [facility] due to decreased level of consciousness today. The pt is not responding to questions. There is some report that he may have been having seizure-like episodes over the past several days, however further history is unavailable due to pt's condition. Nursing Notes Stated Complaint: DECREASED MENTAL STATUS Chief Complaint: General Complaint Nursing Notes Reviewed: Yes Allergies: Coded Allergies: No Known Allergies (Verified Allergy, Unknown, 03/31/17) Scheduled ([med plus 2.0]) 90 ML PO BID Aspirin (Aspirin) 325 Mg Tablet 325 MG PO DAILY Carvedilol (Carvedilol) 3.125 Mg Tablet 3.125 MG PO BIDWM Cholecalciferol (Vitamin D3) (Vitamin D3) 1,000 Unit Tab.chew 2,000 UNIT PO DAILY Clopidogrel (Clopidogrel) 75 Mg Tablet 75 MG PO DAILY Digoxin (Digoxin) 125 Mcg Tablet 125 MCG PO DAILY Diltiazem ER (Cardizem CD) 120 Mg Cap.er.24h 120 MG PO DAILY Doxazosin (Cardura) 1 Mg Tablet 1 MG PO HS Levetiracetam (Keppra) 500 Mg Tablet 500 MG PO BID Levofloxacin (Levaquin) 500 Mg Tablet 500 MG PO DAILY Lisinopril (Lisinopril) 5 Mg Tablet 2.5 MG PO DAILY Metoprolol Succinate ER (Metoprolol Succinate ER) 100 Mg Tab.er.24h 50 MG PO BID Mirtazapine (Mirtazapine) 15 Mg Tablet 15 MG PO HS Phenytoin Sodium Extended (Phenytoin Sodium Extended) 300 Mg Capsule 300 MG PO HS Risperidone (Risperdal) 0.5 Mg Tablet 0.5 MG PO TID Simvastatin (Simvastatin) 40 Mg Tablet 40 MG PO HS Zinc Oxide (Zinc Oxide) 57 Gm Oint...g. 1 APPLIC TP TID Scheduled PRN Acetaminophen (Acetaminophen) 325 Mg Tablet 650 MG PO Q4H PRN PRN For Pain Diazepam 10 mg Rectal Gel (Diastat Acudial) 10 Mg Kit 10 MG RECTAL ASDIRECTED PRN PRN For Seizure USE DIRECTED BY PHYSICIAN Ipratropium/Albuterol Sulfate (Iprat-Albut 0.5-3(2.5) mg/3 mL Inhalant Soln) 3 Ml Ampul.neb 3 ML IH Q4H PRN PRN For Shortness of Breath Magnesium Hydroxide (Milk of Magnesia) 400 Mg/5 Ml Oral.susp 30 ML PO DAILY PRN PRN For Constipation Polyethylene Glycol 3350 (Miralax) 17 Gm Powd.pack 17 GM PO DAILY PRN PRN For Constipation General Time Seen by MD: 18:40 Chief Complaint Other (decreased LOC) Hx Obtained From: EMS Arrived By: Ambulance Sudden in Onset?: No Onset Occurred: Onset unknown Symptom Duration: Since onset Recent Healthcare: Recent doctor visit Past Medical History Past Medical History Notes: Code Status: DNR Comfort Care only Past Medical History Dyslipidemia Reports: Asthma, COPD, Cancer, Congestive heart failure, GERD, Hypertension Reports: Atrial fibrillation Past Surgical History Hiatal hernia repair Reports: Appendectomy, Prostatectomy Smoking History Former Smoker Social History Other Social History: Good social support Ambulatory Status Independent Review of Systems Unable to Obtain ROS Mental status Physical Exam Nursing note and vitals reviewed. Constitutional: Cachectic and ill appearing male sitting in bed. Head: Normocephalic and atraumatic. Mouth/Throat: Oropharynx is clear. Dry mucous membranes. No oropharyngeal exudate. Eyes: EOM are normal. Pupils are 4mm, equal, round, and reactive to light. Neck: Supple, no tracheal deviation. Cardiovascular: Tachycardic, A-fib. Equal and intact distal pulses throughout. Pulmonary/Chest: Mildly tachypneic. Coarse breath sounds at bilateral bases. Abdominal: Soft. No distension. There is no tenderness appreciated. Bowel sounds present. Musculoskeletal: Range of motion grossly intact, moving all extremities spontaneously. No tenderness appreciated.Trace peripheral edema to bilateral lower extremities. Neurological: Withdrawing to pain, but difficult to assess 2/2 mental status. Not following commands. Normal muscle tone. Skin: Warm and dry, no rashes or pallor appreciated. Psychiatric: Unable to obtain due to pt's mental status. Vital Signs Vital Signs Date Time Temp Pulse Resp B/P Pulse Ox O2 Delivery O2 Flow Rate FiO2 03/31/17 22:03 113 28 125/52 98 Nasal Cannula 3 03/31/17 20:58 101 34 106/53 97 Nasal Cannula 2 03/31/17 19:50 129 38 109/43 99 Nasal Cannula 2 03/31/17 15:54 36.8 85 44 113/61 85 Room Air Interpretation & Diagnostics Lab Results Interpretation Result Diagram: 04/02/17 0340 04/02/17 0340 Test 03/31/17 16:10 03/31/17 17:20 03/31/17 20:20 Lactic Acid Level 1.4mmol/L (0.4-2.0) Troponin T < 0.010ug/L (0.0-0.011) Pro-B-Type Natriuretic Peptide 7768pg/mL (0-486) Hold Wayne Top Tube Received (Received) Urine Color Dark yellow (YELLOW) Urine Appearance Hazy (CLEAR,HAZY) Urine pH 5.0 (5.0-8.0) Urine Specific [place] 1.030 (1.003-1.035) Urine Protein 30mg/dL (NEG,TRACE) Urine Glucose (UA) Negativemg/dL (NEGATIVE) Urine Ketones Negativemg/dL (NEGATIVE) Urine Occult Blood Negative (NEGATIVE) Urine Nitrite Negative (NEGATIVE) Urine Bilirubin Negative (NEGATIVE) Urine Urobilinogen 2.0mg/dL (NORMAL) Urine Leukocyte Esterase Negative (NEGATIVE) Urine RBC 0-2/hpf (0-2) Urine WBC 0-5/hpf (0-5) Urine Epithelial Cells None/hpf (NONE-MOD) Urine Crystals None seen (NONE SEEN) Urine Bacteria Few/hpf (NONE-FEW) Urine Hyaline Casts None/lpf (NONE) Urine Granular Casts None seen (NONE SEEN) Urine Waxy Casts None seen (NONE SEEN) Urine Red Blood Cell Casts None seen (NONE SEEN) Urine White Blood Cell Casts None seen (NONE SEEN) Urine Mucus Present (None Seen) Urine Trichomonas None seen (NONE SEEN) Urine Yeast None (NONE SEEN) Urinalysis Comment None Urine Culture Reflexed Not indicated Hold Urine Received (Received) Acetaminophen Level < 15.0ug/mL Rx (10-25) ECG Interpretation ECG Interpretation: Atrial fibrillation. Rate 116 Left bundle branch block. Time: 19:37 Interpreted by: ED physician X-Ray Chest Interpretation Chest Xray Interpretation: IMPRESSION: Bibasilar changes consistent with pneumonias rather than failure. Dictated by: Juan Peña M.D. on 03/31/2017 at 16:40 Approved by: Juan Peña M.D. on 03/31/2017 at 17:32 View: Portable, 1 view Interpretation / Wet Read by: Interpret - Radiologist CT Head Interpretation IMPRESSION: No acute intracranial abnormalities found. Atrophic changes are present. Dictated by: Juan Peña M.D. on 03/31/2017 at 20:48 Approved by: uJan Peña M.D. on 03/31/2017 at 20:49 Study: Head CT no contrast Interpretation / Wet Read by: Interpret - Radiologist Re-Eval/Medical Decision Med Decision/Clinical Course 86-year-old male with a complex past medical history including history of a CVA , CHF, COPD, and atrial fibrillation presenting to the ED for evaluation of progressively worsening altered mental status over the past several days. Unclear etiology upon initial evaluation, though is somewhat tachypneic. BNP stable from previous, negative troponin, CO2 of 35, BUN of 34, white blood cell count of 10.2 with a lactic acid of 1.4. EKG demonstrates atrial fibrillation with a rate of 116. Head CT negative for acute abnormality. Chest x-ray does show bilateral pneumonia. I suspect that this is contributing to, if not responsible for, his current change in mental status. Patient started on broad- spectrum antibiotics here in the ED. Plan admission for further management and evaluation. Consultation : Referral / Consult Name: Beverly Sarabia MD Consulted With: Hospitalist Call Returned at: 21:16 Machine Setup Operator: Will see patient, Agrees with eval, Agrees with plan, Accepts admit Counseled Regarding: Diagnosis, Lab results, Need for admission Discharge & Departure Primary Impression: Altered mental status Altered mental status type: unspecified Qualified Code: R41.82 - Altered mental status, unspecified Additional Impression: Pneumonia Pneumonia type: due to unspecified organism Laterality: bilateral Lung location: unspecified part of lung Qualified Code: J18.9 - Pneumonia, unspecified organism Disposition: ADMITTED TO HOSPITAL Discharge Condition All VS Reviewed: Yes Referrals: [facility] ([facility]) Scribe Attestation Portions of this note were transcribed by Philly Redmond. I,, personally performed the history, physical exam and medical decision-making;I reviewed and confirmed the accuracy of the information in the transcribed note. Signed by Natty Dobson. 03/31/17 21:57 Hema Bacon MD Mar 31, 2017 19:55 Philly Redmond Mar 31, 2017 19:57 31mmol/L (18-29) Blood Urea Nitrogen 37mg/dL (8-27) Creatinine 1.09mg/dL (0.76-1.27) Estimat Glomerular Filtration Rate 68mL/min (>59) Glucose Level 90mg/dL (60-99) Calcium Level 10.2mg/dL (8.5-10.1) Magnesium Level 1.8mg/dL (1.6-2.6) Total Bilirubin 0.7mg/dL (0.0-1.2) Aspartate Amino Transf (AST/SGOT) 49U/L (0-50) Alanine Aminotransferase (ALT/SGPT) 56U/L (0-44) Alkaline Phosphatase 140U/L (25-160) Total Protein 6.0g/dL (6.4-8.4) Albumin 3.2g/dL (3.4-5.0) Acetaminophen Level < 15.0ug/mL Rx (10-25) ECG Interpretation ECG Interpretation: Atrial fibrillation. Rate 116 Left bundle branch block. Time: 19:37 Interpreted by: ED physician X-Ray Chest Interpretation Chest Xray Interpretation: IMPRESSION: Bibasilar changes consistent with pneumonias rather than failure. Dictated by: Juan Peña M.D. on 03/31/2017 at 16:40 Approved by: Juan Peña M.D. on 03/31/2017 at 17:32 View: Portable, 1 view Interpretation / Wet Read by: Interpret - Radiologist CT Head Interpretation IMPRESSION: No acute intracranial abnormalities found. Atrophic changes are present. Dictated by: Juan Peña M.D. on 03/31/2017 at 20:48 Approved by: Juan Peña M.D. on 03/31/2017 at 20:49 Study: Head CT no contrast Interpretation / Wet Read by: Interpret - Radiologist Re-Eval/Medical Decision Med Decision/Clinical Course Hx of: CVA, CHF, CPD and A-fib. Pt started on: Vancomycin, Levofloxacin and Cefepime. LABS: PNP of 7768, compared to 8395 in January Negative troponin CO2 is 35 BUN is 34 AST is 33 ALT is 60 WBC is 10.2 Lactic acid of 1.4 ECG demonstrates A-fib with the rate of 116 and left bundle branch block. EXAMS: Chest X-ray demonstrates bilateral pneumonia. CT Brain is negative. Consultation : Referral / Consult Name: Beverly Sarabia MD Consulted With: Hospitalist Call Returned at: 21:16 Machine Setup Operator: Will see patient, Agrees with eval, Agrees with plan, Accepts admit Counseled Regarding: Diagnosis, Lab results, Need for admission Discharge & Departure Primary Impression: Altered mental status Altered mental status type: unspecified Qualified Code: R41.82 - Altered mental status, unspecified Additional Impression: Pneumonia Pneumonia type: due to unspecified organism Laterality: bilateral Lung location: unspecified part of lung Qualified Code: J18.9 - Pneumonia, unspecified organism Disposition: ADMITTED TO HOSPITAL Discharge Condition All VS Reviewed: Yes Referrals: [facility] (PCP) Scribe Attestation Portions of this note were transcribed by Philly Redmond. I,, personally performed the history, physical exam and medical decision-making;I reviewed and confirmed the accuracy of the information in the transcribed note. Signed by Natty Dobson. 03/31/17 21:57 Hema Bacon MD Mar 31, 2017 19:55 Philly Redmond Mar 31, 2017 19:57
[2017-03-31] MEDS ORDERED: Vancomycin Inj 1,250 MG in 0.9% Sodium Chloride 250 ML IV ONE (20:30)
[2017-03-31 20:51] LABS: BASOPHILS % (AUTO) 0.3 % (0-3); EOSINOPHILS % (AUTO) 0.6 % (0-5); MONOCYTES % (AUTO) 7.8 % (4-12); Mean Corpuscular Hemoglobin 29.4 pg (27.0-35.0); Mean Corpuscular Volume 98.4 fL (81-100); NEUTROPHILS % (AUTO) 76.6 % (40-74); Platelet Count 174 bil/L (150-400)
--- NOTE | 2017-03-31 20:51 | DRSVH ---
PROCEDURE: CT BRAIN WITHOUT CONTRAST ([id number]) INDICATIONS: AMS TECHNIQUE: Noncontrast 4.5 mm thick angled axial sections acquired from the foramen magnum to the vertex, with c oronal reformats. COMPARISON: [facility], CT, CT BRAIN WO CON, 03/01/2017, 8:57. FINDINGS: Image quality: Excellent. CSF spaces: Basal cisterns are patent. No extra-axial fluid collections. The ventricles are symmet breana in size and shape. Brain: No intracranial bleeds or masses. There is cerebral volume loss for age, with resultant vent ricular and sulcal prominence. There are periventricular and deep white matter chronic small vessel ischemic changes. There is intracranial internal carotid artery atherosclerosis. Skull and face: Calvarium and visualized facial bones appear intact, without suspicious lesions. Sinuses: Visualized sinuses and mastoids are clear. IMPRESSION: No acute intracranial abnormalities found. Atrophic changes are present. Dictated by: Juan Peña M.D. on 03/31/2017 at 20:48 Approved by: Juan Peña M.D. on 03/31/2017 at 20:49
[2017-03-31 20:58] VITALS: BP 106/53; PULSE 101; RESP 34; O2SAT 97
[2017-03-31 21:08] LABS: Magnesium 1.8 mg/dL (1.6-2.6)
[2017-03-31] MEDS ORDERED: Polyethylene Glycol (PEG) 17 Gm Powder PO PRN (21:35)
[2017-03-31] MEDS ORDERED: Albuterol 2.5 mg/3 mL Inhalation Solution NEB PRN (21:35)
[2017-03-31] MEDS ORDERED: Alum-Mag Hydrox-Simeth 30 mL Suspension PO PRN (21:35)
[2017-03-31 22:03] VITALS: BP 125/52; PULSE 113; RESP 28; O2SAT 98
[2017-03-31 22:39] VITALS: BP 131/68; PULSE 116; RESP 49; O2SAT 98
--- NOTE | 2017-03-31 23:07 | NUR ---
Admit Note Pt arrived to 3014 at around 2300. Not responding to question, eyes shut, opening eyes spontaneously. Difficulty coughing and very gurgly.
[2017-03-31 23:25] VITALS: BP 133/73; PULSE 100; RESP 46; O2SAT 92
[2017-04-01] VITALS (18 sets, daily range): BP systolic 96–246; BP diastolic 54–205; PULSE 59–115; RESP 16–42; O2SAT 94–100
--- NOTE | 2017-04-01 01:00 | NUR ---
Respiratory Distress/Transfer to CCU Pt. arrived from ER with RR in the 40's, shallow breathing and not arousable. Respiratory therapy and MD called to evaluate patient. Pt. appeared to start having seizure activity (twitching and jerky movements). Dr. Hilario ordered Ativan IV and Keppra IV. ABGs were drawn and pt. sent to CCU for Bipap.
--- NOTE | 2017-04-01 01:23 | ABG ---
DateTimeAnalyzed 01:14:05 -_ pH ____7.141 - 7.350 7.450 pCO2 111 -mmHg 35.0 45.0 pO2 136 -mmHg 69.0 116 HCO3- ___37.9__ -mmol/L 22.0 26.0 ABE ____7.5__ -mmol/L tHb ___12.0__ -g/dL O2Hb ___97.1__ -% COHb ____1.6__ -% 1.5 MetHb ____0.3__ -% sO2 ___99.0__ -% FIO2 ___28.0__ -% Drawn By AF - Date/Time Notified____ 01:23:00 -_ Oxygen Device 1 __CANNULA - Notified By AF - Notified Whom ___Dr. Beuning - K+ ____4.8__ -mmol/L tO2 ___16.6__ -Vol% Wojciech test _Positive -
[2017-04-01] MEDS: Albuterol-Ipratropium 3 mL Inhalation Solution NEB SCH ×6 (01:34→20:49)
--- NOTE | 2017-04-01 03:22 | NUR ---
Transfer to CCU report given and walked pt down to room 2014 at around 0130.
--- NOTE | 2017-04-01 04:40 | ABG ---
DateTimeAnalyzed 04:30:05 -_ pH ____7.379 - 7.350 7.450 pCO2 ___59.0__ -mmHg 35.0 45.0 pO2 ___94.6__ -mmHg 69.0 116 HCO3- ___34.8__ -mmol/L 22.0 26.0 ABE ____8.6__ -mmol/L tHb ___12.3__ -g/dL O2Hb ___97.0__ -% COHb ____1.6__ -% 1.5 MetHb ____0.0__ -% sO2 ___98.7__ -% FIO2 ___28.0__ -% Drawn By TA - Date/Time Notified____ 04:39:00 -_ Oxygen Device 1 ____BIPAP - Notified By AF - Notified Whom _Song, MD - K+ ____4.6__ -mmol/L tO2 ___16.9__ -Vol% Wojciech test _Positive -
--- NOTE | 2017-04-01 05:00 | PCM.HPMED ---
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 Unable to obtain further history due to patient's mental status and history obtained via chart review. Patient presented to the emergency department on 02/27/17 with family for altered mental status and possible seizures. At that time the patient's daughter reported seizure like activity including: twitching and stiffening of his face and body for 7-10 days as well as several ground level falls. During that admission a subacute right temporal lobe and left thalamic ischemic stroke was noted on head CT. Neurology was consulted and the patient was started on Keppra for acute focal complex seizures. He was discharged to [facility] from [facility] on 03/03/17 on levetiracetam 1,000 MG PO BID, [id number] QHS and diazepam 10 mg rectal gel PRN for seizure. Levetiracetam appears to have been changed to 500mg BID per discharge summary on 03/03/17 and [facility] NOV. Of note, daughter reported recent addition of risperidone to patient's medications for increased agitation and behaviors. After which she reports a change in the patient's mental status and possible seizures. This medication does not appear to be on his active med list. Review of Systems: Unable to perform complete review of systems secondary to patient condition. Allergies Coded Allergies: No Known Allergies (Verified Allergy, Unknown, 03/31/17) Home Medications As per most recent record. Medication rec not completed from overnight at the time of admission. AM team to confirm medications and order as appropriate. Per discharge summary on 03/03/17. Aspirin 325 MG PO DAILY Carvedilol 3.125 MG PO BIDWM Cholecalciferol (Vitamin D3) 2,000 UNIT PO DAILY Clopidogrel 75 MG PO DAILY Digoxin 125 MCG PO DAILY Diltiazem 120 MG PO DAILY Doxazosin 1 MG PO HS Levetiracetam 1,000 MG PO BID Lisinopril 2.5 MG PO DAILY Metoprolol Succinate ER 100 MG PO BID Phenytoin Sodium Extended 300 MG PO HS Simvastatin 40 MG PO HS Zinc Oxide (Zinc Oxide) 57 Gm Oint...g. 1 APPLIC TP TID Acetaminophen 650 MG PO Q4H PRNFor Pain Diazepam 10 mg Rectal Gel 10 Mg Kit 10 MG RECTAL UD PRN For Seizure Ipratropium/Albuterol Sulfate 3 Ml Ampul.neb 3 ML IH q4 hours PRN For Shortness of Breath Magnesium Hydroxide 400 Mg/5 Ml Oral.susp 30 ML PO DAILY PRN For Constipation Polyethylene Glycol 3350 17 Gm Powd.pack PO DAILY PRN For Constipation PMH Dyslipidemia Asthma COPD Cancer Congestive heart failure GERD Hypertension Atrial fibrillation CVA, CHF, CPD and A-fib. Surgical History Hiatal hernia repair Appendectomy Prostatectomy Cervical disc fusion Family History Unable to obtain due to patient condition. Per chart review: Social History Hx Alcohol Use: Yes (last used many years ago) Hx Substance Use: No Hx Tobacco Use: No Smoking Status: Former Smoker Living Arrangement: Longterm [facility] ([facility]) Exam Vital Signs Vital Sign - Last Date Time Temp Pulse Resp B/P Pulse Ox O2 Delivery O2 Flow Rate FiO2 03/31/17 20:58 101 34 106/53 97 Nasal Cannula 2 03/31/17 15:54 36.8 Exam General: Chronically ill appearing, unresponsive and unable to follow commands. Myoclonus bilateral upper extermities and repetitive mouth/jaw movements. HEENT: Normocephalic, atraumatic. Patient opening his eyes at random with eye rolling. Difficult to assess but pupils appear equal, round, and reactive to light. Anicteric sclerae, moist mucosa. Neck: Supple. Unable to asses range of motion due to patient condition. No JVD or bruits appreciated. Cardiovascular: Irregularly irregular rhythm, no murmurs, rubs or gallops appreciated. Pulmonary: Clear to auscultation bilaterally with no crackles, wheezes, or rhonchi. Normal respiratory effort with no use of accessory muscles. Abdomen: difficult to asses secondary to patient condition. Abdomen is soft, nondistended and bowel tones present. Extremities: Trace edema to the ankle bilaterally, No clubbing, cyanosis, edema , or lymphadenopathy appreciated. Skin: Warm and dry without obvious rashes or ulcerations. Neurological/Psychiatric: Unable to fully assess secondary to patient condition. Patient is unresponsive and unable to obey commands. He is able to move all four extremities, muscle wasting noted. No known gait impairment. Lab and Diagnostics Labs Laboratory Tests Test 03/31/17 16:10 03/31/17 17:20 03/31/17 20:20 White Blood Count 10.2th/mm3 (3.8-10.1) 9.8th/mm3 (3.8-10.1) Red Blood Count 4.48mil/mm3 (4.40-5.80) 4.35mil/mm3 (4.40-5.80) Hemoglobin 13.4g/dL (13.8-17.2) 12.8g/dL (13.8-17.2) Hematocrit 43.8% (41.0-50.0) 42.8% (41.0-50.0) Mean Corpuscular Volume 97.8fL (81-100) 98.4fL (81-100) Mean Corpuscular Hemoglobin 29.9pg (27.0-35.0) 29.4pg (27.0-35.0) Mean Corpuscular Hemoglobin Concent 30.6% (32.0-37.0) 29.9% (32.0-37.0) Red Cell Distribution Width 16.1% (12.3-15.4) 16.0% (12.3-15.4) Platelet Count 187bil/L (150-400) 174bil/L (150-400) Neutrophils (%) (Auto) 73.4% (40-74) 76.6% (40-74) Lymphocytes (%) (Auto) 16.4% (14-46) 14.4% (14-46) Monocytes (%) (Auto) 9.1% (4-12) 7.8% (4-12) Eosinophils (%) (Auto) 0.6% (0-5) 0.6% (0-5) Basophils (%) (Auto) 0.2% (0-3) 0.3% (0-3) Sodium Level 144mEq/L (134-144) 145mEq/L (134-144) Potassium Level 4.9mEq/L (3.5-5.2) 5.2mEq/L (3.5-5.2) Chloride Level 100mEq/L (97-108) 102mEq/L (97-108) Carbon Dioxide Level 35mmol/L (18-29) 31mmol/L (18-29) Blood Urea Nitrogen 34mg/dL (8-27) 37mg/dL (8-27) Creatinine 1.06mg/dL (0.76-1.27) 1.09mg/dL (0.76-1.27) Estimat Glomerular Filtration Rate 70mL/min (>59) 68mL/min (>59) Glucose Level 93mg/dL (60-99) 90mg/dL (60-99) Lactic Acid Level 1.4mmol/L (0.4-2.0) Calcium Level 9.9mg/dL (8.5-10.1) 10.2mg/dL (8.5-10.1) Total Bilirubin 0.7mg/dL (0.0-1.2) 0.7mg/dL (0.0-1.2) Aspartate Amino Transf (AST/SGOT) 53U/L (0-50) 49U/L (0-50) Alanine Aminotransferase (ALT/SGPT) 60U/L (0-44) 56U/L (0-44) Alkaline Phosphatase 136U/L (25-160) 140U/L (25-160) Troponin T < 0.010ug/L (0.0-0.011) Pro-B-Type Natriuretic Peptide 7768pg/mL (0-486) Total Protein 6.4g/dL (6.4-8.4) 6.0g/dL (6.4-8.4) Albumin 3.3g/dL (3.4-5.0) 3.2g/dL (3.4-5.0) Hold [place] Top Tube Received (Received) Urine Color Dark yellow (YELLOW) Urine Appearance Hazy (CLEAR,HAZY) Urine pH 5.0 (5.0-8.0) Urine Specific [place] 1.030 (1.003-1.035) Urine Protein 30mg/dL (NEG,TRACE) Urine Glucose (UA) Negativemg/dL (NEGATIVE) Urine Ketones Negativemg/dL (NEGATIVE) Urine Occult Blood Negative (NEGATIVE) Urine Nitrite Negative (NEGATIVE) Urine Bilirubin Negative (NEGATIVE) Urine Urobilinogen 2.0mg/dL (NORMAL) Urine Leukocyte Esterase Negative (NEGATIVE) Urine RBC 0-2/hpf (0-2) Urine WBC 0-5/hpf (0-5) Urine Epithelial Cells None/hpf (NONE-MOD) Urine Crystals None seen (NONE SEEN) Urine Bacteria Few/hpf (NONE-FEW) Urine Hyaline Casts None/lpf (NONE) Urine Granular Casts None seen (NONE SEEN) Urine Waxy Casts None seen (NONE SEEN) Urine Red Blood Cell Casts None seen (NONE SEEN) Urine White Blood Cell Casts None seen (NONE SEEN) Urine Mucus Present (None Seen) Urine Trichomonas None seen (NONE SEEN) Urine Yeast None (NONE SEEN) Urinalysis Comment None Urine Culture Reflexed Not indicated Hold Urine Received (Received) Magnesium Level 1.8mg/dL (1.6-2.6) Acetaminophen Level < 15.0ug/mL Rx (10-25) Microbiology 03/31/17 Blood Culture- pending Result Diagram: 03/31/17201903/31/172019 X-Rays, CTs and MRIs (03/31/17) X-RAY CHEST ONE VIEW, PORTABLE IMPRESSION: Bibasilar changes consistent with pneumonias rather than failure. Dictated and approved by: Juan Peña M.D. on 03/31/2017 at 16:40 (03/31/17) CT BRAIN WITHOUT CONTRAST IMPRESSION: No acute intracranial abnormalities found. Atrophic changes are present. Dictated and approved by: Juan Peña M.D. on 03/31/2017 at 20:48 12-lead ECG ECG Interpretation: Atrial fibrillation. Rate 116 Left bundle branch block. 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 Admitted for further evaluation of altered mental status, change in consciousness and seizure like activity. History of acute focal complex seizures. Present on admission. Active. -Patient admitted on 02/27/17 after a similar presentation. New onset seizure activity attributed to subacute right temporal lobe and left thalamic ischemic stroke noted on head CT. Per Neurology consult during last admission patient discharged on 1,000mg PO BID , [id number] QHS and diazepam 10mg rectal gel PRN. However, levitiracetam apparently changed to 500mg PO BID per discharge summary () and [facility]. Daughter reportedly correlates patient's altered mental status and seizure like episodes to recent addition of risperidone for increased agitation and behaviors. Risperidone does not appear to be on his active med list, will need to confirm. -Witnessed possible focal complex seizures on admission. -CT head as above. -Ativan 0.5 mg IV q15-30 mins PRN seizures -Levetiracetam 500mg IV BID. -Will continue home dose of phenytoin 300mg QHS -Day team to consult Neurology regarding anti-epileptic medications and possible EEG. -Seizure precautions, keep bed low, keep bed padding in place History of Subacute right temporal lobe and left thalamic ischemic stroke. Present on admission. -CT head during recent admission 02/27-03/03/17 showed a subacute stroke of the right temporal lobe and left thalamus; CT angio head/neck was unremarkable for other findings. -Patient has a history of Afib and anticoagulation apparently discontinued due to patient's high fall risk. At that time atorvastatin was increased to 80mg daily and continued on daily aspirin therapy per Neurology recommendations. -CT head this admission as above -Continue home dose atorvastatin and aspirin -Frequent neurologic checks -Day team to consult Neurology as above. -Hold home medications of doxazosin, metoprolol, and diltiazem due to hypotension. -Speech eval/swallow study and physical therapy when patient more alert. -Continue home dose atorvastatin Chronic atrial fibrillation, rate controlled. Present on admission. Presumed stable. -Per chart review, anticoagulated on aspirin, 325mg and discharged on dual antiplatelet therapy with clopidogrel 75mg daily. Due to fall risk most likely not candidate for long-term anticoagulation. -Patient is on numerous medications including metoprolol, digoxin, doxazosin, and diltiazem. -Admitted to CCU with telemetry -Will hold diltiazem, lisinopril, dozazosin due to hypotension. -Will continue all: digoxin, metoprolol succinate -Med rec not complete at time of admission, day team to review. Congestive heart failure, chronic. Present on admission. Presumed stable. -Systolic dysfunction with an EF of 20% on most recent echocardiogram (02/28/17) . Patient clinically does not appear to be in acute exacerbation. -Day team to continue cardiac medications, as above pending med reconciliation -Will hold carvedilol, lisinopril for hypotension. Will continue digoxin Chronic COPD. Present on admission. Presumed stable. -Patient clinically does not appear to be in acute exacerbation. -Continue supplemental oxygen with goal SPO2 88-92% -DuoNeb nebs every 4H prn PRN: Acetaminophen-fever/headache/mild/moderate pain Antiemetics, as needed Bowel regimen, as needed. Disposition: Patient admitted under inpatient status with expected length of stay > 2 midnights for severity of present symptoms, complexities of treatment plan and risk for adverse event. VTE Prophylaxis: SCDs Resuscitation Status: DNR/DNI:Do Not Resuscitate/Intubate Attending Statement Pt seen and examined by myself and agree with above plan. Arabella Hilario DO Mar 31, 2017 21:35 Beverly Sarabia MD Apr 01, 2017 06:17
[2017-04-01 05:54] LABS: BASOPHILS % (AUTO) 0.3 % (0-3); EOSINOPHILS % (AUTO) 0.3 % (0-5); MONOCYTES % (AUTO) 9.5 % (4-12); Mean Corpuscular Hemoglobin 29.5 pg (27.0-35.0); Mean Corpuscular Volume 97.9 fL (81-100); NEUTROPHILS % (AUTO) 76.7 % (40-74); Platelet Count 187 bil/L (150-400)
[2017-04-01] MEDS ORDERED: RISP0.5T14 PO (06:04)
[2017-04-01] MEDS ORDERED: RISP0.2517 PO (06:04)
[2017-04-01] MEDS ORDERED: LEVO500T16 PO (06:04)
[2017-04-01] MEDS ORDERED: IPRA3AMP IH (06:04)
[2017-04-01] MEDS ORDERED: KEP500TA PO (06:04)
[2017-04-01] MEDS ORDERED: MIRT15TA6 PO (06:04)
--- NOTE | 2017-04-01 07:20 | NUR ---
Transfer in to CCU note Received [place] [facility] for hypercapnea needing bipap and seizures. Placed on bipap with fio2 0.28 IPAP 20, EPAP 10, sp02 >95%. Had 2 witnessed seizure-like generalized twitching and shaking, one lasted for 2 minutes after 0.5mg ativan IV, second episode @ 0521, given ativan 0.5mg ineffective, given additional 0.5mg ativan (total 1 mg), twitching and shaking stopped,(duration about 15 mins). Given keppra 500mg IV. Vital signs stable, am abg with pc02 down to 59.
[2017-04-01] MEDS ORDERED: levETIRAcetam Inj 1,000 MG in IV Premix 1 EACH IV ONE (08:20)
[2017-04-01] MEDS ORDERED: Fosphenytoin Inj 1,000 mgPE in 0.9% Sodium Chloride 50 ML IV ONE (08:25)
[2017-04-01] MEDS ORDERED: Cefepime Inj 2,000 MG in Dextrose 5% Minibag Plus 100 ML IV SCH (08:30)
[2017-04-01] MEDS: MeTOProlol XL 50 mg ER24 Tablet PO SCH ×2 (08:30→20:30)
--- NOTE | 2017-04-01 09:08 | PCM.PNMED ---
Subjective Date of Service Apr 01, 2017 Subjective Overnight, patient was Placed on bipap with fio2 0.28, IPAP 20, EPAP 10, sp02 > 95%. He had 2 witnesses seizure-like generalized twitching and shaking, one lasted for 2 minutes after 0.5mg ativan IV, second episode @ 0521, given ativan 0.5mg ineffective, given additional 0.5mg ativan (total 1 mg), twitching and shaking stopped,(duration about 15 mins). He is getting keppra 500mg IV BID. This morning, patient is seen with his daughter by bedside. He has generalized twitching and shaking since the daughter got to the hospital 20 minutes ago. Daughter reports that he has had mild body shaking/tremors since he May, but the severity worsens in the last 36 hours. He also has had decreased level of consciousness, but is able to answer yes/no question this morning. His seizure broke after 1mg of Ativan. Phenytoin 1g IV given afterward. Discussion about intubation status and daughter confirms DO NOT INTUBATE. Exam Vital Signs Vital Sign - Last Date Time Temp Pulse Resp B/P Pulse Ox O2 Delivery O2 Flow Rate FiO2 04/01/17 04:44 70 29 96 BiPAP 28 04/01/17 04:00 36.5 123/91 04/01/17 01:34 2.00 Intake and Output 03/31/17 03/31/17 04/01/17 Cumulative From/Thru 15:00 23:00 07:00 03/31/17 15:54 - 04/01/17 06:43 Intake Total 736 ml 736 ml Output Total 350 ml 350 ml Balance -350 ml 736 ml 386 ml Intake Oral 0 ml 0 ml IV Total 736 ml 736 ml Output Urine Total 350 ml 350 ml # Voids 0 0 Exam General: Chronically ill appearing, unresponsive and unable to follow commands. Myoclonic seizures of bilateral upper extermities and repetitive mouth/jaw movements, improved with Ativan. HEENT: Normocephalic, atraumatic. Patient does not open his eyes. Difficult to assess but pupils appear equal, round, and reactive to light. Anicteric sclerae , moist mucosa. Neck: Supple. Unable to asses range of motion due to patient condition. No JVD or bruits appreciated. Cardiovascular: Tachycardia, Irregularly irregular rhythm, no murmurs, rubs or gallops appreciated. Pulmonary: Mild rales. No wheezes or rhonchi. On Bipap. Abdomen: Limited exam due to to patient condition. Abdomen is soft, nondistended and bowel tones present. Extremities: Trace edema to the ankle bilaterally, No clubbing, cyanosis, edema , or lymphadenopathy appreciated. Skin: Warm and dry without obvious rashes or ulcerations. Neurological/Psychiatric: Unable to fully assess secondary to patient condition. Patient answers "no" to pain and "yes" to if he knows his daughter. Does not follow commands otherwise. No known gait impairment. IVs and Medications Medications Reviewed: Medications were reviewed in detail Lab and Diagnostics Result Diagram: 04/01/17 0540 04/01/17 0540 X-Rays, CTs and MRIs (03/31/17) X-RAY CHEST ONE VIEW, PORTABLE IMPRESSION: Bibasilar changes consistent with pneumonias rather than failure. Dictated and approved by: Juan Peña M.D. on 03/31/2017 at 16:40 (03/31/17) CT BRAIN WITHOUT CONTRAST IMPRESSION: No acute intracranial abnormalities found. Atrophic changes are present. Dictated and approved by: Juan Peña M.D. on 03/31/2017 at 20:48 12-lead ECG ECG Interpretation: Atrial fibrillation. Rate 116 Left bundle branch block. 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 Admitted for further evaluation of altered mental status, change in consciousness, and seizure like activity. Acute focal complex seizures with intermittent status epilepticus. Present on admission. Active. -Patient admitted on 02/27/17 after a similar presentation. New onset seizure activity attributed to subacute right temporal lobe and left thalamic ischemic stroke noted on head CT. Per Neurology consult during last admission patient discharged on 1,000mg PO BID , [id number] QHS, and diazepam 10mg rectal gel PRN. However, levitiracetam apparently changed to 500mg PO BID per discharge summary () and [facility] MAR. Daughter reportedly correlates patient's altered mental status and seizure like episodes to recent addition of Risperidone for increased agitation and behaviors. Risperidone does not appear to be on his active med list, will need to confirm. -Witnessed possible focal complex seizures on admission and status epilepticus that lasted greater than 5minutes this morning, resolved with Ativan 1mg. One dose of Phenytoin 1g given. -CT head as above. -Ativan 0.5 mg IV q15-30 mins PRN seizures -Levetiracetam increase to 1000mg IV BID. -Will continue home dose of phenytoin 300mg QHS when patient can take PO. -Check Levetiracetam and Phenytoin level in the morning. -Will consult Neurology regarding anti-epileptic medications and possible EEG tomorrow. -Seizure precautions, keep bed low, keep bed padding in place -NPO with D5 1/2 NS at 50mls/hr. Judicious hydration given severe CHF. Acute hypoxemic hypercarbic respiratory failure, POA, improved. - Patient presented with O2 of 85 at room aire and had a pH of 7.14 with pCO2 of 111 on admission, which improved to pH 7.37 and pCO2 59 on Bipap. - Will continue with Bipap. - Daughter confirms that the patient does not want intubation and agrees to continue with Bipap. - Follow clinically. History of Subacute right temporal lobe and left thalamic ischemic stroke. Present on admission. Stable. -CT head during recent admission 02/27-03/03/17 showed a subacute stroke of the right temporal lobe and left thalamus; CT angio head/neck was unremarkable for other findings. -Patient has a history of Afib and anticoagulation apparently discontinued due to patient's high fall risk. At that time atorvastatin was increased to 80mg daily and continued on daily aspirin therapy per Neurology recommendations. -CT head this admission as above -Continue home dose atorvastatin and aspirin -Frequent neurologic checks -Diet NPO -Hold home medications of doxazosin, metoprolol, and diltiazem due to NPO. -Speech eval/swallow study and physical therapy when patient more alert. -Continue home dose atorvastatin Chronic atrial fibrillation, rate controlled. Present on admission. Presumed stable. -Per chart review, anticoagulated on aspirin, 325mg and discharged on dual antiplatelet therapy with clopidogrel 75mg daily. Due to fall risk most likely not candidate for long-term anticoagulation. -Patient is on numerous medications including metoprolol, digoxin, doxazosin, and diltiazem. -Admitted to CCU with telemetry -Will hold diltiazem, Metoprolol, carvedilol, lisinopril, and doxazosin. HR and BP are currently stable. Monitor vital signs and will consider IV Metoprolol, Diltiazem, and Enalapril if hear rate or BP increases. -Will change digoxin PO to IV. Suspected HCAP, POA, unlikely. - Patient was in the hospital in February 2017. - CXR shows Bibasilar changes consistent with pneumonias rather than failure. - However, both WBC and Procalcitonin are negative and patient does not have other signs of infection. - He received Vanco, Cefepime, and Levaquin on admission. Will D/C all antibiotics and monitor clinically. Congestive heart failure, chronic. Present on admission. Presumed stable. -Systolic dysfunction with an EF of 20% on most recent echocardiogram (02/28/17) . Patient clinically does not appear to be in acute exacerbation. -Will hold carvedilol, lisinopril for hypotension and NPO status. Will continue digoxin Chronic COPD. Present on admission. Presumed stable. -Patient clinically does not appear to be in acute exacerbation. -Continue supplemental oxygen with goal SPO2 88-92% -DuoNeb nebs every 4H prn PRN: Acetaminophen-fever/headache/mild/moderate pain Antiemetics, as needed Bowel regimen, as needed. Disposition: Patient admitted under inpatient status with expected length of stay > 2 midnights for severity of present symptoms, complexities of treatment plan and risk for adverse event. Pain Evaluation: Adequate Pain Control GI Prophylaxis: Proton Pump Inhibitor VTE Prophylaxis: SCDs VTE Mechanical Devices: Intermittant Pneumatic CD Resuscitation Status: DNR/DNI:Do Not Resuscitate/Intubate Rasta Mukherjee DO Apr 01, 2017 07:46
[2017-04-01] MEDS ORDERED: DIASTAT10 RECTAL (09:41)
[2017-04-01] MEDS: levETIRAcetam Inj 1,000 MG in IV Premix 1 EACH IV SCH ×2 (10:00→20:11)
[2017-04-01] MEDS ORDERED: MeTOProlol 1 mg/mL 5 mL Inj IVPUSH PRN (14:05)
--- NOTE | 2017-04-01 14:09 | NUR ---
Bipap/Seizures.. Noted this am to have grand mal like tremors.. Dr Sin at the bedside and Ativan 1mg ordered and given. Tremors subsided. Pt also given Dilantin and Keppra and has had no more seizures. Is noted to tremor slightly when stimulated for turning but this subsides once care completed and daughter relays this is normal for him. By 1100 pt still had no uop. Bladder scanned for 690 cc. MD updated and pt had a 16 fr damon placed and immediately had >200cc brianna urine and continues to have QS uop. Has been somnolent this afternoon, here at bedside and ABG ordered.
--- NOTE | 2017-04-01 14:20 | ABG ---
DateTimeAnalyzed 14:13:00 -_ pH ____7.359 - 7.350 7.450 pCO2 ___60.4__ -mmHg 35.0 45.0 pO2 ___92.2__ -mmHg 69.0 116 HCO3- ___33.1__ -mmol/L 22.0 26.0 ABE ____6.6__ -mmol/L -2.0 2.0 tHb ___11.1__ -g/dL O2Hb ___94.8__ -% COHb ____1.9__ -% MetHb ____0.7__ -% sO2 ___97.3__ -% 25.0 FIO2 ___28.0__ -% CPAP ___14.0__ -cmH2O PEEP ____8.0__ -cmH2O Set_RR ___20.0__ -b/min Drawn By NB - Date/Time Notified____ 14:19:00 -_ Spontaneous_RR ___20.0__ -b/min Oxygen Device 1 _ROOM AIR - Notified By NB - Notified Whom __Dr Song - B 763 -mmHg tO2 ___14.9__ -Vol% Wojciech test N/A -
[2017-04-01] MEDS: Dextrose 5% 0.45% NaCl 1,000 ML IV SCH (14:33)
[2017-04-01] MEDS: Digoxin 0.25 mg/mL 2 mL Inj IV SCH (14:34)
--- NOTE | 2017-04-01 17:13 | NUR ---
Social Work: Multidisciplinary Rounds Pt discussed in am rounds. Pt is not medically stable for discharge at this time. Pt remains in CCU. Pt screened in for assessment due to risk; JUNIOR SOFTWARE ENGINEER will not see pt today due to high census. JUNIOR SOFTWARE ENGINEER will attempt to see pt tomorrow. ANDI Salvador
[2017-04-01] MEDS ORDERED: levoFLOXacin Inj 750 MG in IV Premix 1 EACH IV SCH (20:30)
[2017-04-01] MEDS ORDERED: Phenytoin 100 mg ER Capsule PO SCH (21:00)
[2017-04-01] MEDS: Fosphenytoin Inj 100 mgPE in 0.9% Sodium Chloride 50 ML IV SCH (22:08)
--- NOTE | 2017-04-01 23:26 | NUR ---
Transfer to IMCU status Pt remain on bipap w/ fio2 0.28, 20/, sp02 >95%. Pt mumbles and has brief tremors with activity/turns, no seizure activity noted. Still npo, dc'd po dilantin and switched to fosphynetoin IV. Daughter at bedside tonight, stated that pt was talking and opening his eyes. This was unwitnessed by RN. Pt transferred to [facility] status @ 2099. Assumed care until 2324. Pt report given to WALKER Card
[2017-04-02] VITALS (11 sets, daily range): BP systolic 96–127; BP diastolic 56–69; PULSE 94–98; RESP 18–28; O2SAT 98–100
[2017-04-02] MEDS: Albuterol-Ipratropium 3 mL Inhalation Solution NEB SCH ×6 (00:22→20:02)
[2017-04-02 04:26] LABS: BASOPHILS % (AUTO) 0.2 % (0-3); EOSINOPHILS % (AUTO) 0.7 % (0-5); MONOCYTES % (AUTO) 8.4 % (4-12); Mean Corpuscular Hemoglobin 29.7 pg (27.0-35.0); Mean Corpuscular Volume 94.4 fL (81-100); NEUTROPHILS % (AUTO) 75.9 % (40-74); Platelet Count 152 bil/L (150-400)
[2017-04-02 04:39] LABS: Magnesium 1.7 mg/dL (1.6-2.6)
[2017-04-02] MEDS: Fosphenytoin Inj 100 mgPE in 0.9% Sodium Chloride 50 ML IV SCH ×3 (05:36→22:11)
--- NOTE | 2017-04-02 06:16 | NUR ---
tremors/increased RR pt with increased tremor like seizure activity RR up to the 40s,MD into see pt and order for 0.5mg IV ativan, also gave IV Fosphenytion, pts tremors settled down and RR back to the 20s, pt more responsive also. sitter in room, bipap in place
[2017-04-02] MEDS: MeTOProlol XL 50 mg ER24 Tablet PO SCH ×2 (08:19→20:30)
[2017-04-02] MEDS: levETIRAcetam Inj 1,000 MG in IV Premix 1 EACH IV SCH ×2 (08:28→21:14)
[2017-04-02] MEDS: Dextrose 5% 0.45% NaCl 1,000 ML IV SCH (10:52)
[2017-04-02] MEDS: Digoxin 0.25 mg/mL 2 mL Inj IV SCH (12:12)
--- NOTE | 2017-04-02 12:51 | DRSVH ---
PROCEDURE: X-RAY CHEST ONE VIEW, PORTABLE ([id number]) INDICATIONS: hypercapnia TECHNIQUE: One view of the chest was acquired. COMPARISON: [facility], CR, XR CHEST 1VW (PORTABLE), 03/31/2017, 16:06. FINDINGS: Surgical changes and devices: None. Lungs and pleura: There is improved aeration at the right lung base when compared to study dated 03/31. Mild air space opacities persist. The left pleural effusion is decreased in size and there is im proved aeration of the left midlung. There is likely a persistent left effusion and basilar consolida tion. Mediastinum: Mediastinal contours appear normal. Heart size is normal. Bones and chest wall: No suspicious bony lesions. Overlying soft tissues appear unremarkable. IMPRESSION: Overall improved aeration at the lung bases with some persistent airspace disease and lef t pleural effusion. Dictated by: Raquel Abreu M.D. on 04/02/2017 at 12:48 Approved by: Raquel Abreu M.D. on 04/02/2017 at 12:49
--- NOTE | 2017-04-02 13:14 | NUR ---
Palliative care note D/A: Palliative care referral received from Dr. Mukherjee today for goals of care assistance. Pt has been seen by PC in the past and is known to have had a significant CVA. Pt is currently a resident of [facility] and receives his primary care locally at [facility] clinic adjacent to [facility]. Pt dtr is Twila Napier at [phone] and his grand dtr is Cookie Christian at [phone]. P: Palliative care to follow. Chantel OLGUIN, CCM
--- NOTE | 2017-04-02 14:18 | NUR ---
Social Work Note: Initial Assessment/Multidisciplinary Rounds Data& Assessment: EMR reviewed. Pt was discussed in AM rounds today, per MD pt is not medically ready to discharge at this time and pt may transition to comfort care once out of town family arrives. Corwin Garcia is a 86 year old male admitted on 03/31/2017 for altered mental status and pneumonia. Pt has Medicare insurance coverage. Pt is a but is not service connected. SW met with pt at and pt family at bedside. Pt daughter Twila was not at bedside and pt family explained she has gone home to get some rest but will be back later after she has slept. RAMON received order from MD to speak with pt family about arranging Hospice informational visit. SW to follow up with pt and pt family to arrange an informational visit in case pt does not transition to comfort care and immediately pass. Pt is currently Bipap dependent. Pt came from [facility] as a rehab pt. RAMON spoke with Virginia from [facility] regarding pt recent baseline. Pt was able to walk short distances with a walker SBA due to fall risk but otherwise was wheelchair at baseline for long distances. Pt required assistance with chores, medications, meal prep and bathing. Pt has had [facility] PT and RN in the past. Pt does not have LTC insurance. DPOA/AD requested. Discharge Planning checklist provided. RAMON phone number provided on pt white board. Pt family denies any needs at this time. SW to continue to follow. Plan: Anticipated discharge home with Hospice vs. Back to [facility] if pt does not transition to comfort care and pass within this hospitalization. Per MD order, RAMON to follow up with pt and pt family to arrange an informational visit in case pt does not transition to comfort care and immediately pass. SW to continue to follow. ANDI Sandhu Addendum: 04/02/17 at 1426 by SHANNAN BAILEY Amended: Links added.
--- NOTE | 2017-04-02 15:11 | PCM.PNMED ---
Subjective Date of Service Apr 02, 2017 Subjective Overnight, patient had an episode of seizure-like acitivty with RR up to the 40s that resolved with Ativan 0.5mg IV and Fosphenytoin IV. He continues to stay on the Bipap. No other issue. Today, patient continues to be obtunded although his daughter states that he opens his eyes earlier this morning. His daughter expresses interest in Hospice Care and would like to have more information. She also agreed to withdraw care if he does not make any progress by tomorrow. They are waiting for all the family member to come in today and tomorrow. Exam Vital Signs Vital Sign - Last Date Time Temp Pulse Resp B/P Pulse Ox O2 Delivery O2 Flow Rate FiO2 04/02/17 13:25 102 22 111/60 100 28 04/02/17 12:16 BiPAP 04/02/17 02:55 36.8 04/01/17 01:34 2.00 Intake and Output 04/01/17 04/01/17 04/02/17 Cumulative From/Thru 15:00 23:00 07:00 03/31/17 15:54 - 04/02/17 06:15 Intake Total 1009 ml 938 ml 2683 ml Output Total 600 ml 800 ml 1750 ml Balance 409 ml 138 ml 933 ml Intake Oral 0 ml IV Total 1009 ml 938 ml 2683 ml Output Urine Total 600 ml 800 ml 1750 ml # Voids 0 # Bowel Movements 0 0 Exam General: Chronically ill appearing, obtunded, unresponsive and unable to follow commands. No tremors or seizure noted. HEENT: Normocephalic, atraumatic. Patient does not open his eyes. Difficult to assess but pupils appear equal, round, and reactive to light. Anicteric sclerae , moist mucosa. Neck: Supple. Unable to asses range of motion due to patient condition. No JVD or bruits appreciated. Cardiovascular: Tachycardia, Irregularly irregular rhythm, no murmurs, rubs or gallops appreciated. Pulmonary: Mild rales. No wheezes or rhonchi. On Bipap. Abdomen: Limited exam due to to patient condition. Abdomen is soft, nondistended and bowel tones present. Extremities: Trace edema to the ankle bilaterally, No clubbing, cyanosis, edema , or lymphadenopathy appreciated. Skin: Warm and dry without obvious rashes or ulcerations. Neurological/Psychiatric: Unable to fully assess secondary to patient condition.Does not follow commands. IVs and Medications Medications Reviewed: Medications were reviewed in detail Lab and Diagnostics Result Diagram: 04/02/17 0340 04/02/17 0340 X-Rays, CTs and MRIs (03/31/17) X-RAY CHEST ONE VIEW, PORTABLE IMPRESSION: Bibasilar changes consistent with pneumonias rather than failure. Dictated and approved by: Juan Peña M.D. on 03/31/2017 at 16:40 (03/31/17) CT BRAIN WITHOUT CONTRAST IMPRESSION: No acute intracranial abnormalities found. Atrophic changes are present. Dictated and approved by: Juan Peña M.D. on 03/31/2017 at 20:48 12-lead ECG ECG Interpretation: Atrial fibrillation. Rate 116 Left bundle branch block. 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 Admitted for further evaluation of altered mental status, change in consciousness, and seizure like activity. Acute focal complex seizures with intermittent status epilepticus. Present on admission. Active. -Patient admitted on 02/27/17 after a similar presentation. New onset seizure activity attributed to subacute right temporal lobe and left thalamic ischemic stroke noted on head CT. Per Neurology consult during last admission patient discharged on 1,000mg PO BID , [id number] QHS, and diazepam 10mg rectal gel PRN. However, levitiracetam apparently changed to 500mg PO BID per discharge summary () and [facility] MAR. Daughter reportedly correlates patient's altered mental status and seizure like episodes to recent addition of Risperidone for increased agitation and behaviors. Risperidone does not appear to be on his active med list, will need to confirm. -Witnessed possible focal complex seizures on admission and status epilepticus that lasted greater than 5minutes yesterday, resolved with Ativan 1mg. Minor episode overnight. -CT head as above. -Ativan 0.5 mg IV q15-30 mins PRN seizures -Levetiracetam increase to 1000mg IV BID. -Phenytoin 300mg QHS switched to Fosphenytoin IV. -Levetiracetam level pending and Phenytoin normal. -Will not consult Neurology at this time given patient's family desire for comfort care. Appreciate Palliative Care's input. -Seizure precautions, keep bed low, keep bed padding in place -NPO with D5 1/2 NS at 50mls/hr. Judicious hydration given severe CHF. Acute hypoxemic hypercarbic respiratory failure, POA, improved. - Patient presented with O2 of 85 at room air and had a pH of 7.14 with pCO2 of 111 on admission, which improved to pH 7.37 and pCO2 59 on Bipap. - Will continue with Bipap. - Daughter confirms that the patient does not want intubation and agrees to continue with Bipap until tomorrow. The family would like to take him off the Bipap tomorrow when his granddaughter gets here. If he can tolerate NC, he can be discharged to [facility] with Hospice consult. - Follow clinically. History of Subacute right temporal lobe and left thalamic ischemic stroke. Present on admission. Stable. -CT head during recent admission 02/27-03/03/17 showed a subacute stroke of the right temporal lobe and left thalamus; CT angio head/neck was unremarkable for other findings. -Patient has a history of Afib and anticoagulation apparently discontinued due to patient's high fall risk. At that time atorvastatin was increased to 80mg daily and continued on daily aspirin therapy per Neurology recommendations. -CT head this admission as above -Continue home dose atorvastatin and aspirin -Frequent neurologic checks -Diet NPO -Hold home medications of doxazosin, metoprolol, and diltiazem due to NPO. -Speech eval/swallow study and physical therapy when patient more alert. Chronic atrial fibrillation, rate controlled. Present on admission. Presumed stable. -Per chart review, anticoagulated on aspirin, 325mg and discharged on dual antiplatelet therapy with clopidogrel 75mg daily. Due to fall risk most likely not candidate for long-term anticoagulation. -D/C Telemetry per family's wishes. -Will hold diltiazem, Metoprolol, carvedilol, lisinopril, and doxazosin. HR and BP are currently stable. Monitor vital signs and will consider IV Metoprolol, Diltiazem, and Enalapril if hear rate or BP increases. -Continue digoxin IV. Suspected HCAP, POA, unlikely. - Patient was in the hospital in February 2017. - CXR shows Bibasilar changes consistent with pneumonias rather than failure. - However, both WBC and Procalcitonin are negative and patient does not have other signs of infection. - He received Vanco, Cefepime, and Levaquin on admission. No antibiotics and monitor clinically. Congestive heart failure, chronic. Present on admission. Presumed stable. -Systolic dysfunction with an EF of 20% on most recent echocardiogram (02/28/17) . Patient clinically does not appear to be in acute exacerbation. -Will hold carvedilol, lisinopril for hypotension and NPO status. Will continue digoxin Chronic COPD. Present on admission. Presumed stable. -Patient clinically does not appear to be in acute exacerbation. -Continue supplemental oxygen with goal SPO2 88-92% -DuoNeb nebs every 4H prn PRN: Acetaminophen-fever/headache/mild/moderate pain Antiemetics, as needed Bowel regimen, as needed. Disposition: Patient admitted under inpatient status with expected length of stay > 2 midnights for severity of present symptoms, complexities of treatment plan and risk for adverse event. He might pass in the hospital if we remove the Bipap. Tentative plan for tomorrow when his family gets here. Pain Evaluation: Adequate Pain Control GI Prophylaxis: Proton Pump Inhibitor VTE Prophylaxis: SCDs VTE Mechanical Devices: Intermittant Pneumatic CD Resuscitation Status: DNR/DNI:Do Not Resuscitate/Intubate Rasta Mukherjee DO Apr 02, 2017 15:11
--- NOTE | 2017-04-02 15:16 | NUR ---
spiritual care: routine brief introductory visit. pt sleeping, family at bedside, supportive. granddtr arriving tomorrow.
--- NOTE | 2017-04-02 17:36 | PCM.CONPAL ---
Date of Service Apr 02, 2017 Date of Hospital Admission: Mar 31, 2017 at 22:38 Palliative Care Recommendation Summary of palliative recommendations: -Symptom management (Pain/other) Altered mental status with evidence of recent CVA and subsequent seizure activity. Possible side effect from some of his antiseizure medications but also only partial control of his seizures. Moderately severe ischemic dilated cardiomyopathy-may well be playing a role in his pulmonary insufficiency Some component of CO2 narcosis. Based on his pH this appears to be chronic Goals of care reviewed in detail with his daughter. He only wants to proceed if he can have a degree of quality independence. He otherwise would be interested in comfort measures with the assistance of hospice and the back up caregiving of [facility]. -DPOA/Advanced Directives/POLST-DNR/DNI confirmed. Up until now limited intervention. Plan is to assess tomorrow after one more evening with BiPAP and see if he can proceed on his own. If not he is not to be put back on BiPAP and the plan would be discharge to [facility] with hospice backup. She has contacted [facility] for spiritual support. -Family/emotional support-timing of above partially to accommodate his granddaughter Cookie who will be here tomorrow His daughter Natividad Crawford could use bereavement support. She lost her son in 2010 and she identifies losing her father will also be difficult she does not identify much for extended support Problems: End of Life Preferences DNR/DNI Goals of Care See above Resuscitation Status Resuscitation Status: DNR/DNI:Do Not Resuscitate/Intubate Limited Interventions: BiPAP (only until tomorrow) POLST Updates/Changes Previous POLST?: Yes Artificially Admin Nutrition: No Artifical Nutrition by Tube POLST Discussed with: Health Care Agent ([facility]POA[facility]) . 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 Unable to obtain further history due to patient's mental status and history obtained via chart review. Patient presented to the emergency department on 02/27/17 with family for altered mental status and possible seizures. At that time the patient's daughter reported seizure like activity including: twitching and stiffening of his face and body for 7-10 days as well as several ground level falls. During that admission a subacute right temporal lobe and left thalamic ischemic stroke was noted on head CT. Neurology was consulted and the patient was started on Keppra for acute focal complex seizures. He was discharged to [facility] from [facility] on 03/03/17 on levetiracetam 1,000 MG PO BID, [id number] QHS and diazepam 10 mg rectal gel PRN for seizure. Levetiracetam appears to have been changed to 500mg BID per discharge summary on 03/03/17 and [facility] NOV. Of note, daughter reported recent addition of risperidone to patient's medications for increased agitation and behaviors. After which she reports a change in the patient's mental status and possible seizures. Palliative Care consult- see prior consult 02/08/17 Consulting provider- Dr. Mukherjee Reason: GOC/hospice review 86 yo with hx ischemic dilated cardiomyopathy and now CVA with intermittent/ recurrent seizure activity, increasing confusion and agitation. He was at his daughter's after his discharge at the end of January and was confused. He had a decub ulcer and within 1-2 days was in [facility] for more intensive rehab and wound care. He did well for a few weeks but then deteriorated again with confusion, agitation. He has known KATELYN and was noted to have significant CO2 retention with plan of BIPAP trial-which he hates. If that does not turn him around his daughter believes he would not want further intervention. He was adamant at discussion last admission that he did not want to be dependent in that he would not live with his daughter or in a prison. He also indicated complex family dynamics but also indicated that his daughter Natividad Crawford and her daughter Cookie where she is power of immigration attorney for healthcare and that he trusted their judgment. See prior note. He was treated with Risperdal at [facility] due to increasing agitation. This caused significant mental fogging although did calm him. He likes to walk and with the mental fogging he fell and sustained a contused buttocks. He had progressive decrease in mentation and was transferred for admission. Past Medical History Significant PMH Noted: Past Medical History Significant PMH Noted: ASCAD LBBB COPD Afib- at least for months- exact onset unclear. Severe dilated systolic cardiomyopathy with EF 15-20 Hx prostate CA s/p radical prostatectomy HLD appe HH repair Cspine fusion CVA with recurrent sz past month NKA Exsmoker, very distant hx ETOH with service awards/metals FMHX F of DM, CHF Social History Occupation: Retired Family Members Issues: Has a daughter who lives in [place] as well as his daughter here. They are half sisters. He has extended family in [place] Living Situation: Had been living alone, relying on his daughter for shopping until just recently. Past few months living at [facility] Spiritual Support Spiritual Support He identified himself as a very yarsanism person. He was raised Latter-Day but with coming to the [place] he found [facility] protest[facility] to be his community. His daughter plans on honoring his change in jain where the rest of the family maintains its Latter-Day orientation. He had identified intolerance of the Catholics based on what he saw as a corruption. Responsive Patient Symptoms Other Not able to identify review of systems in that he is barely arousable and on BiPAP Palliative Performance Scale PPS Ambulation: Reduced PPS Activity: Unable to do most activity PPS Self-Care: Occasional assistance necessary PPS Intake: Normal or reduced PPS Conscious Level: Full or drowsey, +/- confusion Allergy Allergies Reviewed: Yes Medications Current Medications: Current Medications Albuterol 2.5 mg Q2H PRN NEB; Start 03/31/17 at 21:35 Albuterol/ Ipratropium 3 ml Q4 NEB Last administered on 04/02/17 16:09; Admin Dose 3 ML; Start 04/01/17 at 00:30 Al Hydrox/Mg Hydrox/Simethicone 30 ml Q6H PRN PO; Start 03/31/17 at 21:35 Senna 17.2 mg BID PRN PO; Start 03/31/17 at 21:35 Polyethylene Glycol 17 gm DAILY PRN PO; Start 03/31/17 at 21:35 Lorazepam 0.5 mg Q15MIN PRN IVPUSH Last administered on 04/02/17 05:33; Admin Dose 0.5 MG; Start 03/31/17 at 23:35 Aspirin 325 mg DAILY PO; Start 04/01/17 at 08:30 Carvedilol 3.125 mg BIDWM PO; Start 04/01/17 at 08:00 Digoxin 0.125 mg DAILY PO; Start 04/01/17 at 08:30; Stop 04/01/17 at 13:25; Status DC Metoprolol Succinate 100 mg BID PO; Start 04/01/17 at 08:30 Phenytoin 300 mg HS PO; Start 04/01/17 at 21:00; Stop 04/01/17 at 21:40; Status DC Atorvastatin Calcium 20 mg 20 mg HS PO; Start 04/01/17 at 21:00 Levetriacetam 500 mg/Dextrose/Water 105 ml @ 420 mls/hr BID IV Last administered on 04/01/17 06:32; Admin Dose 420 MLS/HR; Start 04/01/17 at 05:41 ; Stop 04/01/17 at 08:05; Status DC Cefepime HCl 2000 mg/Dextrose/Water 100 ml @ 25 mls/hr Q8 IV Last administered on 04/01/17 08:41; Admin Dose 25 MLS/HR; Start 04/01/17 at 08:30; Stop at 11:09; Status DC Levofloxacin/ Dextrose 750 mg/ Premix 150 ml @ 100 mls/hr Q24H IV; Start at 20:30; Stop 04/01/17 at 20:30; Status DC Levetiracetam/ Premix 100 ml @ 400 mls/hr BID IV Last administered on 08:28; Admin Dose 400 MLS/HR; Start 04/01/17 at 08:30 Digoxin 0.125 mg 0.125 mg 12 IV Last administered on 04/02/17 12:12; Admin Dose 0.125 MG; Start 04/01/17 at 13:20 Dextrose/Sodium Chloride 1,000 ml @ 50 mls/hr Q20H IV Last administered on 04/02 10:52; Admin Dose 50 MLS/HR; Start 04/01/17 at 14:05 Metoprolol Tartrate 5 mg 5 mg Q5MIN PRN IVPUSH Last administered on 04/01/17 15:18; Admin Dose 5 MG; Start 04/01/17 at 14:05 Fosphenytoin Sodium/Sodium Chloride 52 ml @ 208 mls/hr Q8H IV Last administered on 04/02/17t 13:43; Admin Dose 208 MLS/HR; Start 04/01/17 at 21:45 Scheduled ([med plus 2.0]) 90 ML PO BID Aspirin (Aspirin) 325 Mg Tablet 325 MG PO DAILY Carvedilol (Carvedilol) 3.125 Mg Tablet 3.125 MG PO BIDWM Cholecalciferol (Vitamin D3) (Vitamin D3) 1,000 Unit Tab.chew 2,000 UNIT PO DAILY Clopidogrel (Clopidogrel) 75 Mg Tablet 75 MG PO DAILY Digoxin (Digoxin) 125 Mcg Tablet 125 MCG PO DAILY Diltiazem ER (Cardizem CD) 120 Mg Cap.er.24h 120 MG PO DAILY Doxazosin (Cardura) 1 Mg Tablet 1 MG PO HS Levetiracetam (Keppra) 500 Mg Tablet 500 MG PO BID Levofloxacin (Levaquin) 500 Mg Tablet 500 MG PO DAILY Lisinopril (Lisinopril) 5 Mg Tablet 2.5 MG PO DAILY Metoprolol Succinate ER (Metoprolol Succinate ER) 100 Mg Tab.er.24h 50 MG PO BID Mirtazapine (Mirtazapine) 15 Mg Tablet 15 MG PO HS Phenytoin Sodium Extended (Phenytoin Sodium Extended) 300 Mg Capsule 300 MG PO HS Risperidone (Risperdal) 0.5 Mg Tablet 0.5 MG PO TID Simvastatin (Simvastatin) 40 Mg Tablet 40 MG PO HS Zinc Oxide (Zinc Oxide) 57 Gm Oint...g. 1 APPLIC TP TID Scheduled PRN Acetaminophen (Acetaminophen) 325 Mg Tablet 650 MG PO Q4H PRN PRN For Pain Diazepam 10 mg Rectal Gel (Diastat Acudial) 10 Mg Kit 10 MG RECTAL ASDIRECTED PRN PRN For Seizure USE DIRECTED BY PHYSICIAN Ipratropium/Albuterol Sulfate (Iprat-Albut 0.5-3(2.5) mg/3 mL Inhalant Soln) 3 Ml Ampul.neb 3 ML IH Q4H PRN PRN For Shortness of Breath Magnesium Hydroxide (Milk of Magnesia) 400 Mg/5 Ml Oral.susp 30 ML PO DAILY PRN PRN For Constipation Polyethylene Glycol 3350 (Miralax) 17 Gm Powd.pack 17 GM PO DAILY PRN PRN For Constipation Objective Findings Exam Vital Sign - Last Date Time Temp Pulse Resp B/P Pulse Ox O2 Delivery O2 Flow Rate FiO2 04/02/17 17:13 Supplement Oxygen CPAP/BIPAP 04/02/17 16:09 94 20 100 28 04/02/17 13:25 111/60 04/02/17 02:55 36.8 04/01/17 01:34 2.00 Intake and Output 04/01/17 04/01/17 04/02/17 Cumulative From/Thru 15:00 23:00 07:00 03/31/17 15:54 - 04/02/17 06:15 Intake Total 1009 ml 938 ml 2683 ml Output Total 600 ml 800 ml 1750 ml Balance 409 ml 138 ml 933 ml Intake Oral 0 ml IV Total 1009 ml 938 ml 2683 ml Output Urine Total 600 ml 800 ml 1750 ml # Voids 0 # Bowel Movements 0 0 General: Minimally responsive, Other (mildly agitated trying to remove BIPAP mask) Heart: Dysrhythmia Present Lungs: Rhonchorus Extremities: Other (getting a manicure from family) Skin: Wounds/Lacerations (not viewed) Lab/Diagnostics Lab and Imaging results reviewed in detail in EMR. CXR- infiltrate vs CHF-improved aeration on repeat Patient/Family Conference Members Present Family Members Present daughter Natividad Crawford Medical Team Members Present? Felicia GARCIA PC Discussion/Goals of Care Discussion FAMILY UNDERSTANDING OF DISEASE: His daughter is very well versed in his medical issues. She understands severity of disease. She recognizes progressive decline with increasing debility decreasing mental acuity and multisystem issues.. There is conflict in the family-those who want more aggressive intervention but he specifically designated Claudia as power of immigration attorney and had instructed in last palliative care consult that she inform other family members of his requests. DISEASE PROGRESSION/EVIDENCE OF DECLINE: SYMPTOM BURDEN: GOALS: His goal was for independence. HOPES/WORRIES: FAMILY WISHES/VALUES: Do you want to be told truth about his illness, even if unpleasant? Yes and Claudia has been involved with all of his medical care since he landed in the [place] Does family want to know prognosis when it can be predicted, to better guide treatment decisions? Yes and based on progressive debility Claudia believes he would prefer not to have aggressive intervention. If he is not able to have independence he is interested in hospice Time spent Total time 60 minutes; >50% face to face with patient and/or family, providing counselling regarding plans and recommendations, and in care coordination with his/her medical teams. Including chart review discussion with team and discussion with family I also spent an additional [ ] minutes counseling for advanced care planning with the patient/the patients family/the surrogate decision maker. copies to: ZAINA CURRIE MD, Deborah A MD Apr 02, 2017 17:36
[2017-04-03] VITALS (15 sets, daily range): BP systolic 98–123; BP diastolic 52–81; PULSE 20–140; RESP 16–44; O2SAT 80–100
[2017-04-03] MEDS: Albuterol-Ipratropium 3 mL Inhalation Solution NEB SCH ×6 (00:14→20:52)
--- NOTE | 2017-04-03 06:08 | ABG ---
DateTimeAnalyzed 06:01:00 -_ pH ____7.359 - 7.350 7.450 pCO2 ___64.4__ -mmHg 35.0 45.0 pO2 ___87.3__ -mmHg 69.0 116 HCO3- ___35.4__ -mmol/L 22.0 26.0 ABE ____8.6__ -mmol/L -2.0 2.0 tHb ___10.8__ -g/dL O2Hb ___94.0__ -% COHb ____1.5__ -% MetHb ____0.9__ -% sO2 ___96.3__ -% 25.0 FIO2 ___28.0__ -% Drawn By MM - Date/Time Notified____ 06:08:00 -_ Spontaneous_RR ___20.0__ -b/min Oxygen Device 1 __OXYMASK - Notified By MM - Notified Whom __DR SONG - B 758 -mmHg tO2 ___14.4__ -Vol% Wojciech test _Positive -
[2017-04-03] MEDS: Fosphenytoin Inj 100 mgPE in 0.9% Sodium Chloride 50 ML IV SCH ×2 (06:33→15:02)
[2017-04-03] MEDS: Dextrose 5% 0.45% NaCl 1,000 ML IV SCH (06:46)
[2017-04-03] MEDS: levETIRAcetam Inj 1,000 MG in IV Premix 1 EACH IV SCH ×2 (08:27→20:42)
[2017-04-03] MEDS: MeTOProlol XL 50 mg ER24 Tablet PO SCH ×2 (08:30→20:30)
--- NOTE | 2017-04-03 09:35 | NUR ---
Called and left a message for Jessica informing her that the 1 o'clock appointment is acceptable, per [employer]. updated [employer]
--- NOTE | 2017-04-03 10:10 | NUR ---
MERLIN signed by daughter.
[2017-04-03] MEDS ORDERED: MeTOProlol 1 mg/mL 5 mL Inj IVPUSH ONE (10:35)
--- NOTE | 2017-04-03 10:45 | NUR ---
Palliative care note D/A: Msg received from deshawn Leach on 04/02/17, to indicate that she will arrange for hospice info visit. Dr. Jones is aware. Dtr from [place] not coming to visit, family is awaiting grand dtr visit from [place] today. Pt off CPAP now and able to make his wishes known. Will transition to comfort care. May here in acute care or may dc with hospice services. P: Palliative care to follow as needed. Chantel OLGUIN CCM Addendum: 04/03/17 at 1524 by ROBERTA BAILEY PC note amendment Msg received from Idalia myers [facility] that pt signed onto Hospice today. Chantel OLGUIN CCM
[2017-04-03] MEDS: Digoxin 0.25 mg/mL 2 mL Inj IV SCH (11:42)
--- NOTE | 2017-04-03 12:45 | PCM.PNMED ---
Subjective Date of Service Apr 03, 2017 Subjective pt successfully weaned off from BiPAP, this AM, pt remarkably more lucid, communicative, AAOx1, likely at baseline, denied HOFFMAN, dizziness, pt had brief episode of partial seizure, mildly confused. dilantin level remained in tx range, Keppra iv, dilantin iv running Pt agreed on hospice, info visit today All questions answered with the daughter pt became tachy while off on BB, ordered metoprolol iv in the meantime, awaits s/s eval before resuming oral meds, diet Exam Vital Signs Vital Sign - Last Date Time Temp Pulse Resp B/P Pulse Ox O2 Delivery O2 Flow Rate FiO2 04/03/17 11:42 122 04/03/17 11:36 123/69 90 Room Air 04/03/17 08:30 20 2.00 04/03/17 08:15 36.6 04/02/17 20:12 28 Intake and Output 04/02/17 04/02/17 04/03/17 Cumulative From/Thru 15:00 23:00 07:00 03/31/17 15:54 - 04/03/17 06:37 Intake Total 802 ml 903 ml 4388 ml Output Total 1300 ml 750 ml 3800 ml Balance -498 ml 153 ml 588 ml Intake Oral 0 ml 0 ml IV Total 802 ml 903 ml 4388 ml Output Urine Total 1300 ml 750 ml 3800 ml # Voids 0 # Bowel Movements 0 0 Exam Elderly male, NAD, comfortably laying down on the bed, AAOx1 no JVD, MMM, no LAD RRR, nl s1, s2 no mrg rhonchi bilaterally, no wheezing S,ND,NT,normoactive BS+ warm, no edema, pulses 2/2 IVs and Medications Medications Reviewed: Medications were reviewed in detail Lab and Diagnostics Result Diagram: 04/02/17 0340 04/02/17 0340 X-Rays, CTs and MRIs (03/31/17) X-RAY CHEST ONE VIEW, PORTABLE IMPRESSION: Bibasilar changes consistent with pneumonias rather than failure. Dictated and approved by: Juan Peña M.D. on 03/31/2017 at 16:40 (03/31/17) CT BRAIN WITHOUT CONTRAST IMPRESSION: No acute intracranial abnormalities found. Atrophic changes are present. Dictated and approved by: Juan Peña M.D. on 03/31/2017 at 20:48 12-lead ECG ECG Interpretation: Atrial fibrillation. Rate 116 Left bundle branch block. 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 Admitted for further evaluation of altered mental status, change in consciousness, and seizure like activity. acute, active Acute focal complex seizures with intermittent status epilepticus. Present on admission. Patient admitted on 02/27/17 after a similar presentation. New onset seizure activity attributed to subacute right temporal lobe and left thalamic ischemic stroke noted on head CT. Per Neurology consult during last admission patient discharged on 1,000mg PO BID, [id number] QHS, and diazepam 10mg rectal gel PRN. However, levitiracetam apparently changed to 500mg PO BID per discharge summary () and [facility] MAR. Daughter reportedly correlates patient's altered mental status and seizure like episodes to recent addition of Risperidone for increased agitation and behaviors. On admission, Dilantin level was far below therapeutic range. Patient was loaded with keppra iv and dilantin 1g iv, required multiple ativan ivp to break seizures, however, pt continued to have seizures, consistent status epilepticus, pt was on BiPAP throughout this course. Neurology was not consulted given patient's family desire for comfort care as seizures continued. 04/03, pt remarkably better, off on BiPAP. -Seizures finally under control with current tx, will switch to oral regimen once pt is cleared, [id number] bid, phenytoin 300mg qhs upon d/c, likely to hold off on Risperidone for now. -Ativan 0.5 mg IV q15-30 mins PRN seizures -continue Levetiracetam 1000mg IV BID, Fosphenytoin iv 100mg q8h for now -consider consult neuro prior to d/c optimizing AED dosages -Seizure precautions, keep bed low, keep bed padding in place -keep NPO for now, awaits s/s eval today, continue D5 1/2 NS at 50mls/hr. Judicious hydration given severe CHF. Chronic atrial fibrillation, rate uncontrolled as PO home meds being off, Per chart review, anticoagulated on aspirin, 325mg and discharged on dual antiplatelet therapy with clopidogrel 75mg daily. Due to fall risk most likely not candidate for long-term anticoagulation. -pt developed RVR episode this AM, will try metoprolol ivp until oral meds resumed -Telemetry was d/alisa per family's wishes. -held diltiazem, Metoprolol, carvedilol, lisinopril, and doxazosin -Continue digoxin IV. chronic, stable, resolved Acute hypercarbic respiratory failure, POA, ventilatory failure in the setting of status epilepticus, pt was put on since admission til 04/03 AM, successfully weaned off. 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 Present on admission. Stable. -CT head during recent admission 02/27-03/03/17 showed a subacute stroke of the right temporal lobe and left thalamus; CT angio head/neck was unremarkable for other findings. -Patient has a history of Afib and anticoagulation apparently discontinued due to patient's high fall risk. At that time atorvastatin was increased to 80mg daily and continued on daily aspirin therapy per Neurology recommendations. -CT head this admission as above -Continue home dose atorvastatin and aspirin -Frequent neurologic checks -Diet NPO -Hold home medications of doxazosin, metoprolol, and diltiazem due to NPO. -Speech eval/swallow study and physical therapy when patient more alert. Suspected HCAP, POA, unlikely. - Patient was in the hospital in February 2017. - CXR shows Bibasilar changes consistent with pneumonias rather than failure. - However, both WBC and Procalcitonin are negative and patient does not have other signs of infection. - He received Vanco, Cefepime, and Levaquin on admission. No antibiotics and monitor clinically. Congestive heart failure, chronic. Present on admission. Presumed stable. -Systolic dysfunction with an EF of 20% on most recent echocardiogram (02/28/17) . Patient clinically does not appear to be in acute exacerbation. -Will hold carvedilol, lisinopril for hypotension and NPO status. Will continue digoxin Chronic COPD. Present on admission. Presumed stable. -Patient clinically does not appear to be in acute exacerbation. -Continue supplemental oxygen with goal SPO2 88-92% -DuoNeb nebs every 4H prn PRN: Acetaminophen-fever/headache/mild/moderate pain Antiemetics, as needed Bowel regimen, as needed. Disposition: based on Hospice info visit today, d/c to home with hospice vs back to [facility] tomorrow GI Prophylaxis: Proton Pump Inhibitor VTE Prophylaxis: SCDs VTE Mechanical Devices: Intermittant Pneumatic CD Resuscitation Status: DNR/DNI:Do Not Resuscitate/Intubate Limited Interventions: BiPAP (only until tomorrow) Time spent 35min Naun Sin MD Apr 03, 2017 12:45
--- NOTE | 2017-04-03 15:11 | NUR ---
Transfer off unit Patient alert and oriented to self only. Denies pain/discomfort. Heart rate in the 120s-200s but otherwise VSS. Hospice to visit patient this afternoon. Report given to WALKER Cristina and pt transferred to room 3013 via bed with all personal belongings. Addendum: 04/03/17 at 1834 by RYAN WHITE RN Arrived to room with family at bedside. Sweeney in place, IV infusing, RA. Young alarm placed. Confusion present and resisting following some directions, family usually able to refocus behavior.
--- NOTE | 2017-04-03 15:24 | NUR ---
VEHICLE WASHER consult received. Pt answered basic questions appropriately and declined evaluation repeatedly. Diet at last d/c was for puree/nectar with crushed meds, and current baseline diet is unknown. Discussed with RN. No diet order is entered at this time. VEHICLE WASHER will follow and attempt evaluation tomorrow.
--- NOTE | 2017-04-03 16:21 | NUR ---
Social Work Note: Continued D/C Planning/Multidisciplinary Rounds Data& Assessment: Pt was discussed in AM rounds, pt is not stable for discharge at this time. Per MD order, SW met with pt family bedside to arrange hospice informational visit. After speaking with pt family, request for an informational visit was placed with [facility] for this afternoon. Pt family signed consents and they wish for pt to discharge back to [facility], SW confirmed with [place] from [facility] they would be able to accept pt back when medically ready. SW to continue to follow. Plan: Anticipated discharge back to [facility] as a LTC pt with [facility] to open services. Opening date unknown at this time. SW to follow up with Hospice regarding opening date and confirm discharge plan with pt family. SW to continue to follow. ANDI Sandhu
--- NOTE | 2017-04-03 18:14 | PCM.PALLBR ---
Palliative Care Recommendation Summary of palliative recommendations: 04/03/17- Delirium with probable CO2 narcosis-goal at this time is for comfort. Daughter met with hospice and arrangements made for him to have hospice backup at [facility]. Seizures- continue despite keppra and dilantin but not sustained. Will need med coverage with diazepam supp for coverage at [facility].Hospice will arrange this so will need to be determined if needs coverage until they admit him. Will review POLST prior to discharge. -Symptom management (Pain/other) Altered mental status with evidence of recent CVA and subsequent seizure activity. Possible side effect from some of his antiseizure medications but also only partial control of his seizures. Moderately severe ischemic dilated cardiomyopathy-may well be playing a role in his pulmonary insufficiency Some component of CO2 narcosis. Based on his pH this appears to be chronic Goals of care reviewed in detail with his daughter. He only wants to proceed if he can have a degree of quality independence. He otherwise would be interested in comfort measures with the assistance of hospice and the back up caregiving of [facility]. -DPOA/Advanced Directives/POLST-DNR/DNI confirmed. Up until now limited intervention. Plan is to assess tomorrow after one more evening with BiPAP and see if he can proceed on his own. If not he is not to be put back on BiPAP and the plan would be discharge to [facility] with hospice backup. She has contacted Antonia Swanson for spiritual support. -Family/emotional support-timing of above partially to accommodate his granddaughter Cookie who will be here tomorrow His daughter Natividad Crawford could use bereavement support. She lost her son in 2010 and she identifies losing her father will also be difficult she does not identify much for extended support Problems: End of Life Preferences DNR/DNI Goals of Care See above Resuscitation Status Resuscitation Status: DNR/DNI:Do Not Resuscitate/Intubate Limited Interventions: BiPAP (only until tomorrow) POLST Updates/Changes Previous POLST?: Yes Artificially Admin Nutrition: No Artifical Nutrition by Tube POLST Discussed with: Health Care Agent ([facility]) . Advanced Care Planning Address: Comfort care Total time 30 minutes; >50% face to face with patient and/or family, providing counselling regarding plans and recommendations, and in care coordination with his/her medical teams. I also spent an additional [ ] minutes counseling for advanced care planning with the patient/the patients family/the surrogate decision maker. Palliative Brief Note Date of Service Apr 03, 2017 . 86 yo seen with family at bedside and discussion with daughter Natividad Crawford Now off BIPAP and resting, can make needs known and speak clearly but definitely confused Does not complain of pain or SOB O: CN= HRR but can be tachy lungs grossly clear constant squirming of toes L>R, no edema Geena Jones MD Apr 03, 2017 18:14
[2017-04-03] MEDS ORDERED: Albuterol-Ipratropium 3 mL Inhalation Solution NEB PRN (21:12)
[2017-04-03] MEDS: MeTOProlol 1 mg/mL 5 mL Inj IVPUSH SCH (23:26)
[2017-04-04] VITALS (8 sets, daily range): BP systolic 124–151; BP diastolic 63–83; PULSE 74–111; RESP 26–44; O2SAT 87–93
[2017-04-04] MEDS: Fosphenytoin Inj 100 mgPE in 0.9% Sodium Chloride 50 ML IV SCH ×4 (00:24→22:40)
[2017-04-04] MEDS: Dextrose 5% 0.45% NaCl 1,000 ML IV SCH ×2 (02:14→22:40)
[2017-04-04] MEDS: MeTOProlol 1 mg/mL 5 mL Inj IVPUSH SCH ×2 (05:17→08:41)
[2017-04-04] MEDS: MeTOProlol XL 50 mg ER24 Tablet PO SCH ×2 (07:50→20:30)
[2017-04-04] MEDS: levETIRAcetam Inj 1,000 MG in IV Premix 1 EACH IV SCH ×2 (07:55→20:13)
--- NOTE | 2017-04-04 08:57 | NUR ---
HR elevated pt HR has been in the low 100's 110's this am. %mg IV metoprolol given.
[2017-04-04 09:09] LABS: BASOPHILS % (AUTO) 0.3 % (0-3); EOSINOPHILS % (AUTO) 0.5 % (0-5); MONOCYTES % (AUTO) 8.1 % (4-12); Mean Corpuscular Hemoglobin 29.9 pg (27.0-35.0); Mean Corpuscular Volume 93.7 fL (81-100); NEUTROPHILS % (AUTO) 82.4 % (40-74); Platelet Count 182 bil/L (150-400)
--- NOTE | 2017-04-04 10:41 | NUR ---
Spoke with Tiera and she is reviewing patient and wants to make sure patient has enough to make him comfortable when he transfers. She is also wondering about when hospice can open. Updated VACCINE CUSTOMER REPRESENTATIVE
--- NOTE | 2017-04-04 10:53 | NUR ---
Discussed case with RN. RN reported that family had stated that no diet change was requested. BOX BLANK MACHINE FEEDER will d/c. Please reorder if needed.
--- NOTE | 2017-04-04 12:48 | NUR ---
Palliative care note D/A: Pt has signed on to [facility] and agency can open him for services on Sunday04/09/17. Pt will be going to [facility] and can return there when medically ready and prior to hospice open. Pt currently still receiving medical care that needs to be given in acute care, not ready for dc for a least a couple of days. Dr. Walden has discussed above with Radha ESCAMILLA, deshawn. and she is aware that pt does not need to dc on same day as hospice open. P: Palliative care to follow. Chantel Montelongo WRAPPER HANDS SPRAYER, CCM
[2017-04-04] MEDS: Digoxin 0.25 mg/mL 2 mL Inj IV SCH (14:04)
--- NOTE | 2017-04-04 14:47 | PCM.PALLBR ---
Palliative Care Recommendation Summary of palliative recommendations: Symptom management: Delirium, multifactorial, with probable component of CO2 narcosis- goal at this time is for comfort. Talked with his daughter about this and she indicated that his comfort as her primary goal. I have ordered MS 2-4 mg IV every hour prn for dyspnea or other distress Daughter met with hospice and arrangements made for him to have hospice backup at [facility]- hospice plans on opening his case on April 09 . Seizures- hospitalist team will transition from IV to oral medications in the coming days. Will plan on discharging with prescription for diazepam gel, 10-20 mg HI Q 1 hr for rectal administration as backup coverage for breakthrough seizures at [facility]. Will review/update POLST prior to discharge- today I talked with his daughter and tried to give her some sort of timeline as to our expectations. -DPOA/Advanced Directives/POLST-DNR/DNI confirmed. Transitioning to comfort/ hospice care at time of return to [facility] -Family/emotional support-timing of above partially to accommodate his granddaughter Cookie who will be here starting 04/04. His daughter Natividad Crawford could use bereavement support and this will be provided through hospice. She lost her son in 2010 and she identifies losing her father will also be difficult. She does not identify much for extended support from other family, etc. Additional diagnoses with primary management by medical/hospitalist team include : -Seizures finally under control with current tx, will switch to oral regimen once pt is cleared, [id number] bid, phenytoin 300mg qhs upon d/c, likely to hold off on Risperidone for now. 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 Present on admission. Stable. Suspected HCAP, POA, unlikely. Congestive heart failure, chronic. Present on admission. Presumed stable. Chronic COPD. Present on admission. Presumed stable. Problems: End of Life Preferences DNR/DNI/ progressing to hospice/comfort care on return to [facility] Goals of Care See above Disposition As above Resuscitation Status Resuscitation Status: DNR/DNI:Do Not Resuscitate/Intubate POLST Updates/Changes Previous POLST?: Yes POLST Last Review Date: Apr 04, 2017 Artificially Admin Nutrition: No Artifical Nutrition by Tube POLST Discussed with: Health Care Agent ([facility]) . Advanced Care Planning Address: Comfort care Pain: Mild Symptom management: Dyspnea, Pain Total time 40 minutes; >50% face to face with patient and family, providing counselling regarding plans and recommendations, and in care coordination with his medical teams. Of the above total time, 15 minutes counseling for advanced care planning with the patient's daughter/POA Palliative Brief Note Date of Service Apr 04, 2017 . Returned to reevaluate patient. Prior to visiting, reviewed his updated notes in the EMR in detail and received signout from Dr. Jones. Spoke with his bedside nurse. I also spoke with his daughter Natividad Crawford at length at bedside. On my arrival, patient was awake, lying in bed breathing rapidly and shallowly. Denied any significant distress though he appeared to be experiencing some dyspnea. Speech is somewhat garbled and unclear, but with repeated questioning about the only thing he was requesting was more food. Talked with Natividad Crawford about bringing in some of his favorites from home, about advancing diet in light of his transition to hospice care. We also spoke at length about anticipated course of care. I called hospice and they are anticipating opening his case on Sunday, April 09. I also spoke with Dr. Hagan of the hospitalist service and reviewed this information with him, talked about patient's transition from IV to oral seizure medications, etc. On exam, elderly frail gentleman lying in bed with vented oxygen mask in place. Respirations are rapid and shallow. Head and neck exam without acute focal findings. Lungs with some decreased breath sounds dependent but no rales or wheezes. Heart sounds regular, abdomen scaphoid, soft and nontender. Ankles with just a trace of edema. No cyanosis. Lab and imaging studies reviewed in detail. Corwin Walden MD Apr 04, 2017 14:47
--- NOTE | 2017-04-04 17:14 | NUR ---
Social Work Note: Received verbal referral from in AM rounds requesting that CAPTAIN/CHECK AIRMAN check on whether or not pt. can transfer to [facility] today with comfort care. Placed call to Virginia at [facility] and she reports that they cannot accept pt. until his pain is better controlled. Placed call to Dr. Walden/Palliative and he reports that he is currently working to stabilize medications. It anticipates that this will take 24-48hrs. Spoke with Kate at hospice and she confirms that hospice visit scheduled for 04-09 at [facility] if needed. P: Transfer to [facility] when pain/comfort controlled. ANDI Sanon
--- NOTE | 2017-04-04 18:51 | PCM.PNMED ---
Subjective Date of Service Apr 04, 2017 Subjective Patient is still having some labored breathing, the family feel he may be a little little bit more comfortable than previous days. No seizure activity and past 24 hours. No other acute changes. Exam Vital Signs Vital Sign - Last Date Time Temp Pulse Resp B/P Pulse Ox O2 Delivery O2 Flow Rate FiO2 04/04/17 16:48 36.8 108 42 124/72 92 Nasal Cannula 1.50 04/02/17 20:12 28 Intake and Output 04/03/17 04/03/17 04/04/17 Cumulative From/Thru 15:00 23:00 07:00 03/31/17 15:54 - 04/04/17 06:10 Intake Total 890 ml 0 ml 5278 ml Output Total 350 ml 125 ml 4275 ml Balance 540 ml -125 ml 1003 ml Intake Oral 0 ml 0 ml IV Total 890 ml 5278 ml Output Urine Total 350 ml 125 ml 4275 ml # Voids 0 # Bowel Movements 3 3 General: Moderate Distress, Other (patient appears alert but minimally responsive with eye and had motion only, nonverbal. Breathing is labored with mouth partly open. ) Mouth: Mucous Membranes Dry Chest & Lungs: Other (coarse breath sounds diffusely) Abdomen: Non-tender, Non-distended Extremities: No cyanosis/clubbing/edma bilat Neurological: Other (nonfocal examination the patient has limited level of awareness. No seizure activity is demonstrated) IVs and Medications Medications Reviewed: Medications were reviewed in detail Lab and Diagnostics Result Diagram: 04/04/17 0850 04/04/17 0850 X-Rays, CTs and MRIs (03/31/17) X-RAY CHEST ONE VIEW, PORTABLE IMPRESSION: Bibasilar changes consistent with pneumonias rather than failure. Dictated and approved by: Juan Peña M.D. on 03/31/2017 at 16:40 (03/31/17) CT BRAIN WITHOUT CONTRAST IMPRESSION: No acute intracranial abnormalities found. Atrophic changes are present. Dictated and approved by: Juan Peña M.D. on 03/31/2017 at 20:48 12-lead ECG ECG Interpretation: Atrial fibrillation. Rate 116 Left bundle branch block. 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 Admitted for further evaluation of altered mental status, change in consciousness, and seizure like activity. acute, active Acute focal complex seizures with intermittent status epilepticus. Present on admission. Patient admitted on 02/27/17 after a similar presentation. New onset seizure activity attributed to subacute right temporal lobe and left thalamic ischemic stroke noted on head CT. Per Neurology consult during last admission patient discharged on 1,000mg PO BID, [id number] QHS, and diazepam 10mg rectal gel PRN. However, levitiracetam apparently changed to 500mg PO BID per discharge summary () and [facility] MAR. Daughter reportedly correlates patient's altered mental status and seizure like episodes to recent addition of Risperidone for increased agitation and behaviors. On admission, Dilantin level was far below therapeutic range. Patient was loaded with keppra iv and dilantin 1g iv, required multiple ativan ivp to break seizures, however, pt continued to have seizures, consistent status epilepticus, pt was on BiPAP throughout this course. Neurology was not consulted given patient's family desire for comfort care as seizures continued. 04/03, pt remarkably better, off on BiPAP. -Seizures finally under control with current tx, will switch to oral regimen once pt is cleared, [id number] bid, phenytoin 300mg qhs upon d/c, likely to hold off on Risperidone for now. -Ativan 0.5 mg IV q15-30 mins PRN seizures -continue Levetiracetam 1000mg IV BID, Fosphenytoin iv 100mg q8h for now -consider consult neuro prior to d/c optimizing AED dosages -Seizure precautions, keep bed low, keep bed padding in place -keep NPO for now, awaits s/s eval with improved mentation, will continue gentle hydration in the setting of severe congestive heart failure. Chronic atrial fibrillation, rate uncontrolled as PO home meds being off, Per chart review, anticoagulated on aspirin, 325mg and discharged on dual antiplatelet therapy with clopidogrel 75mg daily. Due to fall risk most likely not candidate for long-term anticoagulation. -pt developed RVR episode this AM, will try metoprolol ivp until oral meds resumed -Telemetry was d/alisa per family's wishes. -held diltiazem, Metoprolol, carvedilol, lisinopril, and doxazosin -Continue digoxin IV. chronic, stable, resolved Acute hypercarbic respiratory failure, POA, ventilatory failure in the setting of status epilepticus, pt was put on since admission til 04/03 AM, successfully weaned off. 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 Present on admission. Stable. -CT head during recent admission 02/27-03/03/17 showed a subacute stroke of the right temporal lobe and left thalamus; CT angio head/neck was unremarkable for other findings. -Patient has a history of Afib and anticoagulation apparently discontinued due to patient's high fall risk. At that time atorvastatin was increased to 80mg daily and continued on daily aspirin therapy per Neurology recommendations. -CT head this admission as above -Continue home dose atorvastatin and aspirin -Frequent neurologic checks -Diet NPO -Hold home medications of doxazosin, metoprolol, and diltiazem due to NPO. -Speech eval/swallow study and physical therapy when patient more alert. Suspected HCAP, POA, unlikely. - Patient was in the hospital in February 2017. - CXR shows Bibasilar changes consistent with pneumonias rather than failure. - However, both WBC and Procalcitonin are negative and patient does not have other signs of infection. - He received Vanco, Cefepime, and Levaquin on admission. No antibiotics and monitor clinically. Congestive heart failure, chronic. Present on admission. Presumed stable. -Systolic dysfunction with an EF of 20% on most recent echocardiogram (02/28/17) . Patient clinically does not appear to be in acute exacerbation. -Will hold carvedilol, lisinopril for hypotension and NPO status. Will continue digoxin Chronic COPD. Present on admission. Presumed stable. -Patient clinically does not appear to be in acute exacerbation. -Continue supplemental oxygen with goal SPO2 88-92% -DuoNeb nebs every 4H prn PRN: Acetaminophen-fever/headache/mild/moderate pain Antiemetics, as needed Bowel regimen, as needed. Disposition: Plan for discharge home and hospice care of her this will not be able to take place until Sunday, will continue to manage medically both some degree of caution until that time. Heroic measures would not be considered, patient remains DNR/DNI should medical condition deteriorate to that degree. Pain Evaluation: Adequate Pain Control GI Prophylaxis: Proton Pump Inhibitor VTE Prophylaxis: SCDs VTE Mechanical Devices: Venous Foot Pump Resuscitation Status: DNR/DNI:Do Not Resuscitate/Intubate Time spent 30 minutes Abdirahman Ram DO Apr 04, 2017 18:51
[2017-04-04] MEDS ORDERED: MeTOProlol 1 mg/mL 5 mL Inj IVPUSH ONE ×2 (20:40→23:35)
--- NOTE | 2017-04-04 21:26 | NUR ---
Seizure activity and tachycardia according to family pt started having seizure activity around 5pm. RN assessed pt at around 2030 and pt twitching and head bobbing which is how his seizure activity looked like prior. Ativan administered x1 and effective so far. Also gave keppra scheduled IV. HR sustained in low teens per stethoscope listening and per tele. Pt restless and breathing fast. notified and one time dose metoprolol ordered. HR now 75 as per rn telemetry. Pt appears much more comfortable. Addendum: 04/04/17 at 2131 by LAUREN MANN RN twitching and head bobbing lasted upto 1 minute but multiple times in a 10 minute assessment period.
[2017-04-05] VITALS (8 sets, daily range): BP systolic 92–113; BP diastolic 46–66; PULSE 83–114; RESP 44–55; O2SAT 90–93
[2017-04-05] MEDS ORDERED: MeTOProlol 1 mg/mL 5 mL Inj IVPUSH PRN (02:50)
--- NOTE | 2017-04-05 06:02 | NUR ---
HR sustaining in 120s several times during shift. Got IV metoprolol x2 and effective but only for couple of hours and HR slowly climbs into 100s and then 120s. MD notified. RR sustaining in the 50s and pt is mouth breathing, o2 sats between 88-92%. BP trending down with most recent reading 117/56.
[2017-04-05] MEDS: Fosphenytoin Inj 100 mgPE in 0.9% Sodium Chloride 50 ML IV SCH ×3 (06:10→23:07)
--- NOTE | 2017-04-05 08:08 | PCM.PNMED ---
Subjective Date of Service Apr 05, 2017 Subjective Concern for seizure like activity last night, pt demonstrated mild tremor and upward gaze, however this resolved. He has since been very sedate, but no observable discomfort/pain. No acute changes in mentation. Was more alert for a short period of time yesterday afternoon. Exam Vital Signs Vital Sign - Last Date Time Temp Pulse Resp B/P Pulse Ox O2 Delivery O2 Flow Rate FiO2 04/05/17 04:59 114 04/05/17 04:58 36.7 55 113/56 93 OxyMask 1.50 04/02/17 20:12 28 Intake and Output 04/04/17 04/04/17 04/05/17 Cumulative From/Thru 15:00 23:00 07:00 03/31/17 15:54 - 04/05/17 05:18 Intake Total 1690 ml 0 ml 6968 ml Output Total 100 ml 100 ml 4475 ml Balance 1590 ml -100 ml 2493 ml Intake Oral 472 ml 0 ml 472 ml IV Total 1218 ml 6496 ml Output Urine Total 100 ml 100 ml 4475 ml # Voids 0 # Bowel Movements 0 0 3 Exam General: mild Distress, Patient ais not alert, not responsive to verbal stim, nonverbal. Breathing is labored no evidence cyanosis. Mouth: Mucous Membranes Dry Chest & Lungs: Coarse breath sounds diffusely) Abdomen: Non-tender, Non-distended Extremities: No cyanosis/clubbing/edema bilat. (+) puffiness/third spacing of hands noted. Neurological: Nonfocal examination the patient has limited level of awareness. No seizure activity is demonstrated during my examination IVs and Medications Medications Reviewed: Medications were reviewed in detail Lab and Diagnostics Result Diagram: 04/04/17 0850 04/04/17 0850 X-Rays, CTs and MRIs (03/31/17) X-RAY CHEST ONE VIEW, PORTABLE IMPRESSION: Bibasilar changes consistent with pneumonias rather than failure. Dictated and approved by: Juan Peña M.D. on 03/31/2017 at 16:40 (03/31/17) CT BRAIN WITHOUT CONTRAST IMPRESSION: No acute intracranial abnormalities found. Atrophic changes are present. Dictated and approved by: Juan Peña M.D. on 03/31/2017 at 20:48 12-lead ECG ECG Interpretation: Atrial fibrillation. Rate 116 Left bundle branch block. 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 Admitted for further evaluation of altered mental status, change in consciousness, and seizure like activity. Patient comfort remains of paramount importance. Mentation impairment may be multifactorial but i believe poor breathing effort oand C02 retention likely playing largest role. Continue supportive care with some interventions considered which may give pt a chance of partial recovery so long as they do not cause significant distress. The this end, CPAP/BiPAP NOT considered due to previous response of patient, gentle hydration however will be utilized while pt NPO. acute, active Acute focal complex seizures with intermittent status epilepticus. Present on admission. Patient admitted on 02/27/17 after a similar presentation. New onset seizure activity attributed to subacute right temporal lobe and left thalamic ischemic stroke noted on head CT. Per Neurology consult during last admission patient discharged on 1,000mg PO BID, [id number] QHS, and diazepam 10mg rectal gel PRN. However, levitiracetam apparently changed to 500mg PO BID per discharge summary () and [facility] MAR. Daughter reportedly correlates patient's altered mental status and seizure like episodes to recent addition of Risperidone for increased agitation and behaviors. On admission, Dilantin level was far below therapeutic range. Patient was loaded with keppra iv and dilantin 1g iv, required multiple ativan ivp to break seizures, however, pt continued to have seizures, consistent status epilepticus, pt was on BiPAP throughout this course. Neurology was not consulted given patient's family desire for comfort care as seizures continued. 04/03, pt remarkably better, off on BiPAP. -Seizures finally under control with current tx, will switch to oral regimen once pt is cleared, [id number] bid, phenytoin 300mg qhs upon d/c, likely to hold off on Risperidone for now. -Ativan 0.5 mg IV q15-30 mins PRN seizures -continue Levetiracetam 1000mg IV BID, Fosphenytoin iv 100mg q8h for now -consider consult neuro prior to d/c optimizing AED dosages -Seizure precautions, keep bed low, keep bed padding in place -keep NPO for now, awaits s/s eval with improved mentation, will continue gentle hydration in the setting of severe congestive heart failure. Hypoxic repsiratory failure - supplemental O2 without consideration of more aggresive forms over oxygenation due to discomfort. - Previously intubated but this will not be reconsider either, persistent seizure may also be playing role in pt's poor repsiratory efforts Chronic atrial fibrillation, rate uncontrolled as PO home meds being off, Per chart review, anticoagulated on aspirin, 325mg and discharged on dual antiplatelet therapy with clopidogrel 75mg daily. Due to fall risk most likely not candidate for long-term anticoagulation. -pt developed RVR episode this AM, will try metoprolol ivp until oral meds resumed -Telemetry was d/alisa per family's wishes. -held diltiazem, Metoprolol, carvedilol, lisinopril, and doxazosin -Continue digoxin IV. chronic, stable, resolved History of Subacute right temporal lobe and left thalamic ischemic stroke. Present on admission. Stable. -CT head during recent admission 02/27-03/03/17 showed a subacute stroke of the right temporal lobe and left thalamus; CT angio head/neck was unremarkable for other findings. -Patient has a history of Afib and anticoagulation apparently discontinued due to patient's high fall risk. At that time atorvastatin was increased to 80mg daily and continued on daily aspirin therapy per Neurology recommendations. -CT head this admission as above -Continue home dose atorvastatin and aspirin -Frequent neurologic checks -Diet NPO -Hold home medications of doxazosin, metoprolol, and diltiazem due to NPO. -Speech eval/swallow study and physical therapy when patient more alert. Suspected HCAP, POA, unlikely. - Patient was in the hospital in February 2017. - CXR shows Bibasilar changes consistent with pneumonias rather than failure. - However, both WBC and Procalcitonin are negative and patient does not have other signs of infection. - He received Vanco, Cefepime, and Levaquin on admission. No antibiotics and monitor clinically. Congestive heart failure, chronic. Present on admission. Presumed stable. -Systolic dysfunction with an EF of 20% on most recent echocardiogram (02/28/17) . Patient clinically does not appear to be in acute exacerbation. -Will hold carvedilol, lisinopril for hypotension and NPO status. Will continue digoxin Chronic COPD. Present on admission. Presumed stable. -Patient clinically does not appear to be in acute exacerbation. -Continue supplemental oxygen with goal SPO2 88-92% -DuoNeb nebs every 4H prn PRN: Acetaminophen-fever/headache/mild/moderate pain Antiemetics, as needed Bowel regimen, as needed. Disposition: Plan for discharge home and hospice care of her this will not be able to take place until Sunday, will continue to manage medically both some degree of caution until that time. Heroic measures would not be considered, patient remains DNR/DNI should medical condition deteriorate to that degree. Pain Evaluation: Adequate Pain Control GI Prophylaxis: Proton Pump Inhibitor VTE Prophylaxis: SCDs VTE Mechanical Devices: Venous Foot Pump Resuscitation Status: DNR/DNI:Do Not Resuscitate/Intubate Time spent 25 minutes Abdirahman Ram DO Apr 05, 2017 08:08
[2017-04-05] MEDS: MeTOProlol XL 50 mg ER24 Tablet PO SCH ×2 (08:30→20:30)
[2017-04-05] MEDS: levETIRAcetam Inj 1,000 MG in IV Premix 1 EACH IV SCH ×2 (08:45→20:05)
--- NOTE | 2017-04-05 11:58 | NUR ---
MERLIN signed by daughter.
--- NOTE | 2017-04-05 12:15 | NUR ---
Ativan and HR Per family and sitter pt was twitching and head bobbing, seizure activity manifested in this manner. Ativan administered x1, no additional seizure activity noted. Pt receiving additional scheduled anti seizure medication. HR sustained in 110s - 120s, via stethoscope and tele. Pt appears to be comfortable, family at beside. 1:1 sitter discontinued. Call light in reach, will continue to monitor.
[2017-04-05] MEDS: Digoxin 0.25 mg/mL 2 mL Inj IV SCH (12:40)
--- NOTE | 2017-04-05 17:44 | PCM.PALLBR ---
Palliative Care Recommendation Summary of palliative recommendations: Symptom management: 04/05/2017-ischemic cardiomyopathy with severe KATELYN and CO 2 retention. Seizures thought to be due to new onset CVA within the last few months Patient appears terminal and I suspect he will in the hospital. He is scheduled return to [facility] with hospice opening on Sunday We will assess tomorrow with case management and arrange for adequate oral and rectal medications if discharge.-diazepam, phenobarbital supp etc. Family given support Delirium, multifactorial, with probable component of CO2 narcosis- goal at this time is for comfort. Talked with his daughter about this and she indicated that his comfort as her primary goal. I have ordered MS 2-4 mg IV every hour prn for dyspnea or other distress Daughter met with hospice and arrangements made for him to have hospice backup at [facility]- hospice plans on opening his case on Sunday, April 09 . Seizures- hospitalist team will transition from IV to oral medications in the coming days. Will plan on discharging with prescription for diazepam gel, 10-20 mg DE Q 1 hr for rectal administration as backup coverage for breakthrough seizures at [facility]. Will review/update POLST prior to discharge- today I talked with his daughter and tried to give her some sort of timeline as to our expectations. -DPOA/Advanced Directives/POLST-DNR/DNI confirmed. Transitioning to comfort/ hospice care at time of return to [facility] -Family/emotional support-timing of above partially to accommodate his granddaughter Cookie who will be here starting 04/04. His daughter Natividad Crawford could use bereavement support and this will be provided through hospice. She lost her son in 2010 and she identifies losing her father will also be difficult. She does not identify much for extended support from other family, etc. Additional diagnoses with primary management by medical/hospitalist team include : -Seizures finally under control with current tx, will switch to oral regimen once pt is cleared, [id number] bid, phenytoin 300mg qhs upon d/c, likely to hold off on Risperidone for now. 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 Present on admission. Stable. Suspected HCAP, POA, unlikely. Congestive heart failure, chronic. Present on admission. Presumed stable. Chronic COPD. Present on admission. Presumed stable. Problems: End of Life Preferences DNR/DNI/ progressing to hospice/comfort care on return to [facility] Goals of Care See above Disposition As above Resuscitation Status Resuscitation Status: DNR/DNI:Do Not Resuscitate/Intubate POLST Updates/Changes Previous POLST?: Yes POLST Last Review Date: Apr 04, 2017 Artificially Admin Nutrition: No Artifical Nutrition by Tube POLST Discussed with: Health Care Agent ([facility]) . Advanced Care Planning Address: Comfort care Symptom management: Drowsiness/sleepiness, Dyspnea, Delirium Total time 20 minutes; >50% face to face with patient and/or family, providing counselling regarding plans and recommendations, and in care coordination with his/her medical teams. Majority of time spent in discussion with family review of chart and medication management preparing for possible discharge with hospice I also spent an additional [ ] minutes counseling for advanced care planning with the patient/the patients family/the surrogate decision maker. copies to: Natividad Chino MD Palliative Brief Note Date of Service Apr 05, 2017 . 86 yo with ischemic cardiomyopathy and severe KATELYN now off BIPAP with goal for comfort. Daughter Natividad Crawford and granddaughters at bedside. Patient appears comfortable, O2 mask in place Shallow rapid respirations and range of 40 Heart rate increasing 100-114 with only short decrease in heart rate with IV metoprolol Patient is generally unarousable but will wince or withdraw from noxious stimuli Geena Jones MD Apr 05, 2017 17:44
[2017-04-05] MEDS: Dextrose 5% 0.45% NaCl 1,000 ML IV SCH (20:45)
--- NOTE | 2017-04-06 01:28 | NUR ---
Pt having increased work of breathing, pt coughing but unable to clear secretions, desating to 80%. Oxygen increased to 4L, RT suctioned pt's secretions. paged for scopolomine patch. Oxygen sat increased to 90's after suctioning, pt continues to try and clear secretions. Offered IV morphine to help with pt's discomfort. Family agreed, medicated pt with 2 mg IV morphine. pathology lab technician called, stating pt's HR decreasing to 30-40's, pt breathing shallow upon assessment. Pt's time of 9595. Pt's family at bedside. paged, pt not candidate for donation per donor services. Pt's family to call with cremation center's number. Pt's belongings sent home with daughter Twila.
--- NOTE | 2017-04-06 07:17 | PCM.DC.MEX ---
Discharge Summary Date of Service Apr 06, 2017 Dates of Hospitalization Date of Hospital Admission Mar 31, 2017 at 22:38 Date of Expiration: Apr 05, 2017 Time of Expiration: 23:55 Providers: Admitting Physician: Beverly Sarabia MD Primary Care Physician: Meir Voss,[facility] Attending Physician: Abdirahman Ram DO Diagnosis at Time of Respiratory failure End-stage heart disease Status Epileptics Procedures XRay, CTs & MRIs (03/31/17) X-RAY CHEST ONE VIEW, PORTABLE IMPRESSION: Bibasilar changes consistent with pneumonias rather than failure. Dictated and approved by: Juan Peña M.D. on 03/31/2017 at 16:40 (03/31/17) CT BRAIN WITHOUT CONTRAST IMPRESSION: No acute intracranial abnormalities found. Atrophic changes are present. Dictated and approved by: Juan Peña M.D. on 03/31/2017 at 20:48 ECG 12 Lead ECG Interpretation: Atrial fibrillation. Rate 116 Left bundle branch block. 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 Unable to obtain further history due to patient's mental status and history obtained via chart review. Patient presented to the emergency department on 02/27/17 with family for altered mental status and possible seizures. At that time the patient's daughter reported seizure like activity including: twitching and stiffening of his face and body for 7-10 days as well as several ground level falls. During that admission a subacute right temporal lobe and left thalamic ischemic stroke was noted on head CT. Neurology was consulted and the patient was started on Keppra for acute focal complex seizures. He was discharged to [facility] from [facility] on 03/03/17 on levetiracetam 1,000 MG PO BID, [id number] QHS and diazepam 10 mg rectal gel PRN for seizure. Levetiracetam appears to have been changed to 500mg BID per discharge summary on 03/03/17 and [facility] NOV. Of note, daughter reported recent addition of risperidone to patient's medications for increased agitation and behaviors. After which she reports a change in the patient's mental status and possible seizures. 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 Admitted for further evaluation of altered mental status, change in consciousness, and seizure like activity. Patient comfort remains of paramount importance. Mentation impairment may be multifactorial but i believe poor breathing effort oand C02 retention likely playing largest role. Continue supportive care with some interventions considered which may give pt a chance of partial recovery so long as they do not cause significant distress. The this end, CPAP/BiPAP NOT considered due to previous response of patient, gentle hydration however will be utilized while pt NPO. Pt's mentation did not improve, and breath function not sufficient to adequately achieve gas exchange, C02 levels remained elevated likely contributing to patient's impaired mentation. Family at bedside much of the day agreed all had been done, pt was not in distress. Below details problem based assessment prior to patient's passing: acute, active Acute focal complex seizures with intermittent status epilepticus. Present on admission. Patient admitted on 02/27/17 after a similar presentation. New onset seizure activity attributed to subacute right temporal lobe and left thalamic ischemic stroke noted on head CT. Per Neurology consult during last admission patient discharged on 1,000mg PO BID, [id number] QHS, and diazepam 10mg rectal gel PRN. However, levitiracetam apparently changed to 500mg PO BID per discharge summary () and [facility] NOV. Daughter reportedly correlates patient's altered mental status and seizure like episodes to recent addition of Risperidone for increased agitation and behaviors. On admission, Dilantin level was far below therapeutic range. Patient was loaded with keppra iv and dilantin 1g iv, required multiple ativan ivp to break seizures, however, pt continued to have seizures, consistent status epilepticus, pt was on BiPAP throughout this course. Neurology was not consulted given patient's family desire for comfort care as seizures continued. 04/03, pt remarkably better, off on BiPAP. -Seizures finally under control with current tx, will switch to oral regimen once pt is cleared, [id number] bid, phenytoin 300mg qhs upon d/c, likely to hold off on Risperidone for now. -Ativan 0.5 mg IV q15-30 mins PRN seizures -continue Levetiracetam 1000mg IV BID, Fosphenytoin iv 100mg q8h for now -consider consult neuro prior to d/c optimizing AED dosages -Seizure precautions, keep bed low, keep bed padding in place -keep NPO for now, awaits s/s eval with improved mentation, will continue gentle hydration in the setting of severe congestive heart failure. Hypoxic repsiratory failure - supplemental O2 without consideration of more aggresive forms over oxygenation due to discomfort. - Previously intubated but this will not be reconsider either, persistent seizure may also be playing role in pt's poor repsiratory efforts Chronic atrial fibrillation, rate uncontrolled as PO home meds being off, Per chart review, anticoagulated on aspirin, 325mg and discharged on dual antiplatelet therapy with clopidogrel 75mg daily. Due to fall risk most likely not candidate for long-term anticoagulation. -pt developed RVR episode this AM, will try metoprolol ivp until oral meds resumed -Telemetry was d/alisa per family's wishes. -held diltiazem, Metoprolol, carvedilol, lisinopril, and doxazosin -Continue digoxin IV. chronic, stable, resolved History of Subacute right temporal lobe and left thalamic ischemic stroke. Present on admission. Stable. -CT head during recent admission 02/27-03/03/17 showed a subacute stroke of the right temporal lobe and left thalamus; CT angio head/neck was unremarkable for other findings. -Patient has a history of Afib and anticoagulation apparently discontinued due to patient's high fall risk. At that time atorvastatin was increased to 80mg daily and continued on daily aspirin therapy per Neurology recommendations. -CT head this admission as above -Continue home dose atorvastatin and aspirin -Frequent neurologic checks -Diet NPO -Hold home medications of doxazosin, metoprolol, and diltiazem due to NPO. -Speech eval/swallow study and physical therapy when patient more alert. Suspected HCAP, POA, unlikely. - Patient was in the hospital in February 2017. - CXR shows Bibasilar changes consistent with pneumonias rather than failure. - However, both WBC and Procalcitonin are negative and patient does not have other signs of infection. - He received Vanco, Cefepime, and Levaquin on admission. No antibiotics and monitor clinically. Congestive heart failure, chronic. Present on admission. Presumed stable. -Systolic dysfunction with an EF of 20% on most recent echocardiogram (02/28/17) . Patient clinically does not appear to be in acute exacerbation. -Will hold carvedilol, lisinopril for hypotension and NPO status. Will continue digoxin Chronic COPD. Present on admission. Presumed stable. -Patient clinically does not appear to be in acute exacerbation. -Continue supplemental oxygen with goal SPO2 88-92% -DuoNeb nebs every 4H prn Exam Test 03/31/17 16:10 03/31/17 17:20 03/31/17 20:20 04/01/17 05:40 Lactic Acid Level 1.4mmol/L (0.4-2.0) Troponin T < 0.010ug/L (0.0-0.011) Pro-B-Type Natriuretic Peptide 7768pg/mL (0-486) Hold [place] Top Tube Received (Received) Urine Color Dark yellow (YELLOW) Urine Appearance Hazy (CLEAR,HAZY) Urine pH 5.0 (5.0-8.0) Urine Specific [place] 1.030 (1.003-1.035) Urine Protein 30mg/dL (NEG,TRACE) Urine Glucose (UA) Negativemg/dL (NEGATIVE) Urine Ketones Negativemg/dL (NEGATIVE) Urine Occult Blood Negative (NEGATIVE) Urine Nitrite Negative (NEGATIVE) Urine Bilirubin Negative (NEGATIVE) Urine Urobilinogen 2.0mg/dL (NORMAL) Urine Leukocyte Esterase Negative (NEGATIVE) Urine RBC 0-2/hpf (0-2) Urine WBC 0-5/hpf (0-5) Urine Epithelial Cells None/hpf (NONE-MOD) Urine Crystals None seen (NONE SEEN) Urine Bacteria Few/hpf (NONE-FEW) Urine Hyaline Casts None/lpf (NONE) Urine Granular Casts None seen (NONE SEEN) Urine Waxy Casts None seen (NONE SEEN) Urine Red Blood Cell Casts None seen (NONE SEEN) Urine White Blood Cell Casts None seen (NONE SEEN) Urine Mucus Present (None Seen) Urine Trichomonas None seen (NONE SEEN) Urine Yeast None (NONE SEEN) Urinalysis Comment None Urine Culture Reflexed Not indicated Hold Urine Received (Received) Acetaminophen Level < 15.0ug/mL Rx (10-25) Digoxin Level 0.7nG/mL (0.9-2.0) Test 04/01/17 11:45 04/02/17 03:40 04/03/17 05:15 04/04/17 08:50 Urine Legionella pneumophilia Ag n (Negative) Magnesium Level 1.7mg/dL (1.6-2.6) Total Bilirubin 0.9mg/dL (0.0-1.2) Aspartate Amino Transf (AST/SGOT) 26U/L (0-50) Alanine Aminotransferase (ALT/SGPT) 32U/L (0-44) Alkaline Phosphatase 102U/L (25-160) Total Protein 5.0g/dL (6.4-8.4) Albumin 2.7g/dL (3.4-5.0) Levetiracetam (Keppra) Level 29.6ug/mL (10.0-40.0) Procalcitonin 0.05ng/mL (0.00-0.08) Phenytoin (Dilantin) Level 10.4uG/mL (10.0-20.0) White Blood Count 11.2th/mm3 (3.8-10.1) Red Blood Count 4.28mil/mm3 (4.40-5.80) Hemoglobin 12.8g/dL (13.8-17.2) Hematocrit 40.1% (41.0-50.0) Mean Corpuscular Volume 93.7fL (81-100) Mean Corpuscular Hemoglobin 29.9pg (27.0-35.0) Mean Corpuscular Hemoglobin Concent 31.9% (32.0-37.0) Red Cell Distribution Width 16.6% (12.3-15.4) Platelet Count 182bil/L (150-400) Neutrophils (%) (Auto) 82.4% (40-74) Lymphocytes (%) (Auto) 8.3% (14-46) Monocytes (%) (Auto) 8.1% (4-12) Eosinophils (%) (Auto) 0.5% (0-5) Basophils (%) (Auto) 0.3% (0-3) Test 04/05/17 08:34 Sodium Level 144mEq/L (134-144) Potassium Level 5.5mEq/L (3.5-5.2) Chloride Level 105mEq/L (97-108) Carbon Dioxide Level 31mmol/L (18-29) Blood Urea Nitrogen 46mg/dL (8-27) Creatinine 1.51mg/dL (0.76-1.27) Estimat Glomerular Filtration Rate 47mL/min (>59) Glucose Level 193mg/dL (60-99) Calcium Level 9.8mg/dL (8.5-10.1) Time spent 15 minutes Abdirahman Ram DO Apr 06, 2017 07:17
--- NOTE | 2017-04-06 10:43 | NUR ---
Palliative care note Note that pt . This worker has contact Alisson BROWN to inform. No further need for PC services. Chantel OLGUIN, CCM
== END 2017-04-05 23:55 | disposition expired | DRG 100 ==
LOC: EDBD 15:49 → SED 15:49 → MPC 22:38 → CCU 04-01 01:47 → PCC 04-01 21:07 → MPC 04-03 15:27
PROVIDERS: ADMIT Specialist; ATTEND Family Medicine
PROC: 4A033R1 Measurement of Arterial Saturation, Peripheral, Percutaneous Approach (ICD-10-PCS; principal; 2017-04-01)
DX: G40.101 Localization-related (focal) (partial) symptomatic epilepsy and epileptic syndromes with simple partial seizures, not intractable, with status epilepticus (principal); J96.01 Acute respiratory failure with hypoxia; J96.02 Acute respiratory failure with hypercapnia; I50.22 Chronic systolic (congestive) heart failure; Z79.82 Long term (current) use of aspirin; Z86.73 Personal history of transient ischemic attack (TIA), and cerebral infarction without residual deficits; Z85.46 Personal history of malignant neoplasm of prostate; Z87.891 Personal history of nicotine dependence; I48.2 Chronic atrial fibrillation; J44.9 Chronic obstructive pulmonary disease, unspecified; Z66 Do not resuscitate; Z51.5 Encounter for palliative care